=== PATIENT | female | born 1960 | race American Indian/Alaskan Native ===

== ENCOUNTER 2016-07-12 15:34 | Emergency (ER) | payer SELFPAY ==
[~2016-07-12 15:34] MED LIST: ATIVAN ONE
[2016-07-12] MEDS ORDERED: ATIVAN IV ONE (15:35)
[2016-07-12 15:58] LABS: Hematocrit 44.2 % (30.3-42.9); Mean Corpuscular HGB Conc 32 % (30-34); Mean Corpuscular Hemoglobin 28 pg (28-32); Mean Corpuscular Volume 87 fl (79-97); Platelet Count 345 K/mm3 (140-440); Red Blood Count 5.08 M/mm3 (3.65-5.03); Red Cell Distribution Width 13.8 % (13.2-15.2); White Blood Count 16.6 K/mm3 (4.5-11.0)
--- NOTE | 2016-07-12 16:07 | Cat Scan Report ---
CT scan of head without contrast: History: Neuro deficit. Findings: Ventricles are normal in size and midline in location. Periventricular area of low attenuation is noted. No evidence of acute ischemia, hemorrhage or mass. No extra-axial fluid collection. Normal brainstem and cerebellum. Impression: Small vessel ischemic changes. No acute intracranial abnormality. Dr. Zavala was informed of the findings at 4:05 PM on 07/12/16. Bandar Hernandez
[2016-07-12 16:08] LABS: INR 1.01 (0.87-1.13)
[2016-07-12 16:09] LABS: Partial Thromboplastin Time 28.8 Sec. (24.2-36.6)
[2016-07-12 16:11] LABS: Anion Gap 19 mmol/L; Blood Urea Nitrogen 13 mg/dL (7-17); Calcium 9.1 mg/dL (8.4-10.2); Carbon Dioxide 26 mmol/L (22-30); Chloride 99.9 mmol/L (98-107); Glucose 134 mg/dL (65-100); Potassium 4.1 mmol/L (3.6-5.0); Sodium 141 mmol/L (137-145)
--- NOTE | 2016-07-12 16:13 | Emergency Department Report ---
HPI - General Time Seen by Provider: 07/12/16 16:05 - HPI HPI: This is a 56-year-old Afro-D[place] female presents to the emergency department by EMS from home with the complaint of altered mental status and/or possible stroke. The patient was last seen normal at about 6 AM with her left the house. The patient's brother spoke to her on the phone around noon but said that she sounded altered. They tried calling her again about one hour later and the phone was off the hook. The patient's sister saw her around 2:30 PM slumped over in a chair drooling and unresponsive, although her eyes were open. The patient has a history of one CVA in 2003 but he did not leave her with many deficits. She also has a history of multiple sclerosis. She does not have a primary care doctor. She is a former smoker. She was not given any treatment prior to presentation or via EMS in route. ED Past Medical Hx - Past Medical History Hx CVA: Yes Hx Congestive Heart Failure: No Hx Diabetes: No Hx Asthma: Yes Hx COPD: No Additional medical history: IRREGULAR HEART BEAT - Social History Smoking Status: Current Every Day Smoker - Medications Home Medications: Home Medications Medication Instructions Recorded Confirmed Last Taken Type Acetaminophen [Tylenol] 500 mg PO Q8HR PRN 11/01/15 11/01/15 Unknown History Diltiazem HCl [Cardizem Cd] 120 mg PO DAILY #30 cap.er.24h 11/07/15 Unknown Rx ED Review of Systems ROS: Stated complaint: POSS STROKE Other details as noted in HPI Comment: Unobtainable due to pts medical conditions Physical Exam - Physical Exam Physical Exam: GENERAL: The patient is well-developed well-nourished. HEENT: Normocephalic. Atraumatic. Patient will not open her eyes on her own. When they are manually opened there is some slow nystagmus horizontally. Patient has moist mucous membranes. Pupils equal reactive to light bilaterally. NECK: Supple. Trachea is midline. CHEST/LUNGS: Clear to auscultation. There is no respiratory distress noted. HEART/CARDIOVASCULAR: Regular. There is no tachycardia. There is no gallop rub or murmur. ABDOMEN: Abdomen is soft, nontender. Patient has normal bowel sounds. There is no abdominal distention. SKIN: Warm and dry. NEURO: Patient is mostly unresponsive. Nonverbal. She is not following any commands. Patient will reach towards painful stimuli. Patient mostly uses her right upper extremity to do so but if the painful stimuli is to the left hand she will withdraw. MUSCULOSKELETAL: There is no tenderness or deformity. Radial pulse +2 over 4 bilaterally. Cap refill less than 2 seconds. There is no evidence of acute injury. ED Course - Consultations Consultation #1: The patient was seen by Dr. Khan, telemedicine neurology, after speaking with me regarding the patient's presentation and history. Dr. Khan feels that the patient may have some type of atypical CVA versus an exacerbation of her MS versus other underlying etiology. At first he recommends a CT angiography of the head and neck but the patient is allergic to iodine/contrast. Then he recommends an MRA or MRI, but unfortunately our MRI machine is currently down. He feels that the patient is most likely not having a posterior basilar artery occlusion but the patient may benefit from transfer to [facility] since there is no neurology here. 07/12/16 17:07 Consultation #2: I have been in consultation with the neurosurgery/stroke service at [facility], Dr. Palacios, over the past hour or so. Patient has just been accepted to the stepdown unit under his service. 07/12/16 18:22 ED Medical Decision Making - Lab Data Result diagrams: 07/12/16 15:42 07/12/16 15:42 - EKG Data -: EKG Interpreted by Me EKG shows normal: sinus rhythm, axis, intervals, QRS complexes (LVH), ST-T waves Rate: normal - EKG Data When compared to previous EKG there are: previous EKG unavailable Interpretation: LVH - Radiology Data Radiology results: report reviewed, image reviewed interpreted by me: Chest x-ray did not show any acute process. Heart is normal shape and size. No effusions. No pneumothorax. No signs of pneumonia seen. Small vessel ischemic changes. Otherwise no acute cranial process seen. - Medical Decision Making 56 year old female presents to the emergency department after being found altered, slumped over and drooling. This is an acute change from patient's baseline status. Patient last seen normal about 6 AM and seen by myself around 4 PM. This takes her out of the window for TPA if this is indeed a stroke. Stat CT of the head was done that did not show any acute intracranial process. Patient's labs show a leukocytosis of 16,000 but the patient does not have any fever and no focus of infection was seen. Urinalysis was clean for UTI. Chest x-ray does not show any pneumonia. The rest the patient's labs are mostly unremarkable. Patient showed some improvement during her ED course in terms of displaying that she wants to respond but she still does not appear able to do so. The telemedicine neurologist was consult at the beginning and recommends transfer if possible as we do not have the capabilities of further evaluation. Patient is allergic to IV contrast so no CT angiography can be done. Our MRI machine is down. We do not have neurology. For these reasons I spoke with [facility] who has accepted the patient for transfer and patient is currently awaiting helicopter transportation. Patient could have an exacerbation of her MS, a focal seizure, atypical stroke such as a posterior basilar artery occlusion, among other etiologies. However we do not have the capabilities to do further evaluation. Vital signs stable throughout ED course. - Differential Diagnosis CVA, MS, hemorrhagic stroke, dementia, substance abuse Critical Care Time: Yes Critical care time in (mins) excluding proc time.: 35 Critical care attestation.: If time is entered above; I have spent that time in minutes in the direct care of this critically ill patient, excluding procedure time. Critical care time was spent on this patient and doing her initial evaluation, multiple re- evaluations, consultation with the telemedicine neurologist, consultation with the [facility] neurosurgeon/stroke attending, discussions with family, ordering and evaluation of labs and imaging, EKG interpretation, and disposition planning. All this is exclusive of any procedures, of which there were none. Critical Care Time: 35 mins ED Disposition Clinical Impression: Multiple sclerosis CVA (cerebral vascular accident) Qualifiers: CVA mechanism: unspecified Qualified Code(s): I63.9 - Cerebral infarction, unspecified Altered mental status Qualifiers: Altered mental status type: unspecified Qualified Code(s): R41.82 - Altered mental status, unspecified Disposition: DC/TX ANOTHER TYPE HEALTHCARE Is pt being admited?: No Condition: Serious Referrals: PRIMARY CARE, [Primary Care Provider] - 3-5 Days Time of Disposition: 19:32
[2016-07-12] MEDS ORDERED: NARCAN 2 MG/2 ML IV ONE (16:56)
[2016-07-12] MEDS ORDERED: KEPPRA 1,000 MG/NS 0.75% 100ML 1,000 MG/100 ML BAG IV ONE (16:57)
[2016-07-12 17:16] LABS: Basophils % (Manual) 0 % (0.0-1.8); Blastocytes % (Manual) 0 %; Diff Status Complete; Eosinophils % (Manual) 0 % (0.0-4.3); Platelet Estimate Consistent w Auto; RBC Morphology Normal
[2016-07-12 17:43] LABS: Urine Drugs of Abuse Note Disclamer
[2016-07-12 17:55] LABS: Bilirubin,Urine NEG (Negative); Blood,Urine NEG (Negative); Ketones,Urine 20 mg/dL (Negative); Leukocyte Esterase,Urine NEG (Negative); Mucus,Urine 2+ /HPF; Nitrite,Urine POS (Negative); Protein,Urine <15 mg/dL mg/dL (Negative); Urobilinogen,Urine < 2.0 mg/dL (<2.0); WBC,Urine < 1.0 /HPF (0.0-6.0)
[2016-07-12 19:58] VITALS: BP 156/76
--- NOTE | 2016-07-13 10:52 | XRay Report ---
AP CHEST :07/12/16 15:34:00 CLINICAL: Altered mental status. COMPARISON:04/02/13 FINDINGS: Normal heart and pulmonary vasculature. The lungs are normally expanded and clear. The bones and soft tissues are normal. IMPRESSION: Normal chest.
== END 2016-07-12 19:50 | disposition other institution (70) ==
LOC: ED 15:34
DX: G35 Multiple sclerosis (principal); I63.9 Cerebral infarction, unspecified; R41.82 Altered mental status, unspecified; Z86.73 Personal history of transient ischemic attack (TIA), and cerebral infarction without residual deficits; J45.909 Unspecified asthma, uncomplicated; F17.200 Nicotine dependence, unspecified, uncomplicated; Z88.8 Allergy status to other drugs, medicaments and biological substances
CPT/HCPCS: 36415; 51702; 70450; 71010; 80048; 80307; 81001; 82962; 84443; 84484; 85007; 85025; 85610; 85670; 85730; 93005; 93010; 96365; 96375; 99291; G0480; J1953; J2060; J2310; 80320

== ENCOUNTER 2017-01-13 21:04 | Inpatient (IN) | payer SELFPAY ==
[2017-01-13 23:17] LABS: Basophils % (Auto) 0.7 % (0.0-1.8); Eosinophils % (Auto) 3.3 % (0.0-4.3); Hematocrit 40.9 % (30.3-42.9); Hemoglobin 12.6 gm/dl (10.1-14.3); Mean Corpuscular HGB Conc 31 % (30-34); Mean Corpuscular Hemoglobin 26 pg (28-32); Mean Corpuscular Volume 86 fl (79-97); Platelet Count 371 K/mm3 (140-440); Red Blood Count 4.78 M/mm3 (3.65-5.03); Red Cell Distribution Width 15.3 % (13.2-15.2); White Blood Count 8.3 K/mm3 (4.5-11.0)
[2017-01-13 23:21] LABS: Anion Gap 18 mmol/L; BUN/Creatinine Ratio 28.33; Blood Urea Nitrogen 17 mg/dL (7-17); Calcium 9.3 mg/dL (8.4-10.2); Carbon Dioxide 25 mmol/L (22-30); Chloride 100.9 mmol/L (98-107); Glucose 96 mg/dL (65-100); Potassium 4.2 mmol/L (3.6-5.0); Sodium 140 mmol/L (137-145)
--- NOTE | 2017-01-14 10:54 | XRay Report ---
Single view chest: Compared to 07/12/16. History: Chest pain. Findings: Normal cardiomediastinal silhouette the trachea is midline. No consolidation, pneumothorax or pleural effusion. Impression: No acute cardiopulmonary findings.
--- NOTE | 2017-01-14 11:05 | Emergency Department Report ---
HPI - General Chief Complaint: Chest Pain Time Seen by Provider: 01/14/17 10:01 - HPI HPI: 56 yo AA female presents to the emergency department from home, via PD, with multiple complaints. The patient has a history of asthma, CVA with some right- sided weakness, SVT. Patient has multiple complaints including itchy dry hands , right-sided chest discomfort, hand and feet paresthesias, nausea without vomiting. However when the patient was asked exactly what brought her into the emergency Department today, the patient says that she had a falling out with her son and that she called the police because she needed to get out of the house and asked them to take her somewhere safe. The patient says, after asked , that if there was no argument with her son that she would not have called the police or EMS because "I would not have had to." ED Past Medical Hx - Past Medical History Previous Medical History?: Yes Hx CVA: Yes (Right sided weakness) Hx Congestive Heart Failure: No Hx Diabetes: No Hx Asthma: Yes Hx COPD: No Additional medical history: IRREGULAR HEART BEAT - Surgical History Additional Surgical History: x4 - Social History Smoking Status: Never Smoker Substance Use Type: None - Medications Home Medications: Home Medications Medication Instructions Recorded Confirmed Last Taken Type Folic Acid/Multivit-Minerals [One 0.4 mg PO DAILY 01/14/17 01/14/17 01/13/17 History Daily Womens 50 Plus Tab] [place]-3S/Dha/Epa/Fish Oil/D3 [Fish 1 each PO DAILY 01/14/17 01/14/17 01/13/17 History Oil + D3 Softgel] ED Review of Systems ROS: Stated complaint: CHEST PAIN Other details as noted in HPI Comment: All other systems reviewed and negative Constitutional: denies: chills, fever Eyes: denies: eye pain, eye discharge, vision change ENT: denies: ear pain, throat pain Respiratory: denies: cough, shortness of breath, wheezing Cardiovascular: chest pain. denies: palpitations Gastrointestinal: nausea. denies: abdominal pain Genitourinary: denies: urgency, dysuria, discharge Musculoskeletal: denies: back pain, joint swelling, arthralgia Skin: denies: rash, lesions Neurological: paresthesias. denies: confusion Physical Exam - Physical Exam Vital Signs: Vital Signs 01/13/17 01/14/17 01/14/17 22:03 08:06 09:08 Temperature 98.3 F Pulse Rate 62 66 65 Respiratory 20 20 12 Rate Blood Pressure 125/74 134/81 O2 Sat by Pulse 100 100 100 Oximetry 01/14/17 01/14/17 09:09 09:13 Temperature Pulse Rate 69 Respiratory 12 16 Rate Blood Pressure 135/63 O2 Sat by Pulse 99 99 Oximetry Physical Exam: GENERAL: The patient is well-developed well-nourished. HENT: Normocephalic. Atraumatic. Patient has moist mucous membranes. EYES: Extraocular motions are intact. Pupils equal reactive to light bilaterally. NECK: Supple. Trachea is midline. CHEST/LUNGS: Clear to auscultation. There is no respiratory distress noted. HEART/CARDIOVASCULAR: Regular. There is no tachycardia. There is no gallop rub or murmur. ABDOMEN: Abdomen is soft, nontender. Patient has normal bowel sounds. There is no abdominal distention. SKIN: Skin is warm and dry. NEURO: The patient is awake, alert. The patient is cooperative. Withdraws from painful stimuli. Patient is resting comfortably until she is approached and then starts doing some type of shaking and/or tremors that appears to be voluntary. The patient has normal speech. MUSCULOSKELETAL: There is no tenderness or deformity. There is no evidence of acute injury. ED Course Vital Signs 01/13/17 01/14/17 01/14/17 22:03 08:06 09:08 Temperature 98.3 F Pulse Rate 62 66 65 Respiratory 20 20 12 Rate Blood Pressure 125/74 134/81 O2 Sat by Pulse 100 100 100 Oximetry 01/14/17 01/14/17 09:09 09:13 Temperature Pulse Rate 69 Respiratory 12 16 Rate Blood Pressure 135/63 O2 Sat by Pulse 99 99 Oximetry - Reevaluation(s) Reevaluation #1: The patient is resting comfortably. There are no complaints of chest pain. There is no shaking or tremors. I was very open and honest with the patient and it appears as if she is being honest with me as well. Once she realized that social work is working on a safe place for her to go for disposition, she says that she does not have any physical complaints at this time. She denies any CP, SOB, tremors, or any distress. This will be signed out to Dr Brown to follow. 01/14/17 15:34 ED Medical Decision Making - Lab Data Result diagrams: 01/13/17 22:13 01/13/17 22:13 - EKG Data -: EKG Interpreted by Me EKG shows normal: sinus rhythm, axis, intervals, QRS complexes, ST-T waves Rate: normal - EKG Data When compared to previous EKG there are: previous EKG unavailable Interpretation: normal EKG - Radiology Data Radiology results: image reviewed interpreted by me: Chest x-ray does not show any acute process. There are no pleural effusions, obvious pneumonia and there is no pneumothorax. - Medical Decision Making 56-year-old female presented originally for multiple complaints. When we got down to it, it appears more that the patient does not have anywhere to go she had an altercation or confrontation with family and did not feel safe at home. As I started my shift, I got social work involved for discharge planning assistance. Over the course of the day and/or ED course, it appears that the patient's family is now willing to pick her up and/or take her back. They would not immediately agree to financial assistance towards a personal alf. No productive services was contacted for possible abandonment. Since no safe discharge was able to be found, the patient was admitted to the hospital for further evaluation and further case management assistance. Critical Care Time: No Critical care attestation.: If time is entered above; I have spent that time in minutes in the direct care of this critically ill patient, excluding procedure time. ED Disposition Clinical Impression: Discharge planning issues, Family conflict, History of CVA (cerebrovascular accident) Disposition: 09 OP ADMIT IP TO THIS HOSP Is pt being admited?: Yes Condition: Stable Time of Disposition: 15:31
[2017-01-14 13:48] LABS: Bacteria,Urine 2+ /HPF (Negative); Bilirubin,Urine NEG (Negative); Blood,Urine NEG (Negative); Ketones,Urine NEG (Negative); Leukocyte Esterase,Urine SM (Negative); Mucus,Urine 2+ /HPF; Nitrite,Urine POS (Negative); Urobilinogen,Urine < 2.0 mg/dL (<2.0)
--- NOTE | 2017-01-14 18:36 | History and Physical Report ---
History of Present Illness Chief complaint: It hurts when i go to the bathroom History of present illness: 56 YO Female with CVA RHP, Asthma, SVT presents to ED for evaluation. Pt brought in to hospital from home by Police Department. Pt unable to provide coherent and accurate history. Pt history taken from Police Officers, ED Staff, and medical record. Pt complains of difficulty with urination but is unable to quantify how long she has had symptoms. Pt agrees with all symptoms when asked open ended question about presenting symptoms. Pt unable to clarify symptoms. Pt seen and evaluated in ED and underwent urinalysis which was consistent with UTI. Past History Past Medical History: stroke, other (SVT) Past Surgical History: Social history: single, lives with family. denies: smoking, alcohol abuse, prescription drug abuse Family history: CAD, hypertension Medications and Allergies Allergies Allergy/AdvReac Type Severity Reaction Status Date / Time codeine Allergy Hives Verified 11/06/15 19:04 Iodinated Contrast Media - Allergy Hives Verified 04/02/13 07:16 IV Dye Home Medications Medication Instructions Recorded Confirmed Last Taken Type Folic Acid/Multivit-Minerals [One 0.4 mg PO DAILY 01/14/17 01/14/17 01/13/17 History Daily Womens 50 Plus Tab] [place]-3S/Dha/Epa/Fish Oil/D3 [Fish 1 each PO DAILY 01/14/17 01/14/17 01/13/17 History Oil + D3 Softgel] Review of Systems ROS unobtainable: due to mental status Constitutional: no weight loss, no weight gain, no fever, no chills Ears, nose, mouth and throat: no ear pain, no ear discharge, no tinnitis, no decreased hearing, no nose pain, no nasal congestion, no nasal discharge Breasts: no change in shape, no swelling, no mass Cardiovascular: no chest pain, no orthopnea, no palpitations, no rapid/ irregular heart beat Respiratory: no cough, no cough with sputum, no excessive sputum, no hemoptysis Gastrointestinal: no abdominal pain, no nausea, no vomiting, no diarrhea, no constipation Genitourinary Female: dysuria, urgency, no stress incontinence, no post void dribbling, no incomplete emptying, no urge incontinence Rectal: no pain, no incontinence, no bleeding Musculoskeletal: no neck stiffness, no neck pain, no shooting arm pain, no arm numbness/tingling Integumentary: no rash, no pruritis, no redness, no sores, no wounds Neurological: no head injury, no transient paralysis, no paralysis, no weakness , no parathesias Psychiatric: no anxiety, no memory loss, no sleep disturbances Endocrine: no cold intolerance, no heat intolerance, no polyphagia, no excessive thirst Hematologic/Lymphatic: no easy bruising, no easy bleeding Allergic/Immunologic: no urticaria, no allergic rhinitis, no wheezing Exam - Constitutional Vitals: Temp Pulse Resp BP Pulse Ox 98.3 F 73 16 135/54 99 01/13/17 22:03 01/14/17 13:01 01/14/17 13:01 01/14/17 13:01 01/14/17 13:01 General appearance: Present: mild distress - EENT Eyes: Present: PERRL ENT: hearing intact, clear oral mucosa - Neck Neck: Present: supple, normal ROM - Respiratory Respiratory effort: normal Respiratory: bilateral: CTA - Cardiovascular Heart Sounds: Present: S1 & S2. Absent: rub, click - Extremities Extremities: pulses symmetrical, No edema Peripheral Pulses: within normal limits - Abdominal General gastrointestinal: Present: soft, non-tender, non-distended, normal bowel sounds Localized gastrointestinal: tender: suprapubic Female genitourinary: Present: normal - Integumentary Integumentary: Present: clear, warm, dry - Musculoskeletal Musculoskeletal: gait normal, strength equal bilaterally - Psychiatric Psychiatric: appropriate mood/affect, intact judgment & insight - Neurologic Neurologic: CNII-XII intact, moves all extremities Results - Labs CBC & Chem 7: 01/13/17 22:13 01/13/17 22:13 Labs: Abnormal lab results 01/13/17 01/13/17 01/14/17 Range/Units 22:13 22:13 13:31 MCH 26 L (28-32) pg RDW 15.3 H (13.2-15.2) % Creatinine 0.6 L (0.7-1.2) mg/dL Urine WBC (Auto) 10.0 H (0.0-6.0) /HPF Assessment and Plan - Patient Problems (1) UTI (urinary tract infection) Current Visit: Yes Status: Acute Qualifiers: Urinary tract infection type: U Hematuria presence: H Indwelling urinary catheter type: I Encounter type: E Plan to address problem: IV abx, IVF, supportive care, (2) History of CVA (cerebrovascular accident) Current Visit: Yes Status: Chronic Plan to address problem: Continue medical management, (3) Cardiac arrhythmia Current Visit: No Status: Acute Qualifiers: Arrhythmia type: A Atrial fibrillation type: A Atrial flutter type: A Premature depolarization type: P Plan to address problem: SVT: Continue current therapy, Pt asymptomatic at this time. (4) Family conflict Current Visit: Yes Status: Acute Plan to address problem: Case management consult (5) DVT prophylaxis Current Visit: No Status: Acute
[2017-01-14] MEDS ORDERED: DULCOLAX PR PRN (18:37)
[2017-01-14] MEDS ORDERED: TYLENOL PO PRN (18:37)
[2017-01-14] MEDS ORDERED: ZOFRAN IV PRN (18:37)
[2017-01-14] MEDS ORDERED: PROVENTIL IH PRN (18:37)
[2017-01-14] MEDS ORDERED: MILK OF MAGNESIA PO PRN (18:37)
[2017-01-14] MEDS ORDERED: TORADOL IV ONE (18:50)
[2017-01-14] MEDS ORDERED: TORADOL ONE (18:54)
[2017-01-14] MEDS ORDERED: ROCEPHIN/NS 2 GM/100 ML 2 GM/100 ML BAG IV SCH (20:00)
--- NOTE | 2017-01-15 14:04 | Discharge Summary ---
Providers - Providers Date of Admission: 01/14/17 18:37 Date of discharge: 01/15/17 Attending physician: HELADIO RICHEY Primary care physician: [employer] Hospitalization Condition: Stable Disposition: DC-01 TO HOME OR SELFCARE Time spent for discharge: 34 min Exam - Constitutional Vitals: Temp Pulse Resp BP Pulse Ox 98.1 F 60 20 133/86 94 01/15/17 08:01 01/15/17 08:01 01/15/17 08:01 01/15/17 08:01 01/15/17 09:15 Plan Activity: advance as tolerated, fall precautions Diet: low cholesterol, low salt Follow up with: [facility] [Outside] - 3-5 Days PRIMARY CAREMD [Primary Care Provider] - 3-5 Days LUI GOODE MD [Staff Physician] - 3-5 Days Prescriptions: Folic Acid/Multivit-Minerals [One Daily Womens 50 Plus Tab] 0.4 mg PO DAILY #30 tablet Nitrofurantoin Macrocrysta(Nf) [Macrodantin CAP] 100 mg PO QID #12 capsule [place]-3S/Dha/Epa/Fish Oil/D3 [Fish Oil + D3 Softgel] 1 each PO DAILY #30 capsule
[2017-01-15 16:39] VITALS: BP 122/72
== END 2017-01-15 16:00 | disposition home or self-care (01) | DRG 690 ==
LOC: ED 21:04 → 3A 01-14 18:37
PROVIDERS: ADMIT Internal Medicine; ATTEND Internal Medicine
DX: N39.0 Urinary tract infection, site not specified (principal); I47.1 Supraventricular tachycardia; Z86.73 Personal history of transient ischemic attack (TIA), and cerebral infarction without residual deficits; J45.909 Unspecified asthma, uncomplicated; Z82.49 Family history of ischemic heart disease and other diseases of the circulatory system; Z88.5 Allergy status to narcotic agent; Z63.9 Problem related to primary support group, unspecified; I49.9 Cardiac arrhythmia, unspecified
CPT/HCPCS: 36415; 71010; 80048; 81001; 84484; 85025; 93005; 93010; 96365; 96375; J0696; J1885

== ENCOUNTER 2018-07-28 16:38 | Inpatient (IN) | payer MEDICAID ==
[2018-07-28] MEDS ORDERED: VANCOMYCIN 1,000 MG in NACL 0.9% 500 ML 500 ML IV ONE (16:41)
[2018-07-28] MEDS ORDERED: NACL 0.9% 1000 ML IV ONE (16:41)
[2018-07-28] MEDS ORDERED: KEPPRA 1,000 MG/NS 0.75% 100ML 1,000 MG/100 ML BAG IV ONE ×2 (16:43→22:54)
[2018-07-28] MEDS ORDERED: DECADRON IV ONE (16:43)
--- NOTE | 2018-07-28 16:45 | Emergency Department Report ---
ED General Adult HPI - General Chief complaint: Altered Mental Status Stated complaint: SEIZURE Time Seen by Provider: 07/28/18 16:40 Source: EMS (verbal report received from EMS.ems notes not available at time of chart dictation), RN notes reviewed, old records reviewed Mode of arrival: Stretcher Limitations: Altered Mental Status, Physical Limitation - History of Present Illness Initial comments: This is a 58-year-old female. The patient [facility] this facility [facility] a local prison. Patient has a past medical history of multiple sclerosis, seizure, hypertension, lower extremity DVT, history of meningioma resection, currently on systemic anticoagulation, eliquis The patient is brought to the emergency room by emergency medical services for probable seizure and altered mental status. EMS verbally reports that patient was seizing for at least one half hour prior to their arrival. They indicates that the patient was given 2 mg of Ativan at the prison, prior to their arrival. In the field, ambulance, patient given 5 mg of Versed by EMS, which aborted her convulsive activity. Patient remains nonverbal, breathing sonorously, persistently altered, in the field, and in the ambulance. The patient arrives to the emergency room, altered, somnolent, is not able to answer open-ended questions were closed and the questions. EMS verbally reports fever of 102 prior to arrival. Not prison documentation is sparse at this time. No additional history is available at this time. Upon arrival to the emergency room, patient breathing sonorously, and desaturates to 93%. She does not have a gag reflex. No clonic movements of the eyes noted. Given persistently altered mental status, lack of gag reflex, hypoxia, the patient is intubated using rapid sequence induction techniques, with no obvious difficulty. Post intubation x-ray suggested a right upper lobe pneumonia, and left hemithorax pneumonia, pneumonitis. Appropriate placement of endotracheal tube was noted. The patient will be placed on appropriate precautions for meningitis, and she'll be treated empirically for meningitis with vancomycin, ceftriaxone, Decadron and acyclovir. Doxycycline will be added on for atypical pneumonia coverage. The patient will be given IV Keppra, head of bed elevated to 30, and seizure precautions have been ordered. Patient has been in the emergency room so far for about 2-1/2 hours, without additional seizures or convulsive activity. We cannot perform a spinal tap in the emergency room as she is taking eliquis, and we do not know when her last time of eliquis ingestion was. -: This afternoon Radiation: other Quality: other Consistency: other Improves with: other Worsens with: other - Related Data Home Medications Medication Instructions Recorded Confirmed Last Taken Citalopram [Celexa] 20 mg PO QDAY 10/02/17 10/02/17 Unknown Diclofenac Sodium [Pennsaid] 2 gm TP 4XD PRN 10/02/17 10/02/17 Unknown Diltiazem HCl [Diltiazem 24Hr ER] 180 mg PO DAILY 10/02/17 10/02/17 Unknown LORazepam [Ativan] 1 mg PO BID 10/02/17 10/02/17 Unknown Lactulose [Cephulac] 45 ml PO TID 10/02/17 10/02/17 Unknown OXcarbazepine [Trileptal] 900 mg PO Q12HR 10/02/17 10/02/17 Unknown Topiramate [Topamax] 25 mg PO BID 10/02/17 10/02/17 Unknown Previous Rx's Medication Instructions Recorded Last Taken Type Multivit-Minerals/Folic Acid [One 0.4 mg PO DAILY #30 tablet 01/15/17 Unknown Rx Daily Womens 50 Plus Tab] Apixaban [Eliquis] 5 mg PO BID #74 tablet 10/04/17 Unknown Rx Allergies Allergy/AdvReac Type Severity Reaction Status Date / Time codeine Allergy Hives Verified 11/06/15 19:04 fish derived Allergy Unknown Verified 10/02/17 05:23 Iodinated Contrast- Oral and Allergy Hives Verified 04/02/13 07:16 IV Dye ED Review of Systems ROS: Stated complaint: SEIZURE Other details as noted in HPI Comment: Unobtainable due to pts medical conditions ED Past Medical Hx - Past Medical History Hx Hypertension: Yes (Essential) Hx CVA: Yes (Right sided weakness) Hx Congestive Heart Failure: No Hx Diabetes: No Hx Seizures: Yes Hx Asthma: Yes Hx COPD: No Additional medical history: IRREGULAR HEART BEAT - Surgical History Additional Surgical History: x4 - Social History Smoking Status: Never Smoker - Medications Home Medications: Home Medications Medication Instructions Recorded Confirmed Last Taken Type Multivit-Minerals/Folic Acid [One 0.4 mg PO DAILY #30 tablet 01/15/17 10/02/17 Unknown Rx Daily Womens 50 Plus Tab] Citalopram [Celexa] 20 mg PO QDAY 10/02/17 10/02/17 Unknown History Diclofenac Sodium [Pennsaid] 2 gm TP 4XD PRN 10/02/17 10/02/17 Unknown History Diltiazem HCl [Diltiazem 24Hr ER] 180 mg PO DAILY 10/02/17 10/02/17 Unknown History LORazepam [Ativan] 1 mg PO BID 10/02/17 10/02/17 Unknown History Lactulose [Cephulac] 45 ml PO TID 10/02/17 10/02/17 Unknown History OXcarbazepine [Trileptal] 900 mg PO Q12HR 10/02/17 10/02/17 Unknown History Topiramate [Topamax] 25 mg PO BID 10/02/17 10/02/17 Unknown History Apixaban [Eliquis] 5 mg PO BID #74 tablet 10/04/17 Unknown Rx ED Physical Exam - General Limitations: Altered Mental Status General appearance: obtunded - Head Head exam: Present: atraumatic - Eye Eye exam: Present: PERRL - ENT ENT exam: Present: mucous membranes dry, normal external ear exam - Neck Neck exam: Present: normal inspection. Absent: tenderness, meningismus, lymp hadenopathy, thyromegaly - Respiratory Respiratory exam: Present: respiratory distress, rales, rhonchi - Cardiovascular Cardiovascular Exam: Present: normal rhythm, tachycardia, normal heart sounds - GI/Abdominal GI/Abdominal exam: Present: soft. Absent: distended, tenderness, guarding, rebound, rigid, pulsatile mass - Rectal Rectal exam: Present: normal inspection - External exam: Present: normal external exam - Extremities Exam Extremities exam: Present: pedal edema, other (2+ pulses noted in the bilateral upper, lower extremities. Compartments soft. No long bony tenderness. The pelvis is stable.). Absent: tenderness, calf tenderness - Back Exam Back exam: Absent: tenderness, paraspinal tenderness - Neurological Exam Neurological exam: Present: altered, other (initial presenting [place] Coma Scale prior to intubation is 3.) - Psychiatric Psychiatric exam: Present: other (the patient is nonverbal) - Skin Skin exam: Present: dry ED Course - Reevaluation(s) Reevaluation #1: 07/28/18 18:58 Differential diagnosis, including but not limited to: Seizure, pseudoseizure, prolonged post ictal state, pneumonia, urinary tract infection, meningitis, encephalitis Assessment and plan: 58-year-old female with altered mental status, with reported preceding seizures and fevers. Patient is currently intubated. We will treat her supportively, with appropriate broad spectrum antibiotics, steroids, antivirals, antiseizure medications. Not a candidate for lumbar puncture currently as patient is currently taking systemic anticoagulation. Discussed with critical care physicians, Dr. Man, who will follow-up consultation. We will contact the medical team to arrange admission to the intensive care unit once the remainder of her diagnostics result. Reevaluation #2: 07/28/18 21:50 CT scan of the brain is negative for acute disease. The Hospital physician is paged to arrange admission. Reevaluation #3: 07/28/18 21:56 Dr Fairchild to admit to the medical service - Intubation Time Out Performed: No (emergency situation) Sedative: Etomidate Mg Given: 20 Paralytic: Rocuronium Mg Given: 100 Laryngoscope: Jerri Size: 4 Assist Device Used: Bougie ET Tube Size: 7.5 Tube Secured Depth (cm): 23 Tube Secured Location: lips Tube Placement Confirmation: equal breath sounds bilat, no breath sounds over epi, confirmation by capnometr Patient Tolerated Procedure: well Intubation Complications: none Additional Comments: Patient placed on 15 L nasal cannula. Towel rolls inserted underneath the shoulders to align ear to the sternal notch. Receives simultaneous [id number] ventilation. Direct laryngoscopy performed, the anterior aspect of the vallecula is visualized, found to be anterior, and a gum bougie elastic catheter is inserted into the trachea, with palpable clicks appreciated. A 7.5 endotracheal tube is then inserted over the bougie catheter, post intubation x-ray confirms tube placement, and also appropriate end-tidal capnography is appreciated, along with breath sounds in the lung machado, with no breath sounds appreciated in the epigastrium. ED Medical Decision Making - Lab Data Result diagrams: 07/28/18 17:25 Lab Results 07/28/18 07/28/18 07/28/18 Range/Units 17:25 17:25 17:25 PT 14.3 (12.2-14.9) Sec. INR 1.05 (0.87-1.13) APTT 25.0 (24.2-36.6) Sec. POC ABG pH (7.35-7.45) POC ABG pCO2 (35-45) POC ABG pO2 (80-105) POC ABG HCO3 (22-26 mml/L) POC ABG Total CO2 (23-27mmol/L) POC ABG O2 Sat POC ABG Base Excess ((-2) - (+3)mmol/L) FiO2 % Sodium 141 (137-145) mmol/L Potassium 4.1 (3.6-5.0) mmol/L Chloride 109.1 H (98-107) mmol/L Carbon Dioxide 21 L (22-30) mmol/L Anion Gap 15 mmol/L BUN 10 (7-17) mg/dL Creatinine 0.6 L (0.7-1.2) mg/dL Estimated GFR > 60 ml/min BUN/Creatinine Ratio 17 % Glucose 109 H (65-100) mg/dL Lactic Acid 2.00 (0.7-2.0) mmol/L Calcium 7.9 L (8.4-10.2) mg/dL Magnesium (1.7-2.3) mg/dL Total Bilirubin < 0.20 (0.1-1.2) mg/dL ALT 100 H (7-56) units/L Alkaline Phosphatase 168 H (35-129) units/L Total Creatine Kinase (30-135) units/L Troponin T < 0.010 (0.00-0.029) ng/mL Total Protein 5.9 L (6.3-8.2) g/dL Albumin 3.3 L (3.9-5) g/dL Albumin/Globulin Ratio 1.3 % 07/28/18 07/28/18 Range/Units 17:25 18:15 PT (12.2-14.9) Sec. INR (0.87-1.13) APTT (24.2-36.6) Sec. POC ABG pH 7.263 L (7.35-7.45) POC ABG pCO2 42.5 (35-45) POC ABG pO2 138 H (80-105) POC ABG HCO3 19.2 (22-26 mml/L) POC ABG Total CO2 21 (23-27mmol/L) POC ABG O2 Sat 99 POC ABG Base Excess -8 ((-2) - (+3)mmol/L) FiO2 50 % Sodium (137-145) mmol/L Potassium (3.6-5.0) mmol/L Chloride (98-107) mmol/L Carbon Dioxide (22-30) mmol/L Anion Gap mmol/L BUN (7-17) mg/dL Creatinine (0.7-1.2) mg/dL Estimated GFR ml/min BUN/Creatinine Ratio % Glucose (65-100) mg/dL Lactic Acid (0.7-2.0) mmol/L Calcium (8.4-10.2) mg/dL Magnesium 1.70 (1.7-2.3) mg/dL Total Bilirubin (0.1-1.2) mg/dL ALT (7-56) units/L Alkaline Phosphatase (35-129) units/L Total Creatine Kinase 553 H (30-135) units/L Troponin T (0.00-0.029) ng/mL Total Protein (6.3-8.2) g/dL Albumin (3.9-5) g/dL Albumin/Globulin Ratio % - EKG Data -: EKG Interpreted by Me EKG shows normal: sinus rhythm Rate: tachycardia - EKG Data 07/28/18 19:02 Sinus tachycardia, 100 bpm, normal axis, QTC prolonged, low voltage, left ventricular hypertrophy, abnormal EKG, not consistent with ST elevation myocardial infarction. Today's EKG appears to be grossly unchanged from prior EKG from 2017, with the exception of low voltage, left ventricular hypertrophy, and new onset negative deflection of the QRS in lead 3. - Radiology Data Radiology results: report reviewed, image reviewed interpreted by me: Right upper lobe pneumonia, appropriate placement of endotracheal tube, questionable left hemithorax pneumonia. Critical Care Time: Yes Critical care time in (mins) excluding proc time.: 60 Critical care attestation.: If time is entered above; I have spent that time in minutes in the direct care of this critically ill patient, excluding procedure time. ED Disposition Clinical Impression: Acute respiratory failure, History of convulsions, SIRS (systemic inflammatory response syndrome) Disposition: OP ADMIT IP TO THIS HOSP Is pt being admited?: Yes Condition: Critical Referrals: PRIMARY CARE, [Primary Care Provider] - 3-5 Days
[2018-07-28] MEDS ORDERED: ZOVIRAX 800 MG in NACL 0.9% 100 ML IV STA (16:47)
[2018-07-28] MEDS ORDERED: ZEMURON IV ONE (17:00)
[2018-07-28] MEDS ORDERED: ROCEPHIN/NS 2 GM/100 ML 2 GM/100 ML BAG IV SCH (17:00)
[2018-07-28] MEDS ORDERED: AMIDATE IV ONE (17:00)
[2018-07-28] MEDS ORDERED: VANCOMYCIN PHARMACY TO DOSE IV SCH (17:00)
[2018-07-28] MEDS ORDERED: SUBLIMAZE IV PRN (17:14)
[2018-07-28] MEDS ORDERED: ARTIFICIAL TEARS OPHTH OINT OU PRN (17:14)
[2018-07-28] MEDS ORDERED: VERSED IV PRN ×2 (17:14→22:00)
[2018-07-28] MEDS ORDERED: VASELINE LIP THERAPY TP PRN (17:14)
[2018-07-28 17:58] LABS: Alanine Aminotransferase 100 units/L (7-56); Albumin 3.3 g/dL (3.9-5); BUN/Creatinine Ratio 17; Blood Urea Nitrogen 10 mg/dL (7-17); Calcium 7.9 mg/dL (8.4-10.2); Hemolysis Index 48
[2018-07-28] MEDS ORDERED: fentaNYL DRIP Premix 2,000 MCG/100 ML BAG IV SCH (18:00)
[2018-07-28 18:03] LABS: INR 1.05 (0.87-1.13)
--- NOTE | 2018-07-28 20:04 | XRay Report ---
PROCEDURES: XR CHEST 1V AP TECHNIQUE: AP portable view of the chest. Patient is rotated to the right HISTORY: sepsis sz ams COMPARISON: None FINDINGS: Lines, tubes, and devices: Endotracheal tube terminates at the level of clavicles Lungs and pleura: Trachea is normal in position. Lungs are clear of infiltrate, pleural effusion, vas cular congestion, or pneumothorax. Cardiomediastinal silhouette: Cardiac and mediastinal silhouettes are unremarkable. Other: Bony structures are intact. IMPRESSION: No acute cardiopulmonary process seen. This document is electronically signed by Felisa Tapia MD., July 28 2018 06:39:49 PM ET
[2018-07-28] MEDS ORDERED: NACL 0.9% 1000 ML 2,000 ML ONE (20:19)
[2018-07-28] MEDS ORDERED: MIDAZOLAM 100 MG in NACL 0.9% 80 ML IV SCH (20:30)
[2018-07-28] MEDS ORDERED: DOXYCYCLINE HYCLATE 100 MG in NACL 0.9% 250ML 250 ML IV ONE (20:52)
[2018-07-28] MEDS ORDERED: VANCOMYCIN/NS 1 GM/250 ML 1 GM/250 ML BAG IV ONE (21:00)
[2018-07-28] MEDS ORDERED: SUBLIMAZE IV ONE (21:30)
--- NOTE | 2018-07-28 21:46 | Cat Scan Report ---
PROCEDURE: CT HEAD/BRAIN WO CON TECHNIQUE: Axial helical imaging from the skull base to the vertex. HISTORY: ams ssz COMPARISONS: None FINDINGS: There is decreased density in the subcortical and deep white matter of the cerebral hemispheres bilat erally suggestive of areas of demyelination, age and etiology indeterminate. There appears to be a focus of cortical encephalomalacia in the right parafalcine parietal lobe. This may represent chronic postsurgical change or a chronic infarct. There is no evidence of intracranial hemorrhage or mass effect. Ventricular size is concordant with the degree of atrophy. The visualized portions of the orbits, paranasal and mastoid sinuses are unremarkable. The bony structures are notable for previous parieto-occipital craniotomy. There is no evidence of fracture. IMPRESSION: 1. White matter changes most consistent with demyelination, age and etiology indeterminate. 2. Chronic infarct or chronic postsurgical change in the right parietal lobe. 3. Previous parietal occipital craniotomy. Comparison with previous imaging studies would be helpful. If further imaging is required MRI of the brain may be helpful. This document is electronically signed by Denise Daniels MD., July 28 2018 09:44:08 PM ET
[2018-07-28] MEDS ORDERED: VERSED IV ONE (22:00)
[2018-07-28 22:18] LABS: Hematocrit 33.9 % (30.3-42.9); Hemoglobin 11.3 gm/dl (10.1-14.3); Lymphocytes % (Auto) 4.8 % (13.4-35.0); Mean Corpuscular HGB Conc 33 % (30-34); Mean Corpuscular Volume 88 fl (79-97); Platelet Count 368 K/mm3 (140-440); Red Blood Count 3.87 M/mm3 (3.65-5.03); Red Cell Distribution Width 13.9 % (13.2-15.2)
[2018-07-28 22:19] LABS: Basophils % (Auto) 0.2 % (0.0-1.8); Eosinophils # (Auto) 0.1 K/mm3 (0.0-0.4); Eosinophils % (Auto) 0.5 % (0.0-4.3); Lymphocytes # (Auto) 0.6 K/mm3 (1.2-5.4); Monocytes # (Auto) 0.8 K/mm3 (0.0-0.8)
--- NOTE | 2018-07-28 22:49 | History and Physical Report ---
History of Present Illness Date of examination: 07/28/18 History of present illness: 58 year old woman with history of multiple sclerosis, disorder, hypertension, seizure DVT, anxiety was sent to the emergency room because she had a fever at senior living, status post IV Ativan there. Emergency room physician for the p atient was still seizing, EMS was called and 5 mg Versed was given in the field, upon arrival in the emergency room she was sedated, and she was intubated. She was also noted to have fever in the senior living. Patient is unable to give a history, review of systems unobtainable PAST MEDICAL HISTORY: multiple sclerosis, disorder, hypertension, seizure, dvt, anxiety PAST SURGICAL HISTORY:c/section, resection of meningioma SOCIAL HISTORY: smokes, denies alcohol, drugs FAMILY HISTORY: Hypertension Medications and Allergies Allergies Allergy/AdvReac Type Severity Reaction Status Date / Time codeine Allergy Hives Verified 11/06/15 19:04 fish derived Allergy Unknown Verified 10/02/17 05:23 Iodinated Contrast- Oral and Allergy Hives Verified 04/02/13 07:16 IV Dye Home Medications Medication Instructions Recorded Confirmed Last Taken Type Multivit-Minerals/Folic Acid [One 0.4 mg PO DAILY #30 tablet 01/15/17 07/29/18 07/28/18 Rx Daily Womens 50 Plus Tab] Citalopram [Celexa] 20 mg PO QDAY 10/02/17 07/29/18 07/28/18 History Diltiazem HCl [Diltiazem 24Hr ER] 180 mg PO DAILY 10/02/17 07/29/18 07/28/18 His tory LORazepam [Ativan] 1 mg PO BID 10/02/17 07/29/18 07/28/18 History Lactulose [Cephulac] 45 ml PO TID 10/02/17 07/29/18 07/28/18 History OXcarbazepine [Trileptal] 900 mg PO Q12HR 10/02/17 07/29/18 07/28/18 History Topiramate [Topamax] 25 mg PO BID 10/02/17 07/29/18 07/28/18 History Apixaban [Eliquis] 5 mg PO BID #74 tablet 10/04/17 07/29/18 07/28/18 Rx Acetaminophen [Acetaminophen 650 mg ID Q4H PRN #15 supp.rect 07/31/18 Unknown Rx SUPPOS] Acetaminophen [Acetaminophen TAB] 650 mg PO Q4H PRN #15 tablet 07/31/18 Unknown Rx cefUROXime [Ceftin] 500 mg PO BID #10 tablet 07/31/18 Unknown Rx Active Meds: Active Medications Fentanyl (Sublimaze) 50 mcg IV Q10MIN PRN PRN Reason: ANALGESIA Hydrophilic Ointment (Vaseline Lip Therapy) 1 applic TP Q2HR PRN PRN Reason: Dry Lips Fentanyl Citrate (Fentanyl Drip Premix) 2,000 mcg in 100 mls @ 4.4 mls/hr IV TITR NILAM; Protocol Last Admin: 07/28/18 22:23 Dose: 0.56 mcg/kg/hr, 2.464 mls/hr Documented by: Midazolam HCl 100 mg/ Sodium (Chloride) 100 mls @ 2 mls/hr IV TITR NILAM; Protocol Vancomycin HCl 750 mg/ Sodium (Chloride) 265 mls @ 166.667 mls/hr IV ONCE ONE Stop: 07/29/18 03:35 Vancomycin HCl 1,250 mg/ (Sodium Chloride) 275 mls @ 166.667 mls/hr IV Q12H NILAM Midazolam HCl (Versed) 2 mg IV Q10MIN PRN PRN Reason: Sedation Multi-Ingred Cream/Lotion/Oil/Oint (Artificial Tears Ophth Oint) 1 applic OU Q4HR PRN PRN Reason: Dry Eye(s) Exam - Physical Exam Narrative exam: Gen. appearance: Patient lying in bed, no apparent distress HEENT: Normocephalic, atraumatic, pupils equally round and reactive to light, ex traocular movement intact, and no sclericterus,. No JVD or thyromegaly or nodule,neck supple, no carotid bruit ,mucous membranes moist, no exudate or erythema Heart: S1, S2, regular rate and rhythm Lungs: Clear to auscultation bilaterally, breathing comfortable Abdomen: Positive bowel sounds, nontender, nondistended, no organomegaly Extremity: No edema, cyanosis, clubbing Skin: No rash, nodules, warm, dry Neuro: sedated - Constitutional Vitals: Temp Pulse Resp BP Pulse Ox 100 H 11 L 146/80 98 07/28/18 22:30 07/28/18 22:30 07/28/18 22:30 07/28/18 22:30 Results - Labs CBC & Chem 7: 07/31/18 05:44 07/31/18 05:44 Labs: Abnormal lab results 07/28/18 07/28/18 07/28/18 Range/Units 17:25 17:25 17:25 WBC 12.7 H (4.5-11.0) K/mm3 Lymph % (Auto) 4.8 L (13.4-35.0) % Lymph # 0.6 L (1.2-5.4) K/mm3 Seg Neutrophils % 88.5 H (40.0-70.0) % Seg Neutrophils # 11.2 H (1.8-7.7) K/mm3 POC ABG pH (7.35-7.45) POC ABG pO2 (80-105) Chloride 109.1 H (98-107) mmol/L Carbon Dioxide 21 L (22-30) mmol/L Creatinine 0.6 L (0.7-1.2) mg/dL Glucose 109 H (65-100) mg/dL Calcium 7.9 L (8.4-10.2) mg/dL AST 120 H (5-40) units/L ALT 100 H (7-56) units/L Alkaline Phosphatase 168 H (35-129) units/L Total Creatine Kinase 553 H (30-135) units/L Total Protein 5.9 L (6.3-8.2) g/dL Albumin 3.3 L (3.9-5) g/dL Valproic Acid (50-100) ug/mL 07/28/18 07/28/18 Range/Units 18:15 19:11 WBC (4.5-11.0) K/mm3 Lymph % (Auto) (13.4-35.0) % Lymph # (1.2-5.4) K/mm3 Seg Neutrophils % (40.0-70.0) % Seg Neutrophils # (1.8-7.7) K/mm3 POC ABG pH 7.263 L (7.35-7.45) POC ABG pO2 138 H (80-105) Chloride (98-107) mmol/L Carbon Dioxide (22-30) mmol/L Creatinine (0.7-1.2) mg/dL Glucose (65-100) mg/dL Calcium (8.4-10.2) mg/dL AST (5-40) units/L ALT (7-56) units/L Alkaline Phosphatase (35-129) units/L Total Creatine Kinase (30-135) units/L Total Protein (6.3-8.2) g/dL Albumin (3.9-5) g/dL Valproic Acid < 2.8 L (50-100) ug/mL - Imaging and Cardiology EKG: image reviewed Chest x-ray: report reviewed CT Scan - head: report reviewed Assessment and Plan Assessment Acute respiratory failure Seizure, acute on chronic UTI Abnormal LFTs Hypertension Multiple Sclerosis Plan Admit medicine Start IV Rocephin, as well as multiple antibiotics in the emergency room follow cultures, continue Versed drip, consult neurology, critical care Check ultrasound of the abdomen for abnormal LFTs continue appropiate outpatient medications DVT prophylaxis Addendum Follow-up medication reconciliation
[2018-07-28 23:50] LABS: Bilirubin,Urine NEG (Negative); Blood,Urine MOD (Negative); Color,Urine Yellow (Yellow); Mucus,Urine FEW /HPF; Urobilinogen,Urine < 2.0 mg/dL (<2.0)
[2018-07-29 00:18] LABS: WBC,Urine > 182.0 /HPF (0.0-6.0)
[2018-07-29] MEDS ORDERED: VANCOMYCIN 750 MG in NACL 0.9% 250ML 250 ML IV ONE (02:00)
[2018-07-29] MEDS ORDERED: TYLENOL PO PRN (03:17)
[2018-07-29] MEDS ORDERED: SODIUM CHLORIDE FLUSH SYRINGE 10 ML IV PRN (03:17)
[2018-07-29] MEDS ORDERED: TYLENOL PR PRN (03:17)
[2018-07-29] MEDS ORDERED: ZOFRAN IV PRN (03:17)
[2018-07-29 04:52] LABS: Basophils % (Auto) 0.3 % (0.0-1.8); Eosinophils # (Auto) 0.1 K/mm3 (0.0-0.4); Hematocrit 37.3 % (30.3-42.9); Hemoglobin 11.9 gm/dl (10.1-14.3); Lymphocytes # (Auto) 2.2 K/mm3 (1.2-5.4); Lymphocytes % (Auto) 19.2 % (13.4-35.0); Mean Corpuscular HGB Conc 32 % (30-34); Mean Corpuscular Volume 89 fl (79-97); Monocytes # (Auto) 1.5 K/mm3 (0.0-0.8); Monocytes % (Auto) 12.5 % (0.0-7.3); Platelet Count 398 K/mm3 (140-440); Red Cell Distribution Width 14.5 % (13.2-15.2)
[2018-07-29 05:13] LABS: BUN/Creatinine Ratio 18; Blood Urea Nitrogen 7 mg/dL (7-17); Calcium 8.5 mg/dL (8.4-10.2); Hemolysis Index 2
[2018-07-29] MEDS ORDERED: ROCEPHIN/NS 1 GM/50 ML 1 GM/50 ML BAG IV SCH (08:00)
[2018-07-29] MEDS: NACL 0.9% 1000 ML 1,000 ML IV SCH (08:00)
[2018-07-29] MEDS ORDERED: VANCOMYCIN PHARMACY TO DOSE IV SCH (09:00)
[2018-07-29 09:24] LABS: Creatine Kinase MB 7.9 ng/mL (0.0-4.0)
[2018-07-29 09:25] LABS: Alanine Aminotransferase 80 units/L (7-56); Albumin 3.5 g/dL (3.9-5)
[2018-07-29 09:30] LABS: Bilirubin,Direct < 0.2 mg/dL (0-0.2)
[2018-07-29] MEDS ORDERED: ZOVIRAX IV SCH (10:00)
[2018-07-29] MEDS: SODIUM CHLORIDE FLUSH SYRINGE 10 ML IV SCH ×2 (10:00→23:44)
[2018-07-29] MEDS: LOVENOX SUB-Q SCH (10:00)
[2018-07-29] MEDS ORDERED: ROCEPHIN/NS 2 GM/100 ML 2 GM/100 ML BAG IV SCH ×2 (10:00→11:00)
[2018-07-29] MEDS ORDERED: VANCOMYCIN 1,500 MG in NACL 0.9% 500 ML 500 ML IV SCH (10:00)
[2018-07-29] MEDS ORDERED: NACL 0.9% IV SCH (10:00)
[2018-07-29] MEDS ORDERED: VANCOMYCIN 1,250 MG in NACL 0.9% 250ML 250 ML IV SCH (10:00)
[2018-07-29] MEDS ORDERED: PEPCID IV SCH (10:00)
[2018-07-29] MEDS ORDERED: VANCOMYCIN 1,750 MG in NACL 0.9% 500 ML 500 ML IV ONE (11:00)
[2018-07-29] MEDS ORDERED: TOPAMAX PO SCH (11:00)
--- NOTE | 2018-07-29 11:55 | Consultation ---
History of Present Illness Consult date: 07/29/18 Requesting physician: GIRISH TORO Reason for consult: other (AMS) History of present illness: 58 y/o female with prior history of seizure, currently residing at assisted admitted with altered mental status post seizure. Per report, patient had a 30 minute seizure at the facility. Ativan was given which did not abort seizure. Then Versed 5 was given by EMS. Per report this terminated seizure but patient was post-ictal. Per ED, they felt patient could not protect her airway and they electively intubated her and then added continuous sedation. Sedation was stopped in the middle of night and patient actually self extubated before she could be formally evaluated. No Pre intubation ABG was done. Past History Past Medical History: seizures, other Past Surgical History: Other (unable to obtain) Social history: other (lives in facility) Family history: other (unable to obtain) Medications and Allergies Allergies Allergy/AdvReac Type Severity Reaction Status Date / Time codeine Allergy Hives Verified 11/06/15 19:04 fish derived Allergy Unknown Verified 10/02/17 05:23 Iodinated Contrast- Oral and Allergy Hives Verified 04/02/13 07:16 IV Dye Home Medications Medication Instructions Recorded Confirmed Last Taken Type Multivit-Minerals/Folic Acid [One 0.4 mg PO DAILY #30 tablet 01/15/17 10/02/17 Unknown Rx Daily Womens 50 Plus Tab] Citalopram [Celexa] 20 mg PO QDAY 10/02/17 10/02/17 Unknown History Diclofenac Sodium [Pennsaid] 2 gm TP 4XD PRN 10/02/17 10/02/17 Unknown History Diltiazem HCl [Diltiazem 24Hr ER] 180 mg PO DAILY 10/02/17 10/02/17 Unknown History LORazepam [Ativan] 1 mg PO BID 10/02/17 10/02/17 Unknown History Lactulose [Cephulac] 45 ml PO TID 10/02/17 10/02/17 Unknown History OXcarbazepine [Trileptal] 900 mg PO Q12HR 10/02/17 10/02/17 Unknown History Topiramate [Topamax] 25 mg PO BID 10/02/17 10/02/17 Unknown History Apixaban [Eliquis] 5 mg PO BID #74 tablet 10/04/17 Unknown Rx Active Meds: Active Medications Acetaminophen (Tylenol) 650 mg PO Q4H PRN PRN Reason: Pain MILD(1-3)/Fever >100.5/[place] Acetaminophen (Tylenol) 650 mg MA Q4H PRN PRN Reason: Pain MILD(1-3)/Fever >100.5/[place] Enoxaparin Sodium (Lovenox) 40 mg SUB-Q QDAY NILAM Last Admin: 07/29/18 10:00 Dose: 40 mg Documented by: Hydrophilic Ointment (Vaseline Lip Therapy) 1 applic TP Q2HR PRN PRN Reason: Dry Lips Sodium Chloride (Nacl 0.9% 1000 Ml) 1,000 mls @ 125 mls/hr IV DIRECT NILAM Last Admin: 07/29/18 08:00 Dose: 125 mls/hr Documented by: Ceftriaxone Sodium (Rocephin/Ns 2 Gm/100 Ml) 2 gm in 100 mls @ 200 mls/hr IV Q24HR NILAM; Protocol Multi-Ingred Cream/Lotion/Oil/Oint (Artificial Tears Ophth Oint) 1 applic OU Q4HR PRN PRN Reason: Dry Eye(s) Ondansetron HCl (Zofran) 4 mg IV Q8H PRN PRN Reason: Nausea And Vomiting Oxcarbazepine (Trileptal) 900 mg PO BID NILAM Sodium Chloride (Sodium Chloride Flush Syringe 10 Ml) 10 ml IV BID NILAM Sodium Chloride (Sodium Chloride Flush Syringe 10 Ml) 10 ml IV PRN PRN PRN Reason: LINE FLUSH Topiramate (Topamax) 25 mg PO Q12HR NILAM Review of Systems All systems: negative Constitutional: other (patient very sleepy but easily aroused, states that her throat hurts.) Physical Examination Vital signs: Vital Signs Temp Pulse Resp BP 98.7 F 110 H 15 146/84 07/28/18 16:44 07/28/18 16:44 07/28/18 16:44 07/28/18 16:44 General appearance: no acute distress, alert, appears uncomfortable Eyes: non-icteric ENT: oropharynx dry Neck: supple Effort: normal Ascultation: Bilateral: clear Cardiovascular: regular rate and rhythm Gastrointestinal: normoactive bowel sounds, soft Results - Laboratory Findings CBC and BMP: 07/29/18 04:22 07/29/18 04:22 ABG POC ABG pH 7.279 (7.35-7.45) L 07/29/18 04:47 POC ABG pCO2 38.1 (35-45) 07/29/18 04:47 POC ABG pO2 99 (80-105) 07/29/18 04:47 POC ABG HCO3 17.9 (22-26 mml/L) 07/29/18 04:47 POC ABG Total CO2 19 (23-27mmol/L) 07/29/18 04:47 POC ABG O2 Sat 97 07/29/18 04:47 PT/INR, D-dimer PT 14.3 Sec. (12.2-14.9) 07/28/18 17:25 INR 1.05 (0.87-1.13) 07/28/18 17:25 Abnormal lab findings: Abnormal Labs 07/28/18 07/28/18 07/28/18 17:25 17:25 17:25 WBC 12.7 H Lymph % (Auto) 4.8 L [place] % (Auto) Lymph # 0.6 L [place] # Seg Neutrophils % 88.5 H Seg Neutrophils # 11.2 H POC ABG pH POC ABG pO2 Chloride 109.1 H Carbon Dioxide 21 L Creatinine 0.6 L Glucose 109 H Calcium 7.9 L AST 120 H ALT 100 H Alkaline Phosphatase 168 H Total Creatine Kinase 553 H CK-MB (CK-2) Total Protein 5.9 L Albumin 3.3 L Urine WBC (Auto) Phenytoin Valproic Acid 07/28/18 07/28/18 07/28/18 18:15 19:11 23:19 WBC Lymph % (Auto) [place] % (Auto) Lymph # [place] # Seg Neutrophils % Seg Neutrophils # POC ABG pH 7.263 L POC ABG pO2 138 H Chloride Carbon Dioxide Creatinine Glucose Calcium AST ALT Alkaline Phosphatase Total Creatine Kinase CK-MB (CK-2) Total Protein Albumin Urine WBC (Auto) > 182.0 H Phenytoin Valproic Acid < 2.8 L 07/28/18 07/29/18 07/29/18 23:34 04:22 04:22 WBC 11.6 H Lymph % (Auto) [place] % (Auto) 12.5 H Lymph # [place] # 1.5 H Seg Neutrophils % Seg Neutrophils # 7.8 H POC ABG pH POC ABG pO2 Chloride 107.9 H Carbon Dioxide 18 L Creatinine 0.4 L Glucose Calcium AST ALT Alkaline Phosphatase Total Creatine Kinase 475 H CK-MB (CK-2) 6.0 H Total Protein Albumin Urine WBC (Auto) Phenytoin 0.8 L Valproic Acid 07/29/18 07/29/18 07/29/18 04:47 08:48 08:48 WBC Lymph % (Auto) [place] % (Auto) Lymph # [place] # Seg Neutrophils % Seg Neutrophils # POC ABG pH 7.279 L POC ABG pO2 Chloride Carbon Dioxide Creatinine Glucose Calcium AST 53 H ALT 80 H Alkaline Phosphatase 148 H Total Creatine Kinase 529 H CK-MB (CK-2) 7.9 H Total Protein Albumin 3.5 L Urine WBC (Auto) Phenytoin Valproic Acid - Diagnostic Findings Chest x-ray: image reviewed (clear mild cardiomegaly. ) Assessment and Plan 58 y/o female with known seizures, admitted with altered mental status, and found to heave UTI and fever. 1. Most likely, mental status seen in ED secondary to medications vs post-ictal state. Per ED physician, desatted to 93%. Patient electively intubated and now self extubated. 2. De-escalate abx selection and mainly focus on covering UTI bugs 3. Bedside swallow eval 4. If passes then restart all oral medications and feed. CCT 31 minutes.
[2018-07-29] MEDS: TRILEPTAL PO SCH ×2 (12:00→23:46)
--- NOTE | 2018-07-29 13:50 | Ultrasound Report ---
ULTRASOUND ABDOMEN COMPLETE: TECHNIQUE: Transabdominal ultrasound with color Doppler interrogation. HISTORY: Elevated liver function tests. COMPARISON: none. FINDINGS: LIVER: Within normal limits. BILIARY SYSTEM: Within normal limits. PANCREAS: Obscured by bowel gas. SPLEEN: Normal. KIDNEYS: Normal. AORTA/IVC: Normal. ASCITES: None. IMPRESSION: Unremarkable exam.
--- NOTE | 2018-07-29 14:09 | Progress Note ---
Subjective Date of service: 07/29/18 Interval history: WENT OVER THE ct OF THE HEAD EXTENSIVELY AND THERE ARE CLEAR CUT BILATERAL CHANGES OF SEVERE 4 PLUS ms WITH WHITE MATTER ATROPHY AND SCLEROSIS... AGREE WITH MANAGEMENT PLAN Objective - Vital Sign Vital Signs - 12hr 07/29/18 07/29/18 07/29/18 02:24 02:31 02:41 Temperature Pulse Rate 102 H 99 H 97 H Respiratory 16 16 16 Rate Blood Pressure 143/83 143/83 O2 Sat by Pulse 99 98 99 Oximetry 07/29/18 07/29/18 07/29/18 02:51 03:00 03:11 Temperature Pulse Rate 96 H 96 H 92 H Respiratory 16 16 17 Rate Blood Pressure 143/83 132/78 132/78 O2 Sat by Pulse 99 99 Oximetry 07/29/18 07/29/18 07/29/18 03:21 03:31 03:41 Temperature Pulse Rate 105 H 103 H 101 H Respiratory 11 L 14 14 Rate Blood Pressure 132/78 143/83 143/83 O2 Sat by Pulse 100 100 100 Oximetry 07/29/18 07/29/18 07/29/18 03:51 04:00 04:11 Temperature 100.5 F H Pulse Rate 98 H 99 H 98 H Respiratory 16 16 13 Rate Blood Pressure 143/83 150/85 150/85 O2 Sat by Pulse 99 98 99 Oximetry 07/29/18 07/29/18 07/29/18 04:21 04:31 04:41 Temperature Pulse Rate 102 H 97 H 97 H Respiratory 18 13 16 Rate Blood Pressure 150/85 150/85 150/85 O2 Sat by Pulse 100 100 100 Oximetry 07/29/18 07/29/18 07/29/18 04:42 04:51 05:00 Temperature Pulse Rate 98 H 96 H 96 H Respiratory 20 20 Rate Blood Pressure 150/85 150/85 155/84 O2 Sat by Pulse 100 100 96 Oximetry 07/29/18 07/29/18 07/29/18 05:11 05:21 05:31 Temperature Pulse Rate 95 H 98 H 99 H Respiratory 20 20 16 Rate Blood Pressure 155/84 155/84 155/84 O2 Sat by Pulse 98 98 98 Oximetry 07/29/18 07/29/18 07/29/18 05:40 05:41 05:51 Temperature Pulse Rate 97 H 98 H Respiratory 14 16 16 Rate Blood Pressure 155/84 155/84 O2 Sat by Pulse 100 99 98 Oximetry 07/29/18 07/29/18 07/29/18 06:00 06:11 06:21 Temperature Pulse Rate 96 H 102 H 98 H Respiratory 16 16 16 Rate Blood Pressure 152/83 152/83 152/83 O2 Sat by Pulse 100 100 Oximetry 07/29/18 07/29/18 07/29/18 06:31 06:41 06:51 Temperature Pulse Rate 99 H 98 H 114 H Respiratory 16 16 16 Rate Blood Pressure 155/84 155/84 155/84 O2 Sat by Pulse 100 99 99 Oximetry 07/29/18 07/29/18 07/29/18 07:00 07:11 07:21 Temperature Pulse Rate 102 H 102 H 97 H Respiratory 16 16 16 Rate Blood Pressure 139/78 139/78 139/78 O2 Sat by Pulse 99 99 99 Oximetry 07/29/18 07/29/18 07/29/18 07:31 07:41 07:51 Temperature Pulse Rate 103 H 97 H 96 H Respiratory 17 16 16 Rate Blood Pressure 139/78 152/83 152/83 O2 Sat by Pulse 99 99 99 Oximetry 07/29/18 07/29/18 07/29/18 08:00 08:11 08:21 Temperature 99.9 F H Pulse Rate 104 H 100 H 99 H Respiratory 15 17 16 Rate Blood Pressure 150/83 150/83 150/83 O2 Sat by Pulse 100 99 100 Oximetry 07/29/18 07/29/18 07/29/18 08:31 08:41 08:51 Temperature Pulse Rate 100 H 106 H 97 H Respiratory 16 13 17 Rate Blood Pressure 150/83 150/83 150/83 O2 Sat by Pulse 99 99 99 Oximetry 07/29/18 07/29/18 07/29/18 08:57 09:00 09:11 Temperature Pulse Rate 96 H 98 H 96 H Respiratory 16 16 Rate Blood Pressure 150/83 151/85 150/83 O2 Sat by Pulse 99 100 99 Oximetry 07/29/18 07/29/18 07/29/18 09:21 09:31 09:41 Temperature Pulse Rate 94 H 103 H 98 H Respiratory 16 15 17 Rate Blood Pressure 150/83 150/83 150/83 O2 Sat by Pulse 99 99 99 Oximetry 07/29/18 07/29/18 07/29/18 09:51 10:00 10:10 Temperature Pulse Rate 115 H 108 H 103 H Respiratory 14 18 18 Rate Blood Pressure 150/83 161/82 161/82 O2 Sat by Pulse 99 96 97 Oximetry 07/29/18 07/29/18 07/29/18 10:21 10:31 10:41 Temperature Pulse Rate 101 H 104 H 102 H Respiratory 14 13 15 Rate Blood Pressure 155/78 155/78 161/82 O2 Sat by Pulse 100 100 100 Oximetry 07/29/18 07/29/18 07/29/18 10:51 11:00 12:00 Temperature 99.3 F Pulse Rate 101 H 100 H Respiratory 14 15 Rate Blood Pressure 161/82 164/81 O2 Sat by Pulse 100 Oximetry - Laboratory Findings CBC and BMP: 07/29/18 04:22 07/29/18 04:22 Abnormal Lab Findings: Abnormal Labs 07/28/18 07/28/18 07/28/18 17:25 17:25 17:25 WBC 12.7 H Lymph % (Auto) 4.8 L [place] % (Auto) Lymph # 0.6 L [place] # Seg Neutrophils % 88.5 H Seg Neutrophils # 11.2 H POC ABG pH POC ABG pO2 Chloride 109.1 H Carbon Dioxide 21 L Creatinine 0.6 L Glucose 109 H Calcium 7.9 L AST 120 H ALT 100 H Alkaline Phosphatase 168 H Total Creatine Kinase 553 H CK-MB (CK-2) Total Protein 5.9 L Albumin 3.3 L Urine WBC (Auto) Phenytoin Valproic Acid 07/28/18 07/28/18 07/28/18 18:15 19:11 23:19 WBC Lymph % (Auto) [place] % (Auto) Lymph # [place] # Seg Neutrophils % Seg Neutrophils # POC ABG pH 7.263 L POC ABG pO2 138 H Chloride Carbon Dioxide Creatinine Glucose Calcium AST ALT Alkaline Phosphatase Total Creatine Kinase CK-MB (CK-2) Total Protein Albumin Urine WBC (Auto) > 182.0 H Phenytoin Valproic Acid < 2.8 L 07/28/18 07/29/18 07/29/18 23:34 04:22 04:22 WBC 11.6 H Lymph % (Auto) [place] % (Auto) 12.5 H Lymph # [place] # 1.5 H Seg Neutrophils % Seg Neutrophils # 7.8 H POC ABG pH POC ABG pO2 Chloride 107.9 H Carbon Dioxide 18 L Creatinine 0.4 L Glucose Calcium AST ALT Alkaline Phosphatase Total Creatine Kinase 475 H CK-MB (CK-2) 6.0 H Total Protein Albumin Urine WBC (Auto) Phenytoin 0.8 L Valproic Acid 07/29/18 07/29/18 07/29/18 04:47 08:48 08:48 WBC Lymph % (Auto) [place] % (Auto) Lymph # [place] # Seg Neutrophils % Seg Neutrophils # POC ABG pH 7.279 L POC ABG pO2 Chloride Carbon Dioxide Creatinine Glucose Calcium AST 53 H ALT 80 H Alkaline Phosphatase 148 H Total Creatine Kinase 529 H CK-MB (CK-2) 7.9 H Total Protein Albumin 3.5 L Urine WBC (Auto) Phenytoin Valproic Acid
--- NOTE | 2018-07-29 14:25 | Progress Note ---
Subjective Date of service: 07/29/18 Interval history: called the daughter Callie and gave complete update I will follow up re MS plan EEG Objective - Vital Sign Vital Signs - 12hr 07/29/18 07/29/18 07/29/18 02:31 02:41 02:51 Temperature Pulse Rate 99 H 97 H 96 H Respiratory 16 16 16 Rate Blood Pressure 143/83 143/83 143/83 O2 Sat by Pulse 98 99 99 Oximetry 07/29/18 07/29/18 07/29/18 03:00 03:11 03:21 Temperature Pulse Rate 96 H 92 H 105 H Respiratory 16 17 11 L Rate Blood Pressure 132/78 132/78 132/78 O2 Sat by Pulse 99 100 Oximetry 07/29/18 07/29/18 07/29/18 03:31 03:41 03:51 Temperature Pulse Rate 103 H 101 H 98 H Respiratory 14 14 16 Rate Blood Pressure 143/83 143/83 143/83 O2 Sat by Pulse 100 100 99 Oximetry 07/29/18 07/29/18 07/29/18 04:00 04:11 04:21 Temperature 100.5 F H Pulse Rate 99 H 98 H 102 H Respiratory 16 13 18 Rate Blood Pressure 150/85 150/85 150/85 O2 Sat by Pulse 98 99 100 Oximetry 07/29/18 07/29/18 07/29/18 04:31 04:41 04:42 Temperature Pulse Rate 97 H 97 H 98 H Respiratory 13 16 Rate Blood Pressure 150/85 150/85 150/85 O2 Sat by Pulse 100 100 100 Oximetry 07/29/18 07/29/18 07/29/18 04:51 05:00 05:11 Temperature Pulse Rate 96 H 96 H 95 H Respiratory 20 20 20 Rate Blood Pressure 150/85 155/84 155/84 O2 Sat by Pulse 100 96 98 Oximetry 07/29/18 07/29/18 07/29/18 05:21 05:31 05:40 Temperature Pulse Rate 98 H 99 H Respiratory 20 16 14 Rate Blood Pressure 155/84 155/84 O2 Sat by Pulse 98 98 100 Oximetry 07/29/18 07/29/18 07/29/18 05:41 05:51 06:00 Temperature Pulse Rate 97 H 98 H 96 H Respiratory 16 16 16 Rate Blood Pressure 155/84 155/84 152/83 O2 Sat by Pulse 99 98 Oximetry 07/29/18 07/29/18 07/29/18 06:11 06:21 06:31 Temperature Pulse Rate 102 H 98 H 99 H Respiratory 16 16 16 Rate Blood Pressure 152/83 152/83 155/84 O2 Sat by Pulse 100 100 100 Oximetry 07/29/18 07/29/18 07/29/18 06:41 06:51 07:00 Temperature Pulse Rate 98 H 114 H 102 H Respiratory 16 16 16 Rate Blood Pressure 155/84 155/84 139/78 O2 Sat by Pulse 99 99 99 Oximetry 07/29/18 07/29/18 07/29/18 07:11 07:21 07:31 Temperature Pulse Rate 102 H 97 H 103 H Respiratory 16 16 17 Rate Blood Pressure 139/78 139/78 139/78 O2 Sat by Pulse 99 99 99 Oximetry 07/29/18 07/29/18 07/29/18 07:41 07:51 08:00 Temperature 99.9 F H Pulse Rate 97 H 96 H 104 H Respiratory 16 16 15 Rate Blood Pressure 152/83 152/83 150/83 O2 Sat by Pulse 99 99 100 Oximetry 07/29/18 07/29/18 07/29/18 08:11 08:21 08:31 Temperature Pulse Rate 100 H 99 H 100 H Respiratory 17 16 16 Rate Blood Pressure 150/83 150/83 150/83 O2 Sat by Pulse 99 100 99 Oximetry 07/29/18 07/29/18 07/29/18 08:41 08:51 08:57 Temperature Pulse Rate 106 H 97 H 96 H Respiratory 13 17 Rate Blood Pressure 150/83 150/83 150/83 O2 Sat by Pulse 99 99 99 Oximetry 07/29/18 07/29/18 07/29/18 09:00 09:11 09:21 Temperature Pulse Rate 98 H 96 H 94 H Respiratory 16 16 16 Rate Blood Pressure 151/85 150/83 150/83 O2 Sat by Pulse 100 99 99 Oximetry 07/29/18 07/29/18 07/29/18 09:31 09:41 09:51 Temperature Pulse Rate 103 H 98 H 115 H Respiratory 15 17 14 Rate Blood Pressure 150/83 150/83 150/83 O2 Sat by Pulse 99 99 99 Oximetry 07/29/18 07/29/18 07/29/18 10:00 10:10 10:21 Temperature Pulse Rate 108 H 103 H 101 H Respiratory 18 18 14 Rate Blood Pressure 161/82 161/82 155/78 O2 Sat by Pulse 96 97 100 Oximetry 07/29/18 07/29/18 07/29/18 10:31 10:41 10:51 Temperature Pulse Rate 104 H 102 H 101 H Respiratory 13 15 14 Rate Blood Pressure 155/78 161/82 161/82 O2 Sat by Pulse 100 100 100 Oximetry 07/29/18 07/29/18 11:00 12:00 Temperature 99.3 F Pulse Rate 100 H Respiratory 15 Rate Blood Pressure 164/81 O2 Sat by Pulse Oximetry - Laboratory Findings CBC and BMP: 07/29/18 04:22 07/29/18 04:22 Abnormal Lab Findings: Abnormal Labs 07/28/18 07/28/18 07/28/18 17:25 17:25 17:25 WBC 12.7 H Lymph % (Auto) 4.8 L [place] % (Auto) Lymph # 0.6 L [place] # Seg Neutrophils % 88.5 H Seg Neutrophils # 11.2 H POC ABG pH POC ABG pO2 Chloride 109.1 H Carbon Dioxide 21 L Creatinine 0.6 L Glucose 109 H Calcium 7.9 L AST 120 H ALT 100 H Alkaline Phosphatase 168 H Total Creatine Kinase 553 H CK-MB (CK-2) Total Protein 5.9 L Albumin 3.3 L Urine WBC (Auto) Phenytoin Valproic Acid 07/28/18 07/28/18 07/28/18 18:15 19:11 23:19 WBC Lymph % (Auto) [place] % (Auto) Lymph # [place] # Seg Neutrophils % Seg Neutrophils # POC ABG pH 7.263 L POC ABG pO2 138 H Chloride Carbon Dioxide Creatinine Glucose Calcium AST ALT Alkaline Phosphatase Total Creatine Kinase CK-MB (CK-2) Total Protein Albumin Urine WBC (Auto) > 182.0 H Phenytoin Valproic Acid < 2.8 L 07/28/18 07/29/18 07/29/18 23:34 04:22 04:22 WBC 11.6 H Lymph % (Auto) [place] % (Auto) 12.5 H Lymph # [place] # 1.5 H Seg Neutrophils % Seg Neutrophils # 7.8 H POC ABG pH POC ABG pO2 Chloride 107.9 H Carbon Dioxide 18 L Creatinine 0.4 L Glucose Calcium AST ALT Alkaline Phosphatase Total Creatine Kinase 475 H CK-MB (CK-2) 6.0 H Total Protein Albumin Urine WBC (Auto) Phenytoin 0.8 L Valproic Acid 07/29/18 07/29/18 07/29/18 04:47 08:48 08:48 WBC Lymph % (Auto) [place] % (Auto) Lymph # [place] # Seg Neutrophils % Seg Neutrophils # POC ABG pH 7.279 L POC ABG pO2 Chloride Carbon Dioxide Creatinine Glucose Calcium AST 53 H ALT 80 H Alkaline Phosphatase 148 H Total Creatine Kinase 529 H CK-MB (CK-2) 7.9 H Total Protein Albumin 3.5 L Urine WBC (Auto) Phenytoin Valproic Acid
--- NOTE | 2018-07-29 14:28 | Consultation ---
History of Present Illness - Reason for Consult Consult date: 07/29/18 suspect meningitis Requesting physician: FLAKITO CADE - History of Present Illness 58 y/o female with history of multiple sclerosis, meningioma resection via right parietal craniotomy, seizure, hypertension, lower extremity DVT on eliquis; admitted on 07/28/2018 due to 24 hour history of AMS/seizure and fever at rehab. Details are unclear. No family members at bedside. Patient is currently intubate d. She is lives at [facility]. Spoke with son via phone and he reported also cough for 24h. He stated he believed she was taken her seizures meds. In the ED, temp 98.7-->100.5, HR 110, R 15, O2 sat 93%, BP 146/84. WBC 12.7, Hg 11.3, Plat 368. Creat 0.6. AST 120. ALT 100. Alkphos 100. CK 553. UA 182 wbc, large LE. Blood culture 07/28/2018 no growth today. Sputum culture 07/28/2018 upper resp jaya. XR knee neg. CXR showed no acute cardiopulmonary process. Abd US showed negative. Ct head showed white matter changes most consistent with demyelination, age and etiology indeterminate, chronic infarct or chronic postsurgical change in the right parietal lobe and previous parietal occipital craniotomy. EMS verbally reports that patient was seizing for at least one half hour and fever at 102 prior to their arrival. Received Ativan at the rehab, in route received versed.somnolent. In the ED she was lethargic and SOB/O2 sat 93%, she was intubated. ED staff placed patient on precautions for meningitis, started vancomycin, ceftriaxone, Decadron and acyclovir for meningitis and doxycycline for possible pneumonitis on CXR. LP cannot be done due to Eliquis. Review of Systems: unable to obtain Past History Past Medical History: seizures, other Past Surgical History: Other (unable to obtain) Social history: other (lives in facility) Family history: other (unable to obtain) Medications and Allergies Allergies Allergy/AdvReac Type Severity Reaction Status Date / Time codeine Allergy Hives Verified 11/06/15 19:04 fish derived Allergy Unknown Verified 10/02/17 05:23 Iodinated Contrast- Oral and Allergy Hives Verified 04/02/13 07:16 IV Dye Home Medications Medication Instructions Recorded Confirmed Last Taken Type Multivit-Minerals/Folic Acid [One 0.4 mg PO DAILY #30 tablet 01/15/17 07/29/18 07/28/18 Rx Daily Womens 50 Plus Tab] Citalopram [Celexa] 20 mg PO QDAY 10/02/17 07/29/18 07/28/18 History Diclofenac Sodium [Pennsaid] 2 gm TP 4XD PRN 10/02/17 07/29/18 07/28/18 History Diltiazem HCl [Diltiazem 24Hr ER] 180 mg PO DAILY 10/02/17 07/29/18 07/28/18 History LORazepam [Ativan] 1 mg PO BID 10/02/17 07/29/18 07/28/18 History Lactulose [Cephulac] 45 ml PO TID 10/02/17 07/29/18 07/28/18 History OXcarbazepine [Trileptal] 900 mg PO Q12HR 10/02/17 07/29/18 07/28/18 History Topiramate [Topamax] 25 mg PO BID 10/02/17 07/29/18 07/28/18 History Apixaban [Eliquis] 5 mg PO BID #74 tablet 10/04/17 07/29/18 07/28/18 Rx Active Meds: Active Medications Acetaminophen (Tylenol) 650 mg PO Q4H PRN PRN Reason: Pain MILD(1-3)/Fever >100.5/[place] Acetaminophen (Tylenol) 650 mg [place] Q4H PRN PRN Reason: Pain MILD(1-3)/Fever >100.5/[place] Enoxaparin Sodium (Lovenox) 40 mg SUB-Q QDAY [facility] Last Admin: 07/29/18 10:00 Dose: 40 mg Documented by: Hydrophilic Ointment (Vaseline Lip Therapy) 1 applic TP Q2HR PRN PRN Reason: Dry Lips Sodium Chloride (Nacl 0.9% 1000 Ml) 1,000 mls @ 125 mls/hr IV DIRECT [facility] Last Admin: 07/29/18 08:00 Dose: 125 mls/hr Documented by: Aztreonam (Azactam/Ns 1 Gm/50 Ml) 1 gm in 50 mls @ 50 mls/hr IV Q8HR [facility] Multi-Ingred Cream/Lotion/Oil/Oint (Artificial Tears Ophth Oint) 1 applic OU Q4HR PRN PRN Reason: Dry Eye(s) Ondansetron HCl (Zofran) 4 mg IV Q8H PRN PRN Reason: Nausea And Vomiting Oxcarbazepine (Trileptal) 900 mg PO BID [facility] Sodium Chloride (Sodium Chloride Flush Syringe 10 Ml) 10 ml IV BID [facility] Last Admin: 07/29/18 10:00 Dose: 10 ml Documented by: Sodium Chloride (Sodium Chloride Flush Syringe 10 Ml) 10 ml IV PRN PRN PRN Reason: LINE FLUSH Topiramate (Topamax) 25 mg PO Q12HR [facility] Physical Examination - Physical Exam Narrative exam: General appearance: somnolent in NAD, unclear speech Eyes: anicteric sclerae, moist conjunctivae; no lid-lag; PERRLA HENT: Atraumatic; oropharynx limited +rigth upper lip edema Neck: Trachea midline; supple, no thyromegaly or lymphadenopathy Lungs: lula scattered rhonchi CV: RRR, no murmurs Abdomen: tense, non-tender; +hepatosplenomegaly Extremities: No peripheral edema or extremity lymphadenopathy Skin: Normal temperature, turgor and texture; no rash, ulcers or subcutaneous nodules Psych: no agitated. Neuro: somnolent open eyes unclear speech moving extremities - Constitutional Vitals: Vital Signs Temp Pulse Resp BP Pulse Ox 99.3 F 100 H 15 164/81 100 07/29/18 12:00 07/29/18 11:00 07/29/18 11:00 07/29/18 11:00 07/29/18 10:51 Temperature -Last 24 Hours Temperature 99.3 F Temperature 99.9 F Temperature 100.5 F Temperature 99.6 F Temperature 98.7 F Results - Labs CBC & Chem 7: 07/29/18 04:22 07/29/18 04:22 Labs: Abnormal lab results 07/28/18 07/28/18 07/28/18 Range/Units 17:25 17:25 17:25 WBC 12.7 H (4.5-11.0) K/mm3 Lymph % (Auto) 4.8 L (13.4-35.0) % [place] % (Auto) (0.0-7.3) % Lymph # 0.6 L (1.2-5.4) K/mm3 [place] # (0.0-0.8) K/mm3 Seg Neutrophils % 88.5 H (40.0-70.0) % Seg Neutrophils # 11.2 H (1.8-7.7) K/mm3 POC ABG pH (7.35-7.45) POC ABG pO2 (80-105) Chloride 109.1 H (98-107) mmol/L Carbon Dioxide 21 L (22-30) mmol/L Creatinine 0.6 L (0.7-1.2) mg/dL Glucose 109 H (65-100) mg/dL Calcium 7.9 L (8.4-10.2) mg/dL AST 120 H (5-40) units/L ALT 100 H (7-56) units/L Alkaline Phosphatase 168 H (35-129) units/L Total Creatine Kinase 553 H (30-135) units/L CK-MB (CK-2) (0.0-4.0) ng/mL Total Protein 5.9 L (6.3-8.2) g/dL Albumin 3.3 L (3.9-5) g/dL Urine WBC (Auto) (0.0-6.0) /HPF Phenytoin (10.0-20.0) ug/mL Valproic Acid (50-100) ug/mL 07/28/18 07/28/18 07/28/18 Range/Units 18:15 19:11 23:19 WBC (4.5-11.0) K/mm3 Lymph % (Auto) (13.4-35.0) % [place] % (Auto) (0.0-7.3) % Lymph # (1.2-5.4) K/mm3 [place] # (0.0-0.8) K/mm3 Seg Neutrophils % (40.0-70.0) % Seg Neutrophils # (1.8-7.7) K/mm3 POC ABG pH 7.263 L (7.35-7.45) POC ABG pO2 138 H (80-105) Chloride (98-107) mmol/L Carbon Dioxide (22-30) mmol/L Creatinine (0.7-1.2) mg/dL Glucose (65-100) mg/dL Calcium (8.4-10.2) mg/dL AST (5-40) units/L ALT (7-56) units/L Alkaline Phosphatase (35-129) units/L Total Creatine Kinase (30-135) units/L CK-MB (CK-2) (0.0-4.0) ng/mL Total Protein (6.3-8.2) g/dL Albumin (3.9-5) g/dL Urine WBC (Auto) > 182.0 H (0.0-6.0) /HPF Phenytoin (10.0-20.0) ug/mL Valproic Acid < 2.8 L (50-100) ug/mL 07/28/18 07/29/18 07/29/18 Range/Units 23:34 04:22 04:22 WBC 11.6 H (4.5-11.0) K/mm3 Lymph % (Auto) (13.4-35.0) % [place] % (Auto) 12.5 H (0.0-7.3) % Lymph # (1.2-5.4) K/mm3 [place] # 1.5 H (0.0-0.8) K/mm3 Seg Neutrophils % (40.0-70.0) % Seg Neutrophils # 7.8 H (1.8-7.7) K/mm3 POC ABG pH (7.35-7.45) POC ABG pO2 (80-105) Chloride 107.9 H (98-107) mmol/L Carbon Dioxide 18 L (22-30) mmol/L Creatinine 0.4 L (0.7-1.2) mg/dL Glucose (65-100) mg/dL Calcium (8.4-10.2) mg/dL AST (5-40) units/L ALT (7-56) units/L Alkaline Phosphatase (35-129) units/L Total Creatine Kinase 475 H (30-135) units/L CK-MB (CK-2) 6.0 H (0.0-4.0) ng/mL Total Protein (6.3-8.2) g/dL Albumin (3.9-5) g/dL Urine WBC (Auto) (0.0-6.0) /HPF Phenytoin 0.8 L (10.0-20.0) ug/mL Valproic Acid (50-100) ug/mL 07/29/18 07/29/18 07/29/18 Range/Units 04:47 08:48 08:48 WBC (4.5-11.0) K/mm3 Lymph % (Auto) (13.4-35.0) % [place] % (Auto) (0.0-7.3) % Lymph # (1.2-5.4) K/mm3 [place] # (0.0-0.8) K/mm3 Seg Neutrophils % (40.0-70.0) % Seg Neutrophils # (1.8-7.7) K/mm3 POC ABG pH 7.279 L (7.35-7.45) POC ABG pO2 (80-105) Chloride (98-107) mmol/L Carbon Dioxide (22-30) mmol/L Creatinine (0.7-1.2) mg/dL Glucose (65-100) mg/dL Calcium (8.4-10.2) mg/dL AST 53 H (5-40) units/L ALT 80 H (7-56) units/L Alkaline Phosphatase 148 H (35-129) units/L Total Creatine Kinase 529 H (30-135) units/L CK-MB (CK-2) 7.9 H (0.0-4.0) ng/mL Total Protein (6.3-8.2) g/dL Albumin 3.5 L (3.9-5) g/dL Urine WBC (Auto) (0.0-6.0) /HPF Phenytoin (10.0-20.0) ug/mL Valproic Acid (50-100) ug/mL Assessment and Plan Cultures: Blood culture 07/28/2018 no growth today. Sputum culture 07/28/2018 upper resp jaya. Assessment: 58 y/o female with history of multiple sclerosis, meningioma resection via right parietal craniotomy, seizure, hypertension, lower extremity DVT on eliquis since October 2017; admitted on 07/28/2018 due to 24 hour history of AMS/seizure and fever at rehab: 1) SIRS v/s Sepsis: Present on admission, manifested by fever, tachycardia, hypotension, leukocytosis. Etiology likely multifactorial - UTI +/- seizures. O ther possibilities influenza/aspiration pneumonia. CXR no pneumonia. Blood culture 07/28/2018 no growth today. 2) UTI: CK 553. UA 182 wbc, large LE. 3) Question about meningitis: In the ED, there was mention of presumed meningitis due to fever and AMS, however LP was not able to be done due to el iquis. Her pre-test probability of meningitis is low as she has chronic seizure with active prolonged seizure activity before admission and previous craniotomy. The only way to rule out 100% meningitis is to do a LP. CT head showed white matter changes most consistent with demyelination, age and etiology indeterminate, chronic infarct or chronic postsurgical change in the right parietal lobe and previous parietal occipital craniotomy. ED staff placed patient on precautions for meningitis, started vancomycin, ceftriaxone, Decadron and acyclovir for meningitis. 4) Question about angioedema: there is a large right upper lip swelling which it is unclear if it is traumatic v/s allergic reaction to ceftriaxone. No history of penicillin allergy. 5) AMS/seizures: unclear if she was taking her anti-seizure meds. 6) Recent cough: CXR neg. ?early aspiration pneumonitis. 7) Elevated LFTs: ? chronic seen elevated in 2018. AST 120. ALT 100. Alkphos 100. v/s acute due to rhabdo. Abd US showed negative. 8) Elevated CK: from rhabdo. 9) Resp failure: self extubated Recommendations: - follow-up blood cultures, urine culture - obtain procalcitonin, C-reactive protein (CRP) - check influenza antigen rapid and PCR in nasopharinx - repeat CXR - start aztreonam IV to cover UTI - limiting abx due to presumed angioedema - consider LP and brain MRI if fever continues - monitor possible angioedema Discussed with Dr Man and ICU pharmacist Will follow. Ashanti Wang MD Infectious Diseases [facility] [facility] M [phone] O [phone]
[2018-07-29] MEDS ORDERED: AZACTAM/NS 1 GM/50 ML 1 GM/50 ML VIAL IV SCH (15:00)
[2018-07-29] MEDS: AZACTAM/NS 1 GM/50 ML 1 GM/50 ML VIAL IV SCH (15:30)
--- NOTE | 2018-07-29 17:25 | Progress Note ---
Assessment and Plan Assessment and plan: Patient is a57 year old woman residence of [facility] with history of multiple sclerosis, disorder, hypertension, seizure, DVT, on Procrit since October 2017 Meningioma resection via right parietal craniotomy, anxiety , was sent to the emergency room because she had a fever at halfway, there was concern for seizure and patient was given 5mg of versed and she also recieved ativan on arrival here due to continued seizure. she was intubated for airway protection. Available information appears that the patient had cough prior to presentation. And also appears that the seizure lasted about 1-1/2 hour. The patient had a fever of 102 prior to arrival to the hospital. CXR: CT head Abdominal US Acute respiratory failure Seizure, acute on chronic possible status epilepticus Sepsis secondary to acute cystitis Acute Cystitis Abnormal LFTs Hypertension Multiple Sclerosis Debility secondary to history of meningioma DVT Rhabdomylysis ? Meningitis ? Angioedema Plan Patient self extubated Continue supportive care Follow cultures Continue anticonvulsants ID consulted for further assistance in management doubt meningitis but per ID if patient continues to have fever will obtain MRI of the brain and also LP We'll hold Eliquis at this time for possible lumbar puncture if persistent fever Conveyor Console Operator consult noted ID consult noted Neurology consulted Aspiration precautions Seizure precautions Abx per ID, changed due to concern for possible allergic reaction. Patient in the ED received vancomycin, ceftriaxone, decadrone and acyclovir Monitor CK for possible resolving Rhabdomylysis Obtain further information from family AND Nursing facility DVT/GI prophy The high probability of a clinically significant, sudden or life threatening deterioration of the [PULMONARY, NEURO] system(s) required my full and direct attention, intervention and personal management. The aggregate critical care time was [35] minutes. This time is in addition to time spent performing reported procedures but includes the following: [X] Data Review and interpretation [X] Patient assessment and monitoring of vital signs [X] Documentation [X] Medication orders and management History Interval history: Patient Seen and examined this morning was still intubated and was reexamined later in the afternoon following self extubation. she remains stable and in no acute distress but uncomfortable appearing. Hospitalist Physical - Physical exam Narrative exam: VITAL SIGNS: Reviewed. GENERAL: The patient appeared chronically ill. lethargic HEAD: No signs of head trauma. EYES: Pupils are equal. Extraocular motions intact. EARS: Hearing grossly intact. MOUTH: Oropharynx is normal. Upper lip swelling NECK: No adenopathy, no JVD. CHEST: Chest with Ronchi breath sounds bilaterally. No wheezes. CARDIAC: Regular rate and rhythm. S1 and S2, without murmurs, gallops, or rubs. VASCULAR: + Edema. Peripheral pulses normal and equal in all extremities. ABDOMEN: Soft, non tender and mildly distended. No rebound or guarding, and no masses palpated. Bowel Sounds normal. MUSCULOSKELETAL: limited ROM. Extremities without clubbing, cyanosis. positive trace edema. NEUROLOGIC EXAM: awake, oriented to person No focal sensory or strength deficits. Speech slow. Follows some commands. PSYCHIATRIC: Mood normal. SKIN: No rash or lesions. e - Constitutional Vitals: Temp Pulse Resp BP Pulse Ox 98.4 F 88 14 164/83 100 07/29/18 16:00 07/29/18 14:31 07/29/18 14:31 07/29/18 14:31 07/29/18 14:31 Results - Labs CBC & Chem 7: 07/29/18 04:22 07/29/18 04:22 Labs: Laboratory Last Values WBC 11.6 K/mm3 (4.5-11.0) H 07/29/18 04:22 RBC 4.20 M/mm3 (3.65-5.03) 07/29/18 04:22 Hgb 11.9 gm/dl (10.1-14.3) 07/29/18 04:22 Hct 37.3 % (30.3-42.9) 07/29/18 04:22 MCV 89 fl (79-97) 07/29/18 04:22 MCH 28 pg (28-32) 07/29/18 04:22 MCHC 32 % (30-34) 07/29/18 04:22 RDW 14.5 % (13.2-15.2) 07/29/18 04:22 Plt Count 398 K/mm3 (140-440) 07/29/18 04:22 Lymph % (Auto) 19.2 % (13.4-35.0) 07/29/18 04:22 [place] % (Auto) 12.5 % (0.0-7.3) H 07/29/18 04:22 Eos % (Auto) 1.0 % (0.0-4.3) 07/29/18 04:22 Baso % (Auto) 0.3 % (0.0-1.8) 07/29/18 04:22 Lymph # 2.2 K/mm3 (1.2-5.4) 07/29/18 04:22 [place] # 1.5 K/mm3 (0.0-0.8) H 07/29/18 04:22 Eos # 0.1 K/mm3 (0.0-0.4) 07/29/18 04:22 Baso # 0.0 K/mm3 (0.0-0.1) 07/29/18 04:22 Seg Neutrophils % 67.0 % (40.0-70.0) 07/29/18 04:22 Seg Neutrophils # 7.8 K/mm3 (1.8-7.7) H 07/29/18 04:22 PT 14.3 Sec. (12.2-14.9) 07/28/18 17:25 INR 1.05 (0.87-1.13) 07/28/18 17:25 APTT 25.0 Sec. (24.2-36.6) 07/28/18 17:25 POC ABG pH 7.279 (7.35-7.45) L 07/29/18 04:47 POC ABG pCO2 38.1 (35-45) 07/29/18 04:47 POC ABG pO2 99 (80-105) 07/29/18 04:47 POC ABG HCO3 17.9 (22-26 mml/L) 07/29/18 04:47 POC ABG Total CO2 19 (23-27mmol/L) 07/29/18 04:47 POC ABG O2 Sat 97 07/29/18 04:47 POC ABG Base Excess -9 ((-2) - (+3)mmol/L) 07/29/18 04:47 FiO2 38 % 07/29/18 04:47 Sodium 138 mmol/L (137-145) 07/29/18 04:22 Potassium 3.8 mmol/L (3.6-5.0) 07/29/18 04:22 Chloride 107.9 mmol/L (98-107) H 07/29/18 04:22 Carbon Dioxide 18 mmol/L (22-30) L 07/29/18 04:22 Anion Gap 16 mmol/L 07/29/18 04:22 BUN 7 mg/dL (7-17) 07/29/18 04:22 Creatinine 0.4 mg/dL (0.7-1.2) L 07/29/18 04:22 Estimated GFR > 60 ml/min 07/29/18 04:22 BUN/Creatinine Ratio 18 % 07/29/18 04:22 Glucose 100 mg/dL (65-100) 07/29/18 04:22 Lactic Acid 1.90 mmol/L (0.7-2.0) 07/28/18 19:57 Calcium 8.5 mg/dL (8.4-10.2) 07/29/18 04:22 Magnesium 1.90 mg/dL (1.7-2.3) 07/29/18 15:49 Total Bilirubin 0.30 mg/dL (0.1-1.2) 07/29/18 08:48 Direct Bilirubin < 0.2 mg/dL (0-0.2) 07/29/18 08:48 AST 53 units/L (5-40) H 07/29/18 08:48 ALT 80 units/L (7-56) H 07/29/18 08:48 Alkaline Phosphatase 148 units/L (35-129) H 07/29/18 08:48 Total Creatine Kinase 529 units/L (30-135) H 07/29/18 08:48 CK-MB (CK-2) 7.9 ng/mL (0.0-4.0) H 07/29/18 08:48 CK-MB (CK-2) Rel Index 1.4 (0-4) 07/29/18 08:48 Troponin T < 0.010 ng/mL (0.00-0.029) 07/29/18 08:48 Total Protein 6.4 g/dL (6.3-8.2) 07/29/18 08:48 Albumin 3.5 g/dL (3.9-5) L 07/29/18 08:48 Albumin/Globulin Ratio 1.2 % 07/29/18 08:48 Urine Color Yellow (Yellow) 07/28/18 23:19 Urine Turbidity Turbid (Clear) 07/28/18 23:19 Urine pH 7.0 (5.0-7.0) 07/28/18 23:19 Ur Specific [place] 1.011 (1.003-1.030) 07/28/18 23:19 Urine Protein 30 mg/dl mg/dL (Negative) 07/28/18 23:19 Urine Glucose (UA) Neg mg/dL (Negative) 07/28/18 23:19 Urine Ketones Neg mg/dL (Negative) 07/28/18 23:19 Urine Blood Mod (Negative) 07/28/18 23:19 Urine Nitrite Neg (Negative) 07/28/18 23: Urine Bilirubin Neg (Negative) 07/28/18 23:19 Urine Urobilinogen < 2.0 mg/dL (<2.0) 07/28/18 23:19 Ur Leukocyte Esterase Lg (Negative) 07/28/18 23: Urine WBC (Auto) > 182.0 /HPF (0.0-6.0) H 07/28/18 23:19 Urine RBC (Auto) 86.0 /HPF (0.0-6.0) 07/28/18 23: U Epithel Cells (Auto) 4.0 /HPF (0-13.0) 07/28/18 23:19 Urine WBC Clumps 3+ /HPF 07/28/18 23:19 Urine Mucus Few /HPF 07/28/18 23:19 Phenytoin 0.8 ug/mL (10.0-20.0) L 07/28/18 23:34 Valproic Acid < 2.8 ug/mL (50-100) L 07/28/18 19:11 Active Medications - Current Medications Current Medications: Generic Name Dose Route Start Last Admin Trade Name Freq PRN Reason Stop Dose Admin Acetaminophen 650 mg 07/29/18 03:17 Tylenol PO Q4H PRN Pain MILD(1-3)/Fever >100.5/[place] Acetaminophen 650 mg 07/29/18 03:17 Tylenol [place] Q4H PRN Pain MILD(1-3)/Fever >100.5/[place] Apixaban 5 mg 07/30/18 10:00 Eliquis PO BID [facility] Protocol Citalopram Hydrobromide 20 mg 07/30/18 10:00 Celexa PO QDAY [facility] Enoxaparin Sodium 40 mg 07/29/18 10:00 07/29/18 10:00 Lovenox SUB-Q 40 mg QDAY [facility] Administration Hydrophilic Ointment 1 applic 07/28/18 17:14 Vaseline Lip Therapy TP Q2HR PRN Dry Lips Sodium Chloride 1,000 mls @ 125 mls/hr 07/29/18 04:00 07/29/18 08:00 Nacl 0.9% 1000 Ml IV 125 mls/hr DIRECT [facility] Administration Aztreonam 1 gm in 50 mls @ 50 mls/hr 07/29/18 15:30 07/29/18 15:30 Azactam/Ns 1 Gm/50 Ml IV 50 mls/hr Q8HR [facility] Administration Lactulose 30 gm 07/29/18 20:00 Cephulac PO TID N[facility] Lorazepam 1 mg 07/29/18 22:00 Ativan PO BID N[facility] Miscellaneous Medication 180 mg 07/29/18 18:00 Diltiazem Hcl [Diltiazem 24hr Er] PO DAILY N[facility] Miscellaneous Medication 0.4 mg 07/30/18 10:00 Multivit-Minerals/Folic Acid [One Daily Womens 50 Plus Tab] PO DAILY [facility] Multi-Ingred Cream/Lotion/Oil/Oint 1 applic 07/28/18 17:14 Artificial Tears Ophth Oint OU Q4HR PRN Dry Eye(s) Ondansetron HCl 4 mg 07/29/18 03:17 Zofran IV Q8H PRN Nausea And Vomiting Oxcarbazepine 900 mg 07/29/18 11:00 07/29/18 12:00 Trileptal PO 900 mg BID [facility] Administration Oxcarbazepine 900 mg 07/29/18 22:00 Trileptal PO Q12HR [facility] Sodium Chloride 10 ml 07/29/18 10:00 07/29/18 10:00 Sodium Chloride Flush Syringe 10 Ml IV 10 ml BID [facility] Administration Sodium Chloride 10 ml 07/29/18 03:17 Sodium Chloride Flush Syringe 10 Ml IV PRN PRN LINE FLUSH Topiramate 25 mg 07/29/18 11:00 07/29/18 12:00 Topamax PO 25 mg Q12HR [facility] Administration Topiramate 25 mg 07/29/18 22:00 Topamax PO BID [facility] Nutrition/Malnutrition Assess - Dietary Evaluation Nutrition/Malnutrition Findings: Nutrition Notes Start: 07/29/18 09:21 Freq: Status: Active Protocol: Document 07/29/18 09:21 CP (Rec: 07/29/18 09:[id number]) Co-Sign 07/29/18 09:21 LP Nutrition Notes Need for Assessment generated from: MD Order,Low BMI Initial or Follow up Assessment Current Diagnosis Respiratory Failure Other Pertinent Diagnosis SIRS, UTI, multiple sclerosis, smoker Current Diet NPO Labs/Tests Cr 0.4 Pertinent Medications Reviewed Height 5 ft 6 in Weight 88 kg [place] Body Weight (kg) 59.09 BMI 31.3 Weight Status Obese Subjective/Other Information RD screen for low BMI/evaluate NTR intake. Pt has a BMI of 31.3. Per MD, pt is to remain NPO until further testing is done as discussed during rounds. Percent of energy/protein needs met: 0%/0% Burn Absent Trauma Absent #1 Nutrition Diagnosis Inadequate oral intake Etiology NPO status As Evidenced by Signs and Symptoms Meeting 0% of energy and protein needs Is patient on ventilator? Yes Is Patient Ambulatory and/or Out of Bed No [facility] 4218.053 Calculation [facility]ations [facility] Additional Notes Protein Needs:118g (2g/kg IBW) Fluid 1mL/kcal Nutrition Intervention Change Diet Order: Advance per MD request Goal #1 Diet advancement Anticipated Discharge Needs: Unable to determine at this time Follow-Up By: 07/31/18 Additional Comments F/U: Diet advancement/TF consult
[2018-07-29] MEDS: CARDIZEM CD PO SCH (18:00)
[2018-07-29] MEDS ORDERED: NON-FORMULARY (Diltiazem Hcl [Diltiazem 24hr Er] 180 MG) PO SCH (18:00)
[2018-07-29] MEDS: CEPHULAC PO SCH (20:36)
[2018-07-29] MEDS ORDERED: TRILEPTAL PO SCH (22:00)
[2018-07-29] MEDS: ATIVAN PO SCH (23:43)
[2018-07-29] MEDS: TOPAMAX PO SCH (23:46)
[2018-07-30] MEDS: AZACTAM/NS 1 GM/50 ML 1 GM/50 ML VIAL IV SCH ×3 (01:16→14:14)
[2018-07-30 08:28] LABS: Hematocrit 32.9 % (30.3-42.9); Hemoglobin 10.8 gm/dl (10.1-14.3); Mean Corpuscular HGB Conc 33 % (30-34); Mean Corpuscular Volume 88 fl (79-97); Red Blood Count 3.75 M/mm3 (3.65-5.03); Red Cell Distribution Width 13.8 % (13.2-15.2)
[2018-07-30 08:39] LABS: Alanine Aminotransferase 57 units/L (7-56); Albumin 3.1 g/dL (3.9-5); BUN/Creatinine Ratio 13; Blood Urea Nitrogen 4 mg/dL (7-17); Calcium 8.5 mg/dL (8.4-10.2); Hemolysis Index 37
[2018-07-30] MEDS ORDERED: MULTIVIT MINERALS PO SCH (10:00)
[2018-07-30] MEDS ORDERED: FOLIC ACID PO SCH (10:00)
[2018-07-30] MEDS ORDERED: ELIQUIS PO SCH (10:00)
[2018-07-30 10:22] LABS: Platelet Count 293 K/mm3 (140-440)
--- NOTE | 2018-07-30 10:58 | Progress Note ---
Assessment and Plan Cultures: Blood culture 07/28/2018 no growth today. Sputum culture 07/28/2018 upper resp jaya. Assessment: 58 y/o female with history of multiple sclerosis, meningioma resection via right parietal craniotomy, seizure, hypertension, lower extremity DVT on eliquis since October 2017; admitted on 07/28/2018 due to 24 hour history of AMS/seizure and fever at rehab: 1) Sepsis:Improved, no fever or leukocytosis. Etiology likely multifactorial - UTI +/- seizures. . Blood culture 07/28/2018 no growth today. -Influenza Rapid negative -Influenza PCR- negative 2) UTI: CK 553. UA 182 wbc, large LE. 3) Question about meningitis: It has been ruled out given remarkable improvement in AMS and no fever. In the ED, there was mention of presumed meningitis due to fever and AMS, however LP was not able to be done due to eliquis. Her pre-test probability of meningitis is low as she has chronic s eizure with active prolonged seizure activity before admission and previous craniotomy. The only way to rule out 100% meningitis is to do a LP. CT head showed white matter changes most consistent with demyelination, age and etiology indeterminate, chronic infarct or chronic postsurgical change in the right parietal lobe and previous parietal occipital craniotomy. ED staff placed patient on precautions for meningitis, started vancomycin, ceftriaxone, Decadron and acyclovir for meningitis. 4) Question about angioedema: large right upper lip swelling continuing, On exam, laceration on upper lip, likely traumatic vs allergic. Will restart ceftriaxone, discontinue aztreonam. 5) AMS/seizures: unclear if she was taking her anti-seizure meds. 6) Recent cough: Repeat CXR shows no consolidation. 7) Elevated LFTs: ? chronic seen elevated in 2018. AST 120. ALT 100. Alkphos 100. v/s acute due to rhabdo. Abd US showed negative. 8) Elevated CK: from rhabdo. 9) Resp failure: self extubated Recommendations: - follow-up blood cultures, urine culture - follow-up procalcitonin, C-reactive protein (CRP) - discontinue aztreonam - start ceftriaxone 1gm IV every 24 hours [facility] M: [id number] O:[phone] Subjective Date of service: 07/30/18 Interval history: Patient seen and examined. +upper lip swelling, no Fever,, SOB or rashes. No acute distress. Objective - Exam Narrative Exam: Narrative exam: General appearance: Awake, alert. no acute distress Eyes: anicteric sclerae, moist conjunctivae; no lid-lag; PERRLA HENT: Atraumatic; oropharynx limited +rigth upper lip edema Neck: Trachea midline; supple, no thyromegaly or lymphadenopathy Lungs: lula scattered rhonchi CV: RRR, no murmurs Abdomen: tense, non-tender; +hepatosplenomegaly Extremities: No peripheral edema or extremity lymphadenopathy Skin: Normal temperature, turgor and texture; no rash, ulcers or subcutaneous nodules Psych: calm, cooperative. Neuro: oriented - Constitutional Vitals: Vital Signs Temp Pulse Resp BP Pulse Ox 98.2 F 90 20 132/60 100 07/30/18 06:35 07/30/18 06:35 07/30/18 06:35 07/30/18 06:35 07/30/18 06:35 Temperature -Last 24 Hours Temperature 98.2 F Temperature 98.5 F Temperature 98.7 F Temperature 98.4 F Temperature 99.3 F - Labs CBC & Chem 7: 07/30/18 07:44 07/30/18 07:44 Labs: Abnormal lab results 07/30/18 Range/Units 07:44 Chloride 108.1 H (98-107) mmol/L Carbon Dioxide 20 L (22-30) mmol/L BUN 4 L (7-17) mg/dL Creatinine 0.3 L (0.7-1.2) mg/dL ALT 57 H (7-56) units/L Total Protein 5.8 L (6.3-8.2) g/dL Albumin 3.1 L (3.9-5) g/dL
[2018-07-30] MEDS: ATIVAN PO SCH ×2 (11:29→21:44)
[2018-07-30] MEDS: CEPHULAC PO SCH ×4 (11:29→21:58)
[2018-07-30] MEDS: SODIUM CHLORIDE FLUSH SYRINGE 10 ML IV SCH ×2 (11:30→21:44)
[2018-07-30] MEDS: TOPAMAX PO SCH ×2 (11:30→21:44)
[2018-07-30] MEDS: TRILEPTAL PO SCH ×2 (11:30→21:50)
[2018-07-30] MEDS: celeXA PO SCH (11:30)
[2018-07-30] MEDS: LOVENOX SUB-Q SCH (11:30)
--- NOTE | 2018-07-30 14:01 | XRay Report ---
AP CHEST: HISTORY: Aspiration pneumonia AP view of the chest demonstrates a normal mediastinal and cardiac contour with clear lungs and normal bony and soft tissue structures. IMPRESSION: Unremarkable AP chest.
[2018-07-30] MEDS: CARDIZEM CD PO SCH (14:10)
--- NOTE | 2018-07-30 14:36 | Progress Note ---
Assessment and Plan 58 y/o female with known seizures, admitted with altered mental status, and found to heave UTI and fever. 1. Stable respiratory status, please document that room air sats are above 88% 2. ID following, will defer abx therapy to them 3. Will sign off, call if any questions or concerns. CCT 31 minutes. Subjective Date of service: 07/30/18 Interval history: No acute events. In room with O2 off. Not in any respiratory distress. Requests to be moved over in the bed. Objective Vital Signs - 12hr 07/30/18 07/30/18 06:35 12:15 Temperature 98.2 F 98.7 F Pulse Rate 90 83 Respiratory 20 18 Rate Blood Pressure 132/60 124/68 O2 Sat by Pulse 100 96 Oximetry Constitutional: no acute distress, alert, appears uncomfortable Eyes: non-icteric ENT: oropharynx dry Neck: supple Effort: normal Ascultation: Bilateral: clear Cardiovascular: regular rate and rhythm Gastrointestinal: normoactive bowel sounds, soft CBC and BMP: 07/30/18 07:44 07/30/18 07:44 ABG, PT/INR, D-dimer: ABG POC ABG pH 7.279 (7.35-7.45) L 07/29/18 04:47 POC ABG pCO2 38.1 (35-45) 07/29/18 04:47 POC ABG pO2 99 (80-105) 07/29/18 04:47 POC ABG HCO3 17.9 (22-26 mml/L) 07/29/18 04:47 POC ABG Total CO2 19 (23-27mmol/L) 07/29/18 04:47 POC ABG O2 Sat 97 07/29/18 04:47 PT/INR, D-dimer PT 14.3 Sec. (12.2-14.9) 07/28/18 17:25 INR 1.05 (0.87-1.13) 07/28/18 17:25 Abnormal lab findings: Abnormal Labs 07/28/18 07/28/18 07/28/18 17:25 17:25 17:25 WBC 12.7 H Lymph % (Auto) 4.8 L [place] % (Auto) Lymph # 0.6 L [place] # Seg Neutrophils % 88.5 H Seg Neutrophils # 11.2 H POC ABG pH POC ABG pO2 Chloride 109.1 H Carbon Dioxide 21 L BUN Creatinine 0.6 L Glucose 109 H Calcium 7.9 L AST 120 H ALT 100 H Alkaline Phosphatase 168 H Total Creatine Kinase 553 H CK-MB (CK-2) Total Protein 5.9 L Albumin 3.3 L Urine WBC (Auto) Phenytoin Valproic Acid 07/28/18 07/28/18 07/28/18 18:15 19:11 23:19 WBC Lymph % (Auto) [place] % (Auto) Lymph # [place] # Seg Neutrophils % Seg Neutrophils # POC ABG pH 7.263 L POC ABG pO2 138 H Chloride Carbon Dioxide BUN Creatinine Glucose Calcium AST ALT Alkaline Phosphatase Total Creatine Kinase CK-MB (CK-2) Total Protein Albumin Urine WBC (Auto) > 182.0 H Phenytoin Valproic Acid < 2.8 L 07/28/18 07/29/18 07/29/18 23:34 04:22 04:22 WBC 11.6 H Lymph % (Auto) [place] % (Auto) 12.5 H Lymph # [place] # 1.5 H Seg Neutrophils % Seg Neutrophils # 7.8 H POC ABG pH POC ABG pO2 Chloride 107.9 H Carbon Dioxide 18 L BUN Creatinine 0.4 L Glucose Calcium AST ALT Alkaline Phosphatase Total Creatine Kinase 475 H CK-MB (CK-2) 6.0 H Total Protein Albumin Urine WBC (Auto) Phenytoin 0.8 L Valproic Acid 07/29/18 07/29/18 07/29/18 04:47 08:48 08:48 WBC Lymph % (Auto) [place] % (Auto) Lymph # [place] # Seg Neutrophils % Seg Neutrophils # POC ABG pH 7.279 L POC ABG pO2 Chloride Carbon Dioxide BUN Creatinine Glucose Calcium AST 53 H ALT 80 H Alkaline Phosphatase 148 H Total Creatine Kinase 529 H CK-MB (CK-2) 7.9 H Total Protein Albumin 3.5 L Urine WBC (Auto) Phenytoin Valproic Acid 07/30/18 07/30/18 07:44 07:44 WBC Lymph % (Auto) [place] % (Auto) Lymph # [place] # Seg Neutrophils % Seg Neutrophils # POC ABG pH POC ABG pO2 Chloride 108.1 H Carbon Dioxide 20 L BUN 4 L Creatinine 0.3 L Glucose Calcium AST ALT 57 H Alkaline Phosphatase Total Creatine Kinase 391 H CK-MB (CK-2) Total Protein 5.8 L Albumin 3.1 L Urine WBC (Auto) Phenytoin Valproic Acid
[2018-07-30] MEDS ORDERED: ROCEPHIN/NS 1 GM/50 ML 1 GM/50 ML BAG IV SCH (18:00)
--- NOTE | 2018-07-30 21:44 | Progress Note ---
Assessment and Plan Assessment and plan: Patient is a57 year old woman residence of [facility] with history of multiple sclerosis, disorder, hypertension, seizure, DVT, on Eliquis since October 2017 Meningioma resection via right parietal craniotomy, anxiety , was sent to the emergency room because she had a fever at intermediate, there was concern for seizure and patient was given 5mg of versed and she also recieved ativan on arrival here due to continued seizure. she was intubated for airway protection. Available information appears that the patient had cough prior to presentation. And also appears that the seizure lasted about 1-1/2 hour. The patient had a fever of 102 prior to arrival to the hospital. * Patient self extubated in the ICU * Was transferred to medical floor with no further fever noted. Differential diagnosis of meningitis discontinued * stopped aztreonam and re-start ceftriaxone for UTI. * Patient has a noted upper lip swelling seems more traumatic as there is a mucosal sore and bruise, likely intubation related. * The son at the bedside reports that following her meningioma resection in 2017 was actually improving but on arrival to rehabilitation got worse and has not ambulated since that CXR: unremarkable CT head: 1. White matter changes most consistent with demyelination, age and etiology indeterminate. 2. Chronic infarct or chronic postsurgical change in the right parietal lobe. 3. Previous parietal occipital craniotomy. Comparison with previous imaging studies would be helpful. If further imaging is required MRI of the brain may be helpful. Abdominal US: unremarkable Acute respiratory failure Seizure, acute on chronic possible status epilepticus Sepsis secondary to acute cystitis Acute Cystitis Abnormal LFTs Hypertension Multiple Sclerosis Severe, protein calorie malnutrition Debility secondary to history of meningioma DVT Rhabdomylysis Lip edema-improving Plan Continue supportive care Follow cultures no growth and no further fever Continue anticonvulsants ID consulted for further assistance in management doubt meningitis but per ID if patient continues to have fever will obtain MRI of the brain and also LP Restart Eliquis [facility] consult noted ID consult noted Neurology consulted Aspiration precautions Seizure precautions Abx per ID, DVT/GI prophy Discussed case with patients son. Can discharge in Am if clinically improved. History Interval history: Patient Seen and examined this morning doing well following self extubation. No other adverse event reported. tells me she is hungry Hospitalist Physical - Physical exam Narrative exam: VITAL SIGNS: Reviewed. GENERAL: The patient appeared chronically ill. HEAD: No signs of head trauma. EYES: Pupils are equal. Extraocular motions intact. EARS: Hearing grossly intact. MOUTH: Oropharynx is normal. Upper lip swelling NECK: No adenopathy, no JVD. CHEST: Chest with Ronchi breath sounds bilaterally. No wheezes. CARDIAC: Regular rate and rhythm. S1 and S2, without murmurs, gallops, or rubs. VASCULAR: + Edema. Peripheral pulses normal and equal in all extremities. ABDOMEN: Soft, non tender and mildly distended. No rebound or guarding, and no masses palpated. Bowel Sounds normal. MUSCULOSKELETAL: limited ROM. contracted. Extremities without clubbing, cyanosis. positive trace edema. NEUROLOGIC EXAM: awake, oriented to person No focal sensory or strength deficits. Speech slow. Follows some commands. PSYCHIATRIC: Mood normal. SKIN: see skin assesment e - Constitutional Vitals: Temp Pulse Resp BP Pulse Ox 98.5 F 85 20 133/66 98 07/30/18 16:38 07/30/18 16:38 07/30/18 16:38 07/30/18 16:38 07/30/18 16:38 Results - Labs CBC & Chem 7: 07/30/18 07:44 07/30/18 07:44 Labs: Laboratory Last Values WBC 7.3 K/mm3 (4.5-11.0) 07/30/18 07:44 RBC 3.75 M/mm3 (3.65-5.03) 07/30/18 07:44 Hgb 10.8 gm/dl (10.1-14.3) 07/30/18 07:44 Hct 32.9 % (30.3-42.9) 07/30/18 07:44 MCV 88 fl (79-97) 07/30/18 07:44 MCH 29 pg (28-32) 07/30/18 07:44 MCHC 33 % (30-34) 07/30/18 07:44 RDW 13.8 % (13.2-15.2) 07/30/18 07:44 Plt Count 293 K/mm3 (140-440) 07/30/18 07:44 Lymph % (Auto) 19.2 % (13.4-35.0) 07/29/18 04:22 [place] % (Auto) 12.5 % (0.0-7.3) H 07/29/18 04:22 Eos % (Auto) 1.0 % (0.0-4.3) 07/29/18 04:22 Baso % (Auto) 0.3 % (0.0-1.8) 07/29/18 04:22 Lymph # 2.2 K/mm3 (1.2-5.4) 07/29/18 04:22 [place] # 1.5 K/mm3 (0.0-0.8) H 07/29/18 04:22 Eos # 0.1 K/mm3 (0.0-0.4) 07/29/18 04:22 Baso # 0.0 K/mm3 (0.0-0.1) 07/29/18 04:22 Seg Neutrophils % 67.0 % (40.0-70.0) 07/29/18 04:22 Seg Neutrophils # 7.8 K/mm3 (1.8-7.7) H 07/29/18 04:22 PT 14.3 Sec. (12.2-14.9) 07/28/18 17:25 INR 1.05 (0.87-1.13) 07/28/18 17:25 APTT 25.0 Sec. (24.2-36.6) 07/28/18 17:25 POC ABG pH 7.279 (7.35-7.45) L 07/29/18 04:47 POC ABG pCO2 38.1 (35-45) 07/29/18 04:47 POC ABG pO2 99 (80-105) 07/29/18 04:47 POC ABG HCO3 17.9 (22-26 mml/L) 07/29/18 04:47 POC ABG Total CO2 19 (23-27mmol/L) 07/29/18 04:47 POC ABG O2 Sat 97 07/29/18 04:47 POC ABG Base Excess -9 ((-2) - (+3)mmol/L) 07/29/18 04:47 FiO2 38 % 07/29/18 04:47 Sodium 140 mmol/L (137-145) 07/30/18 07:44 Potassium 3.6 mmol/L (3.6-5.0) 07/30/18 07:44 Chloride 108.1 mmol/L (98-107) H 07/30/18 07:44 Carbon Dioxide 20 mmol/L (22-30) L 07/30/18 07:44 Anion Gap 16 mmol/L 07/30/18 07:44 BUN 4 mg/dL (7-17) L 07/30/18 07:44 Creatinine 0.3 mg/dL (0.7-1.2) L 07/30/18 07:44 Estimated GFR > 60 ml/min 07/30/18 07:44 BUN/Creatinine Ratio 13 % 07/30/18 07:44 Glucose 95 mg/dL (65-100) 07/30/18 07:44 Lactic Acid 1.90 mmol/L (0.7-2.0) 07/28/18 19:57 Calcium 8.5 mg/dL (8.4-10.2) 07/30/18 07:44 Magnesium 1.90 mg/dL (1.7-2.3) 07/29/18 15:49 Total Bilirubin 0.30 mg/dL (0.1-1.2) 07/30/18 07:44 Direct Bilirubin < 0.2 mg/dL (0-0.2) 07/29/18 08:48 AST 34 units/L (5-40) 07/30/18 07:44 ALT 57 units/L (7-56) H 07/30/18 07:44 Alkaline Phosphatase 122 units/L (35-129) 07/30/18 07:44 Total Creatine Kinase 391 units/L (30-135) H 07/30/18 07:44 CK-MB (CK-2) 7.9 ng/mL (0.0-4.0) H 07/29/18 08:48 CK-MB (CK-2) Rel Index 1.4 (0-4) 07/29/18 08:48 Troponin T < 0.010 ng/mL (0.00-0.029) 07/29/18 08:48 Total Protein 5.8 g/dL (6.3-8.2) L 07/30/18 07:44 Albumin 3.1 g/dL (3.9-5) L 07/30/18 07:44 Albumin/Globulin Ratio 1.1 % 07/30/18 07:44 Urine Color Yellow (Yellow) 07/28/18 23:19 Urine Turbidity Turbid (Clear) 07/28/18 23:19 Urine pH 7.0 (5.0-7.0) 07/28/18 23:19 Ur Specific [place] 1.011 (1.003-1.030) 07/28/18 23:19 Urine Protein 30 mg/dl mg/dL (Negative) 07/28/18 23:19 Urine Glucose (UA) Neg mg/dL (Negative) 07/28/18 23:19 Urine Ketones Neg mg/dL (Negative) 07/28/18 23: Urine Blood Mod (Negative) 07/28/18 23:19 Urine Nitrite Neg (Negative) 07/28/18 23:19 Urine Bilirubin Neg (Negative) 07/28/18 23: Urine Urobilinogen < 2.0 mg/dL (<2.0) 07/28/18 23:19 Ur Leukocyte Esterase Lg (Negative) 07/28/18 23:19 Urine WBC (Auto) > 182.0 /HPF (0.0-6.0) H 07/28/18 23:19 Urine RBC (Auto) 86.0 /HPF (0.0-6.0) 07/28/18 23:19 U Epithel Cells (Auto) 4.0 /HPF (0-13.0) 07/28/18 23:19 Urine WBC Clumps 3+ /HPF 07/28/18 23:19 Urine Mucus Few /HPF 07/28/18 23:19 Phenytoin 0.8 ug/mL (10.0-20.0) L 07/28/18 23:34 Valproic Acid < 2.8 ug/mL (50-100) L 07/28/18 19:11 Influenza A (Rapid) Negative (Negative) 07/29/18 Unknown Influenza B (Rapid) Negative (Negative) 07/29/18 Unknown Active Medications - Current Medications Current Medications: Generic Name Dose Route Start Last Admin Trade Name Freq PRN Reason Stop Dose Admin Acetaminophen 650 mg 07/29/18 03:17 Tylenol PO Q4H PRN Pain MILD(1-3)/Fever >100.5/[place] Acetaminophen 650 mg 07/29/18 03:17 Tylenol AK Q4H PRN Pain MILD(1-3)/Fever >100.5/[place] Citalopram Hydrobromide 20 mg 07/30/18 10:00 07/30/18 11:30 Celexa PO 20 mg QDAY NILAM Administration Diltiazem HCl 180 mg 07/29/18 18:00 07/30/18 14:10 Cardizem Cd PO 180 mg QDAY NILAM Administration Enoxaparin Sodium 40 mg 07/29/18 10:00 07/30/18 11:30 Lovenox SUB-Q 40 mg QDAY NILAM Administration Hydrophilic Ointment 1 applic 07/28/18 17:14 Vaseline Lip Therapy TP Q2HR PRN Dry Lips Sodium Chloride 1,000 mls @ 125 mls/hr 07/29/18 04:00 07/29/18 08:00 Nacl 0.9% 1000 Ml IV 125 mls/hr DIRECT NILAM Administration Ceftriaxone Sodium 1 gm in 50 mls @ 100 mls/hr 07/30/18 18:00 07/30/18 18:50 Rocephin/Ns 1 Gm/50 Ml IV 100 mls/hr Q24H NILAM Administration Protocol Lactulose 30 gm 07/29/18 20:00 07/30/18 14:10 Cephulac PO 30 gm TID NILAM Administration Lorazepam 1 mg 07/29/18 22:00 07/30/18 11:29 Ativan PO 1 mg BID NILAM Administration Multi-Ingred Cream/Lotion/Oil/Oint 1 applic 07/28/18 17:14 Artificial Tears Ophth Oint OU Q4HR PRN Dry Eye(s) Ondansetron HCl 4 mg 07/29/18 03:17 Zofran IV Q8H PRN Nausea And Vomiting Oxcarbazepine 900 mg 07/29/18 11:00 07/30/18 11:30 Trileptal PO 900 mg BID NILAM Administration Sodium Chloride 10 ml 07/29/18 10:00 07/30/18 11:30 Sodium Chloride Flush Syringe 10 Ml IV 10 ml BID NILAM Administration Sodium Chloride 10 ml 07/29/18 03:17 Sodium Chloride Flush Syringe 10 Ml IV PRN PRN LINE FLUSH Topiramate 25 mg 07/29/18 22:00 07/30/18 11:30 Topamax PO 25 mg BID NILAM Administration Nutrition/Malnutrition Assess - Dietary Evaluation Nutrition/Malnutrition Findings: Nutrition Notes Start: 07/29/18 09:21 Freq: Status: Active Protocol: Document 07/29/18 09:21 CP (Rec: 07/29/18 09:29 CP [id number]) Co-Sign 07/29/18 09:21 LP Nutrition Notes Need for Assessment generated from: MD Order,Low BMI Initial or Follow up Assessment Current Diagnosis Respiratory Failure Other Pertinent Diagnosis SIRS, UTI, multiple sclerosis, smoker Current Diet NPO Labs/Tests Cr 0.4 Pertinent Medications Reviewed Height 5 ft 6 in Weight 88 kg [place] Body Weight (kg) 59.09 BMI 31.3 Weight Status Obese Subjective/Other Information RD screen for low BMI/evaluate NTR intake. Pt has a BMI of 31.3. Per MD, pt is to remain NPO until further testing is done as discussed during rounds. Percent of energy/protein needs met: 0%/0% Burn Absent Trauma Absent #1 Nutrition Diagnosis Inadequate oral intake Etiology NPO status As Evidenced by Signs and Symptoms Meeting 0% of energy and protein needs Is patient on ventilator? Yes Is Patient Ambulatory and/or Out of Bed No REE-([facility]-confined to bed) [phone] Calculation Used for Recommendations [facility] Additional Notes Protein Needs:118g (2g/kg IBW) Fluid 1mL/kcal Nutrition Intervention Change Diet Order: Advance per MD request Goal #1 Diet advancement Anticipated Discharge Needs: Unable to determine at this time Follow-Up By: 07/31/18 Additional Comments F/U: Diet advancement/TF consult - Attestation Statement I have reviewed and agreed w/ Malnutrition eval & tx plan: Yes
[2018-07-30] MEDS: NACL 0.9% 1000 ML 1,000 ML IV SCH (22:59)
[2018-07-31] MEDS: NACL 0.9% 1000 ML 1,000 ML IV SCH ×2 (06:10→15:12)
[2018-07-31 06:40] LABS: Hematocrit 33.3 % (30.3-42.9); Mean Corpuscular HGB Conc 33 % (30-34); Mean Corpuscular Volume 89 fl (79-97); Platelet Count 363 K/mm3 (140-440); Red Blood Count 3.75 M/mm3 (3.65-5.03); Red Cell Distribution Width 13.9 % (13.2-15.2)
[2018-07-31 07:10] LABS: Alanine Aminotransferase 53 units/L (7-56); Albumin 3.5 g/dL (3.9-5); BUN/Creatinine Ratio 5; Blood Urea Nitrogen 2 mg/dL (7-17); Calcium 8.9 mg/dL (8.4-10.2); Hemolysis Index 30
--- NOTE | 2018-07-31 09:11 | Progress Note ---
Assessment and Plan Cultures: Blood culture 07/28/2018 no growth Sputum culture 07/28/2018 upper resp jaya. Urine culture 07/28/2018 no growth Assessment: 58 y/o female with history of multiple sclerosis, meningioma resection via right parietal craniotomy, seizure, hypertension, lower extremity DVT on eliquis since October 2017; admitted on 07/28/2018 due to 24 hour history of AMS/seizure and fever at rehab: 1) Sepsis Resolved. Etiology likely multifactorial - UTI +/- seizures. . Blood culture 07/28/2018 no growth today. -Influenza Rapid negative -Influenza PCR- negative -CRP - 8.5 2) UTI: CK 553. UA 182 wbc, large LE. 3) Question about meningitis: It has been ruled out given remarkable improvement in AMS and no fever. In the ED, there was mention of presumed meningitis due to fever and AMS, however LP was not able to be done due to eliquis. Her pre-test probability of meningitis is low as she has chronic seizure with active prolonged seizure activity before admission and previous craniotomy. The only way to rule out 100% meningitis is to do a LP. CT head showed white matter changes most consistent with demyelination, age and etiology indeterminate, chronic infarct or chronic postsurgical change in the right parietal lobe and previous parietal occipital craniotomy. ED staff placed patien t on precautions for meningitis, started vancomycin, ceftriaxone, Decadron and acyclovir for meningitis. 4) Question about angioedema: Improved. On exam upper lip swelling seems more traumatic as there is a mucosal sore and bruise, likely intubation related. Discontinue Ceftriaxone, start Ceftin PO. 5) AMS/seizures: Improved. unclear if she was taking her anti-seizure meds. 6) Recent cough: Resolved. Repeat CXR shows no consolidation. 7) Elevated LFTs: ? chronic seen elevated in 2018. AST 120. ALT 100. Alkphos 100. v/s acute due to rhabdo. Abd US showed negative. 8) Elevated CK: from rhabdo. 9) Resp failure: self extubated Dr. Martin will be long goods drier this weekend [phone], please call for questions. Recommendations: - follow-up blood cultures, urine culture - follow-up procalcitonin - discontinue ceftriaxone 1gm IV every 24 hours -Start Ceftin 500 mg PO BID total 7 days ending 08-04-18 Gabriella Chandler NP [facility] M: [phone] [phone] Subjective Date of service: 07/31/18 Interval history: Patient seen and examined. No generalized pain, weakness or SOB. No fevers. Objective - Exam Narrative Exam: Narrative exam: General appearance: Awake, alert. no acute distress Eyes: anicteric sclerae, moist conjunctivae; no lid-lag; PERRLA HENT: Atraumatic; oropharynx limited +rigth upper lip edema - improved Neck: Trachea midline; supple, no thyromegaly or lymphadenopathy Lungs: lula scattered rhonchi , 02 4L/NC CV: RRR, no murmurs Abdomen: tense, non-tender; +hepatosplenomegaly Extremities: No peripheral edema or extremity lymphadenopathy Skin: Normal temperature, turgor and texture; no rash, ulcers or subcutaneous nodules Psych: calm, cooperative. Neuro: oriented - Constitutional Vitals: Vital Signs Temp Pulse Resp BP Pulse Ox 98.3 F 81 20 140/81 99 07/31/18 06:09 07/31/18 06:09 07/31/18 06:09 07/31/18 06:09 07/31/18 06:09 Temperature -Last 24 Hours Temperature 98.3 F Temperature 99.0 F Temperature 98.5 F Temperature 98.7 F - Labs CBC & Chem 7: 07/31/18 05:44 07/31/18 05:44 Labs: Abnormal lab results 07/30/18 07/31/18 07/31/18 Range/Units 07:44 00:00 05:44 Chloride 108.2 H (98-107) mmol/L BUN 2 L (7-17) mg/dL Creatinine 0.4 L (0.7-1.2) mg/dL Total Creatine Kinase 391 H (30-135) units/L C-Reactive Protein 8.50 H (0.00-1.30) mg/dL Total Protein 5.9 L (6.3-8.2) g/dL Albumin 3.5 L (3.9-5) g/dL
[2018-07-31] MEDS: CEPHULAC PO SCH ×2 (10:01→15:05)
[2018-07-31] MEDS: CARDIZEM CD PO SCH (10:02)
[2018-07-31] MEDS: celeXA PO SCH (10:02)
[2018-07-31] MEDS: SODIUM CHLORIDE FLUSH SYRINGE 10 ML IV SCH (10:02)
[2018-07-31] MEDS: LOVENOX SUB-Q SCH (10:02)
[2018-07-31] MEDS: TRILEPTAL PO SCH (10:03)
[2018-07-31] MEDS: ATIVAN PO SCH (10:04)
[2018-07-31] MEDS: TOPAMAX PO SCH (10:36)
[2018-07-31] MEDS ORDERED: CEFTIN PO SCH (12:00)
--- NOTE | 2018-07-31 15:13 | Discharge Summary ---
Providers - Providers Date of Admission: 07/28/18 22:47 Date of discharge: 07/31/18 Attending physician: ANASTASIYA MADISON 07/28/18 17:14 Consult to Dietitian/Nutrition [CONS] Routine Physician Instructions: Reason For Exam: Reason for Consult: Evaluate nutritional intake 07/29/18 03:19 Consult to Physician [CONS] Routine Comment: Consulting Provider: KHADIJAH SEWELL Physician Instructions: Reason For Exam: sz 07/29/18 08:00 Consult to Physician [CONS] Routine Comment: Consulting Provider: CLARITZA DALER Physician Instructions: Reason For Exam: Suspected Meningitis Primary care physician: LICENSED BONDSMAN Hospitalization Condition: Stable Hospital course: Patient is a 58 year old woman residence of [facility] with history of multiple sclerosis disorder, hypertension, seizure, DVT on Eliquis since October 2017 Meningioma resection via right parietal craniotomy and anxiety who presented to [facility] ED dee to fever at [facility], there was concern for seizure and patient was given 5mg of versed and she also received ativan on arrival here due to continued seizure. Then, she was intubated for airway protection. The patient had a fever of 102 prior to arrival to the hospital. Patient self extubated in the ICU. Was transferred to medical floor with no further fever noted. Differential diagnosis of meningitis unlikely discontinued; stopped aztreonam and re-start ceftriaxone for UTI. Patient has a noted upper lip swelling seems more traumatic as there is a mucosal sore and bruise, likely intubation related. The son at the bedside reports that following her meningioma resection in 2017 was actually improving but on arrival to rehabilitation got worse and has not ambulated since that time per report * CXR: unremarkable * CT head: 1. White matter changes most consistent with demyelination, age and etiology indeterminate. 2. Chronic infarct or chronic postsurgical change in the right parietal lobe. 3. Previous parietal occipital craniotomy. Comparison with previous imaging studies would be helpful. If further imaging is required MRI of the brain may be helpful. * Abdominal US: unremarkable Acute respiratory failure, resolved Seizure with status epilepticus Sepsis secondary to acute cystitis Acute encephalopathy, poa Acute Cystitis Abnormal LFTs Hypertension Multiple Sclerosis Severe, protein calorie malnutrition Debility secondary to history of meningioma with functional quadriplegia DVT Rhabdomylysis, mild nontraumatic, cpk <500 Disposition: DC/TX-03 [facility] Time spent for discharge: 36 minutes Core Measure Documentation - Palliative Care Palliative Care/ Comfort Measures: Not Applicable - Core Measures Any of the following diagnoses?: none - VTE Discharge Requirements Deep Vein Thrombosis/Pulmonary Embolism Present on Admission: No Has pt received <5 days of overlap therapy or INR<2.0: No Anticoagulant overlap therapy prescribed at discharge: No Contraindication No Overlap Therapy order at DC: Not Indicated Exam - Physical Exam Narrative exam: GEN: WDWN, NAD, Awake, Alert, Orientated HEENT: NCAT, EOMI, PERRL, OP Clear NECK: supple, no adenopathy, no thyromegaly, no JVD CVS/HEART: RRR, normal S1S2, pulses present bilaterally CHEST/LUNGS: CTA B, Symmetrical chest expansion, good air entry bilaterally GI/Abdomen: soft, NTND, good bowel sounds, no guarding or rebound /Bladder: no suprapubic tenderness, no CVA or paraspinal tenderness EXT/Skin: no c/c/+e, no obvious rash MSK: FROM x 4 Neuro: CN 2-12 grossly intact, no new focal deficits Psych: calm - Constitutional Vitals: Temp Pulse Resp BP Pulse Ox 98.1 F 77 18 146/74 99 07/31/18 12:17 07/31/18 12:17 07/31/18 12:17 07/31/18 12:17 07/31/18 12:17 Plan Activity: up only with assistance, fall precautions, other (no strenous activity and seizure precaution) Diet: regular Follow up with: PRIMARY CAREMD [Primary Care Provider] - 3-5 Days KHADIJAH SEWELL MD [Staff Physician] - 7 Days CLARITZA ADLER MD [Staff Physician] - 7 Days Prescriptions: cefUROXime [Ceftin] 500 mg PO BID #10 tablet
--- NOTE | 2018-07-31 15:19 | Progress Note ---
Assessment and Plan Assessment and plan: Patient is a 58 year old woman residence of [facility] with history of multiple sclerosis disorder, hypertension, seizure, DVT on Eliquis since October 2017 Meningioma resection via right parietal craniotomy and anxiety who presented [facility], there was concern for seizure and patient was given 5mg of versed and she also received ativan on arrival here due to continued seizure. Then, she was intubated for airway protection. The patient had a fever of 102 prior to arrival to the hospital. Patient self extubated in the ICU. Was transferred to medical floor with no further fever noted. Differential diagnosis of meningitis unlikely discontinued; stopped aztreonam and re-start ceftriaxone for UTI. Patient has a noted upper lip swelling seems more traumatic as there is a mucosal sore and bruise, likely intubation related. The son at the bedside reports that following her meningioma resection in 2017 was actually improving but on arrival to rehabilitation got worse and has not ambulated since that time per report * CXR: unremarkable * CT head: 1. White matter changes most consistent with demyelination, age and etiology indeterminate. 2. Chronic infarct or chronic postsurgical change in the right parietal lobe. 3. Previous parietal occipital craniotomy. Comparison with previous imaging studies would be helpful. If further imaging is required MRI of the brain may be helpful. * Abdominal US: unremarkable Acute respiratory failure, resolved Seizure with status epilepticus Sepsis secondary to acute cystitis Acute encephalopathy, poa Acute Cystitis Abnormal LFTs Hypertension Multiple Sclerosis Severe, protein calorie malnutrition Debility secondary to history of meningioma with functional quadriplegia DVT Rhabdomylysis, mild nontraumatic, cpk <500 History Interval history: Patient seen and examined, follow up [facility] Hospitalist Physical - Physical exam Narrative exam: GEN: WDWN, NAD, Awake, Alert, Orientated HEENT: NCAT, EOMI, PERRL, OP Clear NECK: supple, no adenopathy, no thyromegaly, no JVD CVS/HEART: RRR, normal S1S2, pulses present bilaterally CHEST/LUNGS: CTA B, Symmetrical chest expansion, good air entry bilaterally GI/Abdomen: soft, NTND, good bowel sounds, no guarding or rebound /Bladder: no suprapubic tenderness, no CVA or paraspinal tenderness EXT/Skin: no c/c/+e, no obvious rash MSK: FROM x 4 Neuro: CN 2-12 grossly intact, no new focal deficits Psych: calm - Constitutional Vitals: Temp Pulse Resp BP Pulse Ox 98.1 F 77 18 146/74 99 07/31/18 12:17 07/31/18 12:17 07/31/18 12:17 07/31/18 12:17 07/31/18 12:17 Results - Labs CBC & Chem 7: 07/31/18 05:44 07/31/18 05:44 Labs: Laboratory Last Values WBC 5.8 K/mm3 (4.5-11.0) 07/31/18 05:44 RBC 3.75 M/mm3 (3.65-5.03) 07/31/18 05:44 Hgb 11.0 gm/dl (10.1-14.3) 07/31/18 05:44 Hct 33.3 % (30.3-42.9) 07/31/18 05:44 MCV 89 fl (79-97) 07/31/18 05:44 MCH 29 pg (28-32) 07/31/18 05:44 MCHC 33 % (30-34) 07/31/18 05:44 RDW 13.9 % (13.2-15.2) 07/31/18 05:44 Plt Count 363 K/mm3 (140-440) 07/31/18 05:44 Lymph % (Auto) 19.2 % (13.4-35.0) 07/29/18 04:22 Slope % (Auto) 12.5 % (0.0-7.3) H 07/29/18 04:22 Eos % (Auto) 1.0 % (0.0-4.3) 07/29/18 04:22 Baso % (Auto) 0.3 % (0.0-1.8) 07/29/18 04:22 Lymph # 2.2 K/mm3 (1.2-5.4) 07/29/18 04:22 Slope # 1.5 K/mm3 (0.0-0.8) H 07/29/18 04:22 Eos # 0.1 K/mm3 (0.0-0.4) 07/29/18 04:22 Baso # 0.0 K/mm3 (0.0-0.1) 07/29/18 04:22 Seg Neutrophils % 67.0 % (40.0-70.0) 07/29/18 04:22 Seg Neutrophils # 7.8 K/mm3 (1.8-7.7) H 07/29/18 04:22 PT 14.3 Sec. (12.2-14.9) 07/28/18 17:25 INR 1.05 (0.87-1.13) 07/28/18 17:25 APTT 25.0 Sec. (24.2-36.6) 07/28/18 17:25 POC ABG pH 7.279 (7.35-7.45) L 07/29/18 04:47 POC ABG pCO2 38.1 (35-45) 07/29/18 04:47 POC ABG pO2 99 (80-105) 07/29/18 04:47 POC ABG HCO3 17.9 (22-26 mml/L) 07/29/18 04:47 POC ABG Total CO2 19 (23-27mmol/L) 07/29/18 04:47 POC ABG O2 Sat 97 07/29/18 04:47 POC ABG Base Excess -9 ((-2) - (+3)mmol/L) 07/29/18 04:47 FiO2 38 % 07/29/18 04:47 Sodium 144 mmol/L (137-145) 07/31/18 05:44 Potassium 3.7 mmol/L (3.6-5.0) 07/31/18 05:44 Chloride 108.2 mmol/L (98-107) H 07/31/18 05:44 Carbon Dioxide 22 mmol/L (22-30) 07/31/18 05:44 Anion Gap 18 mmol/L 07/31/18 05:44 BUN 2 mg/dL (7-17) L 07/31/18 05:44 Creatinine 0.4 mg/dL (0.7-1.2) L 07/31/18 05:44 Estimated GFR > 60 ml/min 07/31/18 05:44 BUN/Creatinine Ratio 5 % 07/31/18 05:44 Glucose 77 mg/dL (65-100) 07/31/18 05:44 Lactic Acid 1.90 mmol/L (0.7-2.0) 07/28/18 19:57 Calcium 8.9 mg/dL (8.4-10.2) 07/31/18 05:44 Magnesium 1.90 mg/dL (1.7-2.3) 07/29/18 15:49 Total Bilirubin 0.30 mg/dL (0.1-1.2) 07/31/18 05:44 Direct Bilirubin < 0.2 mg/dL (0-0.2) 07/29/18 08:48 AST 29 units/L (5-40) 07/31/18 05:44 ALT 53 units/L (7-56) 07/31/18 05:44 Alkaline Phosphatase 128 units/L (35-129) 07/31/18 05:44 Total Creatine Kinase 391 units/L (30-135) H 07/30/18 07:44 CK-MB (CK-2) 7.9 ng/mL (0.0-4.0) H 07/29/18 08:48 CK-MB (CK-2) Rel Index 1.4 (0-4) 07/29/18 08:48 Troponin T < 0.010 ng/mL (0.00-0.029) 07/29/18 08:48 C-Reactive Protein 8.50 mg/dL (0.00-1.30) H 07/31/18 00:00 Total Protein 5.9 g/dL (6.3-8.2) L 07/31/18 05:44 Albumin 3.5 g/dL (3.9-5) L 07/31/18 05:44 Albumin/Globulin Ratio 1.5 % 07/31/18 05:44 Urine Color Yellow (Yellow) 07/28/18 23:19 Urine Turbidity Turbid (Clear) 07/28/18 23:19 Urine pH 7.0 (5.0-7.0) 07/28/18 23:19 Ur Specific [place] 1.011 (1.003-1.030) 07/28/18 23:19 Urine Protein 30 mg/dl mg/dL (Negative) 07/28/18 23:19 Urine Glucose (UA) Neg mg/dL (Negative) 07/28/18 23:19 Urine Ketones Neg mg/dL (Negative) 07/28/18 23:19 Urine Blood Mod (Negative) 07/28/18 23:19 Urine Nitrite Neg (Negative) 07/28/18 23:19 Urine Bilirubin Neg (Negative) 07/28/18 23:19 Urine Urobilinogen < 2.0 mg/dL (<2.0) 07/28/18 23:19 Ur Leukocyte Esterase Lg (Negative) 07/28/18 23:19 Urine WBC (Auto) > 182.0 /HPF (0.0-6.0) H 07/28/18 23:19 Urine RBC (Auto) 86.0 /HPF (0.0-6.0) 07/28/18 23:19 U Epithel Cells (Auto) 4.0 /HPF (0-13.0) 07/28/18 23:19 Urine WBC Clumps 3+ /HPF 07/28/18 23:19 Urine Mucus Few /HPF 07/28/18 23:19 Phenytoin 0.8 ug/mL (10.0-20.0) L 07/28/18 23:34 Valproic Acid < 2.8 ug/mL (50-100) L 07/28/18 19:11 Influenza A (Rapid) Negative (Negative) 07/29/18 Unknown Influenza B (Rapid) Negative (Negative) 07/29/18 Unknown Active Medications - Current Medications Current Medications: Generic Name Dose Route Start Last Admin Trade Name Freq PRN Reason Stop Dose Admin Acetaminophen 650 mg 07/29/18 03:17 Tylenol PO Q4H PRN Pain MILD(1-3)/Fever >100.5/[place] Acetaminophen 650 mg 07/29/18 03:17 Tylenol ND Q4H PRN Pain MILD(1-3)/Fever >100.5/[place] Cefuroxime Axetil 500 mg 07/31/18 12:00 07/31/18 15:11 Ceftin PO 500 mg Q12HR NILAM Administration Citalopram Hydrobromide 20 mg 07/30/18 10:00 07/31/18 10:02 Celexa PO 20 mg QDAY NILAM Administration Diltiazem HCl 180 mg 07/29/18 18:00 07/31/18 10:02 Cardizem Cd PO 180 mg QDAY NILAM Administration Enoxaparin Sodium 40 mg 07/29/18 10:00 07/31/18 10:02 Lovenox SUB-Q 40 mg QDAY NILAM Administration Hydrophilic Ointment 1 applic 07/28/18 17:14 Vaseline Lip Therapy TP Q2HR PRN Dry Lips Sodium Chloride 1,000 mls @ 125 mls/hr 07/29/18 04:00 07/31/18 15:12 Nacl 0.9% 1000 Ml IV 125 mls/hr DIRECT NILAM Administration Lactulose 30 gm 07/29/18 20:00 07/31/18 15:05 Cephulac PO Not Given TID NILAM Lorazepam 1 mg 07/29/18 22:00 07/31/18 10:04 Ativan PO 1 mg BID NILAM Administration Multi-Ingred Cream/Lotion/Oil/Oint 1 applic 07/28/18 17:14 Artificial Tears Ophth Oint OU Q4HR PRN Dry Eye(s) Ondansetron HCl 4 mg 07/29/18 03:17 Zofran IV Q8H PRN Nausea And Vomiting Oxcarbazepine 900 mg 07/29/18 11:00 07/31/18 10:03 Trileptal PO 900 mg BID NILAM Administration Sodium Chloride 10 ml 07/29/18 10:00 07/31/18 10:02 Sodium Chloride Flush Syringe 10 Ml IV 10 ml BID NILAM Administration Sodium Chloride 10 ml 07/29/18 03:17 Sodium Chloride Flush Syringe 10 Ml IV PRN PRN LINE FLUSH Topiramate 25 mg 07/29/18 22:00 07/31/18 10:36 Topamax PO 25 mg BID NILAM Administration Nutrition/Malnutrition Assess - Dietary Evaluation Nutrition/Malnutrition Findings: Nutrition Notes Start: 07/29/18 09:21 Freq: Status: Active Protocol: Document 07/29/18 09:21 CP (Rec: 07/29/18 09:29 CP [id number]) Co-Sign 07/29/18 09:21 LP Nutrition Notes Need for Assessment generated from: MD Order,Low BMI Initial or Follow up Assessment Current Diagnosis Respiratory Failure Other Pertinent Diagnosis SIRS, UTI, multiple sclerosis, smoker Current Diet NPO Labs/Tests Cr 0.4 Pertinent Medications Reviewed Height 5 ft 6 in Weight 88 kg [place] Body Weight (kg) 59.09 BMI 31.3 Weight Status Obese Subjective/Other Information RD screen for low BMI/evaluate NTR intake. Pt has a BMI of 31.3. Per MD, pt is to remain NPO until further testing is done as discussed during rounds. Percent of energy/protein needs met: 0%/0% Burn Absent Trauma Absent #1 Nutrition Diagnosis Inadequate oral intake Etiology NPO status As Evidenced by Signs and Symptoms Meeting 0% of energy and protein needs Is patient on ventilator? Yes Is Patient Ambulatory and/or Out of Bed No REE-([facility]-confined to bed) [phone] Calculation Used for Recommendations [facility] Additional Notes Protein Needs:118g (2g/kg IBW) Fluid 1mL/kcal Nutrition Intervention Change Diet Order: Advance per MD request Goal #1 Diet advancement Anticipated Discharge Needs: Unable to determine at this time Follow-Up By: 07/31/18 Additional Comments F/U: Diet advancement/TF consult
--- NOTE | 2018-07-31 15:52 | Progress Note ---
Subjective Date of service: 07/31/18 Interval history: EEG does not show any seizure activity feel it is safe for dsicharge... let floor nurse know of the decision Objective - Vital Sign Vital Signs - 12hr 07/31/18 07/31/18 07/31/18 06:09 10:02 12:17 Temperature 98.3 F 98.1 F Pulse Rate 81 81 77 Respiratory 20 18 Rate Blood Pressure 140/81 140/81 146/74 O2 Sat by Pulse 99 99 Oximetry - Laboratory Findings CBC and BMP: 07/31/18 05:44 07/31/18 05:44 Abnormal Lab Findings: Abnormal Labs 07/28/18 07/28/18 07/28/18 17:25 17:25 17:25 WBC 12.7 H Lymph % (Auto) 4.8 L Tucker % (Auto) Lymph # 0.6 L Tucker # Seg Neutrophils % 88.5 H Seg Neutrophils # 11.2 H POC ABG pH POC ABG pO2 Chloride 109.1 H Carbon Dioxide 21 L BUN Creatinine 0.6 L Glucose 109 H Calcium 7.9 L AST 120 H ALT 100 H Alkaline Phosphatase 168 H Total Creatine Kinase 553 H CK-MB (CK-2) C-Reactive Protein Total Protein 5.9 L Albumin 3.3 L Urine WBC (Auto) Phenytoin Valproic Acid 07/28/18 07/28/18 07/28/18 18:15 19:11 23:19 WBC Lymph % (Auto) Tucker % (Auto) Lymph # Tucker # Seg Neutrophils % Seg Neutrophils # POC ABG pH 7.263 L POC ABG pO2 138 H Chloride Carbon Dioxide BUN Creatinine Glucose Calcium AST ALT Alkaline Phosphatase Total Creatine Kinase CK-MB (CK-2) C-Reactive Protein Total Protein Albumin Urine WBC (Auto) > 182.0 H Phenytoin Valproic Acid < 2.8 L 07/28/18 07/29/18 07/29/18 23:34 04:22 04:22 WBC 11.6 H Lymph % (Auto) Tucker % (Auto) 12.5 H Lymph # Tucker # 1.5 H Seg Neutrophils % Seg Neutrophils # 7.8 H POC ABG pH POC ABG pO2 Chloride 107.9 H Carbon Dioxide 18 L BUN Creatinine 0.4 L Glucose Calcium AST ALT Alkaline Phosphatase Total Creatine Kinase 475 H CK-MB (CK-2) 6.0 H C-Reactive Protein Total Protein Albumin Urine WBC (Auto) Phenytoin 0.8 L Valproic Acid 07/29/18 07/29/18 07/29/18 04:47 08:48 08:48 WBC Lymph % (Auto) Tucker % (Auto) Lymph # Tucker # Seg Neutrophils % Seg Neutrophils # POC ABG pH 7.279 L POC ABG pO2 Chloride Carbon Dioxide BUN Creatinine Glucose Calcium AST 53 H ALT 80 H Alkaline Phosphatase 148 H Total Creatine Kinase 529 H CK-MB (CK-2) 7.9 H C-Reactive Protein Total Protein Albumin 3.5 L Urine WBC (Auto) Phenytoin Valproic Acid 07/30/18 07/30/18 07/31/18 07:44 07:44 00:00 WBC Lymph % (Auto) Tucker % (Auto) Lymph # Tucker # Seg Neutrophils % Seg Neutrophils # POC ABG pH POC ABG pO2 Chloride 108.1 H Carbon Dioxide 20 L BUN 4 L Creatinine 0.3 L Glucose Calcium AST ALT 57 H Alkaline Phosphatase Total Creatine Kinase 391 H CK-MB (CK-2) C-Reactive Protein 8.50 H Total Protein 5.8 L Albumin 3.1 L Urine WBC (Auto) Phenytoin Valproic Acid 07/31/18 05:44 WBC Lymph % (Auto) Tucker % (Auto) Lymph # Tucker # Seg Neutrophils % Seg Neutrophils # POC ABG pH POC ABG pO2 Chloride 108.2 H Carbon Dioxide BUN 2 L Creatinine 0.4 L Glucose Calcium AST ALT Alkaline Phosphatase Total Creatine Kinase CK-MB (CK-2) C-Reactive Protein Total Protein 5.9 L Albumin 3.5 L Urine WBC (Auto) Phenytoin Valproic Acid
[2018-07-31 17:23] VITALS: BP 148/72
--- NOTE | 2018-08-01 00:25 | Consultation ---
HISTORY OF PRESENT ILLNESS: This is a 58-year-old black female that presents on [facility] referral. The patient was referred from the halfway because she had been having recurrent seizures. She has a history of multiple sclerosis, hypertension, lower extremity weakness and DVT. She presented with a prior history of a meningioma resection and currently was on systemic anticoagulant, Eliquis. When she presented to the hospital, she had been taking the anti-seizure medicine, Topamax 25 mg b.i.d. and was as well taking Trileptal 900 mg b.i.d. and was also on Ativan 1 mg p.o. b.i.d. She developed a generalized seizure and was transported to the hospital. She was initially noted to have a sodium of 141, a potassium of 4.1, a chloride of 100.1, magnesium level was 1.7. The patient's total creatinine was 253. She was initially seen, intubated, placed on a ventilatory assistance and subsequent to that when I saw her, she had extubated herself, was reasonably alert, had spoken with her daughter and was responding somewhat better. I spoke with the daughter, Callie by the phone. Callie does not recall her having had an episode such as this in the past. There is no clear explanation as to why she developed seizures. She has grade 4 MS, severe demyelinating disease, is not on any modifying therapy for her MS at the present time. PRIOR MEDICAL HISTORY: Unremarkable for similar problems, although she has been on maximum doses of Trileptal and Topamax in the past. ALLERGIES: She has no allergies. PHYSICAL EXAMINATION: VITAL SIGNS: Her blood pressure is 105/60, pulse rate 80, respirations 18. Her oxygenation pO2 is 97% after extubation. GENERAL: She is slightly lethargic, but does respond to simple command. She moves upper extremities. She will arouse or opening her eyes. She moves lower extremities to command. She moves upper extremity slightly commands, but is very sleepy and difficult to arouse, as she has apparently postictal. No focal seizure activity is present. No dystonia. No altered sensorium is otherwise noted. No evidence of any craniocervical trauma is noted. No active seizure activity is present. IMPRESSION: 1. The patient has post-generalized seizure. I suspect lethargy is due to having received medications to break the seizure. Supplemental dose of the medicine were given. 2. Prior history of meningioma. 3. Multiple sclerosis. I reviewed her CT scan of the head that shows extensive white matter changes. Finally, brainstem deep white matter, which would correlate with the diagnosis of severe 4+ multiple sclerosis. PLAN: I would at present time, keep her extubated. I think she is going to do fairly well. I would resume her p.o. seizure medicines. When she is able to swallow, I think that the doses as listed were effective, although it might be reasonable and a recommendation to consider raising the dose of Topamax. If further seizures occur, obviously Trileptal is metabolized to Tegretol and therefore Tegretol blood level would be effective at assessing whether she was therapeutic on the dose range with the Trileptal because of the metabolic by products of the Trileptal. Recommendation is no current MS treatment. I would not start her on any steroid therapy. I do not think seizures of this type are really a consequence of the MS as much as the post-resection issue of the meningioma, which is more likely to produce the seizure sequela. JOB# [id number] YANG/REYNA
== END 2018-07-31 21:02 | DRG 871 ==
LOC: ED 16:38 → CC1 22:47 → 3A 07-29 22:08
PROVIDERS: ADMIT Internal Medicine; ATTEND Internal Medicine
PROC: 4A033R1 Measurement of Arterial Saturation, Peripheral, Percutaneous Approach (ICD-10-PCS; principal; 2018-07-29)
PROC: 0BH17EZ Insertion of Endotracheal Airway into Trachea, Via Natural or Artificial Opening (ICD-10-PCS; 2018-07-29)
PROC: 5A1935Z Respiratory Ventilation, Less than 24 Consecutive Hours (ICD-10-PCS; 2018-07-29)
DX: A41.9 Sepsis, unspecified organism (principal); J96.00 Acute respiratory failure, unspecified whether with hypoxia or hypercapnia; E43 Unspecified severe protein-calorie malnutrition; R53.2 Functional quadriplegia; G40.901 Epilepsy, unspecified, not intractable, with status epilepticus; N30.00 Acute cystitis without hematuria; M62.82 Rhabdomyolysis; G35 Multiple sclerosis; I10 Essential (primary) hypertension; Z86.718 Personal history of other venous thrombosis and embolism; F41.9 Anxiety disorder, unspecified; Z82.49 Family history of ischemic heart disease and other diseases of the circulatory system; Z88.5 Allergy status to narcotic agent; Z91.041 Radiographic dye allergy status; Z91.013 Allergy to seafood; Z79.899 Other long term (current) drug therapy; Z79.01 Long term (current) use of anticoagulants; I69.351 Hemiplegia and hemiparesis following cerebral infarction affecting right dominant side; Z68.27 Body mass index [BMI] 27.0-27.9, adult
CPT/HCPCS: 36415; 36600; 70450; 71045; 76700; 80048; 80053; 80076; 80164; 80185; 80201; 81001; 82140; 82550; 82553; 82803; 83735; 84484; 85025; 85027; 85610; 85730; 86140; 87040; 87070; 87086; 87205; 87400; 93005; 93010; 94002; 94003; 94760; 95819; 96361; 96365; 96367; G0378; 87502; J0133; J0696; J1650; J1953; J2250; J3010; J3370; J7030; J7040; J7050

== ENCOUNTER 2018-10-23 15:11 | Inpatient (IN) | payer MEDICAID ==
[2018-10-23] MEDS ORDERED: ZEMURON IV ONE ×2 (15:15→15:20)
[2018-10-23] MEDS ORDERED: VERSED IV ONE (15:20)
[2018-10-23] MEDS ORDERED: NACL 0.9% 1000 ML 1,000 ML IV ONE (15:22)
[2018-10-23] MEDS ORDERED: ARTIFICIAL TEARS OPHTH OINT OU PRN (15:22)
[2018-10-23] MEDS ORDERED: VASELINE LIP THERAPY TP PRN (15:22)
[2018-10-23] MEDS ORDERED: NACL 0.9% 500 ML 500 ML IV ONE (15:22)
[2018-10-23] MEDS ORDERED: KEPPRA 1,000 MG/NS 0.75% 100ML 1,000 MG/100 ML BAG IV ONE ×2 (15:29→16:28)
[2018-10-23] MEDS ORDERED: TYLENOL PR ONE ×2 (15:29→17:33)
[2018-10-23] MEDS ORDERED: VERSED IV NR (16:00)
[2018-10-23 16:01] LABS: Basophils % (Auto) 0.4 % (0.0-1.8); Eosinophils # (Auto) 0.1 K/mm3 (0.0-0.4); Hematocrit 34.2 % (30.3-42.9); Hemoglobin 11.9 gm/dl (10.1-14.3); Lymphocytes # (Auto) 0.7 K/mm3 (1.2-5.4); Lymphocytes % (Auto) 7.7 % (13.4-35.0); Mean Corpuscular HGB Conc 35 % (30-34); Mean Corpuscular Volume 88 fl (79-97); Monocytes # (Auto) 0.4 K/mm3 (0.0-0.8); Monocytes % (Auto) 4.5 % (0.0-7.3); Platelet Count 386 K/mm3 (140-440); Red Blood Count 3.91 M/mm3 (3.65-5.03); Red Cell Distribution Width 13.7 % (13.2-15.2)
[2018-10-23 16:11] LABS: INR 1.07 (0.87-1.13); Partial Thromboplastin Time 23.2 Sec. (24.2-36.6)
[2018-10-23 16:15] LABS: Alanine Aminotransferase 40 units/L (7-56); Albumin 3.7 g/dL (3.9-5); BUN/Creatinine Ratio 22; Blood Urea Nitrogen 11 mg/dL (7-17); Calcium 8.1 mg/dL (8.4-10.2); Hemolysis Index 80
[2018-10-23] MEDS: DIPRIVAN 10 MG/ML 1,000 MG/100 ML BOTTLE IV SCH ×3 (16:19→23:45)
--- NOTE | 2018-10-23 16:23 | XRay Report ---
PROCEDURE: XR CHEST 1V AP TECHNIQUE: Chest radiograph single view. HISTORY: ETT placement COMPARISONS: CXR 07/28/2018 . FINDINGS: Heart: Normal. Mediastinum/Vessels: Normal. Lungs/Pleural space: Linear fibrotic changes in the right apex are stable. Bony thorax: No acute osseous abnormality. Life support devices: Endotracheal tube has been placed with the tip terminating 2.7 cm above the car jolynn. A nasogastric tube has been placed with the tip of the edge of the film in the left hemidiaphrag m. IMPRESSION: No acute cardiopulmonary abnormality. No significant change. Satisfactory ET tube and na sogastric tube placement This document is electronically signed by Fleisa Tapia MD., October 23 2018 04:22:09 PM ET
--- NOTE | 2018-10-23 16:30 | Emergency Department Report ---
ED Seizure HPI - General Chief Complaint: Seizure Stated Complaint: SEIZURE Time Seen by Provider: 10/23/18 15:27 Source: EMS Mode of arrival: Stretcher Limitations: Altered Mental Status - History of Present Illness Initial Comments: 58-year-old female with history of MS, seizures presents to the ED from [facility] with seizure. Per EMS patient began having a seizure approximately one hour ago, 1 mg of Ativan was given by half-way staff. care home reported no break in patient's seizures, so EMS was called after 50 minutes. Upon EMS arrival the patient was actively seizing, 2 mg of Ativan was given. Upon arrival to ED patient is still seizing. Pt on trileptal and topiramate for seizures. MD Complaint: seizure -: minutes(s) (50) Description of Episode: tonic-clonic movement -: minutes(s) (60) Witnessed:: Yes Seizure History: known seizure disorder Place: other (half-way) Treatments Prior to Arrival: benzodiazepines (ativan 3 mg) - Related Data Home Medications Medication Instructions Recorded Confirmed Last Taken Lactulose [Cephulac] 45 ml PO TID 10/02/17 10/23/18 07/28/18 OXcarbazepine [Trileptal] 900 mg PO Q12HR 10/02/17 10/23/18 07/28/18 Topiramate [Topamax] 25 mg PO BID 10/02/17 10/23/18 07/28/18 dilTIAZem HCl [Diltiazem 24Hr ER 180 mg PO DAILY 10/02/17 10/23/18 07/28/18 (LA)] Acetaminophen [Tylenol] 500 mg PO BID 10/23/18 10/23/18 Unknown Baclofen 5 mg PO Q8H 10/23/18 10/23/18 Unknown Citalopram [celeXA] 10 mg PO QDAY 10/23/18 10/23/18 Unknown Cranberry Fruit Concentrate 900 mg PO BID 10/23/18 10/23/18 Unknown [Cranberry] Gabapentin [Neurontin] 300 mg PO Q8HR 10/23/18 10/23/18 Unknown LORazepam [Ativan INJ] 2 mg IM Q6H PRN 10/23/18 10/23/18 Unknown LORazepam [Ativan] 0.5 mg PO BID 10/23/18 10/23/18 Unknown Lactobacillus Acidophilus 1 each PO DAILY 10/23/18 10/23/18 Unknown [Acidophilus] Melatonin [Melatonin 3MG TAB] 3 mg PO HS 10/23/18 10/23/18 Unknown Multivitamin Tab [Multiple Vitamin 1 each PO QDAY 10/23/18 10/23/18 Unknown TAB (Theragran)] Nitroglycerin [Nitrostat] 0.4 mg SL Q5M PRN MDD 1.2mg 10/23/18 10/23/18 Unknown Potassium Chloride [K-Dur] 10 meq PO QDAY 10/23/18 10/23/18 Unknown Previous Rx's Medication Instructions Recorded Last Taken Type Apixaban [Eliquis] 5 mg PO BID #74 tablet 10/04/17 07/28/18 Rx Allergies Allergy/AdvReac Type Severity Reaction Status Date / Time codeine Allergy Hives Verified 10/23/18 15:19 fish derived Allergy Unknown Verified 10/23/18 15:19 Iodinated Contrast- Oral and Allergy Hives Verified 10/23/18 15:19 IV Dye ED Review of Systems ROS: Stated complaint: SEIZURE Other details as noted in HPI Comment: Unobtainable due to pts medical conditions ED Past Medical Hx - Past Medical History Previous Medical History?: Yes Hx Hypertension: Yes (Essential) Hx CVA: Yes (Right sided weakness) Hx Congestive Heart Failure: No Hx Diabetes: No Hx Seizures: Yes Hx Asthma: Yes Hx COPD: No Additional medical history: IRREGULAR HEART BEAT - Surgical History Past Surgical History?: Yes Additional Surgical History: x4 - Social History Smoking Status: Unknown if ever smoked Substance Use Type: None - Medications Home Medications: Home Medications Medication Instructions Recorded Confirmed Last Taken Type Lactulose [Cephulac] 45 ml PO TID 10/02/17 10/23/18 07/28/18 History OXcarbazepine [Trileptal] 900 mg PO Q12HR 10/02/17 10/23/18 07/28/18 History Topiramate [Topamax] 25 mg PO BID 10/02/17 10/23/18 07/28/18 History dilTIAZem HCl [Diltiazem 24Hr ER 180 mg PO DAILY 10/02/17 10/23/18 07/28/18 History (LA)] Apixaban [Eliquis] 5 mg PO BID #74 tablet 10/04/17 10/23/18 07/28/18 Rx Acetaminophen [Tylenol] 500 mg PO BID 10/23/18 10/23/18 Unknown History Baclofen 5 mg PO Q8H 10/23/18 10/23/18 Unknown History Citalopram [celeXA] 10 mg PO QDAY 10/23/18 10/23/18 Unknown History Cranberry Fruit Concentrate 900 mg PO BID 10/23/18 10/23/18 Unknown History [Cranberry] Gabapentin [Neurontin] 300 mg PO Q8HR 10/23/18 10/23/18 Unknown History LORazepam [Ativan INJ] 2 mg IM Q6H PRN 10/23/18 10/23/18 Unknown History LORazepam [Ativan] 0.5 mg PO BID 10/23/18 10/23/18 Unknown History Lactobacillus Acidophilus 1 each PO DAILY 10/23/18 10/23/18 Unknown History [Acidophilus] Melatonin [Melatonin 3MG TAB] 3 mg PO HS 10/23/18 10/23/18 Unknown History Multivitamin Tab [Multiple Vitamin 1 each PO QDAY 10/23/18 10/23/18 Unknown History TAB (Theragran)] Nitroglycerin [Nitrostat] 0.4 mg SL Q5M PRN MDD 1.2mg 10/23/18 10/23/18 Unknown History Potassium Chloride [K-Dur] 10 meq PO QDAY 10/23/18 10/23/18 Unknown History ED Physical Exam - General Limitations: Altered Mental Status - Head Head exam: Present: atraumatic, normocephalic - Eye Eye exam: Present: normal appearance - ENT ENT exam: Present: mucous membranes moist - Neck Neck exam: Present: normal inspection - Respiratory Respiratory exam: Present: normal lung sounds bilaterally. Absent: respiratory distress - Cardiovascular Cardiovascular Exam: Present: normal rhythm, tachycardia - GI/Abdominal GI/Abdominal exam: Present: soft. Absent: distended - Extremities Exam Extremities exam: Present: other (contractures to BLE) - Neurological Exam Neurological exam: Present: other (patient is actively seizing) - Skin Skin exam: Present: warm, dry, intact, normal color. Absent: rash ED Course Vital Signs 10/23/18 10/23/18 10/23/18 15:16 15:32 15:35 Temperature 100.8 F H 100.8 F H Pulse Rate 135 H 125 H 125 H Respiratory 24 8 L 18 Rate Blood Pressure 140/61 Blood Pressure 166/84 [Right] O2 Sat by Pulse 75 L 100 100 Oximetry 10/23/18 10/23/18 10/23/18 15:37 15:46 15:51 Temperature Pulse Rate 116 H 110 H Respiratory 12 15 Rate Blood Pressure 140/61 166/84 Blood Pressure [Right] O2 Sat by Pulse 100 99 Oximetry 10/23/18 10/23/18 10/23/18 16:00 16:16 16:30 Temperature Pulse Rate 105 H 92 H 91 H Respiratory 14 18 18 Rate Blood Pressure 166/84 166/84 166/84 Blood Pressure [Right] O2 Sat by Pulse 100 100 100 Oximetry 10/23/18 10/23/18 10/23/18 16:46 17:42 17:45 Temperature Pulse Rate 89 77 Respiratory 17 18 Rate Blood Pressure 166/84 166/84 153/83 Blood Pressure [Right] O2 Sat by Pulse 100 100 100 Oximetry 10/23/18 10/23/18 18:00 18:15 Temperature Pulse Rate 79 Respiratory 16 Rate Blood Pressure 157/85 159/86 Blood Pressure [Right] O2 Sat by Pulse 100 100 Oximetry - Intubation Time Out Performed: Yes Sedative: Versed Mg Given: 5 Paralytic: Rocuronium Mg Given: 50 Laryngoscope: Jerri Size: 4 ET Tube Size: 7.5 Tube Secured Depth (cm): 22 Tube Placement Confirmation: visualized tube passing t, equal breath sounds bilat, no breath sounds over epi, confirmation by capnometr Patient Tolerated Procedure: well Intubation Complications: none ED Medical Decision Making - Lab Data Result diagrams: 10/23/18 15:34 10/23/18 15:34 - EKG Data -: EKG Interpreted by Sc EKG shows normal: sinus rhythm, axis, intervals, QRS complexes, ST-T waves Rate: normal - EKG Data Interpretation: no acute changes - Radiology Data Radiology results: report reviewed, image reviewed - Medical Decision Making - seizure x 1 hour at half-way prior to calling EMS - ativan given, however, no cessation of seizures - actively seizing upon ED arrival - intubated upon ED arrival due to prolonged seizure activity, and for maintenance of airway - keppra given, propofol for sedation - low grade temp of 100.8, however WBCs nml, lactate nml, likely not infectious etiology for seizure - CT Head shows no acute abnormalities - CXR normal - remainder of labs normal - no seizures since intubation and sedation - admit to hospitalist, Dr Pandya, for further management - Differential Diagnosis status epilepticus, intracranial abnormality, electrolyte abnormality Critical Care Time: Yes Critical care time in (mins) excluding proc time.: 35 Critical care attestation.: If time is entered above; I have spent that time in minutes in the direct care of this critically ill patient, excluding procedure time. Critical Care Time: 35 minutes ED Disposition Clinical Impression: Status epilepticus Disposition: [id number] OP ADMIT IP TO THIS HOSP Is pt being admited?: Yes Condition: Stable Referrals: JORDANA BAEZ [Other] - 3-5 Days Time of Disposition: 16:30
[2018-10-23] MEDS ORDERED: ZOSYN/NS 4.5GM/100ML 4.5 GM/100 ML VIAL IV ONE ×2 (17:04→19:44)
[2018-10-23 17:44] LABS: Bilirubin,Urine NEG (Negative); Blood,Urine SM (Negative); Color,Urine Yellow (Yellow); Mucus,Urine FEW /HPF; Urobilinogen,Urine < 2.0 mg/dL (<2.0)
--- NOTE | 2018-10-23 17:58 | Cat Scan Report ---
PROCEDURE: CT HEAD/BRAIN WO CON TECHNIQUE: Computerized tomography of the head was performed without contrast material. CT DOSE LENGTH PRODUCT: 1166.6 mGycm HISTORY: seizures COMPARISONS: CT head 07/28/2018 . FINDINGS: Skull and scalp: Postsurgical changes are again noted over the posterior vertex . Paranasal sinuses: Mild calcification of several posterior ethmoid sinuses bilaterally is noted. Hernando al cavities are congested bilaterally . Ventricles and subarachnoid spaces: Normal . Cerebrum: No evidence of hemorrhage, acute infarction or mass . Low-density in the periventricular w [place] matter is consistent with small vessel ischemic changes, stable. Cerebellum and brainstem: No evidence of hemorrhage, acute infarction or mass . Vasculature: Normal . Other: None . ASPECTS: 10 IMPRESSION: No acute intracranial abnormality. No change This document is electronically signed by Felisa Tapia MD., October 23 2018 05:56:55 PM ET
[2018-10-23] MEDS ORDERED: DIPRIVAN 10 MG/ML 1,000 MG/100 ML BOTTLE IV ONE (19:43)
[2018-10-23] MEDS ORDERED: ZOFRAN IV PRN (21:04)
[2018-10-23] MEDS ORDERED: DILAUDID IV PRN (21:04)
[2018-10-23] MEDS ORDERED: SODIUM CHLORIDE FLUSH SYRINGE 10 ML IV PRN (21:04)
[2018-10-23] MEDS ORDERED: TYLENOL PO PRN (21:04)
--- NOTE | 2018-10-23 21:04 | History and Physical Report ---
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 Per EMS patient began having a seizure approximately 2 hours ago, 1 mg of Ativan was given by [facility] staff. [facility] reported no break in patient's seizures, so EMS was called after 50 minutes. Upon EMS arrival the patient was actively seizing, 2 mg of Ativan was given. Upon arrival to ED patient is still seizing. Pt on trileptal and topiramate for seizures.Patient intubated in ER because of persistent seizures and for protection of airway. Patient has history of Meningioma resected in 2017.Patient is wheelchair bound and normally able to communicate and eat by herself as per son. Unclear why the patient is on Lactulose TID--to clarify from son Past Medical History Previous Medical History?: Yes Hypertension: Yes (Essential) CVA: Yes (Right sided weakness) Seizures: Yes Asthma: Yes Additional medical history: IRREGULAR HEART BEAT Surgical History Past Surgical History?: Yes Additional Surgical History: x4 Social History [place] resident Smoking Status: Unknown if ever smoked Substance Use Type: None Family History Htn Review of Systems ROS: Stated complaint: SEIZURE Other details as noted in HPI Comment: Unobtainable due to pts medical conditions Medications and Allergies Allergies Allergy/AdvReac Type Severity Reaction Status Date / Time codeine Allergy Hives Verified 10/23/18 15:19 fish derived Allergy Unknown Verified 10/23/18 15:19 Iodinated Contrast- Oral and Allergy Hives Verified 10/23/18 15:19 IV Dye Home Medications Medication Instructions Recorded Confirmed Last Taken Type Lactulose [Cephulac] 45 ml PO TID 10/02/17 10/23/18 07/28/18 History OXcarbazepine [Trileptal] 900 mg PO Q12HR 10/02/17 10/23/18 07/28/18 History Topiramate [Topamax] 25 mg PO BID 10/02/17 10/23/18 07/28/18 History dilTIAZem HCl [Diltiazem 24Hr ER 180 mg PO DAILY 10/02/17 10/23/18 07/28/18 History (LA)] Apixaban [Eliquis] 5 mg PO BID #74 tablet 10/04/17 10/23/18 07/28/18 Rx Acetaminophen [Tylenol] 500 mg PO BID 10/23/18 10/23/18 Unknown History Baclofen 5 mg PO Q8H 10/23/18 10/23/18 Unknown History Citalopram [celeXA] 10 mg PO QDAY 10/23/18 10/23/18 Unknown History Cranberry Fruit Concentrate 900 mg PO BID 10/23/18 10/23/18 Unknown History [Cranberry] Gabapentin [Neurontin] 300 mg PO Q8HR 10/23/18 10/23/18 Unknown History LORazepam [Ativan INJ] 2 mg IM Q6H PRN 10/23/18 10/23/18 Unknown History LORazepam [Ativan] 0.5 mg PO BID 10/23/18 10/23/18 Unknown History Lactobacillus Acidophilus 1 each PO DAILY 10/23/18 10/23/18 Unknown History [Acidophilus] Melatonin [Melatonin 3MG TAB] 3 mg PO HS 10/23/18 10/23/18 Unknown History Multivitamin Tab [Multiple Vitamin 1 each PO QDAY 10/23/18 10/23/18 Unknown History TAB (Theragran)] Nitroglycerin [Nitrostat] 0.4 mg SL Q5M PRN MDD 1.2mg 10/23/18 10/23/18 Unknown History Potassium Chloride [K-Dur] 10 meq PO QDAY 10/23/18 10/23/18 Unknown History Active Meds: Active Medications Hydrophilic Ointment (Vaseline Lip Therapy) 1 applic TP Q2HR PRN PRN Reason: Dry Lips Propofol (Diprivan 10 Mg/Ml) 1,000 mg in 100 mls @ 2.31 mls/hr IV TITR NILAM; Protocol Last Admin: 10/23/18 19:49 Dose: 50 mcg/kg/min, 23.1 mls/hr Documented by: Midazolam HCl (Versed) 5 mg IV ONCE NR Stop: 10/23/18 23:59 Last Admin: 10/23/18 15:17 Dose: 5 mg Documented by: Multi-Ingred Cream/Lotion/Oil/Oint (Artificial Tears Ophth Oint) 1 applic OU Q4HR PRN PRN Reason: Dry Eye(s) Exam - Physical Exam Narrative exam: Intubated and unresponsive - Constitutional Vitals: Temp Pulse Resp BP Pulse Ox 98.8 F 77 18 154/79 100 10/23/18 19:04 10/23/18 19:51 10/23/18 19:15 10/23/18 19:51 10/23/18 19:51 General appearance: Present: severe distress, well-nourished - EENT Eyes: Present: PERRL ENT: hearing intact, clear oral mucosa - Neck Neck: Present: supple, normal ROM - Respiratory Respiratory effort: normal Respiratory: bilateral: CTA - Cardiovascular Heart rate: 88 Rhythm: regular Heart Sounds: Present: S1 & S2. Absent: rub, click - Extremities Extremities: no ischemia, pulses intact, pulses symmetrical, No edema Peripheral Pulses: within normal limits - Abdominal General gastrointestinal: Present: soft, non-tender, non-distended, normal bowel sounds Female genitourinary: Present: normal - Rectal Rectal Exam: deferred - Integumentary Integumentary: Present: clear, warm, dry - Musculoskeletal Musculoskeletal: right sided weakness, generalized weakness - Psychiatric Psychiatric: other (Intubated) - Neurologic Neurologic: moves all extremities, other (Unresponsive and Intubated and Sedated) - Allied Health Allied health notes reviewed: nursing, case management Results - Labs CBC & Chem 7: 10/24/18 04:12 10/24/18 04:12 Labs: Laboratory Last Values WBC 8.8 K/mm3 (4.5-11.0) 10/23/18 15:34 RBC 3.91 M/mm3 (3.65-5.03) 10/23/18 15:34 Hgb 11.9 gm/dl (10.1-14.3) 10/23/18 15:34 Hct 34.2 % (30.3-42.9) 10/23/18 15:34 MCV 88 fl (79-97) 10/23/18 15:34 MCH 30 pg (28-32) 10/23/18 15:34 MCHC 35 % (30-34) H 10/23/18 15:34 RDW 13.7 % (13.2-15.2) 10/23/18 15:34 Plt Count 386 K/mm3 (140-440) 10/23/18 15:34 Lymph % (Auto) 7.7 % (13.4-35.0) L 10/23/18 15:34 [place] % (Auto) 4.5 % (0.0-7.3) 10/23/18 15:34 Eos % (Auto) 1.0 % (0.0-4.3) 10/23/18 15:34 Baso % (Auto) 0.4 % (0.0-1.8) 10/23/18 15:34 Lymph # 0.7 K/mm3 (1.2-5.4) L 10/23/18 15:34 [place] # 0.4 K/mm3 (0.0-0.8) 10/23/18 15:34 Eos # 0.1 K/mm3 (0.0-0.4) 10/23/18 15:34 Baso # 0.0 K/mm3 (0.0-0.1) 10/23/18 15:34 Seg Neutrophils % 86.4 % (40.0-70.0) H 10/23/18 15:34 Seg Neutrophils # 7.6 K/mm3 (1.8-7.7) 10/23/18 15:34 PT 13.6 Sec. (12.2-14.9) 10/23/18 15:34 INR 1.07 (0.87-1.13) 10/23/18 15:34 APTT 23.2 Sec. (24.2-36.6) L 10/23/18 15:34 POC ABG pH 7.308 (7.35-7.45) L 10/23/18 16:14 POC ABG pCO2 46.9 (35-45) H 10/23/18 16:14 POC ABG pO2 85 (80-105) 10/23/18 16:14 POC ABG HCO3 23.5 (22-26 mml/L) 10/23/18 16:14 POC ABG Total CO2 25 (23-27mmol/L) 10/23/18 16:14 POC ABG O2 Sat 95 10/23/18 16:14 POC ABG Base Excess -3 ((-2) - (+3)mmol/L) 10/23/18 16:14 50 % 10/23/18 16:14 Sodium 136 mmol/L (137-145) L 10/23/18 15:34 Potassium 4.1 mmol/L (3.6-5.0) 10/23/18 15:34 Chloride 101.0 mmol/L (98-107) 10/23/18 15:34 Carbon Dioxide 23 mmol/L (22-30) 10/23/18 15:34 16 mmol/L 10/23/18 15:34 BUN 11 mg/dL (7-17) 10/23/18 15:34 0.5 mg/dL (0.7-1.2) L 10/23/18 15:34 Estimated GFR > 60 ml/min 10/23/18 15:34 22 % 10/23/18 15:34 Glucose 124 mg/dL (65-100) H 10/23/18 15:34 Lactic Acid 1.50 mmol/L (0.7-2.0) 10/23/18 17:55 Calcium 8.1 mg/dL (8.4-10.2) L 10/23/18 15:34 < 0.20 mg/dL (0.1-1.2) 10/23/18 15:34 AST 31 units/L (5-40) 10/23/18 15:34 ALT 40 units/L (7-56) 10/23/18 15:34 126 units/L (35-129) 10/23/18 15:34 72 units/L (30-135) 10/23/18 17:55 6.6 g/dL (6.3-8.2) 10/23/18 15:34 3.7 g/dL (3.9-5) L 10/23/18 15:34 1.3 % 10/23/18 15:34 Yellow (Yellow) 10/23/18 17:00 Slightly-cloudy (Clear) 10/23/18 17:00 5.0 (5.0-7.0) 10/23/18 17:00 Ur Specific [place] 1.017 (1.003-1.030) 10/23/18 17:00 30 mg/dl mg/dL (Negative) 10/23/18 17:00 Neg mg/dL (Negative) 10/23/18 17:00 Neg mg/dL (Negative) 10/23/18 17:00 Sm (Negative) 10/23/18 17:00 Neg (Negative) 10/23/18 17:00 Neg (Negative) 10/23/18 17:00 < 2.0 mg/dL (<2.0) 10/23/18 17:00 Ur Leukocyte Esterase Neg (Negative) 10/23/18 17:00 4.0 /HPF (0.0-6.0) 10/23/18 17:00 29.0 /HPF (0.0-6.0) 10/23/18 17:00 U Epithel Cells (Auto) 2.0 /HPF (0-13.0) 10/23/18 17:00 Few /HPF 10/23/18 17:00 Short CBC 10/23/18 10/24/18 Range/Units 15:34 04:12 WBC 8.8 11.3 H (4.5-11.0) K/mm3 Hgb 11.9 12.7 (10.1-14.3) gm/dl Hct 34.2 39.4 (30.3-42.9) % Plt Count 386 375 (140-440) K/mm3 BMP 10/23/18 10/24/18 15:34 04:12 Sodium 136 L 143 D Potassium 4.1 3.9 Chloride 101.0 107.5 H Carbon Dioxide 23 20 L BUN 11 8 Creatinine 0.5 L 0.4 L Glucose 124 H 98 Calcium 8.1 L 9.2 Cardiac Enzymes 10/23/18 Range/Units 17:55 Total Creatine Kinase 72 (30-135) units/L Liver Function 10/23/18 10/24/18 Range/Units 15:34 04:12 Total Bilirubin < 0.20 0.30 (0.1-1.2) mg/dL AST 31 34 (5-40) units/L ALT 40 42 (7-56) units/L Alkaline Phosphatase 126 132 H (35-129) units/L Albumin 3.7 L 3.7 L (3.9-5) g/dL Urine 10/23/18 Range/Units 17:00 Urine Color Yellow (Yellow) Urine pH 5.0 (5.0-7.0) Ur Specific [place] 1.017 (1.003-1.030) Urine Protein 30 mg/dl (Negative) mg/dL Urine Glucose (UA) Neg (Negative) mg/dL - Imaging and Cardiology Imaging and Cardiology: CXR IMPRESSION: No acute cardiopulmonary abnormality. No significant change. Satisfactory ET tube and nasogastric tube placement CT Head IMPRESSION: No acute intracranial abnormality. No change Assessment and Plan Assessment and plan: CCT 40 minutes Advance Directives: Yes (Full code) VTE prophylaxis?: Chemical Plan of care discussed with patient/family: Yes - Patient Problems (1) Acute respiratory failure Current Visit: No Status: Acute Qualifiers: Respiratory failure complication: hypoxia Qualified Code(s): J96.01 - Acute respiratory failure with hypoxia Plan to address problem: Patient intubated sec to airway protection and Hypoxia (2) Status epilepticus Current Visit: Yes Status: Acute Plan to address problem: Patient initiated on IV Keppra To cont Topiramate and Trilepral (3) HTN (hypertension) Current Visit: Yes Status: Chronic Qualifiers: Hypertension type: essential hypertension Qualified Code(s): I10 - Essential (primary) hypertension Plan to address problem: Cont antihypertensives (4) CVA, old, ataxia Current Visit: Yes Status: Chronic Plan to address problem: Supportive care (5) Peripheral neuropathy Current Visit: Yes Status: Chronic Qualifiers: Peripheral neuropathy type: polyneuropathy, unspecified Qualified Code(s): G62.9 - Polyneuropathy, unspecified Plan to address problem: COnt Gabapentin (6) Malnutrition of mild degree Current Visit: Yes Status: Acute Plan to address problem: Mild Albumin 3.7 (7) DVT prophylaxis Current Visit: No Status: Acute Plan to address problem: On Eliquis and GI prophylaxis
[2018-10-23] MEDS: PEPCID IV SCH (23:41)
[2018-10-23] MEDS: NACL 0.9% 1000 ML 1,000 ML IV SCH (23:41)
[2018-10-24] MEDS: DIPRIVAN 10 MG/ML 1,000 MG/100 ML BOTTLE IV SCH ×3 (04:26→13:12)
[2018-10-24 04:54] LABS: Basophils # (Auto) 0.1 K/mm3 (0.0-0.1); Basophils % (Auto) 0.6 % (0.0-1.8); Eosinophils # (Auto) 0.2 K/mm3 (0.0-0.4); Eosinophils % (Auto) 1.7 % (0.0-4.3); Hematocrit 39.4 % (30.3-42.9); Hemoglobin 12.7 gm/dl (10.1-14.3); Lymphocytes # (Auto) 2.8 K/mm3 (1.2-5.4); Lymphocytes % (Auto) 24.9 % (13.4-35.0); Mean Corpuscular HGB Conc 32 % (30-34); Mean Corpuscular Volume 89 fl (79-97); Monocytes # (Auto) 1.2 K/mm3 (0.0-0.8); Monocytes % (Auto) 10.9 % (0.0-7.3); Platelet Count 375 K/mm3 (140-440); Red Blood Count 4.43 M/mm3 (3.65-5.03); Red Cell Distribution Width 13.8 % (13.2-15.2)
[2018-10-24 05:23] LABS: Alanine Aminotransferase 42 units/L (7-56); Albumin 3.7 g/dL (3.9-5); BUN/Creatinine Ratio 20; Blood Urea Nitrogen 8 mg/dL (7-17); Calcium 9.2 mg/dL (8.4-10.2); Hemolysis Index 58
[2018-10-24] MEDS: KEPPRA 1,000 MG in D5W 100 ML IV SCH ×2 (05:53→16:04)
[2018-10-24] MEDS ORDERED: BACLOFEN 5 MG PO SCH (06:15)
[2018-10-24] MEDS ORDERED: SIMPLE SYRUP FEEDTUBE PRN ×4 (06:24→07:57)
[2018-10-24] MEDS ORDERED: SODIUM BICARBONATE FEEDTUBE PRN ×2 (06:24→07:57)
[2018-10-24] MEDS ORDERED: PANCREAZE DR 10,500 UNIT FEEDTUBE PRN ×2 (06:24→07:57)
[2018-10-24] MEDS: SODIUM CHLORIDE FLUSH SYRINGE 10 ML IV SCH ×3 (07:36→21:45)
[2018-10-24] MEDS: CEPHULAC PO SCH ×3 (08:08→21:51)
[2018-10-24] MEDS: NEURONTIN PO SCH ×3 (08:10→21:48)
[2018-10-24] MEDS: LIORESAL PO SCH ×3 (08:13→21:46)
[2018-10-24] MEDS: LACTINEX PO SCH (09:42)
[2018-10-24] MEDS: CARDIZEM CD PO SCH (09:43)
[2018-10-24] MEDS: ATIVAN PO SCH ×2 (09:43→21:57)
[2018-10-24] MEDS: ELIQUIS PO SCH ×2 (09:45→21:49)
[2018-10-24] MEDS: K-DUR PO SCH (09:46)
[2018-10-24] MEDS ORDERED: DILTIAZEM HCL 180 MG PO SCH (10:00)
[2018-10-24] MEDS ORDERED: LACTOBACILLUS ACIDOPHILUS PO SCH (10:00)
[2018-10-24] MEDS: TRILEPTAL PO SCH ×2 (10:41→21:57)
[2018-10-24] MEDS: celeXA PO SCH (10:41)
[2018-10-24] MEDS: TOPAMAX PO SCH ×2 (10:41→21:59)
[2018-10-24] MEDS: PEPCID IV SCH ×2 (11:02→21:51)
--- NOTE | 2018-10-24 12:52 | Progress Note ---
Subjective Date of service: 10/24/18 Interval history: went over the [employer] of head and there is evidence of extreme changes of multiple sclerosis she has prior hx of seizures agree with seizure managment at this time will follow and review meds plan EEG on friday Objective - Vital Sign Vital Signs - 12hr 10/24/18 10/24/18 10/24/18 00:58 01:00 01:10 Temperature Pulse Rate 85 80 80 Respiratory 18 24 33 H Rate Blood Pressure 154/82 142/80 142/80 O2 Sat by Pulse 97 100 100 Oximetry 10/24/18 10/24/18 10/24/18 01:20 01:30 01:40 Temperature Pulse Rate 79 81 80 Respiratory 28 H 37 H 26 H Rate Blood Pressure 135/78 129/80 142/80 O2 Sat by Pulse 100 100 100 Oximetry 10/24/18 10/24/18 10/24/18 01:50 02:00 02:10 Temperature Pulse Rate 80 80 82 Respiratory 34 H 28 H 24 Rate Blood Pressure 130/79 134/78 129/80 O2 Sat by Pulse 100 100 100 Oximetry 10/24/18 10/24/18 10/24/18 02:20 02:30 02:40 Temperature Pulse Rate 84 85 83 Respiratory 33 H 27 H 21 Rate Blood Pressure 129/78 131/79 131/79 O2 Sat by Pulse 100 99 100 Oximetry 10/24/18 10/24/18 10/24/18 02:50 03:00 03:10 Temperature Pulse Rate 82 82 82 Respiratory 22 18 26 H Rate Blood Pressure 128/77 123/78 131/79 O2 Sat by Pulse 100 100 100 Oximetry 10/24/18 10/24/18 10/24/18 03:20 03:30 03:31 Temperature 98.8 F Pulse Rate 82 82 Respiratory 23 16 Rate Blood Pressure 125/79 126/79 O2 Sat by Pulse 100 99 Oximetry 10/24/18 10/24/18 10/24/18 03:40 03:50 04:00 Temperature Pulse Rate 81 80 74 Respiratory 18 23 23 Rate Blood Pressure 126/79 126/78 152/85 O2 Sat by Pulse 100 100 100 Oximetry 10/24/18 10/24/18 10/24/18 04:10 04:20 04:28 Temperature Pulse Rate 71 72 72 Respiratory 34 H 29 H Rate Blood Pressure 152/85 144/84 144/84 O2 Sat by Pulse 100 100 100 Oximetry 10/24/18 10/24/18 10/24/18 04:30 04:40 04:50 Temperature Pulse Rate 74 76 76 Respiratory 29 H 34 H 31 H Rate Blood Pressure 151/86 151/86 139/77 O2 Sat by Pulse 100 100 100 Oximetry 10/24/18 10/24/18 10/24/18 05:00 05:10 05:20 Temperature Pulse Rate 77 78 77 Respiratory 27 H 28 H 29 H Rate Blood Pressure 138/75 138/75 135/77 O2 Sat by Pulse 99 100 100 Oximetry 10/24/18 10/24/18 10/24/18 05:30 05:40 05:50 Temperature Pulse Rate 78 78 79 Respiratory 15 18 18 Rate Blood Pressure 131/76 131/76 135/75 O2 Sat by Pulse 100 100 100 Oximetry 10/24/18 10/24/18 10/24/18 06:00 06:10 06:20 Temperature Pulse Rate 81 76 78 Respiratory 18 18 18 Rate Blood Pressure 137/75 137/75 127/81 O2 Sat by Pulse 99 100 100 Oximetry 10/24/18 10/24/18 10/24/18 06:30 06:40 06:50 Temperature Pulse Rate 83 84 84 Respiratory 18 18 18 Rate Blood Pressure 125/72 125/72 121/73 O2 Sat by Pulse 99 99 99 Oximetry 10/24/18 10/24/18 10/24/18 07:00 07:10 07:20 Temperature Pulse Rate 84 84 85 Respiratory 18 21 16 Rate Blood Pressure 124/76 124/76 125/72 O2 Sat by Pulse 99 99 Oximetry 10/24/18 10/24/18 10/24/18 07:30 07:40 07:50 Temperature Pulse Rate 85 87 80 Respiratory 35 H 32 H 24 Rate Blood Pressure 118/76 118/76 122/76 O2 Sat by Pulse 98 99 Oximetry 10/24/18 10/24/18 10/24/18 08:00 08:10 08:20 Temperature Pulse Rate 77 75 74 Respiratory 21 28 H 32 H Rate Blood Pressure 140/80 146/84 157/89 O2 Sat by Pulse 100 100 100 Oximetry 10/24/18 10/24/18 10/24/18 08:30 09:43 11:47 Temperature Pulse Rate 76 74 81 Respiratory 20 Rate Blood Pressure 163/79 143/76 109/62 O2 Sat by Pulse 100 100 Oximetry - Laboratory Findings CBC and BMP: 10/24/18 04:12 10/24/18 04:12 Abnormal Lab Findings: Abnormal Labs 10/23/18 10/23/18 10/23/18 15:34 15:34 15:34 WBC MCHC 35 H Lymph % (Auto) 7.7 L [place] % (Auto) Lymph # 0.7 L [place] # Seg Neutrophils % 86.4 H APTT 23.2 L POC ABG pH POC ABG pCO2 Sodium 136 L Chloride Carbon Dioxide Creatinine 0.5 L Glucose 124 H Calcium 8.1 L Alkaline Phosphatase Albumin 3.7 L 10/23/18 10/24/18 10/24/18 16:14 04:12 04:12 WBC 11.3 H MCHC Lymph % (Auto) [place] % (Auto) 10.9 H Lymph # [place] # 1.2 H Seg Neutrophils % APTT POC ABG pH 7.308 L POC ABG pCO2 46.9 H Sodium Chloride 107.5 H Carbon Dioxide 20 L Creatinine 0.4 L Glucose Calcium Alkaline Phosphatase 132 H Albumin 3.7 L
[2018-10-24] MEDS: NACL 0.9% 1000 ML 1,000 ML IV SCH (13:14)
--- NOTE | 2018-10-24 14:13 | Consultation ---
History of Present Illness Consult date: 10/24/18 Requesting physician: JORGE KRAUS Reason for consult: other (seizures) History of present illness: 58 y/o female with prior history of seizures, started having recurrent seizures at facility. Patient had the same episode happen in July of this year. Her seizure was actually aborted with versed 5mg but patient was intubated anyway as they thought she could not protect her airway. Patient intubated now as she was in status and after several rounds of ativan therapy would not stop. Currently on Diprovan at 50. There have been no seizures while on this. Neuro has seen and plans for EEG on Friday. They feel that the CT is consistent with MS. Son at bedside and informed of current situation. Past History Past Medical History: seizures, other (afib) Past Surgical History: Other (Neurosurgery for white matter mass) Social history: no significant social history Family history: no significant family history Medications and Allergies Allergies Allergy/AdvReac Type Severity Reaction Status Date / Time codeine Allergy Hives Verified 10/23/18 15:19 fish derived Allergy Unknown Verified 10/23/18 15:19 Iodinated Contrast- Oral and Allergy Hives Verified 10/23/18 15:19 IV Dye Home Medications Medication Instructions Recorded Confirmed Last Taken Type Lactulose [Cephulac] 45 ml PO TID 10/02/17 10/23/18 07/28/18 History OXcarbazepine [Trileptal] 900 mg PO Q12HR 10/02/17 10/23/18 07/28/18 History Topiramate [Topamax] 25 mg PO BID 10/02/17 10/23/18 07/28/18 History dilTIAZem HCl [Diltiazem 24Hr ER 180 mg PO DAILY 10/02/17 10/23/18 07/28/18 History ([place])] Apixaban [Eliquis] 5 mg PO BID #74 tablet 10/04/17 10/23/18 07/28/18 Rx Acetaminophen [Tylenol] 500 mg PO BID 10/23/18 10/23/18 Unknown History Baclofen 5 mg PO Q8H 10/23/18 10/23/18 Unknown History Citalopram [celeXA] 10 mg PO QDAY 10/23/18 10/23/18 Unknown History Cranberry Fruit Concentrate 900 mg PO BID 10/23/18 10/23/18 Unknown History [Cranberry] Gabapentin [Neurontin] 300 mg PO Q8HR 10/23/18 10/23/18 Unknown History LORazepam [Ativan INJ] 2 mg IM Q6H PRN 10/23/18 10/23/18 Unknown History LORazepam [Ativan] 0.5 mg PO BID 10/23/18 10/23/18 Unknown History Lactobacillus Acidophilus 1 each PO DAILY 10/23/18 10/23/18 Unknown History [Acidophilus] Melatonin [Melatonin 3MG TAB] 3 mg PO HS 10/23/18 10/23/18 Unknown History Multivitamin Tab [Multiple Vitamin 1 each PO QDAY 10/23/18 10/23/18 Unknown History TAB (Theragran)] Nitroglycerin [Nitrostat] 0.4 mg SL Q5M PRN MDD 1.2mg 10/23/18 10/23/18 Unknown History Potassium Chloride [K-Dur] 10 meq PO QDAY 10/23/18 10/23/18 Unknown History Active Meds: Active Medications Acetaminophen (Tylenol) 650 mg PO Q4H PRN PRN Reason: Pain MILD(1-3)/Fever >100.5/[place] Lipase/Protease/Amylase (Pancreaze Dr 10,500 Unit) 1 each FEEDTUBE PRN PRN PRN Reason: For Clogged Feeding Tube Apixaban (Eliquis) 5 mg PO BID [facility]; Protocol Last Admin: 10/24/18 09:45 Dose: 5 mg Documented by: Baclofen (Lioresal) 5 mg PO Q8HR [facility] Last Admin: 10/24/18 08:13 Dose: 5 mg Documented by: Citalopram Hydrobromide (Celexa) 10 mg PO QDAY [facility] Last Admin: 10/24/18 10:41 Dose: 10 mg Documented by: Diltiazem HCl (Cardizem Cd) 180 mg PO DAILY [facility] Last Admin: 10/24/18 09:43 Dose: 180 mg Documented by: Famotidine (Pepcid) 20 mg IV BID [facility] Last Admin: 10/24/18 11:02 Dose: 20 mg Documented by: Gabapentin (Neurontin) 300 mg PO Q8HR [facility] Last Admin: 10/24/18 13:14 Dose: 300 mg Documented by: Hydromorphone HCl (Dilaudid) 0.5 mg IV Q3H PRN PRN Reason: Pain , Severe (7-10) Hydrophilic Ointment (Vaseline Lip Therapy) 1 applic TP Q2HR PRN PRN Reason: Dry Lips Propofol (Diprivan 10 Mg/Ml) 1,000 mg in 100 mls @ 2.31 mls/hr IV TITR [facility]; Protocol Last Admin: 10/24/18 13:12 Dose: 50 mcg/kg/min, 23.1 mls/hr Documented by: Sodium Chloride (Nacl 0.9% 1000 Ml) 1,000 mls @ 75 mls/hr IV DIRECT [facility] Last Admin: 10/24/18 13:14 Dose: 75 mls/hr Documented by: Levetiracetam 1,000 mg/ (Dextrose) 110 mls @ 400 mls/hr IV Q12H [facility] Last Admin: 10/24/18 05:53 Dose: 400 mls/hr Documented by: Lactobacillus Acidophilus (Lactinex) 1 each PO QDAY [facility] Last Admin: 10/24/18 09:42 Dose: 1 each Documented by: Lactulose (Cephulac) 30 gm PO TID [facility] Last Admin: 10/24/18 13:14 Dose: 30 gm Documented by: Lorazepam (Ativan) 0.5 mg PO BID [facility] Last Admin: 10/24/18 09:43 Dose: 0.5 mg Documented by: Multi-Ingred Cream/Lotion/Oil/Oint (Artificial Tears Ophth Oint) 1 applic OU Q4HR PRN PRN Reason: Dry Eye(s) Ondansetron HCl (Zofran) 4 mg IV Q8H PRN PRN Reason: Nausea And Vomiting Oxcarbazepine (Trileptal) 900 mg PO Q12HR [facility] Last Admin: 10/24/18 10:41 Dose: 900 mg Documented by: Potassium Chloride (K-Dur) 10 meq PO QDAY [facility] Last Admin: 10/24/18 09:46 Dose: 10 meq Documented by: Simple Syrup (Simple Syrup) 15 ml FEEDTUBE PRN PRN PRN Reason: Hypoglycemia Simple Syrup (Simple Syrup) 30 ml FEEDTUBE PRN PRN PRN Reason: Hypoglycemia Sodium Bicarbonate (Sodium Bicarbonate) 325 mg FEEDTUBE PRN PRN PRN Reason: For Clogged Feeding Tube Sodium Chloride (Sodium Chloride Flush Syringe 10 Ml) 10 ml IV BID [facility] Last Admin: 10/24/18 11:02 Dose: Not Given Documented by: Sodium Chloride (Sodium Chloride Flush Syringe 10 Ml) 10 ml IV PRN PRN PRN Reason: LINE FLUSH Topiramate (Topamax) 25 mg PO BID [facility] Last Admin: 10/24/18 10:41 Dose: 25 mg Documented by: Review of Systems ROS unobtainable: due to endotracheal tube, due to mental status Physical Examination Vital signs: Vital Signs Temp Pulse Resp BP Pulse Ox 100.8 F H 135 H 24 140/61 75 L 10/23/18 15:16 10/23/18 15:16 10/23/18 15:16 10/23/18 15:16 10/23/18 15:16 General appearance: comatose (secondary to diprovan) Eyes: non-icteric ENT: other (orally intubated and sedated) Neck: supple Effort: normal Ascultation: Bilateral: clear Percussion: Bilateral: not dull Cardiovascular: regular rate and rhythm Gastrointestinal: soft, non-tender Extremities: no edema unable to assess Results - Laboratory Findings CBC and BMP: 10/24/18 04:12 10/24/18 04:12 ABG POC ABG pH 7.445 (7.35-7.45) 10/24/18 04:28 POC ABG pCO2 36.5 (35-45) 10/24/18 04:28 POC ABG HCO3 25.1 (22-26 mml/L) 10/24/18 04:28 POC ABG Total CO2 26 (23-27mmol/L) 10/24/18 04:28 POC ABG O2 Sat 100 10/24/18 04:28 PT/INR, D-dimer PT 13.6 Sec. (12.2-14.9) 10/23/18 15:34 INR 1.07 (0.87-1.13) 10/23/18 15:34 Abnormal lab findings: Abnormal Labs 10/23/18 10/23/18 10/23/18 15:34 15:34 15:34 WBC MCHC 35 H Lymph % (Auto) 7.7 L [place] % (Auto) Lymph # 0.7 L [place] # Seg Neutrophils % 86.4 H APTT 23.2 L POC ABG pH POC ABG pCO2 Sodium 136 L Chloride Carbon Dioxide Creatinine 0.5 L Glucose 124 H Calcium 8.1 L Alkaline Phosphatase Albumin 3.7 L 10/23/18 10/24/18 10/24/18 16:14 04:12 04:12 WBC 11.3 H MCHC Lymph % (Auto) [place] % (Auto) 10.9 H Lymph # [place] # 1.2 H Seg Neutrophils % APTT POC ABG pH 7.308 L POC ABG pCO2 46.9 H Sodium Chloride 107.5 H Carbon Dioxide 20 L Creatinine 0.4 L Glucose Calcium Alkaline Phosphatase 132 H Albumin 3.7 L - Diagnostic Findings Chest x-ray: image reviewed (clear , no evidence of acute disease) Assessment and Plan 58 y/o female with status epilepticus, status post intubation needed for seizure with diprovan. 1. Turn Diprovan off 2. Eval to see if 1. Patient wakes up and 2 if any further seizure activity 3. If none, will consider extubation 4. Follow up neurology recs 5. Patient appears to have been on tripletal and topamax in the past. CCT 31 minutes.
--- NOTE | 2018-10-24 17:07 | Progress Note ---
Assessment and Plan Assessment and plan: 58-year-old female with history of MS, seizures presents to the ED from [facility] with Continous seizures. Per EMS patient began having a seizure approximately 2 hours ago, 1 mg of Ativan was given by custodial staff. long term reported no break in patient's seizures, so EMS was called after 50 minutes. Upon EMS arrival the patient was actively seizing, 2 mg of Ativan was given. Upon arrival to ED patient is still seizing. Pt on trileptal and topiramate for seizures.Patient intubated in ER because of persistent seizures and for protection of airway. Patient has history of Meningioma resected in 2017.Patient is wheelchair bound and normally able to communicate and eat by herself as per son. (1) Acute respiratory failure - Patient intubated sec to airway protection and Hypoxia - Pulmonary is following (2) Status epilepticus Patient initiated on IV Keppra cont Topiramate and Trilepral Patient didn't have any seizure after admissions (3) HTN (hypertension) Cont antihypertensives (4) CVA, old, ataxia Supportive care (5) Peripheral neuropathy Cont Gabapentin (6) Malnutrition of mild degree Mild Albumin 3.7 (7) DVT prophylaxis On Eliquis and GI prophylaxis The high probability of a clinically significant, sudden or life threatening deterioration of the [Neurology, respiratory] system(s) required my full and direct attention, intervention and personal management. The aggregate critical care time was [34] minutes. This time is in addition to time spent performing reported procedures but includes the following: [x] Data Review and interpretation [x] Patient assessment and monitoring of vital signs [x] Documentation [x] Medication orders and management History Interval history: Patient was seen and evaluated this morning, patient was intubated on the mechanical ventilation. I have discussed the management plan with her son, who were at the bedside. Hospitalist Physical - Physical exam Narrative exam: patient is intubated and on mechanical ventilation. The patient appeared well nourished and normally developed. Vital signs as documented. Head exam is unremarkable. No scleral icterus . Neck is without jugular venous distension, thyromegaly, or carotid bruits. Lungs are clear to auscultation. Cardiac exam reveals regular rate and Rhythm. First and second heart sounds normal. No murmurs, rubs or gallops. Abdominal exam reveals normal bowel sounds, no masses, no organomegaly and no aortic enlargement. Extremities are nonedematous and both femoral and pedal pulses are normal. LOAN BROKER: sedated. - Constitutional Vitals: Temp Pulse Resp BP Pulse Ox 98.8 F 83 22 139/70 100 10/24/18 03:31 10/24/18 15:40 10/24/18 15:40 10/24/18 15:40 10/24/18 15:40 General appearance: Present: severe distress, well-nourished Results - Labs CBC & Chem 7: 10/24/18 04:12 10/24/18 04:12 Labs: Laboratory Last Values WBC 11.3 K/mm3 (4.5-11.0) H 10/24/18 04:12 RBC 4.43 M/mm3 (3.65-5.03) 10/24/18 04:12 Hgb 12.7 gm/dl (10.1-14.3) 10/24/18 04:12 Hct 39.4 % (30.3-42.9) 10/24/18 04:12 MCV 89 fl (79-97) 10/24/18 04:12 MCH 29 pg (28-32) 10/24/18 04:12 MCHC 32 % (30-34) 10/24/18 04:12 RDW 13.8 % (13.2-15.2) 10/24/18 04:12 Plt Count 375 K/mm3 (140-440) 10/24/18 04:12 Lymph % (Auto) 24.9 % (13.4-35.0) 10/24/18 04:12 [place] % (Auto) 10.9 % (0.0-7.3) H 10/24/18 04:12 Eos % (Auto) 1.7 % (0.0-4.3) 10/24/18 04:12 Baso % (Auto) 0.6 % (0.0-1.8) 10/24/18 04:12 Lymph # 2.8 K/mm3 (1.2-5.4) 10/24/18 04:12 [place] # 1.2 K/mm3 (0.0-0.8) H 10/24/18 04:12 Eos # 0.2 K/mm3 (0.0-0.4) 10/24/18 04:12 Baso # 0.1 K/mm3 (0.0-0.1) 10/24/18 04:12 Seg Neutrophils % 61.9 % (40.0-70.0) 10/24/18 04:12 Seg Neutrophils # 7.0 K/mm3 (1.8-7.7) 10/24/18 04:12 PT 13.6 Sec. (12.2-14.9) 10/23/18 15:34 INR 1.07 (0.87-1.13) 10/23/18 15:34 APTT 23.2 Sec. (24.2-36.6) L 10/23/18 15:34 POC ABG pH 7.445 (7.35-7.45) 10/24/18 04:28 POC ABG pCO2 36.5 (35-45) 10/24/18 04:28 POC ABG pO2 85 (80-105) 10/23/18 16:14 POC ABG HCO3 25.1 (22-26 mml/L) 10/24/18 04:28 POC ABG Total CO2 26 (23-27mmol/L) 10/24/18 04:28 POC ABG O2 Sat 100 10/24/18 04:28 POC ABG Base Excess 1 ((-2) - (+3)mmol/L) 10/24/18 04:28 40 % 10/24/18 04:28 Sodium 143 mmol/L (137-145) D 10/24/18 04:12 Potassium 3.9 mmol/L (3.6-5.0) 10/24/18 04:12 Chloride 107.5 mmol/L (98-107) H 10/24/18 04:12 Carbon Dioxide 20 mmol/L (22-30) L 10/24/18 04:12 19 mmol/L 10/24/18 04:12 BUN 8 mg/dL (7-17) 10/24/18 04:12 0.4 mg/dL (0.7-1.2) L 10/24/18 04:12 Estimated GFR > 60 ml/min 10/24/18 04:12 20 % 10/24/18 04:12 Glucose 98 mg/dL (65-100) 10/24/18 04:12 5.1 % (4-6) 10/23/18 15:34 Lactic Acid 1.50 mmol/L (0.7-2.0) 10/23/18 17:55 Calcium 9.2 mg/dL (8.4-10.2) 10/24/18 04:12 0.30 mg/dL (0.1-1.2) 10/24/18 04:12 AST 34 units/L (5-40) 10/24/18 04:12 ALT 42 units/L (7-56) 10/24/18 04:12 132 units/L (35-129) H 10/24/18 04:12 72 units/L (30-135) 10/23/18 17:55 6.6 g/dL (6.3-8.2) 10/24/18 04:12 3.7 g/dL (3.9-5) L 10/24/18 04:12 1.3 % 10/24/18 04:12 Yellow (Yellow) 10/23/18 17:00 Slightly-cloudy (Clear) 10/23/18 17:00 5.0 (5.0-7.0) 10/23/18 17:00 Ur Specific [place] 1.017 (1.003-1.030) 10/23/18 17:00 30 mg/dl mg/dL (Negative) 10/23/18 17:00 Neg mg/dL (Negative) 10/23/18 17:00 Neg mg/dL (Negative) 10/23/18 17:00 Sm (Negative) 10/23/18 17:00 Neg (Negative) 10/23/18 17:00 Neg (Negative) 10/23/18 17:00 < 2.0 mg/dL (<2.0) 10/23/18 17:00 Ur Leukocyte Esterase Neg (Negative) 10/23/18 17:00 4.0 /HPF (0.0-6.0) 10/23/18 17:00 29.0 /HPF (0.0-6.0) 10/23/18 17:00 U Epithel Cells (Auto) 2.0 /HPF (0-13.0) 10/23/18 17:00 Few /HPF 10/23/18 17:00 Active Medications - Current Medications Current Medications: Generic Name Dose Route Start Last Admin Trade Name Freq PRN Reason Stop Dose Admin Acetaminophen 650 mg 10/23/18 21:04 Tylenol PO Q4H PRN Pain MILD(1-3)/Fever >100.5/[place] Lipase/Protease/Amylase 1 each 10/24/18 06:24 Tracee [place] 10,500 Unit FEEDTUBE PRN PRN For Clogged Feeding Tube Apixaban 5 mg 10/24/18 10:00 10/24/18 09:45 Eliquis PO 5 mg BID NILAM Administration Protocol Baclofen 5 mg 10/24/18 06:15 10/24/18 14:00 Lioresal PO 5 mg Q8HR NILAM Administration Citalopram Hydrobromide 10 mg 10/24/18 10:00 10/24/18 10:41 Celexa PO 10 mg QDAY NILAM Administration Diltiazem HCl 180 mg 10/24/18 10:00 10/24/18 09:43 Cardizem Cd PO 180 mg DAILY NILAM Administration Famotidine 20 mg 10/23/18 22:00 10/24/18 11:02 Pepcid IV 20 mg BID NILAM Administration Gabapentin 300 mg 10/24/18 07:00 10/24/18 13:14 Neurontin PO 300 mg Q8HR NILAM Administration Hydromorphone HCl 0.5 mg 10/23/18 21:04 Dilaudid IV Q3H PRN Pain , Severe (7-10) Hydrophilic Ointment 1 applic 10/23/18 15:22 Vaseline Lip Therapy TP Q2HR PRN Dry Lips Propofol 1,000 mg in 100 mls @ 2.31 mls/hr 10/23/18 16:00 10/24/18 14:00 Diprivan 10 Mg/Ml IV 0 mcg/kg/min TITR NILAM 0 mls/hr Titration Protocol 5 MCG/KG/MIN Sodium Chloride 1,000 mls @ 75 mls/hr 10/23/18 22:00 10/24/18 13:14 Nacl 0.9% 1000 Ml IV 75 mls/hr DIRECT NILAM Administration Levetiracetam 1,000 mg/ 110 mls @ 400 mls/hr 10/24/18 05:00 10/24/18 16:04 Dextrose IV 400 mls/hr Q12H NILAM Administration Lactobacillus Acidophilus 1 each 10/24/18 10:00 10/24/18 09:42 Lactinex PO 1 each QDAY NILAM Administration Lactulose 30 gm 10/24/18 08:00 10/24/18 13:14 Cephulac PO 30 gm TID NILAM Administration Lorazepam 0.5 mg 10/24/18 10:00 10/24/18 09:43 Ativan PO 0.5 mg BID NILAM Administration Multi-Ingred Cream/Lotion/Oil/Oint 1 applic 10/23/18 15:22 Artificial Tears Ophth Oint OU Q4HR PRN Dry Eye(s) Ondansetron HCl 4 mg 10/23/18 21:04 Zofran IV Q8H PRN Nausea And Vomiting Oxcarbazepine 900 mg 10/24/18 10:00 10/24/18 10:41 Trileptal PO 900 mg Q12HR NILAM Administration Potassium Chloride 10 meq 10/24/18 10:00 10/24/18 09:46 K-Dur PO 10 meq QDAY NILAM Administration Simple Syrup 15 ml 10/24/18 06:24 Simple Syrup FEEDTUBE PRN PRN Hypoglycemia Simple Syrup 30 ml 10/24/18 06:24 Simple Syrup FEEDTUBE PRN PRN Hypoglycemia Sodium Bicarbonate 325 mg 10/24/18 06:24 Sodium Bicarbonate FEEDTUBE PRN PRN For Clogged Feeding Tube Sodium Chloride 10 ml 10/23/18 22:00 10/24/18 11:02 Sodium Chloride Flush Syringe 10 Ml IV Not Given BID NILAM Sodium Chloride 10 ml 10/23/18 21:04 Sodium Chloride Flush Syringe 10 Ml IV PRN PRN LINE FLUSH Topiramate 25 mg 10/24/18 10:00 10/24/18 10:41 Topamax PO 25 mg BID NILAM Administration Nutrition/Malnutrition Assess - Dietary Evaluation Nutrition/Malnutrition Findings: Nutrition Notes Start: 10/24/18 07:50 Freq: Status: Active Protocol: Document 10/24/18 07:50 LP (Rec: 10/24/18 07:57 LP [id number]) Nutrition Notes Need for Assessment generated from: MD Order Initial or Follow up Assessment Current Diagnosis Acute Kidney Injury, Hypertension,Stroke Current Diet NPO Labs/Tests Reviewed Pertinent Medications KDUR Propofol NS at 75ml/hr Height 5 ft 5 in Weight 78 kg [place] Body Weight (kg) 56.81 BMI 28.6 Subjective/Other Information Consult for TF. Pt on vent. Pt from [place]. Burn Absent Trauma Absent #1 Nutrition Diagnosis Inadequate oral intake Etiology vent As Evidenced by Signs and Symptoms Pt unable to consume PO due to vent Is patient on ventilator? Yes Is Patient Ambulatory and/or Out of Bed No REE-([facility]-confined to bed) [phone] Calculation Used for Recommendations [facility] Additional Notes Protein needs are 94-156g (1.2 -2g/kg) Fluid needs are 1ml/kcal Nutrition Intervention Change Diet Order: TF Nutrition Support: Promote at 65ml/hr Flush with 50ml q4h Kcal 1,560 Protein (gm) 98 Fluid (mL) 1,309 Goal #1 Meet at least 80% of kcal and protein needs Anticipated Discharge Needs: Unable to determine at this time Follow-Up By: 10/26/18 Additional Comments Follow for TF start/tolerance
[2018-10-25] MEDS: NACL 0.9% 1000 ML 1,000 ML IV SCH (01:42)
[2018-10-25 05:54] LABS: Basophils # (Auto) 0.1 K/mm3 (0.0-0.1); Basophils % (Auto) 0.7 % (0.0-1.8); Eosinophils # (Auto) 0.4 K/mm3 (0.0-0.4); Eosinophils % (Auto) 5.3 % (0.0-4.3); Hematocrit 38.1 % (30.3-42.9); Hemoglobin 12.3 gm/dl (10.1-14.3); Lymphocytes # (Auto) 2.2 K/mm3 (1.2-5.4); Lymphocytes % (Auto) 27.9 % (13.4-35.0); Mean Corpuscular HGB Conc 32 % (30-34); Mean Corpuscular Volume 90 fl (79-97); Monocytes # (Auto) 0.7 K/mm3 (0.0-0.8); Monocytes % (Auto) 8.9 % (0.0-7.3); Red Blood Count 4.24 M/mm3 (3.65-5.03)
[2018-10-25 06:10] LABS: BUN/Creatinine Ratio 16; Blood Urea Nitrogen 8 mg/dL (7-17); Hemolysis Index 22
[2018-10-25] MEDS: KEPPRA 1,000 MG in D5W 100 ML IV SCH ×2 (06:26→17:30)
[2018-10-25] MEDS: NEURONTIN PO SCH ×3 (06:28→21:49)
[2018-10-25] MEDS: LIORESAL PO SCH ×3 (06:28→21:48)
[2018-10-25 07:06] LABS: Platelet Count 276 K/mm3 (140-440)
[2018-10-25] MEDS: CARDIZEM CD PO SCH (11:20)
[2018-10-25] MEDS: PEPCID IV SCH ×2 (11:20→21:50)
[2018-10-25] MEDS: CEPHULAC PO SCH ×3 (11:20→21:52)
[2018-10-25] MEDS: LACTINEX PO SCH (11:21)
[2018-10-25] MEDS: K-DUR PO SCH (11:21)
[2018-10-25] MEDS: ELIQUIS PO SCH ×2 (11:21→21:49)
[2018-10-25] MEDS: ATIVAN PO SCH ×2 (11:21→21:48)
[2018-10-25] MEDS: TOPAMAX PO SCH ×2 (11:25→21:49)
[2018-10-25] MEDS: celeXA PO SCH (11:25)
[2018-10-25] MEDS: TRILEPTAL PO SCH ×2 (11:26→21:48)
--- NOTE | 2018-10-25 11:58 | Progress Note ---
Assessment and Plan 58 y/o female with status epilepticus, status post intubation needed for seizure with diprovan. 1. Continue current antieplipetic therapy and await neurology follow up. 2. Diet and order PO medications. 3. Will transfer to [facility]. Subjective Date of service: 10/25/18 Interval history: Successful extubation on yesterday. Stable. Awake and alert. Son at bedside and daughter on Facetime via iPhone. No further seizure activity. Currently on room air and stable. Objective Vital Signs - 12hr 10/24/18 10/25/18 10/25/18 23:56 00:00 00:10 Temperature Pulse Rate 90 90 90 Respiratory 14 14 14 Rate Blood Pressure 113/64 92/52 92/52 O2 Sat by Pulse 95 91 95 Oximetry 10/25/18 10/25/18 10/25/18 00:20 00:30 00:40 Temperature Pulse Rate 91 H 92 H 91 H Respiratory 14 14 14 Rate Blood Pressure 113/64 113/64 113/64 O2 Sat by Pulse 95 95 96 Oximetry 10/25/18 10/25/18 10/25/18 00:50 01:00 01:10 Temperature Pulse Rate 94 H 87 88 Respiratory 15 15 14 Rate Blood Pressure 92/52 111/43 111/43 O2 Sat by Pulse 95 94 Oximetry 10/25/18 10/25/18 10/25/18 01:20 01:30 01:40 Temperature Pulse Rate 87 86 87 Respiratory 14 14 14 Rate Blood Pressure 111/43 111/43 111/43 O2 Sat by Pulse 96 96 95 Oximetry 10/25/18 10/25/18 10/25/18 01:47 01:50 02:00 Temperature Pulse Rate 87 86 85 Respiratory 20 14 14 Rate Blood Pressure 111/43 93/50 O2 Sat by Pulse 97 93 93 Oximetry 10/25/18 10/25/18 10/25/18 02:10 02:20 02:30 Temperature Pulse Rate 88 89 91 H Respiratory 14 14 14 Rate Blood Pressure 93/50 111/43 111/43 O2 Sat by Pulse 93 92 92 Oximetry 10/25/18 10/25/18 10/25/18 02:40 02:50 03:00 Temperature Pulse Rate 91 H 93 H 90 Respiratory 14 13 14 Rate Blood Pressure 111/43 111/43 100/55 O2 Sat by Pulse 93 94 Oximetry 10/25/18 10/25/18 10/25/18 03:10 03:20 03:30 Temperature Pulse Rate 88 89 89 Respiratory 14 14 15 Rate Blood Pressure 100/55 93/50 93/50 O2 Sat by Pulse 95 95 95 Oximetry 10/25/18 10/25/18 10/25/18 03:40 03:50 04:00 Temperature Pulse Rate 87 87 97 H Respiratory 15 14 15 Rate Blood Pressure 93/50 93/50 98/55 O2 Sat by Pulse 95 95 Oximetry 10/25/18 10/25/18 10/25/18 04:10 04:20 04:30 Temperature Pulse Rate 87 84 86 Respiratory 14 15 15 Rate Blood Pressure 98/55 98/55 98/55 O2 Sat by Pulse 95 95 95 Oximetry 10/25/18 10/25/18 10/25/18 04:40 04:50 05:00 Temperature Pulse Rate 91 H 84 83 Respiratory 18 16 18 Rate Blood Pressure 98/55 98/55 110/60 O2 Sat by Pulse 96 97 97 Oximetry 10/25/18 10/25/18 10/25/18 05:10 05:20 05:30 Temperature Pulse Rate 85 84 86 Respiratory 16 18 17 Rate Blood Pressure 110/60 98/55 98/55 O2 Sat by Pulse 97 97 97 Oximetry 10/25/18 10/25/18 10/25/18 05:39 05:40 05:50 Temperature Pulse Rate 86 84 85 Respiratory 20 18 17 Rate Blood Pressure 98/55 98/55 O2 Sat by Pulse 97 97 97 Oximetry 10/25/18 10/25/18 10/25/18 06:00 06:10 06:20 Temperature Pulse Rate 86 83 84 Respiratory 17 15 16 Rate Blood Pressure 104/63 104/63 104/63 O2 Sat by Pulse 96 96 Oximetry 10/25/18 10/25/18 10/25/18 06:30 06:40 06:50 Temperature Pulse Rate 87 82 85 Respiratory 16 15 17 Rate Blood Pressure 104/63 104/63 104/63 O2 Sat by Pulse 97 97 96 Oximetry 10/25/18 10/25/18 10/25/18 07:00 07:10 07:20 Temperature Pulse Rate 84 83 94 H Respiratory 15 14 16 Rate Blood Pressure 101/63 101/63 101/63 O2 Sat by Pulse 98 98 96 Oximetry 10/25/18 10/25/18 10/25/18 07:30 07:40 07:50 Temperature Pulse Rate 81 93 H 82 Respiratory 14 15 15 Rate Blood Pressure 104/63 104/63 104/63 O2 Sat by Pulse 98 97 97 Oximetry 10/25/18 10/25/18 10/25/18 08:00 08:10 08:20 Temperature 98.7 F Pulse Rate 81 80 89 Respiratory 14 15 15 Rate Blood Pressure 95/51 95/51 95/51 O2 Sat by Pulse 98 98 98 Oximetry 10/25/18 10/25/18 10/25/18 08:30 08:40 08:50 Temperature Pulse Rate 82 83 87 Respiratory 15 14 17 Rate Blood Pressure 101/63 101/63 101/63 O2 Sat by Pulse 99 99 99 Oximetry 10/25/18 10/25/18 10/25/18 09:00 09:10 09:20 Temperature Pulse Rate 82 80 82 Respiratory 16 15 16 Rate Blood Pressure 103/59 103/59 103/59 O2 Sat by Pulse 98 98 98 Oximetry 10/25/18 10/25/18 10/25/18 09:30 09:40 09:50 Temperature Pulse Rate 102 H 89 84 Respiratory 12 20 20 Rate Blood Pressure 103/59 103/59 103/59 O2 Sat by Pulse 95 97 97 Oximetry 10/25/18 10/25/18 10/25/18 10:00 10:10 10:20 Temperature Pulse Rate 88 88 94 H Respiratory 19 21 16 Rate Blood Pressure 107/63 107/63 107/63 O2 Sat by Pulse 100 97 97 Oximetry 10/25/18 10/25/18 10/25/18 10:30 10:40 10:50 Temperature Pulse Rate 88 86 88 Respiratory 16 19 15 Rate Blood Pressure 107/63 107/63 107/63 O2 Sat by Pulse 98 98 99 Oximetry 10/25/18 10/25/18 10/25/18 11:00 11:10 11:20 Temperature Pulse Rate 93 H 88 86 Respiratory 16 21 22 Rate Blood Pressure 115/72 115/72 115/72 O2 Sat by Pulse 100 97 99 Oximetry 10/25/18 10/25/18 11:30 11:40 Temperature Pulse Rate 84 85 Respiratory 15 17 Rate Blood Pressure 115/72 115/72 O2 Sat by Pulse 99 97 Oximetry Constitutional: alert Eyes: non-icteric Neck: supple Effort: normal Ascultation: Bilateral: clear Percussion: Bilateral: not dull Cardiovascular: regular rate and rhythm Gastrointestinal: soft, non-tender Extremities: no edema Neurologic: unable to assess CBC and BMP: 10/25/18 05:05 10/25/18 04:52 ABG, PT/INR, D-dimer: ABG POC ABG pH 7.445 (7.35-7.45) 10/24/18 04:28 POC ABG pCO2 36.5 (35-45) 10/24/18 04:28 POC ABG HCO3 25.1 (22-26 mml/L) 10/24/18 04:28 POC ABG Total CO2 26 (23-27mmol/L) 10/24/18 04:28 POC ABG O2 Sat 100 10/24/18 04:28 PT/INR, D-dimer PT 13.6 Sec. (12.2-14.9) 10/23/18 15:34 INR 1.07 (0.87-1.13) 10/23/18 15:34 Abnormal lab findings: Abnormal Labs 10/23/18 10/23/18 10/23/18 15:34 15:34 15:34 WBC MCHC 35 H Lymph % (Auto) 7.7 L [place] % (Auto) Eos % (Auto) Lymph # 0.7 L [place] # Seg Neutrophils % 86.4 H APTT 23.2 L POC ABG pH POC ABG pCO2 Sodium 136 L Chloride Carbon Dioxide Creatinine 0.5 L Glucose 124 H Calcium 8.1 L Alkaline Phosphatase Albumin 3.7 L 10/23/18 10/24/18 10/24/18 16:14 04:12 04:12 WBC 11.3 H MCHC Lymph % (Auto) [place] % (Auto) 10.9 H Eos % (Auto) Lymph # [place] # 1.2 H Seg Neutrophils % APTT POC ABG pH 7.308 L POC ABG pCO2 46.9 H Sodium Chloride 107.5 H Carbon Dioxide 20 L Creatinine 0.4 L Glucose Calcium Alkaline Phosphatase 132 H Albumin 3.7 L 10/25/18 10/25/18 04:52 05:05 WBC MCHC Lymph % (Auto) [place] % (Auto) 8.9 H Eos % (Auto) 5.3 H Lymph # [place] # Seg Neutrophils % APTT POC ABG pH POC ABG pCO2 Sodium Chloride 111.0 H Carbon Dioxide 21 L Creatinine 0.5 L Glucose Calcium Alkaline Phosphatase Albumin
--- NOTE | 2018-10-25 13:44 | Progress Note ---
Assessment and Plan Assessment and plan: 58-year-old female with history of MS, seizures presents to the ED from [facility] with Continous seizures. Per EMS patient began having a seizure approximately 2 hours ago, 1 mg of Ativan was given by halfway staff. group home reported no break in patient's seizures, so EMS was called after 50 minutes. Upon EMS arrival the patient was actively seizing, 2 mg of Ativan was given. Upon arrival to ED patient is still seizing. Pt on trileptal and topiramate for seizures.Patient intubated in ER because of persistent seizures and for protection of airway. Patient has history of Meningioma resected in 2017.Patient is wheelchair bound and normally able to communicate and eat by herself as per son. (1) Acute respiratory failure - Patient intubated sec to airway protection and Hypoxia - Pulmonary is following (2) Status epilepticus Patient initiated on IV Keppra cont Topiramate and Trilepral Patient didn't have any seizure after admissions (3) HTN (hypertension) Cont antihypertensives (4) CVA, old, ataxia Supportive care (5) Peripheral neuropathy Cont Gabapentin (6) Malnutrition of mild degree Mild Albumin 3.7 (7) DVT prophylaxis On Eliquis and GI prophylaxis The high probability of a clinically significant, sudden or life threatening deterioration of the [Neurology, respiratory] system(s) required my full and direct attention, intervention and personal management. The aggregate critical care time was [34] minutes. This time is in addition to time spent performing reported procedures but includes the following: [x] Data Review and interpretation [x] Patient assessment and monitoring of vital signs [x] Documentation [x] Medication orders and management History Interval history: No seizures Review of systems Constitutional: No fevers, no malaise, no joint pains CVS: No chest pain, no orthopnea, no dyspnea on exertion, no pedal edema GI: No abdominal pain, no diarrhea, no vomiting, no constipation Respiratory: no wheezing, no coughing Hospitalist Physical - Physical exam Narrative exam: patient is intubated and on mechanical ventilation. The patient appeared well nourished and normally developed. Vital signs as documented. Head exam is unremarkable. No scleral icterus . Neck is without jugular venous distension, thyromegaly, or carotid bruits. Lungs are clear to auscultation. Cardiac exam reveals regular rate and Rhythm. First and second heart sounds normal. No murmurs, rubs or gallops. Abdominal exam reveals normal bowel sounds, no masses, no organomegaly and no aortic enlargement. Extremities are nonedematous and both femoral and pedal pulses are normal. ROAD MAKER: sedated. - Constitutional Vitals: Temp Pulse Resp BP Pulse Ox 98.7 F 85 17 115/72 97 10/25/18 12:00 10/25/18 11:40 10/25/18 11:40 10/25/18 11:40 10/25/18 11:40 General appearance: Present: severe distress, well-nourished Results - Labs CBC & Chem 7: 10/25/18 05:05 10/25/18 04:52 Labs: Laboratory Last Values WBC 7.9 K/mm3 (4.5-11.0) 10/25/18 05:05 RBC 4.24 M/mm3 (3.65-5.03) 10/25/18 05:05 Hgb 12.3 gm/dl (10.1-14.3) 10/25/18 05:05 Hct 38.1 % (30.3-42.9) 10/25/18 05:05 MCV 90 fl (79-97) 10/25/18 05:05 MCH 29 pg (28-32) 10/25/18 05:05 MCHC 32 % (30-34) 10/25/18 05:05 RDW 14.0 % (13.2-15.2) 10/25/18 05:05 Plt Count 276 K/mm3 (140-440) 10/25/18 05:05 Lymph % (Auto) 27.9 % (13.4-35.0) 10/25/18 05:05 [place] % (Auto) 8.9 % (0.0-7.3) H 10/25/18 05:05 Eos % (Auto) 5.3 % (0.0-4.3) H 10/25/18 05:05 Baso % (Auto) 0.7 % (0.0-1.8) 10/25/18 05:05 Lymph # 2.2 K/mm3 (1.2-5.4) 10/25/18 05:05 [place] # 0.7 K/mm3 (0.0-0.8) 10/25/18 05:05 Eos # 0.4 K/mm3 (0.0-0.4) 10/25/18 05:05 Baso # 0.1 K/mm3 (0.0-0.1) 10/25/18 05:05 Seg Neutrophils % 57.2 % (40.0-70.0) 10/25/18 05:05 Seg Neutrophils # 4.5 K/mm3 (1.8-7.7) 10/25/18 05:05 PT 13.6 Sec. (12.2-14.9) 10/23/18 15:34 INR 1.07 (0.87-1.13) 10/23/18 15:34 APTT 23.2 Sec. (24.2-36.6) L 10/23/18 15:34 POC ABG pH 7.445 (7.35-7.45) 10/24/18 04:28 POC ABG pCO2 36.5 (35-45) 10/24/18 04:28 POC ABG pO2 85 (80-105) 10/23/18 16:14 POC ABG HCO3 25.1 (22-26 mml/L) 10/24/18 04:28 POC ABG Total CO2 26 (23-27mmol/L) 10/24/18 04:28 POC ABG O2 Sat 100 10/24/18 04:28 POC ABG Base Excess 1 ((-2) - (+3)mmol/L) 10/24/18 04:28 40 % 10/24/18 04:28 Sodium 144 mmol/L (137-145) 10/25/18 04:52 Potassium 3.9 mmol/L (3.6-5.0) 10/25/18 04:52 Chloride 111.0 mmol/L (98-107) H 10/25/18 04:52 Carbon Dioxide 21 mmol/L (22-30) L 10/25/18 04:52 16 mmol/L 10/25/18 04:52 BUN 8 mg/dL (7-17) 10/25/18 04:52 0.5 mg/dL (0.7-1.2) L 10/25/18 04:52 Estimated GFR > 60 ml/min 10/25/18 04:52 16 % 10/25/18 04:52 Glucose 81 mg/dL (65-100) 10/25/18 04:52 5.1 % (4-6) 10/23/18 15:34 Lactic Acid 1.50 mmol/L (0.7-2.0) 10/23/18 17:55 Calcium 9.0 mg/dL (8.4-10.2) 10/25/18 04:52 0.30 mg/dL (0.1-1.2) 10/24/18 04:12 AST 34 units/L (5-40) 10/24/18 04:12 ALT 42 units/L (7-56) 10/24/18 04:12 132 units/L (35-129) H 10/24/18 04:12 72 units/L (30-135) 10/23/18 17:55 6.6 g/dL (6.3-8.2) 10/24/18 04:12 3.7 g/dL (3.9-5) L 10/24/18 04:12 1.3 % 10/24/18 04:12 Yellow (Yellow) 10/23/18 17:00 Slightly-cloudy (Clear) 10/23/18 17:00 5.0 (5.0-7.0) 10/23/18 17:00 Ur Specific [place] 1.017 (1.003-1.030) 10/23/18 17:00 30 mg/dl mg/dL (Negative) 10/23/18 17:00 Neg mg/dL (Negative) 10/23/18 17:00 Neg mg/dL (Negative) 10/23/18 17:00 Sm (Negative) 10/23/18 17:00 Neg (Negative) 10/23/18 17:00 Neg (Negative) 10/23/18 17:00 < 2.0 mg/dL (<2.0) 10/23/18 17:00 Ur Leukocyte Esterase Neg (Negative) 10/23/18 17:00 4.0 /HPF (0.0-6.0) 10/23/18 17:00 29.0 /HPF (0.0-6.0) 10/23/18 17:00 U Epithel Cells (Auto) 2.0 /HPF (0-13.0) 10/23/18 17:00 Few /HPF 10/23/18 17:00 Active Medications - Current Medications Current Medications: Generic Name Dose Route Start Last Admin Trade Name Freq PRN Reason Stop Dose Admin Acetaminophen 650 mg 10/23/18 21:04 Tylenol PO Q4H PRN Pain MILD(1-3)/Fever >100.5/[place] Lipase/Protease/Amylase 1 each 10/24/18 06:24 Pancreaze 10,500 Unit FEEDTUBE PRN PRN For Clogged Feeding Tube Apixaban 5 mg 10/24/18 10:00 10/25/18 11:21 Eliquis PO 5 mg BID NILAM Administration Protocol Baclofen 5 mg 10/24/18 06:15 10/25/18 06:28 Lioresal PO Not Given Q8HR NILAM Citalopram Hydrobromide 10 mg 10/24/18 10:00 10/25/18 11:25 Celexa PO 10 mg QDAY NILAM Administration Diltiazem HCl 180 mg 10/24/18 10:00 10/25/18 11:20 Cardizem Cd PO 180 mg DAILY NILAM Administration Famotidine 20 mg 10/23/18 22:00 10/25/18 11:20 Pepcid IV 20 mg BID NILAM Administration Gabapentin 300 mg 10/24/18 07:00 10/25/18 06:28 Neurontin PO Not Given Q8HR NILAM Hydromorphone HCl 0.5 mg 10/23/18 21:04 10/24/18 22:00 Dilaudid IV 0.5 mg Q3H PRN Administration Pain , Severe (7-10) Hydrophilic Ointment 1 applic 10/23/18 15:22 Vaseline Lip Therapy TP Q2HR PRN Dry Lips Propofol 1,000 mg in 100 mls @ 2.31 mls/hr 10/23/18 16:00 10/24/18 14:00 Diprivan 10 Mg/Ml IV 0 mcg/kg/min TITR NILAM 0 mls/hr Titration Protocol 5 MCG/KG/MIN Sodium Chloride 1,000 mls @ 75 mls/hr 10/23/18 22:00 10/25/18 01:42 Nacl 0.9% 1000 Ml IV 75 mls/hr DIRECT NILAM Administration Levetiracetam 1,000 mg/ 110 mls @ 400 mls/hr 10/24/18 05:00 10/25/18 06:26 Dextrose IV 400 mls/hr Q12H NILAM Administration Lactobacillus Acidophilus 1 each 10/24/18 10:00 10/25/18 11:21 Lactinex PO 1 each QDAY NILAM Administration Lactulose 30 gm 10/24/18 08:00 10/25/18 11:20 Cephulac PO 30 gm TID NILAM Administration Lorazepam 0.5 mg 10/24/18 10:00 10/25/18 11:21 Ativan PO 0.5 mg BID NILAM Administration Multi-Ingred Cream/Lotion/Oil/Oint 1 applic 10/23/18 15:22 Artificial Tears Ophth Oint OU Q4HR PRN Dry Eye(s) Ondansetron HCl 4 mg 10/23/18 21:04 Zofran IV Q8H PRN Nausea And Vomiting Oxcarbazepine 900 mg 10/24/18 10:00 10/25/18 11:26 Trileptal PO 900 mg Q12HR NILAM Administration Potassium Chloride 10 meq 10/24/18 10:00 10/25/18 11:21 K-Dur PO 10 meq QDAY NILAM Administration Simple Syrup 15 ml 10/24/18 06:24 Simple Syrup FEEDTUBE PRN PRN Hypoglycemia Simple Syrup 30 ml 10/24/18 06:24 Simple Syrup FEEDTUBE PRN PRN Hypoglycemia Sodium Bicarbonate 325 mg 10/24/18 06:24 Sodium Bicarbonate FEEDTUBE PRN PRN For Clogged Feeding Tube Sodium Chloride 10 ml 10/23/18 22:00 10/24/18 21:45 Sodium Chloride Flush Syringe 10 Ml IV 10 ml BID NILAM Administration Sodium Chloride 10 ml 10/23/18 21:04 Sodium Chloride Flush Syringe 10 Ml IV PRN PRN LINE FLUSH Topiramate 25 mg 10/24/18 10:00 10/25/18 11:25 Topamax PO 25 mg BID NILAM Administration Nutrition/Malnutrition Assess - Dietary Evaluation Nutrition/Malnutrition Findings: Nutrition Notes Start: 10/24/18 07:50 Freq: Status: Active Protocol: Document 10/24/18 07:50 LP (Rec: 10/24/18 07:57 LP [id number]) Nutrition Notes Need for Assessment generated from: MD Order Initial or Follow up Assessment Current Diagnosis Acute Kidney Injury, Hypertension,Stroke Current Diet NPO Labs/Tests Reviewed Pertinent Medications KDUR Propofol NS at 75ml/hr Height 5 ft 5 in Weight 78 kg [place] Body Weight (kg) 56.81 BMI 28.6 Subjective/Other Information Consult for TF. Pt on vent. Pt from [place]. Burn Absent Trauma Absent #1 Nutrition Diagnosis Inadequate oral intake Etiology vent As Evidenced by Signs and Symptoms Pt unable to consume PO due to vent Is patient on ventilator? Yes Is Patient Ambulatory and/or Out of Bed No REE-([facility]-confined to bed) 1003.672 Calculation Used for Recommendations [facility] Additional Notes Protein needs are 94-156g (1.2 -2g/kg) Fluid needs are 1ml/kcal Nutrition Intervention Change Diet Order: TF Nutrition Support: Promote at 65ml/hr Flush with 50ml q4h Kcal 1,560 Protein (gm) 98 Fluid (mL) 1,309 Goal #1 Meet at least 80% of kcal and protein needs Anticipated Discharge Needs: Unable to determine at this time Follow-Up By: 10/26/18 Additional Comments Follow for TF start/tolerance
--- NOTE | 2018-10-25 13:51 | Progress Note ---
Subjective Date of service: 10/25/18 Interval history: awake an alert looks much better no more seizures spoke to family plan EEG and MRI on friday PMH of brain surgery at [place] for disorder no clear etiology will follow Objective - Vital Sign Vital Signs - 12hr 10/25/18 10/25/18 10/25/18 02:00 02:10 02:20 Temperature Pulse Rate 85 88 89 Respiratory 14 14 14 Rate Blood Pressure 93/50 93/50 111/43 O2 Sat by Pulse 93 93 92 Oximetry 10/25/18 10/25/18 10/25/18 02:30 02:40 02:50 Temperature Pulse Rate 91 H 91 H 93 H Respiratory 14 14 13 Rate Blood Pressure 111/43 111/43 111/43 O2 Sat by Pulse 92 93 94 Oximetry 10/25/18 10/25/18 10/25/18 03:00 03:10 03:20 Temperature Pulse Rate 90 88 89 Respiratory 14 14 14 Rate Blood Pressure 100/55 100/55 93/50 O2 Sat by Pulse 95 95 Oximetry 10/25/18 10/25/18 10/25/18 03:30 03:40 03:50 Temperature Pulse Rate 89 87 87 Respiratory 15 15 14 Rate Blood Pressure 93/50 93/50 93/50 O2 Sat by Pulse 95 95 95 Oximetry 10/25/18 10/25/18 10/25/18 04:00 04:10 04:20 Temperature Pulse Rate 97 H 87 84 Respiratory 15 14 15 Rate Blood Pressure 98/55 98/55 98/55 O2 Sat by Pulse 95 95 Oximetry 10/25/18 10/25/18 10/25/18 04:30 04:40 04:50 Temperature Pulse Rate 86 91 H 84 Respiratory 15 18 16 Rate Blood Pressure 98/55 98/55 98/55 O2 Sat by Pulse 95 96 97 Oximetry 10/25/18 10/25/18 10/25/18 05:00 05:10 05:20 Temperature Pulse Rate 83 85 84 Respiratory 18 16 18 Rate Blood Pressure 110/60 110/60 98/55 O2 Sat by Pulse 97 97 97 Oximetry 10/25/18 10/25/18 10/25/18 05:30 05:39 05:40 Temperature Pulse Rate 86 86 84 Respiratory 17 20 18 Rate Blood Pressure 98/55 98/55 O2 Sat by Pulse 97 97 97 Oximetry 10/25/18 10/25/1819 05:50 06:00 06:10 Temperature Pulse Rate 85 86 83 Respiratory 17 17 15 Rate Blood Pressure 98/55 104/63 104/63 O2 Sat by Pulse 97 96 Oximetry 10/25/18 10/25/18 10/25/18 06:20 06:30 06:40 Temperature Pulse Rate 84 87 82 Respiratory 16 16 15 Rate Blood Pressure 104/63 104/63 104/63 O2 Sat by Pulse 96 97 97 Oximetry 10/25/18 10/25/18 10/25/18 06:50 07:00 07:10 Temperature Pulse Rate 85 84 83 Respiratory 17 15 14 Rate Blood Pressure 104/63 101/63 101/63 O2 Sat by Pulse 96 98 98 Oximetry 10/25/18 10/25/18 10/25/18 07:20 07:30 07:40 Temperature Pulse Rate 94 H 81 93 H Respiratory 16 14 15 Rate Blood Pressure 101/63 104/63 104/63 O2 Sat by Pulse 96 98 97 Oximetry 10/25/18 10/25/18 10/25/18 07:50 08:00 08:10 Temperature 98.7 F Pulse Rate 82 81 80 Respiratory 15 14 15 Rate Blood Pressure 104/63 95/51 95/51 O2 Sat by Pulse 97 98 98 Oximetry 10/25/18 10/25/18 10/25/18 08:20 08:30 08:40 Temperature Pulse Rate 89 82 83 Respiratory 15 15 14 Rate Blood Pressure 95/51 101/63 101/63 O2 Sat by Pulse 98 99 99 Oximetry 10/25/18 10/25/18 10/25/18 08:50 09:00 09:10 Temperature Pulse Rate 87 82 80 Respiratory 17 16 15 Rate Blood Pressure 101/63 103/59 103/59 O2 Sat by Pulse 99 98 98 Oximetry 10/25/18 10/25/18 10/25/18 09:20 09:30 09:40 Temperature Pulse Rate 82 102 H 89 Respiratory 16 12 20 Rate Blood Pressure 103/59 103/59 103/59 O2 Sat by Pulse 98 95 97 Oximetry 10/25/18 10/25/18 10/25/18 09:50 10:00 10:10 Temperature Pulse Rate 84 88 88 Respiratory 20 19 21 Rate Blood Pressure 103/59 107/63 107/63 O2 Sat by Pulse 97 100 97 Oximetry 10/25/18 10/25/1810/25/19 10:20 10:30 10:40 Temperature Pulse Rate 94 H 88 86 Respiratory 16 16 19 Rate Blood Pressure 107/63 107/63 107/63 O2 Sat by Pulse 97 98 98 Oximetry 10/25/18 10/25/18 10/25/18 10:50 11:00 11:10 Temperature Pulse Rate 88 93 H 88 Respiratory 15 16 21 Rate Blood Pressure 107/63 115/72 115/72 O2 Sat by Pulse 99 100 97 Oximetry 10/25/18 10/25/18 10/25/18 11:20 11:30 11:40 Temperature Pulse Rate 86 84 85 Respiratory 22 15 17 Rate Blood Pressure 115/72 115/72 115/72 O2 Sat by Pulse 99 99 97 Oximetry 10/25/18 12:00 Temperature 98.7 F Pulse Rate Respiratory Rate Blood Pressure O2 Sat by Pulse Oximetry - Laboratory Findings CBC and BMP: 10/25/18 05:05 10/25/18 04:52 Abnormal Lab Findings: Abnormal Labs 10/23/18 10/23/18 10/23/18 15:34 15:34 15:34 WBC MCHC 35 H Lymph % (Auto) 7.7 L [place] % (Auto) Eos % (Auto) Lymph # 0.7 L [place] # Seg Neutrophils % 86.4 H APTT 23.2 L POC ABG pH POC ABG pCO2 Sodium 136 L Chloride Carbon Dioxide Creatinine 0.5 L Glucose 124 H Calcium 8.1 L Alkaline Phosphatase Albumin 3.7 L 10/23/18 10/24/18 10/24/18 16:14 04:12 04:12 WBC 11.3 H MCHC Lymph % (Auto) [place] % (Auto) 10.9 H Eos % (Auto) Lymph # [place] # 1.2 H Seg Neutrophils % APTT POC ABG pH 7.308 L POC ABG pCO2 46.9 H Sodium Chloride 107.5 H Carbon Dioxide 20 L Creatinine 0.4 L Glucose Calcium Alkaline Phosphatase 132 H Albumin 3.7 L 10/25/18 10/25/18 04:52 05:05 WBC MCHC Lymph % (Auto) [place] % (Auto) 8.9 H Eos % (Auto) 5.3 H Lymph # [place] # Seg Neutrophils % APTT POC ABG pH POC ABG pCO2 Sodium Chloride 111.0 H Carbon Dioxide 21 L Creatinine 0.5 L Glucose Calcium Alkaline Phosphatase Albumin
[2018-10-25] MEDS: SODIUM CHLORIDE FLUSH SYRINGE 10 ML IV SCH ×2 (14:58→21:50)
--- NOTE | 2018-10-25 22:48 | Event Note ---
Date: 10/25/18 CODE MET Patient tachycardic with heart rate of 180, asymptomatic Patient was given adenosine 6 and no response, at 12 mg she cardioverted Transfer to telemetry for further monitoring The high probability of a clinically significant, sudden or life threatening deterioration of the [CV, GI, respiratory] system(s) required my full and direct attention, intervention and personal management. The aggregate critical care time was [35 ] minutes. This time is in addition to time spent performing reported procedures but includes the following: x] Data Review and interpretation [x] Patient assessment and monitoring of vital signs [x] Documentation [x] Medication orders and management
[2018-10-26] MEDS: LIORESAL PO SCH ×3 (06:32→21:21)
[2018-10-26] MEDS: NEURONTIN PO SCH ×3 (06:33→21:21)
--- NOTE | 2018-10-26 11:14 | Fluoroscopy Report ---
ESOPHAGRAM History: Check for aspiration Findings: 52 fluoroscopic images were saved during this exam. The patient had extreme difficulty initiating swallowing. No obvious aspiration. The cervical esophagus was poorly distended throughout this examination. The thoracic esophagus is unremarkable. Impression: Limited exam. The patient appeared to have difficulty initiating swallowing. No obvious aspiration on today's exam. Consider consultation with speech therapy.
[2018-10-26] MEDS: ELIQUIS PO SCH ×2 (11:36→21:21)
[2018-10-26] MEDS: LACTINEX PO SCH (11:36)
[2018-10-26] MEDS: CARDIZEM CD PO SCH (11:36)
[2018-10-26] MEDS: TRILEPTAL PO SCH ×2 (11:36→21:21)
[2018-10-26] MEDS: CEPHULAC PO SCH ×3 (11:37→21:21)
[2018-10-26] MEDS: ATIVAN PO SCH ×2 (11:37→21:21)
[2018-10-26] MEDS: PEPCID IV SCH ×2 (11:38→21:34)
[2018-10-26] MEDS: SODIUM CHLORIDE FLUSH SYRINGE 10 ML IV SCH ×2 (11:38→21:22)
[2018-10-26] MEDS: K-DUR PO SCH (11:38)
--- NOTE | 2018-10-26 12:44 | Progress Note ---
Assessment and Plan Post ICU rounds Status epilepticus, status post intubation needed for seizure control, IV Diprivan Question regarding swallowing maneuvers on Ba swallow. She report Recommendations Continue current antieplipetic therapy and await neurology follow up. Diet and order PO medications. Aspiration precautions, see therapy evaluation per barium swallow report Discussed with patient and family and patient detailed. All questions answered. We'll sign off. Subjective Date of service: 10/26/18 Interval history: SVT event reported overnight. See that note. At this point, the patient has no respiratory complaints whatsoever. Family at the bedside. No chest complaints no swallowing difficulty reported Objective Vital Signs - 12hr 10/26/18 10/26/18 10/26/18 02:00 04:53 04:55 Temperature 98.2 F Pulse Rate 77 Respiratory 22 18 Rate Blood Pressure 112/68 O2 Sat by Pulse 100 95 Oximetry 10/26/18 09:29 Temperature 98.5 F Pulse Rate 75 Respiratory 14 Rate Blood Pressure 110/66 O2 Sat by Pulse 96 Oximetry Constitutional: alert Eyes: non-icteric Neck: supple, no JVD Effort: normal Ascultation: Bilateral: clear, diminished breath sounds Percussion: Bilateral: not dull Cardiovascular: regular rate and rhythm Gastrointestinal: soft, non-tender Extremities: no edema Neurologic: unable to assess CBC and BMP: 10/25/18 05:05 10/25/18 04:52 ABG, PT/INR, D-dimer: ABG POC ABG pH 7.445 (7.35-7.45) 10/24/18 04:28 POC ABG pCO2 36.5 (35-45) 10/24/18 04:28 POC ABG HCO3 25.1 (22-26 mml/L) 10/24/18 04:28 POC ABG Total CO2 26 (23-27mmol/L) 10/24/18 04:28 POC ABG O2 Sat 100 10/24/18 04:28 PT/INR, D-dimer PT 13.6 Sec. (12.2-14.9) 10/23/18 15:34 INR 1.07 (0.87-1.13) 10/23/18 15:34 Abnormal lab findings: Abnormal Labs 10/23/18 10/23/18 10/23/18 15:34 15:34 15:34 WBC MCHC 35 H Lymph % (Auto) 7.7 L [place] % (Auto) Eos % (Auto) Lymph # 0.7 L [place] # Seg Neutrophils % 86.4 H APTT 23.2 L POC ABG pH POC ABG pCO2 Sodium 136 L Chloride Carbon Dioxide Creatinine 0.5 L Glucose 124 H Calcium 8.1 L Alkaline Phosphatase Albumin 3.7 L 10/23/18 10/24/18 10/24/18 16:14 04:12 04:12 WBC 11.3 H MCHC Lymph % (Auto) [place] % (Auto) 10.9 H Eos % (Auto) Lymph # [place] # 1.2 H Seg Neutrophils % APTT POC ABG pH 7.308 L POC ABG pCO2 46.9 H Sodium Chloride 107.5 H Carbon Dioxide 20 L Creatinine 0.4 L Glucose Calcium Alkaline Phosphatase 132 H Albumin 3.7 L 10/25/18 10/25/18 04:52 05:05 WBC MCHC Lymph % (Auto) [place] % (Auto) 8.9 H Eos % (Auto) 5.3 H Lymph # [place] # Seg Neutrophils % APTT POC ABG pH POC ABG pCO2 Sodium Chloride 111.0 H Carbon Dioxide 21 L Creatinine 0.5 L Glucose Calcium Alkaline Phosphatase Albumin Chest x-ray: report reviewed, image reviewed
--- NOTE | 2018-10-26 14:43 | Progress Note ---
Assessment and Plan Assessment and plan: 58-year-old female with history of MS, seizures presents to the ED from [facility] with Continous seizures. Per EMS patient began having a seizure approximately 2 hours ago, 1 mg of Ativan was given by halfway staff. [facility] reported no break in patient's seizures, so EMS was called after 50 minutes. Upon EMS arrival the patient was actively seizing, 2 mg of Ativan was given. Upon arrival to ED patient is still seizing. Pt on trileptal and topiramate for seizures.Patient intubated in ER because of persistent seizures and for protection of airway. Patient has history of Meningioma resected in 2017.Patient is wheelchair bound and normally able to communicate and eat by herself as per son. Acute respiratory failure on MV <96 hours -due to seizures, now extubated Concern for neglect at NH -family requesting a different NH -they don't believe they were giving her her meds properly, said that hygiene was poor, and she was in a very dirty diaper Status epilepticus cont AEDs, neurology consult appreciated HTN (hypertension) Cont antihypertensives CVA, old, ataxia Supportive care Peripheral neuropathy Cont Gabapentin Malnutrition of mild degree Mild Albumin 3.7 DVT prophylaxis On Eliquis and GI prophylaxis History Interval history: No seizures Review of systems Constitutional: No fevers, no malaise, no joint pains CVS: No chest pain, no orthopnea, no dyspnea on exertion, no pedal edema GI: No abdominal pain, no diarrhea, no vomiting, no constipation Respiratory: no wheezing, no coughing Hospitalist Physical - Physical exam Narrative exam: patient is intubated and on mechanical ventilation. The patient appeared well nourished and normally developed. Vital signs as documented. Head exam is unremarkable. No scleral icterus . Neck is without jugular venous distension, thyromegaly, or carotid bruits. Lungs are clear to auscultation. Cardiac exam reveals regular rate and Rhythm. First and second heart sounds normal. No murmurs, rubs or gallops. Abdominal exam reveals normal bowel sounds, no masses, no organomegaly and no aortic enlargement. Extremities are nonedematous and both femoral and pedal pulses are normal. PRESSURE WASHER: sedated. - Constitutional Vitals: Temp Pulse Resp BP Pulse Ox 98.5 F 75 14 110/66 96 10/26/18 09:29 10/26/18 09:29 10/26/18 09:29 10/26/18 09:29 10/26/18 09:29 General appearance: Present: severe distress, well-nourished Results - Labs CBC & Chem 7: 10/25/18 05:05 10/25/18 04:52 Labs: Laboratory Last Values WBC 7.9 K/mm3 (4.5-11.0) 10/25/18 05:05 RBC 4.24 M/mm3 (3.65-5.03) 10/25/18 05:05 Hgb 12.3 gm/dl (10.1-14.3) 10/25/18 05:05 Hct 38.1 % (30.3-42.9) 10/25/18 05:05 MCV 90 fl (79-97) 10/25/18 05:05 MCH 29 pg (28-32) 10/25/18 05:05 MCHC 32 % (30-34) 10/25/18 05:05 RDW 14.0 % (13.2-15.2) 10/25/18 05:05 Plt Count 276 K/mm3 (140-440) 10/25/18 05:05 Lymph % (Auto) 27.9 % (13.4-35.0) 10/25/18 05:05 [place] % (Auto) 8.9 % (0.0-7.3) H 10/25/18 05:05 Eos % (Auto) 5.3 % (0.0-4.3) H 10/25/18 05:05 Baso % (Auto) 0.7 % (0.0-1.8) 10/25/18 05:05 Lymph # 2.2 K/mm3 (1.2-5.4) 10/25/18 05:05 [place] # 0.7 K/mm3 (0.0-0.8) 10/25/18 05:05 Eos # 0.4 K/mm3 (0.0-0.4) 10/25/18 05:05 Baso # 0.1 K/mm3 (0.0-0.1) 10/25/18 05:05 Seg Neutrophils % 57.2 % (40.0-70.0) 10/25/18 05:05 Seg Neutrophils # 4.5 K/mm3 (1.8-7.7) 10/25/18 05:05 PT 13.6 Sec. (12.2-14.9) 10/23/18 15:34 INR 1.07 (0.87-1.13) 10/23/18 15:34 APTT 23.2 Sec. (24.2-36.6) L 10/23/18 15:34 POC ABG pH 7.445 (7.35-7.45) 10/24/18 04:28 POC ABG pCO2 36.5 (35-45) 10/24/18 04:28 POC ABG pO2 85 (80-105) 10/23/18 16:14 POC ABG HCO3 25.1 (22-26 mml/L) 10/24/18 04:28 POC ABG Total CO2 26 (23-27mmol/L) 10/24/18 04:28 POC ABG O2 Sat 100 10/24/18 04:28 POC ABG Base Excess 1 ((-2) - (+3)mmol/L) 10/24/18 04:28 40 % 10/24/18 04:28 Sodium 144 mmol/L (137-145) 10/25/18 04:52 Potassium 3.9 mmol/L (3.6-5.0) 10/25/18 04:52 Chloride 111.0 mmol/L (98-107) H 10/25/18 04:52 Carbon Dioxide 21 mmol/L (22-30) L 10/25/18 04:52 16 mmol/L 10/25/18 04:52 BUN 8 mg/dL (7-17) 10/25/18 04:52 0.5 mg/dL (0.7-1.2) L 10/25/18 04:52 Estimated GFR > 60 ml/min 10/25/18 04:52 16 % 10/25/18 04:52 Glucose 81 mg/dL (65-100) 10/25/18 04:52 5.1 % (4-6) 10/23/18 15:34 Lactic Acid 1.50 mmol/L (0.7-2.0) 10/23/18 17:55 Calcium 9.0 mg/dL (8.4-10.2) 10/25/18 04:52 0.30 mg/dL (0.1-1.2) 10/24/18 04:12 AST 34 units/L (5-40) 10/24/18 04:12 ALT 42 units/L (7-56) 10/24/18 04:12 132 units/L (35-129) H 10/24/18 04:12 72 units/L (30-135) 10/23/18 17:55 6.6 g/dL (6.3-8.2) 10/24/18 04:12 3.7 g/dL (3.9-5) L 10/24/18 04:12 1.3 % 10/24/18 04:12 Yellow (Yellow) 10/23/18 17:00 Slightly-cloudy (Clear) 10/23/18 17:00 5.0 (5.0-7.0) 10/23/18 17:00 Ur Specific [place] 1.017 (1.003-1.030) 10/23/18 17:00 30 mg/dl mg/dL (Negative) 10/23/18 17:00 Neg mg/dL (Negative) 10/23/18 17:00 Neg mg/dL (Negative) 10/23/18 17:00 Sm (Negative) 10/23/18 17:00 Neg (Negative) 10/23/18 17:00 Neg (Negative) 10/23/18 17:00 < 2.0 mg/dL (<2.0) 10/23/18 17:00 Ur Leukocyte Esterase Neg (Negative) 10/23/18 17:00 4.0 /HPF (0.0-6.0) 10/23/18 17:00 29.0 /HPF (0.0-6.0) 10/23/18 17:00 U Epithel Cells (Auto) 2.0 /HPF (0-13.0) 10/23/18 17:00 Few /HPF 10/23/18 17:00 Active Medications - Current Medications Current Medications: Generic Name Dose Route Start Last Admin Trade Name Freq PRN Reason Stop Dose Admin Acetaminophen 650 mg 10/23/18 21:04 Tylenol PO Q4H PRN Pain MILD(1-3)/Fever >100.5/[place] Apixaban 5 mg 10/24/18 10:00 10/26/18 11:36 Eliquis PO 5 mg BID NILAM Administration Protocol Baclofen 5 mg 10/24/18 06:15 10/26/18 06:32 Lioresal PO 5 mg Q8HR NILAM Administration Citalopram Hydrobromide 10 mg 10/24/18 10:00 10/25/18 11:25 Celexa PO 10 mg QDAY NILAM Administration Diltiazem HCl 180 mg 10/24/18 10:00 10/26/18 11:36 Cardizem Cd PO 180 mg DAILY NILAM Administration Famotidine 20 mg 10/23/18 22:00 10/26/18 11:38 Pepcid IV 20 mg BID NILAM Administration Gabapentin 300 mg 10/24/18 07:00 10/26/18 06:33 Neurontin PO 300 mg Q8HR NILAM Administration Levetiracetam 1,000 mg/ 110 mls @ 400 mls/hr 10/24/18 05:00 10/25/18 17:30 Dextrose IV 400 mls/hr Q12H NILAM Administration Lactobacillus Acidophilus 1 each 10/24/18 10:00 10/26/18 11:36 Lactinex PO 1 each QDAY NILAM Administration Lactulose 30 gm 10/24/18 08:00 10/26/18 11:37 Cephulac PO 30 gm TID NILAM Administration Lorazepam 0.5 mg 10/24/18 10:00 10/26/18 11:37 Ativan PO 0.5 mg BID NILAM Administration Ondansetron HCl 4 mg 10/23/18 21:04 Zofran IV Q8H PRN Nausea And Vomiting Oxcarbazepine 900 mg 10/24/18 10:00 10/26/18 11:36 Trileptal PO 900 mg Q12HR NILAM Administration Potassium Chloride 10 meq 10/24/18 10:00 10/26/18 11:38 K-Dur PO 10 meq QDAY NILAM Administration Sodium Chloride 10 ml 10/23/18 22:00 10/26/18 11:38 Sodium Chloride Flush Syringe 10 Ml IV 10 ml BID NILAM Administration Sodium Chloride 10 ml 10/23/18 21:04 Sodium Chloride Flush Syringe 10 Ml IV PRN PRN LINE FLUSH Topiramate 25 mg 10/24/18 10:00 10/25/18 21:49 Topamax PO 25 mg BID NILAM Administration Nutrition/Malnutrition Assess - Dietary Evaluation Nutrition/Malnutrition Findings: Nutrition Notes Start: 10/24/18 07:50 Freq: Status: Active Protocol: Document 10/24/18 07:50 LP (Rec: 10/24/18 07:57 LP [id number]) Nutrition Notes Need for Assessment generated from: MD Order Initial or Follow up Assessment Current Diagnosis Acute Kidney Injury, Hypertension,Stroke Current Diet NPO Labs/Tests Reviewed Pertinent Medications KDUR Propofol NS at 75ml/hr Height 5 ft 5 in Weight 78 kg [place] Body Weight (kg) 56.81 BMI 28.6 Subjective/Other Information Consult for TF. Pt on vent. Pt from [place]. Burn Absent Trauma Absent #1 Nutrition Diagnosis Inadequate oral intake Etiology vent As Evidenced by Signs and Symptoms Pt unable to consume PO due to vent Is patient on ventilator? Yes Is Patient Ambulatory and/or Out of Bed No REE-([place]-St. Jeor-confined to bed) 1190.069 Calculation Used for Recommendations [place]-St Jeor Additional Notes Protein needs are 94-156g (1.2 -2g/kg) Fluid needs are 1ml/kcal Nutrition Intervention Change Diet Order: TF Nutrition Support: Promote at 65ml/hr Flush with 50ml q4h Kcal 1,560 Protein (gm) 98 Fluid (mL) 1,309 Goal #1 Meet at least 80% of kcal and protein needs Anticipated Discharge Needs: Unable to determine at this time Follow-Up By: 10/26/18 Additional Comments Follow for TF start/tolerance
[2018-10-26] MEDS: celeXA PO SCH (14:54)
[2018-10-26] MEDS: TOPAMAX PO SCH ×2 (14:54→21:22)
[2018-10-26] MEDS: KEPPRA 1,000 MG in D5W 100 ML IV SCH ×2 (18:20→19:53)
[2018-10-27] MEDS: NEURONTIN PO SCH ×3 (05:24→21:26)
[2018-10-27] MEDS: LIORESAL PO SCH ×3 (05:24→21:25)
[2018-10-27] MEDS: KEPPRA 1,000 MG in D5W 100 ML IV SCH ×2 (05:24→16:53)
--- NOTE | 2018-10-27 08:21 | Progress Note ---
Subjective Date of service: 10/27/18 Interval history: additional w/u is ordered to assess thebaseline condition ie seizure control and " white matter disease" orders entered and await studies good progress so far Objective - Vital Sign Vital Signs - 12hr 10/27/18 10/27/18 10/27/18 00:23 02:00 02:19 Temperature 98.5 F Pulse Rate 82 94 H Respiratory 18 20 Rate Blood Pressure 106/59 O2 Sat by Pulse 97 Oximetry 10/27/18 03:18 Temperature 98.1 F Pulse Rate 80 Respiratory 20 Rate Blood Pressure 94/46 O2 Sat by Pulse 97 Oximetry - Laboratory Findings CBC and BMP: 10/25/18 05:05 10/25/18 04:52 Abnormal Lab Findings: Abnormal Labs 10/23/18 10/23/18 10/23/18 15:34 15:34 15:34 WBC MCHC 35 H Lymph % (Auto) 7.7 L [place] % (Auto) Eos % (Auto) Lymph # 0.7 L [place] # Seg Neutrophils % 86.4 H APTT 23.2 L POC ABG pH POC ABG pCO2 Sodium 136 L Chloride Carbon Dioxide Creatinine 0.5 L Glucose 124 H Calcium 8.1 L Alkaline Phosphatase Albumin 3.7 L 10/23/18 10/24/18 10/24/18 16:14 04:12 04:12 WBC 11.3 H MCHC Lymph % (Auto) [place] % (Auto) 10.9 H Eos % (Auto) Lymph # [place] # 1.2 H Seg Neutrophils % APTT POC ABG pH 7.308 L POC ABG pCO2 46.9 H Sodium Chloride 107.5 H Carbon Dioxide 20 L Creatinine 0.4 L Glucose Calcium Alkaline Phosphatase 132 H Albumin 3.7 L 10/25/18 10/25/18 04:52 05:05 WBC MCHC Lymph % (Auto) [place] % (Auto) 8.9 H Eos % (Auto) 5.3 H Lymph # [place] # Seg Neutrophils % APTT POC ABG pH POC ABG pCO2 Sodium Chloride 111.0 H Carbon Dioxide 21 L Creatinine 0.5 L Glucose Calcium Alkaline Phosphatase Albumin
[2018-10-27] MEDS: CEPHULAC PO SCH ×3 (09:00→21:25)
[2018-10-27] MEDS: PEPCID IV SCH (10:00)
[2018-10-27] MEDS: TRILEPTAL PO SCH ×2 (10:00→21:25)
[2018-10-27] MEDS: LACTINEX PO SCH (10:01)
[2018-10-27] MEDS: ELIQUIS PO SCH ×2 (10:02→21:26)
[2018-10-27] MEDS: ATIVAN PO SCH ×2 (10:09→21:26)
[2018-10-27] MEDS: K-DUR PO SCH (10:09)
[2018-10-27] MEDS: SODIUM CHLORIDE FLUSH SYRINGE 10 ML IV SCH ×2 (10:10→21:27)
[2018-10-27] MEDS: CARDIZEM CD PO SCH (10:11)
[2018-10-27] MEDS: TOPAMAX PO SCH ×2 (10:18→21:27)
[2018-10-27] MEDS: celeXA PO SCH (10:18)
--- NOTE | 2018-10-27 13:45 | Progress Note ---
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 Per EMS patient began having a seizure approximately 2 hours ago, 1 mg of Ativan was given by care home [facility]. half-way reported no break in patient's seizures, so EMS was called after 50 minutes. Upon EMS arrival the patient was actively seizing, 2 mg of Ativan was given. Upon arrival to ED patient is still seizing. Pt on trileptal and topiramate for seizures.Patient intubated in ER because of persistent seizures and for protection of airway. Patient has history of Meningioma resected in 2017.Patient is wheelchair bound and normally able to communicate and eat by herself as per son. Hospitalist Physical The patient appeared well nourished and normally developed. Vital signs as documented. Head exam is unremarkable. No scleral icterus . Neck is without jugular venous distension, thyromegaly, or carotid bruits. Lungs are clear to auscultation. Cardiac exam reveals regular rate and Rhythm. First and second heart sounds normal. No murmurs, rubs or gallops. Abdominal exam reveals normal bowel sounds, no masses, no organomegaly and no aortic enlargement. Extremities are nonedematous and both femoral and pedal pulses are normal. DRY LUMBER GRADER: Open eyes to verbal command Subjective Date of service: 10/27/18 Interval history: Patient seen and examined. Medical records and medication list reviewed. No acute event overnight noted by the RN. Discharge pending on placement Objective - Constitutional Vitals: Vital Signs - 12hr 10/27/18 10/27/18 10/27/18 02:00 02:19 03:18 Temperature 98.1 F Pulse Rate 94 H 80 Respiratory 20 20 Rate Blood Pressure 94/46 O2 Sat by Pulse 97 Oximetry 10/27/18 10/27/18 10/27/18 08:02 08:57 10:11 Temperature 98.5 F Pulse Rate 85 Respiratory 14 Rate Blood Pressure 110/60 97/48 O2 Sat by Pulse 98 95 Oximetry 10/27/18 11:45 Temperature 98.6 F Pulse Rate 87 Respiratory 14 Rate Blood Pressure 102/56 O2 Sat by Pulse 95 Oximetry - Labs CBC & Chem 7: 10/25/18 05:05 10/25/18 04:52 Labs: Abnormal lab results 10/27/18 Range/Units 11:53 POC Glucose 108 H (70-105)
[2018-10-27] MEDS: PEPCID PO SCH (21:26)
[2018-10-28] MEDS: LIORESAL PO SCH ×3 (07:41→21:34)
[2018-10-28] MEDS: NEURONTIN PO SCH ×3 (07:41→21:34)
[2018-10-28] MEDS: CEPHULAC PO SCH ×3 (08:45→21:30)
[2018-10-28] MEDS: KEPPRA PO SCH ×2 (13:26→21:34)
[2018-10-28] MEDS: TRILEPTAL PO SCH ×2 (13:27→21:35)
[2018-10-28] MEDS: celeXA PO SCH (13:28)
[2018-10-28] MEDS: ELIQUIS PO SCH ×2 (13:28→21:34)
[2018-10-28] MEDS: ATIVAN PO SCH ×2 (13:28→21:34)
[2018-10-28] MEDS: TOPAMAX PO SCH ×2 (13:28→21:35)
[2018-10-28] MEDS: K-DUR PO SCH (13:28)
[2018-10-28] MEDS: PEPCID PO SCH ×2 (13:28→21:35)
[2018-10-28] MEDS: SODIUM CHLORIDE FLUSH SYRINGE 10 ML IV SCH ×2 (13:28→21:35)
[2018-10-28] MEDS: LACTINEX PO SCH (13:29)
--- NOTE | 2018-10-28 15:24 | Progress Note ---
Assessment and Plan / Acute respiratory failure on MV <96 hours -due to seizures, now extubated /Concern for neglect at NH -family requesting a different NH -they don't believe they were giving her her meds properly, said that hygiene was poor, and she was in a very dirty diaper - So far no other place has offered her to bed - daughter updated and she unde rstands that patient might have to go back to the same assisted if there is no other place found in next 24 hour /Status epilepticus cont AEDs, neurology consult appreciated / HTN (hypertension) Cont antihypertensives / CVA, old, ataxia Supportive care / Peripheral neuropathy Cont Gabapentin /Malnutrition of mild degree Mild, Albumin 3.7, travelers' aid worker following / DVT prophylaxis placed On Eliquis and GI prophylaxis Brief History 58-year-old female with history of MS, seizures presents to the ED from [facility] with Continous seizures. Per EMS patient began having a seizure approximately 2 hours ago, 1 mg of Ativan was given by assisted staff. [facility] reported no break in patient's seizures, so EMS was called after 50 minutes. Upon EMS arrival the patient was actively seizing, 2 mg of Ativan was given. Upon arrival to ED patient is still seizing. Pt on trileptal and topiramate for seizures.Patient intubated in ER because of persistent seizures and for protection of airway. Patient has history of Meningioma resected in 2017.Patient is wheelchair bound and normally able to communicate and eat by herself as per son. Hospitalist Physical The patient appeared well nourished and normally developed. Vital signs as documented. Head exam is unremarkable. No scleral icterus . Neck is without jugular venous distension, thyromegaly, or carotid bruits. Lungs are clear to auscultation. Cardiac exam reveals regular rate and Rhythm. First and second heart sounds normal. No murmurs, rubs or gallops. Abdominal exam reveals normal bowel sounds, no masses, no organomegaly and no aortic enlargement. Extremities are nonedematous and both femoral and pedal pulses are normal. ARTISAN PLASTERER: Open eyes to verbal command, and able to demonstrate yes and no Subjective Date of service: 10/28/18 Interval history: Patient seen and examined. Medical records and medication list reviewed. No acute event overnight noted by the RN. Discharge pending on placement Discussed with daughter at the bedside Objective - Constitutional Vitals: Vital Signs - 12hr 10/28/18 10/28/18 05:29 11:16 Temperature 98.1 F 98.0 F Pulse Rate 92 H 100 H Respiratory 16 18 Rate Blood Pressure 121/69 104/47 O2 Sat by Pulse 100 100 Oximetry - Labs CBC & Chem 7: 10/25/18 05:05 10/25/18 04:52
[2018-10-28] MEDS: CARDIZEM CD PO SCH (17:23)
[2018-10-29] MEDS: NEURONTIN PO SCH ×3 (05:42→23:44)
[2018-10-29] MEDS: LIORESAL PO SCH ×3 (05:42→23:42)
[2018-10-29] MEDS: TRILEPTAL PO SCH ×2 (10:16→23:43)
[2018-10-29] MEDS: celeXA PO SCH (10:16)
[2018-10-29] MEDS: PEPCID PO SCH ×2 (10:16→23:44)
[2018-10-29] MEDS: TOPAMAX PO SCH ×2 (10:16→23:44)
[2018-10-29] MEDS: CARDIZEM CD PO SCH (10:16)
[2018-10-29] MEDS: K-DUR PO SCH (10:17)
[2018-10-29] MEDS: ELIQUIS PO SCH ×2 (10:17→23:44)
[2018-10-29] MEDS: KEPPRA PO SCH ×2 (10:17→23:46)
[2018-10-29] MEDS: ATIVAN PO SCH ×2 (10:17→23:50)
[2018-10-29] MEDS: CEPHULAC PO SCH ×3 (10:18→20:00)
[2018-10-29] MEDS: SODIUM CHLORIDE FLUSH SYRINGE 10 ML IV SCH ×2 (10:18→23:47)
[2018-10-29] MEDS: LACTINEX PO SCH (10:38)
--- NOTE | 2018-10-29 15:40 | Discharge Summary ---
Providers - Providers Date of Admission: 10/23/18 17:42 Date of discharge: 10/29/18 Attending physician: MEL PERALES 10/23/18 15:23 Consult to Dietitian/Nutrition [CONS] Routine Physician Instructions: Reason For Exam: Reason for Consult: Evaluate nutritional intake 10/24/18 06:22 Consult to Physician [CONS] Routine Comment: Consulting Provider: MALINDA CARR Physician Instructions: Reason For Exam: Ac resp failure status epilepticus 10/24/18 06:23 Consult to Physician [CONS] Routine Comment: Consulting Provider: KHADIJAH SEWELL Physician Instructions: Reason For Exam: Status epilepticus 10/24/18 06:24 Consult to Dietitian/Nutrition [CONS] Routine Physician Instructions: Assess nutrtn needs, initiate, modify, manage TF Reason For Exam: Reason for Consult: Write/Manage Tube Feeding Reason for Consult: Write/Manage Tube Feeding 10/25/18 13:45 Consult to Case Management [CONS] Routine Services Needed at Discharge: Other Notified:: cm Comment:: family want to change snf, 10/26/18 16:08 Occupational Therapy Evaluate and Treat [CONS] Routine Comment: Reason For Exam: debility Physical Therapy Evaluation and Treat [CONS] Routine Comment: Reason For Exam: debility Primary care physician: JORDANA BAEZ Hospitalization Condition: Stable Pertinent studies: CXR Barium swallow study head CT Hospital course: Brief History 58-year-old female with history of MS, seizures presents to the ED from [facility] with Continous seizures. Patient has history of Meningioma resected in 2017. Patient is wheelchair bound and normally able to communicate and eat by herself as per son. Per EMS patient began having a seizure approximately 2 hours ago, 1 mg of Ativan was given by longterm staff. intermediate reported no break in patient's seizures, so EMS was called after 50 minutes. Upon EMS arrival the patient was actively seizing, 2 mg of Ativan was given. Upon arrival to ED patient was still seizing. Patient on trileptal and topiramate for seizures. Patient intubated in ER because of persistent seizures and for protection of airway. She was admitted for further evaluation and management. Discharge diagnosis and management: / Acute respiratory failure on MV <96 hours -due to seizures, now extubated /Concern for neglect at NH -family requesting a different NH -they don't believe they were giving her her meds properly, said that hygiene was poor, and she was in a very dirty diaper - So far no other place has offered her to bed - daughter updated and she understands that patient have to go back to the same longterm as there is no other place found. 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 Vital signs as documented. Head exam is unremarkable. No scleral icterus . Neck is without jugular venous distension, thyromegaly, or carotid bruits. Lungs are clear to auscultation. Cardiac exam reveals regular rate and Rhythm. First and second heart sounds normal. No murmurs, rubs or gallops. Abdominal exam reveals normal bowel sounds, no masses, no organomegaly and no aortic enlargement. Extremities are nonedematous and both femoral and pedal pulses are normal. VERTICAL PUNCH OPERATOR: Open eyes to verbal command, and able to demonstrate yes and no Disposition: DC/[place]-03 [facility] Time spent for discharge: 34 minutes Core Measure Documentation - Palliative Care Palliative Care/ Comfort Measures: Not Applicable - Core Measures Any of the following diagnoses?: history only Exam - Constitutional Vitals: Temp Pulse Resp BP Pulse Ox 98.0 F 80 20 105/47 96 10/29/18 11:01 10/29/18 11:01 10/29/18 11:01 10/29/18 11:01 10/29/18 11:01 Plan Activity: up only with assistance, fall precautions Weight Bearing Status: Non-Weight Bearing Diet: advance as tolerated Follow up with: JORDANA BAEZ [Other] - 3-5 Days
[2018-10-29 19:54] VITALS: BP 125/59
[2018-10-30] MEDS: LIORESAL PO SCH (06:13)
[2018-10-30] MEDS: NEURONTIN PO SCH (06:14)
--- NOTE | 2018-10-30 09:48 | Event Note ---
Date: 10/30/18 patient is being transported to SNF today. No change of status o/n, medically stable for transfer.
== END 2018-10-30 09:00 | DRG 208 ==
LOC: ED 15:11 → CC1 17:42 → 3A 10-25 15:37 → 4A 10-25 23:57 → 3A 10-28 03:24
PROVIDERS: ADMIT Internal Medicine; ATTEND Internal Medicine
PROC: 5A1935Z Respiratory Ventilation, Less than 24 Consecutive Hours (ICD-10-PCS; principal; 2018-10-23)
PROC: 0BH17EZ Insertion of Endotracheal Airway into Trachea, Via Natural or Artificial Opening (ICD-10-PCS; 2018-10-23)
PROC: 4A033R1 Measurement of Arterial Saturation, Peripheral, Percutaneous Approach (ICD-10-PCS; 2018-10-23)
PROC: 0BP1XDZ Removal of Intraluminal Device from Trachea, External Approach (ICD-10-PCS; 2018-10-24)
PROC: 5A2204Z Restoration of Cardiac Rhythm, Single (ICD-10-PCS; 2018-10-25)
DX: J96.01 Acute respiratory failure with hypoxia (principal); G40.901 Epilepsy, unspecified, not intractable, with status epilepticus; I10 Essential (primary) hypertension; G62.9 Polyneuropathy, unspecified; E44.1 Mild protein-calorie malnutrition; I69.351 Hemiplegia and hemiparesis following cerebral infarction affecting right dominant side; J45.909 Unspecified asthma, uncomplicated; I69.393 Ataxia following cerebral infarction; G35 Multiple sclerosis; I48.91 Unspecified atrial fibrillation; R00.0 Tachycardia, unspecified; Z91.041 Radiographic dye allergy status; Z68.26 Body mass index [BMI] 26.0-26.9, adult; Z79.82 Long term (current) use of aspirin; Z99.3 Dependence on wheelchair; Z91.013 Allergy to seafood; Z88.5 Allergy status to narcotic agent
CPT/HCPCS: 36415; 36600; 70450; 71045; 74220; 80048; 80053; 81001; 82140; 82550; 82803; 82962; 83036; 85025; 85610; 85730; 87040; 87086; 87116; 87205; 93005; 93010; 94002; 94003; 94760; 95819; 96365; 96367; 96375; G0378; J0153; J1170; J1953; J2250; J2543; J2704; J7030; J7040

== ENCOUNTER 2018-12-07 21:04 | Emergency (ER) | payer MEDICAID ==
[2018-12-07] MEDS ORDERED: TRILEPTAL PO STA (21:52)
[2018-12-07] MEDS ORDERED: TOPAMAX PO STA (21:52)
[2018-12-07] MEDS ORDERED: KEPPRA 1,000 MG/NS 0.75% 100ML 1,000 MG/100 ML BAG IV ONE (21:53)
[2018-12-07] MEDS ORDERED: NACL 0.9% 500 ML 500 ML IV ONE (21:53)
[2018-12-07 22:13] LABS: Hemoglobin 13.7 gm/dl (10.1-14.3); Mean Corpuscular HGB Conc 33 % (30-34); Mean Corpuscular Volume 86 fl (79-97); Platelet Count 415 K/mm3 (140-440); Red Blood Count 4.88 M/mm3 (3.65-5.03); Red Cell Distribution Width 14.1 % (13.2-15.2)
[2018-12-07 22:31] LABS: Alanine Aminotransferase 35 units/L (7-56); BUN/Creatinine Ratio 23; Blood Urea Nitrogen 9 mg/dL (7-17); Calcium 9.6 mg/dL (8.4-10.2); Hemolysis Index 22
--- NOTE | 2018-12-07 22:33 | XRay Report ---
CHEST 1 VIEW INDICATION: SZ AMS COMPARISON: 10/23/2018 FINDINGS: Support devices: None Heart: Stable. Lungs/Pleura: No acute pulmonary or pleural findings. IMPRESSION: 1. No significant change. Signer Name: Neri Taylor MD Signed: 12/07/2018 10:29 PM Workstation Name: [id number]
[2018-12-07] MEDS ORDERED: TYLENOL PO ONE (23:20)
--- NOTE | 2018-12-08 00:10 | Emergency Department Report ---
ED General Adult HPI - General Chief complaint: Seizure Stated complaint: SEIZURE Time Seen by Provider: 12/07/18 21:32 Source: patient, EMS (ems notes not available at time of chart dictation), RN notes reviewed Mode of arrival: Stretcher Limitations: Physical Limitation, Other (the patient is a poor historian) - History of Present Illness Initial comments: This is a 58-year-old female. The patient is known to this provider previously. She typically resides at [facility]. Has a past medical history of seizure disorder, multiple sclerosis, hypertension, seizure, history of DVT, history of meningioma resection, as per prior documentation, has been maintained on oxcarbazepine and [place] and Keppra. The patient is brought to the hospital by EMS for possible seizure-like activity. The patient thinks that she had a seizure, but she is not sure. She denies headache and neck pain. She thinks that she might have abdominal pain, s he is not sure. She complains of bilateral anterior knee pain. The patient is a poor historian, and has difficulty describing qualitative nature of her symptoms, exacerbating or relieving factors to her symptoms. There is no close paperwork that I'm aware of from her local correction. She makes no complaint of cough or urinary symptoms. The patient thinks that she had a seizure but she is not sure. -: unknown Location: left, right, lower extremity Radiation: other Quality: other Consistency: other Improves with: other Worsens with: other Associated Symptoms: other - Related Data Home Medications Medication Instructions Recorded Confirmed Last Taken Lactulose [Cephulac] 45 ml PO TID 10/02/17 10/23/18 07/28/18 OXcarbazepine [Trileptal] 900 mg PO Q12HR 10/02/17 10/23/18 07/28/18 Topiramate [Topamax] 25 mg PO BID 10/02/17 10/23/18 07/28/18 dilTIAZem HCl [Diltiazem 24Hr ER 180 mg PO DAILY 10/02/17 10/23/18 07/28/18 (LA)] Baclofen 5 mg PO Q8H 10/23/18 10/23/18 Unknown Citalopram [celeXA] 10 mg PO QDAY 10/23/18 10/23/18 Unknown Gabapentin [Neurontin] 300 mg PO Q8HR 10/23/18 10/23/18 Unknown LORazepam [Ativan] 0.5 mg PO BID 10/23/18 10/23/18 Unknown Lactobacillus Acidophilus 1 each PO DAILY 10/23/18 10/23/18 Unknown [Acidophilus] Potassium Chloride [K-Dur] 10 meq PO QDAY 10/23/18 10/23/18 Unknown Previous Rx's Medication Instructions Recorded Last Taken Type Apixaban [Eliquis] 5 mg PO BID #74 tablet 10/04/17 07/28/18 Rx Nitrofurantoin Dillon/M-Cryst 100 mg PO Q12HR #14 capsule 12/08/18 Unknown Rx [Macrobid CAP] OXcarbazepine [Trileptal] 900 mg PO BID #300 tablet 12/08/18 Unknown Rx Topiramate [Topamax] 25 mg PO BID #60 tablet 12/08/18 Unknown Rx levETIRAcetam [Keppra] 1,000 mg PO BID 30 Days #500 ml 12/08/18 Unknown Rx Allergies Allergy/AdvReac Type Severity Reaction Status Date / Time codeine Allergy Hives Verified 10/23/18 15:19 fish derived Allergy Unknown Verified 10/23/18 15:19 Iodinated Contrast- Oral and Allergy Hives Verified 10/23/18 15:19 IV Dye ED Review of Systems ROS: Stated complaint: SEIZURE Other details as noted in HPI Comment: poor historian Constitutional: denies: fever Eyes: denies: eye discharge ENT: denies: epistaxis Respiratory: denies: cough Cardiovascular: denies: syncope Gastrointestinal: denies: nausea, vomiting, diarrhea Genitourinary: denies: dysuria Musculoskeletal: arthralgia Skin: denies: lesions Neurological: other (possible seizure) ED Past Medical Hx - Past Medical History Previous Medical History?: Yes Hx Hypertension: Yes Hx CVA: Yes (Right sided weakness) Hx Congestive Heart Failure: No Hx Diabetes: No Hx Seizures: Yes Hx Asthma: Yes Hx COPD: No Additional medical history: IRREGULAR HEART BEAT, MS - Surgical History Past Surgical History?: Yes Additional Surgical History: x4 - Social History Smoking Status: Current Some Day Smoker - Medications Home Medications: Home Medications Medication Instructions Recorded Confirmed Last Taken Type Lactulose [Cephulac] 45 ml PO TID 05/10/23/18 07/28/18 History OXcarbazepine [Trileptal] 900 mg PO Q12HR 10/02/17 10/23/18 07/28/18 History Topiramate [Topamax] 25 mg PO BID 10/02/17 10/23/18 07/28/18 History dilTIAZem HCl [Diltiazem 24Hr ER 180 mg PO DAILY 10/02/17 10/23/18 07/28/18 History (LA)] Apixaban [Eliquis] 5 mg PO BID #74 tablet 10/04/17 10/23/18 07/28/18 Rx Baclofen 5 mg PO Q8H 10/23/18 10/23/18 Unknown History Citalopram [celeXA] 10 mg PO QDAY 10/23/18 10/23/18 Unknown History Gabapentin [Neurontin] 300 mg PO Q8HR 10/23/18 10/23/18 Unknown History LORazepam [Ativan] 0.5 mg PO BID 10/23/18 10/23/18 Unknown History Lactobacillus Acidophilus 1 each PO DAILY 10/23/18 10/23/18 Unknown History [Acidophilus] Potassium Chloride [K-Dur] 10 meq PO QDAY 10/23/18 10/23/18 Unknown History Nitrofurantoin Dillon/M-Cryst 100 mg PO Q12HR #14 capsule 12/08/18 Unknown Rx [Macrobid CAP] OXcarbazepine [Trileptal] 900 mg PO BID #300 tablet 12/08/18 Unknown Rx Topiramate [Topamax] 25 mg PO BID #60 tablet 12/08/18 Unknown Rx levETIRAcetam [Keppra] 1,000 mg PO BID 30 Days #500 ml 12/08/18 Unknown Rx ED Physical Exam - General Limitations: Physical Limitation General appearance: alert, in no apparent distress - Head Head exam: Present: atraumatic, normocephalic - Eye Eye exam: Present: normal appearance, other (patient closes her eyes when we attempt to examine her. There is a right-sided exotropic strabismus. The left eye is able to AB duct, elevate and depressed. The patient will not look to her left. Unable to assess movement of the left eye or right eye moving to the left. Patient closes her eyes and therefore unable to perform pupillary examination) - ENT ENT exam: Present: normal exam, normal orophraynx, mucous membranes moist, normal external ear exam - Neck Neck exam: Present: normal inspection, full ROM. Absent: tenderness, men ingismus - Respiratory Respiratory exam: Present: normal lung sounds bilaterally. Absent: respiratory distress - Cardiovascular Cardiovascular Exam: Present: regular rate, normal rhythm, normal heart sounds. Absent: bradycardia, tachycardia, irregular rhythm, systolic murmur, diastolic murmur, rubs, gallop - GI/Abdominal GI/Abdominal exam: Present: soft. Absent: distended, tenderness, guarding, rebound, rigid, pulsatile mass - Rectal Rectal exam: Present: normal inspection, other (chaperoned by nurse Evelia Vaughn) - Extremities Exam Extremities exam: Present: normal inspection, other (contractures noted in the bilateral lower extremities. Moving the bilateral upper extremities without difficulty.). Absent: tenderness, pedal edema, joint swelling, calf tenderness - Back Exam Back exam: Present: normal inspection. Absent: tenderness, CVA tenderness (R), CVA tenderness (L), paraspinal tenderness, vertebral tenderness - Neurological Exam Neurological exam: Present: alert, other (there is no facial droop. The tongue is midline. Speaking in normal sentences. There is no stridor. 5 out of 5 strength bilateral upper extremities. Sensation intact to light touch bilateral upper extremities) - Skin Skin exam: Present: warm, dry, intact, normal color. Absent: rash ED Course Vital Signs 12/07/18 12/07/18 12/07/18 21:19 21:50 23:35 Temperature 98.8 F 99.2 F Pulse Rate 94 H 96 H Respiratory 18 19 18 Rate Blood Pressure 143/84 Blood Pressure 148/77 [Left] O2 Sat by Pulse 96 96 Oximetry 12/08/18 12/08/18 12/08/18 00:00 00:35 00:52 Temperature Pulse Rate 96 H 111 H Respiratory 21 18 24 Rate Blood Pressure Blood Pressure 129/73 [Left] O2 Sat by Pulse 98 99 Oximetry 12/08/18 12/08/18 12/08/18 01:00 01:30 02:00 Temperature Pulse Rate 96 H 88 83 Respiratory 20 15 16 Rate Blood Pressure 149/107 126/67 125/76 Blood Pressure 139/73 [Left] O2 Sat by Pulse 99 94 Oximetry 12/08/18 12/08/18 12/08/18 02:30 03:00 03:30 Temperature Pulse Rate 83 83 88 Respiratory 16 16 17 Rate Blood Pressure 133/71 156/83 159/66 Blood Pressure [Left] O2 Sat by Pulse 96 Oximetry 12/08/18 12/08/18 12/08/18 04:00 04:30 05:00 Temperature Pulse Rate 86 94 H 84 Respiratory 14 13 16 Rate Blood Pressure 153/76 157/81 129/69 Blood Pressure [Left] O2 Sat by Pulse 96 Oximetry 12/08/18 12/08/18 12/08/18 05:40 07:00 07:30 Temperature Pulse Rate 90 76 94 H Respiratory 16 12 16 Rate Blood Pressure 124/63 130/66 Blood Pressure 131/68 [Left] O2 Sat by Pulse 97 96 97 Oximetry 12/08/18 12/08/18 12/08/18 08:00 08:30 09:00 Temperature Pulse Rate 75 72 68 Respiratory 14 12 13 Rate Blood Pressure 115/62 132/59 136/62 Blood Pressure [Left] O2 Sat by Pulse 97 98 97 Oximetry 12/08/18 12/08/18 09:30 10:00 Temperature Pulse Rate 77 67 Respiratory 11 L 11 L Rate Blood Pressure 127/61 142/67 Blood Pressure [Left] O2 Sat by Pulse 97 96 Oximetry - Reevaluation(s) Reevaluation #1: 12/08/18 00:10 Differential diagnosis, including a not limited to: Chronic arthritis, seizure, intracranial injury, cervical spine injury, pneumonia, urinary tract infection Assessment and plan: 58-year-old female sent to the ER for complaint of possible seizure. There is no collateral information at this time. The patient is afebrile with reassuring vital signs. She is protecting her airway at this time. She will be given Keppra, Trileptal, and topiramate. Screening laboratory studies reviewed and appreciated. CT scan of the brain, cervical spine pending interpretation at this time, along with CT scan of the abdomen and pelvis. Urinalysis is pending at this time. Patient so far has been observed in the ER for a few hours, without clinical decompensation, or recurrent convulsive events noted. Reevaluation #2: 12/08/18 00:13 Rectal temperature was 99. Reevaluation #3: 12/08/18 01:38 care will be transferred to Dr Jus Sahni, to follow up on ct head, c spine and ua If no significant traumatic findings noted, discharged to follow-up. If urinalysis suggestive with cover empirically with Macrobid. ED Medical Decision Making - Lab Data Result diagrams: 12/07/18 22:00 12/07/18 22:00 Vital Signs 12/07/18 21:19 Temperature 98.8 F Pulse Rate 94 H Respiratory 18 Rate Blood Pressure 143/84 O2 Sat by Pulse 96 Oximetry Lab Results 12/07/18 12/07/18 12/07/18 Range/Units 22:00 22:00 22:00 WBC (4.5-11.0) K/mm3 RBC (3.65-5.03) M/mm3 Hgb (10.1-14.3) gm/dl Hct (30.3-42.9) % MCV (79-97) fl MCH (28-32) pg MCHC (30-34) % RDW (13.2-15.2) % Plt Count (140-440) K/mm3 Sodium 138 (137-145) mmol/L Potassium 4.4 (3.6-5.0) mmol/L Chloride 104.5 (98-107) mmol/L Carbon Dioxide 22 (22-30) mmol/L Anion Gap 16 mmol/L BUN 9 (7-17) mg/dL Creatinine 0.4 L (0.7-1.2) mg/dL Estimated GFR > 60 ml/min BUN/Creatinine Ratio 23 % Glucose 121 H (65-100) mg/dL Calcium 9.6 (8.4-10.2) mg/dL Magnesium 2.10 (1.7-2.3) mg/dL Total Bilirubin 0.20 (0.1-1.2) mg/dL AST 22 (5-40) units/L ALT 35 (7-56) units/L Alkaline Phosphatase 139 H (35-129) units/L Total Creatine Kinase 42 (30-135) units/L Total Protein 7.8 (6.3-8.2) g/dL Albumin 4.0 (3.9-5) g/dL Albumin/Globulin Ratio 1.1 % Salicylates < 0.3 L (2.8-20.0) mg/dL Acetaminophen < 5.0 L (10.0-30.0) ug/mL 12/07/18 Range/Units 22:00 WBC 9.2 (4.5-11.0) K/mm3 RBC 4.88 (3.65-5.03) M/mm3 Hgb 13.7 (10.1-14.3) gm/dl Hct 42.0 (30.3-42.9) % MCV 86 (79-97) fl MCH 28 (28-32) pg MCHC 33 (30-34) % RDW 14.1 (13.2-15.2) % Plt Count 415 (140-440) K/mm3 Sodium (137-145) mmol/L Potassium (3.6-5.0) mmol/L Chloride (98-107) mmol/L Carbon Dioxide (22-30) mmol/L Anion Gap mmol/L BUN (7-17) mg/dL Creatinine (0.7-1.2) mg/dL Estimated GFR ml/min BUN/Creatinine Ratio % Glucose (65-100) mg/dL Calcium (8.4-10.2) mg/dL Magnesium (1.7-2.3) mg/dL Total Bilirubin (0.1-1.2) mg/dL AST (5-40) units/L ALT (7-56) units/L Alkaline Phosphatase (35-129) units/L Total Creatine Kinase (30-135) units/L Total Protein (6.3-8.2) g/dL Albumin (3.9-5) g/dL Albumin/Globulin Ratio % Salicylates (2.8-20.0) mg/dL Acetaminophen (10.0-30.0) ug/mL - EKG Data -: EKG Interpreted by Nc EKG shows normal: sinus rhythm Rate: normal - EKG Data 12/08/18 00:12 This is a sinus rhythm, 94 bpm, normal axis, QTC within normal limits, poor R- wave progression, borderline left ventricular hypertrophy, the EKG is not consistent with ST elevation myocardial infarction. It appears to be unchanged from prior EKG from 10/23/2018. - Radiology Data Radiology results: report reviewed, image reviewed X-ray the chest is interpreted as unremarkable for acute disease. Print Report Referring Physician: GIRISH TORO Patient Name: BETO BARNETT Date of : 1960 Sex: Female Report Date: 2018-12-08 Report Status: Finalized Findings [facility] [address] [place] [address] Cat Scan Report Signed Patient: BETO BARNETT MR# : [id number] : 1960 Acct:[id number] Age/Sex: 58 / F ADM Date: 12/07/18 Loc: ED Attending Dr: Ordering Physician: GIRISH TORO MD Date of Service: 12/07/18 Procedure(s): CT abdomen pelvis wo con Accession Number(s): [id number] cc: GIRISH TORO MD CT of the abdomen and pelvis without contrast INDICATION: Abdominal pain COMPARISON: None FINDINGS: Lung bases are clear. The liver, spleen, pancreas and adrenal glands are all grossly normal. Bilateral renal calculi are seen without definite obstruction. No defi nite gallbladder or biliary tree abnormality. No fluid or adenopathy in the upper abdomen. There is large amount of motion artifact which degrades images. CT of the pelvis shows either a 5 x 4 cm soft tissue mass in the right adnexa or more likely a pedunculated fibroid. No left adnexal masses are seen. No pelvic fluid or adenopathy. There is large amount of stool in the rectum suggesting fecal impaction with stool in the proximal colon as well. Chronic changes of the hips are seen. No definite ureteral stones are seen. No stone fragments seen in the bladder. IMPRESSION: Incidental findings as described but no acute abnormality. Automated exposure control was utilized to diminish radiation dose. Signer Name: Sridhar Montano MD Signed: 12/08/2018 12:07 AM Workstation Name: [id number] Transcribed By: ANDI Dictated By: Sridhar Montano MD Electronically Authenticated By: Sridhar Montano MD Signed Date/Time: 12/08/18 0007 Critical care attestation.: If time is entered above; I have spent that time in minutes in the direct care of this critically ill patient, excluding procedure time. ED Disposition Clinical Impression: History of seizure Disposition: [id number]/TX-06 HOME UNDER HOME HLTH Is pt being admited?: No Does the pt Need Aspirin: No Condition: Stable Additional Instructions: CT scan of the abdomen and pelvis demonstrated incidental nonemergent findings. Have a primary care doctor contact the medical records department to follow up on incidental nonemergent findings. Continue current outpatient seizure medicines. Do not drive or operate cars in the next 6 months. Follow up with the primary care doctor or neurologist within the next 7-10 days. Return to the emergency room right away with new, worsening or different symptoms, or symptoms not present on the initial emergency room evaluation. Cultures were sent today, and results will be available next 3-5 days. Have a primary care doctor contact the medical records department to obtain culture re sults. Continue current seizure medications Prescriptions: levETIRAcetam [Keppra] 1,000 mg PO BID 30 Days #500 ml Nitrofurantoin Dillon/M-Cryst [Macrobid CAP] 100 mg PO Q12HR #14 capsule Topiramate [Topamax] 25 mg PO BID #60 tablet OXcarbazepine [Trileptal] 900 mg PO BID #300 tablet Referrals: KIAN ORTEGA MD [Referring] - 3-5 Days STEFANIE SANCHEZ MD [Staff Physician] - 3-5 Days JAMES MOREIRA MD [Staff Physician] - 3-5 Days KHADIJAH NGO MD [Staff Physician] - 3-5 Days
--- NOTE | 2018-12-08 00:11 | Cat Scan Report ---
CT of the abdomen and pelvis without contrast INDICATION: Abdominal pain COMPARISON: None FINDINGS: Lung bases are clear. The liver, spleen, pancreas and adrenal glands are all grossly normal . Bilateral renal calculi are seen without definite obstruction. No definite gallbladder or biliary t ree abnormality. No fluid or adenopathy in the upper abdomen. There is large amount of motion artifac t which degrades images. CT of the pelvis shows either a 5 x 4 cm soft tissue mass in the right adnexa or more likely a pedunc ulated fibroid. No left adnexal masses are seen. No pelvic fluid or adenopathy. There is large amount of stool in the rectum suggesting fecal impaction with stool in the proximal colon as well. Chronic changes of the hips are seen. No definite ureteral stones are seen. No stone fragments seen in the bl adder. IMPRESSION: Incidental findings as described but no acute abnormality. Automated exposure control was utilized to diminish radiation dose. Signer Name: Sridhar Montano MD Signed: 12/08/2018 12:07 AM Workstation Name: [id number]
[2018-12-08] MEDS ORDERED: NACL 0.9% 1000 ML 1,000 ML IV ONE (01:25)
[2018-12-08 03:05] LABS: Mucus,Urine FEW /HPF
[2018-12-08 03:28] LABS: Bacteria,Urine 1+ /HPF (Negative); Bilirubin,Urine NEG (Negative); Blood,Urine MOD (Negative); Color,Urine Yellow (Yellow); Protein,Urine <15 mg/dL mg/dL (Negative); Urobilinogen,Urine < 2.0 mg/dL (<2.0)
--- NOTE | 2018-12-08 05:26 | Cat Scan Report ---
CT BRAIN: WITHOUT CONTRAST INDICATION / CLINICAL INFORMATION: seizure. COMPARISON: 10/23/2018 FINDINGS: BRAIN/INTRACRANIAL STRUCTURES: Unenhanced CT images of the brain demonstrate no evidence of acute int racranial abnormality. Ventricles and sulci are prominent in size, consistent with pronounced diffuse cerebral atrophy. Exte nsive chronic white matter hypoattenuation is present. There is a craniotomy defect in the high parietal region, extending across the midline. Overall, there is been no change when compared to 10/23/2018. EXTRACRANIAL STRUCTURES: Unremarkable. IMPRESSION: No acute abnormality. Prominent cerebral atrophy for age. Extensive chronic white matter hypoattenua tion. No change when compared to prior exam. All CT scans at this location are performed using dose reduction to ALARA by means of automated expos ure control. Signer Name: Javed Kinsey MD Signed: 12/08/2018 5:22 AM Workstation Name: [id number]
--- NOTE | 2018-12-08 05:31 | Cat Scan Report ---
CT CERVICAL SPINE: 12/08/2018 INDICATION / CLINICAL INFORMATION: seizure. Trauma COMPARISON: None available. FINDINGS: CT images of the cervical spine were obtained. Images are evaluated in the axial, coronal, and sagit amrita planes. There is no evidence of acute abnormality. Vertebral body alignment is normal. LEVEL BY LEVEL ANALYSIS: . CRANIOCERVICAL JUNCTION: Unremarkable. PARASPINAL STRUCTURES: Incidental note is made of scattered cervical adenopathy. There is a prominent right thyroid nodule/mass, which measures approximately 4 cm in craniocaudal phong gth. IMPRESSION: No acute abnormality. 4 cm right thyroid nodule. INCIDENTAL THYROID NODULE RECOMMENDATIONS Nonpalpable nodules detected on US or other anatomic imaging studies are termed incidentally discover ed nodules or incidentalomas. Nonpalpable nodules have the same risk of malignancy as palpable nodule s with the same size. Generally, only nodules >1 cm should be evaluated, since they have a greater po tential to be clinically significant cancers. (MJ, 2009). Follow up for incidental thyroid nodules <1 cm is not recommended. In patients <35 years with an incidental thyroid nodule detected on CT, MRI, or extrathyroidal ultras ound, dedicated thyroid ultrasound is recommended if the nodule is 1 cm, has no suspicious imaging fe atures, and if the patient has normal life expectancy. In patients 35 years with an incidental thyroid nodule detected on CT, MRI, or extrathyroidal ultraso und, dedicated thyroid ultrasound is recommended if the nodule is 1.5 cm, has no suspicious imaging f eatures, and if the patient has normal life expectancy. All CT scans at this location are performed using dose reduction to ALARA by means of automated expos ure control. Signer Name: Javed Kinsey MD Signed: 12/08/2018 5:27 AM Workstation Name: [id number]
[2018-12-08 10:22] VITALS: BP 142/67
== END 2018-12-08 11:35 | disposition home health service (06) ==
LOC: ED 21:04
DX: G40.909 Epilepsy, unspecified, not intractable, without status epilepticus (principal); I10 Essential (primary) hypertension; J45.909 Unspecified asthma, uncomplicated; F17.200 Nicotine dependence, unspecified, uncomplicated; Z79.899 Other long term (current) drug therapy; Z86.73 Personal history of transient ischemic attack (TIA), and cerebral infarction without residual deficits; Z88.5 Allergy status to narcotic agent; Z91.013 Allergy to seafood; Z91.041 Radiographic dye allergy status
CPT/HCPCS: 36415; 70450; 71045; 72125; 74176; 80053; 81001; 82550; 83735; 85027; 87076; 87086; 87186; 93005; 93010; 96365; 96366; 99285; J1953; J7030; J7040; 80320; G0480

== ENCOUNTER 2019-03-10 11:05 | Inpatient (IN) | payer MEDICAID ==
[2019-03-10] MEDS ORDERED: SODIUM CHLORIDE 0.9% 1000 ML 1,000 ML IV ONE ×2 (11:09→14:51)
--- NOTE | 2019-03-10 11:15 | Emergency Department Report ---
ED General Adult HPI - General Stated complaint: leg pain Time Seen by Provider: 03/10/19 11:08 Source: patient, EMS, RN notes reviewed, old records reviewed Mode of arrival: Stretcher Limitations: Other - History of Present Illness Initial comments: 58 yo AA female comes to ER with deformity of r femur area. Compartments soft. DP plus 2 on arrival. Pt states she hurt her leg last night while transferring to chair. She normally is able to walk with a walker/she feeds herself. The SNF reports via EMS they do not know what has happened- they are investigating. No other injury per pt or report. VSS on arrival ST on arrival 114 Per EMS pt had SVT and they gave adenosine- pt has hx of the same PMH MS SZ disorder mood disorder CVA DVT LLE dx 5-18 on eloquis stress test 7-16 ef 67 and no ischemia HTN Full Code per advanced directives RX acidophillus melatonin baclofen michele. trileptal eliquis topamax dilt. k citalopram MVI -: Sudden, days(s) Location: lower extremity Consistency: constant Improves with: none Worsens with: movement Associated Symptoms: denies other symptoms - Related Data Home Medications Medication Instructions Recorded Confirmed Last Taken Lactulose [Cephulac] 45 ml PO TID 10/02/17 10/23/18 07/28/18 OXcarbazepine [Trileptal] 900 mg PO Q12HR 10/02/17 10/23/18 07/28/18 Topiramate [Topamax] 25 mg PO BID 10/02/17 10/23/18 07/28/18 dilTIAZem HCl [Diltiazem 24Hr ER 180 mg PO DAILY 10/02/17 10/23/18 07/28/18 (LA)] Baclofen 5 mg PO Q8H 10/23/18 10/23/18 Unknown Citalopram [celeXA] 10 mg PO QDAY 10/23/18 10/23/18 Unknown Gabapentin 300 mg PO Q8HR 10/23/18 10/23/18 Unknown LORazepam [Ativan] 0.5 mg PO BID 10/23/18 10/23/18 Unknown Lactobacillus Acidophilus 1 each PO DAILY 10/23/18 10/23/18 Unknown [Acidophilus] Potassium Chloride [K-Dur] 10 meq PO QDAY 10/23/18 10/23/18 Unknown Previous Rx's Medication Instructions Recorded Last Taken Type Apixaban [Eliquis] 5 mg PO BID #74 tablet 10/04/17 07/28/18 Rx Nitrofurantoin [place]/M-Cryst 100 mg PO Q12HR #14 capsule 12/08/18 Unknown Rx [Macrobid CAP] OXcarbazepine [Trileptal] 900 mg PO BID #300 tablet 12/08/18 Unknown Rx Topiramate [Topamax] 25 mg PO BID #60 tablet 12/08/18 Unknown Rx levETIRAcetam [Keppra] 1,000 mg PO BID 30 Days #500 ml 12/08/18 Unknown Rx Allergies Allergy/AdvReac Type Severity Reaction Status Date / Time codeine Allergy Hives Verified 10/23/18 15:19 fish derived Allergy Unknown Verified 10/23/18 15:19 Iodinated Contrast Media Allergy Hives Verified 10/23/18 15:19 ED Review of Systems ROS: Stated complaint: UNK Other details as noted in HPI Comment: All other systems reviewed and negative ED Past Medical Hx - Past Medical History Previous Medical History?: Yes Hx Hypertension: Yes Hx CVA: Yes (Right sided weakness) Hx Heart Attack/AMI: No Hx Congestive Heart Failure: No Hx Diabetes: No Hx Deep Vein Thrombosis: Yes Hx Pulmonary Embolism: No Hx GERD: No Hx Liver Disease: No Hx Renal Disease: No Hx of Cancer: No Hx Sickle Cell Disease: No Hx Arthritis: No Hx Headaches / Migraines: No Hx Seizures: Yes Hx Kidney Stones: No Hx Psychiatric Treatment: Yes Hx Asthma: Yes Hx COPD: No Hx Tuberculosis: No Hx Dementia: No Hx HIV: No Additional medical history: IRREGULAR HEART BEAT, MS - Surgical History Past Surgical History?: Yes Additional Surgical History: x4 - Family History Family history: no significant - Social History Smoking Status: Former Smoker Substance Use Type: None - Medications Home Medications: Home Medications Medication Instructions Recorded Confirmed Last Taken Type Lactulose [Cephulac] 45 ml PO TID 10/02/17 10/23/18 07/28/18 History OXcarbazepine [Trileptal] 900 mg PO Q12HR 10/02/17 10/23/18 07/28/18 History Topiramate [Topamax] 25 mg PO BID 10/02/17 10/23/18 07/28/18 History dilTIAZem HCl [Diltiazem 24Hr ER 180 mg PO DAILY 10/02/17 10/23/18 07/28/18 History (LA)] Apixaban [Eliquis] 5 mg PO BID #74 tablet 10/04/17 10/23/18 07/28/18 Rx Baclofen 5 mg PO Q8H 10/23/18 10/23/18 Unknown History Citalopram [celeXA] 10 mg PO QDAY 10/23/18 10/23/18 Unknown History Gabapentin 300 mg PO Q8HR 10/23/18 10/23/18 Unknown History LORazepam [Ativan] 0.5 mg PO BID 10/23/18 10/23/18 Unknown History Lactobacillus Acidophilus 1 each PO DAILY 10/23/18 10/23/18 Unknown History [Acidophilus] Potassium Chloride [K-Dur] 10 meq PO QDAY 10/23/18 10/23/18 Unknown History Nitrofurantoin [place]/M-Cryst 100 mg PO Q12HR #14 capsule 12/08/18 Unknown Rx [Macrobid CAP] OXcarbazepine [Trileptal] 900 mg PO BID #300 tablet 12/08/18 Unknown Rx Topiramate [Topamax] 25 mg PO BID #60 tablet 12/08/18 Unknown Rx levETIRAcetam [Keppra] 1,000 mg PO BID 30 Days #500 ml 12/08/18 Unknown Rx ED Physical Exam - General General appearance: alert - Head Head exam: Present: atraumatic, normocephalic - Eye Eye exam: Present: normal appearance, PERRL - ENT ENT exam: Present: mucous membranes dry - Neck Neck exam: Present: normal inspection - Respiratory Respiratory exam: Present: normal lung sounds bilaterally. Absent: respiratory distress - Cardiovascular Cardiovascular Exam: Present: regular rate, tachycardia. Absent: systolic murmur, diastolic murmur, rubs, gallop - GI/Abdominal GI/Abdominal exam: Present: soft, normal bowel sounds - Rectal Rectal exam: Present: deferred - Extremities Exam Extremities exam: Present: other - Expanded Lower Extremity Exam Right Upper Leg exam: Present: tenderness, swelling, deformity. Absent: normal inspection, full ROM, abrasion, laceration, ecchymosis, crepidus, dislocation, erythema Knee exam: Present: normal inspection - Back Exam Back exam: Present: normal inspection - Neurological Exam Neurological exam: Present: alert, abnormal gait - Psychiatric Psychiatric exam: Present: depressed, flat affect - Skin Skin exam: Present: warm, dry, intact. Absent: rash ED Course Vital Signs 03/10/19 03/10/19 03/10/19 11:07 11:30 12:47 Temperature 99.3 F Pulse Rate 108 H 94 H Respiratory 15 18 15 Rate Blood Pressure 106/57 Blood Pressure 111/71 [Right] O2 Sat by Pulse 99 Oximetry 03/10/19 03/10/19 13:42 14:07 Temperature Pulse Rate 95 H 95 H Respiratory 19 Rate Blood Pressure Blood Pressure 120/66 107/65 [Right] O2 Sat by Pulse 100 Oximetry - Reevaluation(s) Reevaluation #1: 03/10/[address] Jim DONATO dilaudid .5 mg IV for pain- with some relief extremity in position of comfort DP plus 2 compartments remain soft 1247 Dr Sanders notified of pt presentation Will admit for OR in AM NPO p MN hold blood thinners Family notified of pt admit to hosp The SNF had not notified him of pt injury or arrival Reevaluation #2: 03/10/19 13:45 MEDICATED SECOND TIME FOR PAIN HEWITT BEING PLACED BY RN DR PUGH AWARE OF PT PRESENTATION ED Medical Decision Making - Lab Data Result diagrams: 03/10/19 12:09 03/10/19 12:09 - EKG Data EKG shows normal: sinus rhythm Rate: normal, tachycardia - EKG Data When compared to previous EKG there are: no significant change Interpretation: no acute changes - Radiology Data Radiology results: report reviewed, image reviewed - Medical Decision Making Lab Results 03/10/19 03/10/19 03/10/19 Range/Units 12:09 12:09 12:09 WBC 8.0 (4.5-11.0) K/mm3 RBC 3.94 (3.65-5.03) M/mm3 Hgb 11.4 (10.1-14.3) gm/dl Hct 35.0 (30.3-42.9) % MCV 89 (79-97) fl MCH 29 (28-32) pg MCHC 33 (30-34) % RDW 14.4 (13.2-15.2) % Plt Count 355 (140-440) K/mm3 Lymph % (Auto) 20.0 (13.4-35.0) % [place]ys % (Auto) 10.9 H (0.0-7.3) % Eos % (Auto) 0.8 (0.0-4.3) % Baso % (Auto) 0.4 (0.0-1.8) % Lymph # 1.6 (1.2-5.4) K/mm3 [place]ys # 0.9 H (0.0-0.8) K/mm3 Eos # 0.1 (0.0-0.4) K/mm3 Baso # 0.0 (0.0-0.1) K/mm3 Seg Neutrophils % 67.9 (40.0-70.0) % Seg Neutrophils # 5.4 (1.8-7.7) K/mm3 PT 16.1 H (12.2-14.9) Sec. INR 1.31 H (0.87-1.13) APTT 26.9 (24.2-36.6) Sec. Sodium 142 (137-145) mmol/L Potassium 3.9 (3.6-5.0) mmol/L Chloride 106.4 (98-107) mmol/L Carbon Dioxide 21 L (22-30) mmol/L Anion Gap 19 mmol/L BUN 9 (7-17) mg/dL Creatinine 0.5 L (0.7-1.2) mg/dL Estimated GFR > 60 ml/min BUN/Creatinine Ratio 18 % Glucose 107 H (65-100) mg/dL Calcium 8.6 (8.4-10.2) mg/dL Total Bilirubin 0.40 (0.1-1.2) mg/dL AST 43 H (5-40) units/L ALT 207 H (7-56) units/L Alkaline Phosphatase 161 H (35-129) units/L Troponin T (0.00-0.029) ng/mL Total Protein 6.2 L (6.3-8.2) g/dL Albumin 3.3 L (3.9-5) g/dL Albumin/Globulin Ratio 1.1 % 03/10/19 Range/Units 12:09 WBC (4.5-11.0) K/mm3 RBC (3.65-5.03) M/mm3 Hgb (10.1-14.3) gm/dl Hct (30.3-42.9) % MCV (79-97) fl MCH (28-32) pg MCHC (30-34) % RDW (13.2-15.2) % Plt Count (140-440) K/mm3 Lymph % (Auto) (13.4-35.0) % Humphreys % (Auto) (0.0-7.3) % Eos % (Auto) (0.0-4.3) % Baso % (Auto) (0.0-1.8) % Lymph # (1.2-5.4) K/mm3 Humphreys # (0.0-0.8) K/mm3 Eos # (0.0-0.4) K/mm3 Baso # (0.0-0.1) K/mm3 Seg Neutrophils % (40.0-70.0) % Seg Neutrophils # (1.8-7.7) K/mm3 PT (12.2-14.9) Sec. INR (0.87-1.13) APTT (24.2-36.6) Sec. Sodium (137-145) mmol/L Potassium (3.6-5.0) mmol/L Chloride (98-107) mmol/L Carbon Dioxide (22-30) mmol/L Anion Gap mmol/L BUN (7-17) mg/dL Creatinine (0.7-1.2) mg/dL Estimated GFR ml/min BUN/Creatinine Ratio % Glucose (65-100) mg/dL Calcium (8.4-10.2) mg/dL Total Bilirubin (0.1-1.2) mg/dL AST (5-40) units/L ALT (7-56) units/L Alkaline Phosphatase (35-129) units/L Troponin T < 0.010 (0.00-0.029) ng/mL Total Protein (6.3-8.2) g/dL Albumin (3.9-5) g/dL Albumin/Globulin Ratio % Vital Signs 03/10/19 03/10/19 03/10/19 11:07 11:30 12:47 Temperature 99.3 F Pulse Rate 108 H 94 H Respiratory 15 18 15 Rate Blood Pressure 106/57 Blood Pressure 111/71 [Right] O2 Sat by Pulse 99 Oximetry xrays noted medicated for pain NS x 2 L total (1 in ambulance/ 1 in ER) labs noted T/S sent Staffed with Dr Jim Sanders -notified of presentation Family updated 1400 VSS Pending admit to the floor for OR in AM - Differential Diagnosis fx femur Critical care attestation.: If time is entered above; I have spent that time in minutes in the direct care of this critically ill patient, excluding procedure time. ED Disposition Clinical Impression: History of CVA (cerebrovascular accident), History of convulsions, Femur fracture, right, Fall, History of multiple sclerosis, History of supraventricular tachycardia, History of seizure Disposition: DC-09 OP ADMIT IP TO THIS HOSP Is pt being admited?: Yes Does the pt Need Aspirin: No Condition: Stable Time of Disposition: 12:15
[2019-03-10] MEDS ORDERED: HYDROmorphone 1 MG/1 ML INJ IV ONE ×2 (11:24→13:33)
[2019-03-10 12:42] LABS: Basophils % (Auto) 0.4 % (0.0-1.8); Eosinophils # (Auto) 0.1 K/mm3 (0.0-0.4); Eosinophils % (Auto) 0.8 % (0.0-4.3); Hemoglobin 11.4 gm/dl (10.1-14.3); INR 1.31 (0.87-1.13); Lymphocytes # (Auto) 1.6 K/mm3 (1.2-5.4); Mean Corpuscular HGB Conc 33 % (30-34); Mean Corpuscular Volume 89 fl (79-97); Monocytes # (Auto) 0.9 K/mm3 (0.0-0.8); Monocytes % (Auto) 10.9 % (0.0-7.3); Platelet Count 355 K/mm3 (140-440); Red Blood Count 3.94 M/mm3 (3.65-5.03); Red Cell Distribution Width 14.4 % (13.2-15.2)
[2019-03-10 12:43] LABS: Partial Thromboplastin Time 26.9 Sec. (24.2-36.6)
[2019-03-10 12:44] LABS: Alanine Aminotransferase 207 units/L (7-56); Albumin 3.3 g/dL (3.9-5); BUN/Creatinine Ratio 18; Blood Urea Nitrogen 9 mg/dL (7-17); Calcium 8.6 mg/dL (8.4-10.2); Hemolysis Index 7
[2019-03-10] MEDS ORDERED: levETIRAcetam 500 MG in DEXTROSE 5% IN WATER 100 ML IV ONE (13:00)
--- NOTE | 2019-03-10 13:36 | XRay Report ---
PELVIS AP VIEW INDICATION: pains p fall. COMPARISON: None. IMPRESSION: Limited exam taken in obliquity. No obvious pelvic fracture or diastasis is identified. If further evaluation is needed CT pelvis is recommended. RIGHT FEMUR, ONE VIEW INDICATION: pains p fall. COMPARISON: None. IMPRESSION: An oblique, displaced, angulated fracture is noted through the mid shaft of the right fe mur. No calcified callus. The remainder of the femur is intact. The soft tissues are unremarkable. Signer Name: Teddy Umanzor Jr, MD Signed: 03/10/2019 1:31 PM Workstation Name: [id number]
[2019-03-10] MEDS ORDERED: SODIUM CHLORIDE 0.9% 1000 ML 1,000 ML ONE (14:50)
[2019-03-10] MEDS ORDERED: ONDANSETRON 4 MG/2 ML INJ IV PRN (15:39)
[2019-03-10] MEDS ORDERED: ACETAMINOPHEN 325 MG TAB PO PRN (15:39)
[2019-03-10] MEDS ORDERED: HYDROmorphone 1 MG/1 ML INJ ONE (15:49)
[2019-03-10] MEDS: HYDROmorphone 1 MG/1 ML INJ IV PRN ×3 (15:52→20:28)
--- NOTE | 2019-03-10 17:32 | Consultation ---
History of Present Illness - [facility] Consult date: 03/10/19 Consult reason: fracture History of present illness: 58-year-old female who complains of right thigh pain after a fall [place] a [place] patient's daughter is at the bedside and informed me that patient has been nonambulatory for the past 2 years and she does not know how patient sustained a fractured femur. Space there is a history of CVA with resultant weakness and seizure activity Medications and Allergies Allergies Allergy/AdvReac Type Severity Reaction Status Date / Time codeine Allergy Hives Verified 10/23/18 15:19 fish derived Allergy Unknown Verified 10/23/18 15:19 Iodinated Contrast Media Allergy Hives Verified 10/23/18 15:19 Home Medications Medication Instructions Recorded Confirmed Last Taken Type Lactulose [Cephulac] 45 ml PO TID 10/02/17 10/23/18 07/28/18 History OXcarbazepine [Trileptal] 900 mg PO Q12HR 10/02/17 10/23/18 07/28/18 History Topiramate [Topamax] 25 mg PO BID 10/02/17 10/23/18 07/28/18 History dilTIAZem HCl [Diltiazem 24Hr ER 180 mg PO DAILY 10/02/17 10/23/18 07/28/18 History (LA)] Apixaban [Eliquis] 5 mg PO BID #74 tablet 10/04/17 10/23/18 07/28/18 Rx Baclofen 5 mg PO Q8H 10/23/18 10/23/18 Unknown History Citalopram [celeXA] 10 mg PO QDAY 10/23/18 10/23/18 Unknown History Gabapentin 300 mg PO Q8HR 10/23/18 10/23/18 Unknown History LORazepam [Ativan] 0.5 mg PO BID 10/23/18 10/23/18 Unknown History Lactobacillus Acidophilus 1 each PO DAILY 10/23/18 10/23/18 Unknown History [Acidophilus] Potassium Chloride [K-Dur] 10 meq PO QDAY 10/23/18 10/23/18 Unknown History Nitrofurantoin [place]/M-Cryst 100 mg PO Q12HR #14 capsule 12/08/18 Unknown Rx [Macrobid CAP] OXcarbazepine [Trileptal] 900 mg PO BID #300 tablet 12/08/18 Unknown Rx Topiramate [Topamax] 25 mg PO BID #60 tablet 12/08/18 Unknown Rx levETIRAcetam [Keppra] 1,000 mg PO BID 30 Days #500 ml 12/08/18 Unknown Rx Active Meds: Active Medications Acetaminophen (Tylenol) 650 mg PO Q4H PRN PRN Reason: Pain MILD(1-3)/Fever >100.5/[place] Famotidine (Pepcid) 20 mg IV BID NILAM Hydromorphone HCl (Dilaudid) 1 mg IV Q3H PRN PRN Reason: Pain , Severe (7-10) Last Admin: 03/10/19 15:52 Dose: 1 mg Documented by: Sodium Chloride (Nacl 0.9% 1000 Ml) 1,000 mls @ 75 mls/hr IV DIRECT NILAM Stop: 03/11/19 14:00 Ondansetron HCl (Zofran) 4 mg IV Q3H PRN PRN Reason: Nausea And Vomiting Oxycodone/Acetaminophen (Percocet 5/325) 1 tab PO Q6H PRN PRN Reason: Pain, Moderate (4-6) Sodium Chloride (Sodium Chloride Flush Syringe 10 Ml) 10 ml IV BID NILAM Sodium Chloride (Sodium Chloride Flush Syringe 10 Ml) 10 ml IV PRN PRN PRN Reason: LINE FLUSH Physical Examination - Physical exam Narrative exam: On physical examination significant musculoskeletal findings relates to the right lower extremity patient is noted to have obvious deformity at the mid shaft portion of the thigh skin was intact compartments were soft there's tenderness on palpation there was good capillary refill distally Plain x-rays taken today in the emergency department were reviewed by me and show an obvious distal to middle third fracture right femur patient has some osteopenia on plain x-rays Eyes: PERRL ENT: Positive: clear oral mucosa Respiratory effort: normal Respiratory: bilateral: CTA Rhythm: regular Heart Sounds: Positive: S1 & S2 General gastrointestinal: Positive: soft, non-tender, non-distended, normal bowel sounds Integumentary: clear, warm, dry Neurologic: Positive: CNII-XII intact, moves all extremities, gait normal. Negative: focal deficits Assessment and Plan A displaced right femoral shaft fracture in a nonambulatory patient discuss treatment options with the patient's daughter recommend conservative treatment in this particular case with splinting for 4-6 weeks
[2019-03-10] MEDS: FAMOTIDINE 20 MG/2 ML INJ IV SCH (22:45)
[2019-03-10] MEDS: SODIUM CHLORIDE 0.9% 1000 ML 1,000 ML IV SCH (22:53)
[2019-03-11] MEDS: HYDROmorphone 1 MG/1 ML INJ IV PRN ×4 (00:27→19:37)
[2019-03-11] MEDS: SODIUM CHLORIDE 0.9% 1000 ML 1,000 ML IV SCH (06:32)
[2019-03-11 07:07] LABS: Alanine Aminotransferase 144 units/L (7-56); Albumin 3.2 g/dL (3.9-5); BUN/Creatinine Ratio 20; Blood Urea Nitrogen 8 mg/dL (7-17); Calcium 8.8 mg/dL (8.4-10.2); Hemolysis Index 1
--- NOTE | 2019-03-11 07:14 | History and Physical Report ---
History of Present Illness Date of examination: 03/10/19 Date of admission: 03/10/19 13:57 Chief complaint: Rt LE swelling andpain since last night History of present illness: 58 yo AA female comes to ER with deformity of r femur area and severe pain RLE.Patient was apparently dropped at residential while transferring to bed from [facility].Last night.They took x rays this AM and in seeing fracture of rt femur-patient was sent here. pain 02/11 Past Medical History Previous Medical History?: Yes Hx Hypertension: Yes Hx CVA: Yes (Right sided weakness) Hx Deep Vein Thrombosis: Yes Hx Seizures: Yes Hx Psychiatric Treatment: Yes Hx Asthma: Yes Additional medical history: IRREGULAR HEART BEAT, MS Surgical History Past Surgical History?: Yes Additional Surgical History: x4 Family History Family history: no significant Social History Smoking Status: Former Smoker Substance Use Type: None - Medications Home Medications: Home Medications Medication Instructions Recorded Confirmed Last Taken Type Lactulose [Cephulac] 45 ml PO TID 10/02/17 10/23/18 07/28/18 History OXcarbazepine [Trileptal] 900 mg PO Q12HR 10/02/17 10/23/18 07/28/18 History Topiramate [Topamax] 25 mg PO BID 10/02/17 10/23/18 07/28/18 History dilTIAZem HCl [Diltiazem 24Hr ER 180 mg PO DAILY 10/02/17 10/23/18 07/28/18 History (LA)] Apixaban [Eliquis] 5 mg PO BID #74 tablet 10/04/17 10/23/18 07/28/18 Rx Baclofen 5 mg PO Q8H 10/23/18 10/23/18 Unknown History Citalopram [celeXA] 10 mg PO QDAY 10/23/18 10/23/18 Unknown History Gabapentin 300 mg PO Q8HR 10/23/18 10/23/18 Unknown History LORazepam [Ativan] 0.5 mg PO BID 10/23/18 10/23/18 Unknown History Lactobacillus Acidophilus 1 each PO DAILY 10/23/18 10/23/18 Unknown History [Acidophilus] Potassium Chloride [K-Dur] 10 meq PO QDAY 10/23/18 10/23/18 Unknown History Nitrofurantoin [place]/M-Cryst 100 mg PO Q12HR #14 capsule 12/08/18 Unknown Rx [Macrobid CAP] OXcarbazepine [Trileptal] 900 mg PO BID #300 tablet 12/08/18 Unknown Rx Topiramate [Topamax] 25 mg PO BID #60 tablet 12/08/18 Unknown Rx levETIRAcetam [Keppra] 1,000 mg PO BID 30 Days #500 ml 12/08/18 Unknown Rx ED Review of Systems ROS: Stated complaint: UNK Other details as noted in HPI Comment: All other systems reviewed and negative Medications and Allergies Allergies Allergy/AdvReac Type Severity Reaction Status Date / Time codeine Allergy Hives Verified 10/23/18 15:19 fish derived Allergy Unknown Verified 10/23/18 15:19 Iodinated Contrast Media Allergy Hives Verified 10/23/18 15:19 Home Medications Medication Instructions Recorded Confirmed Last Taken Type Lactulose [Cephulac] 45 ml PO TID 10/02/17 10/23/18 07/28/18 History OXcarbazepine [Trileptal] 900 mg PO Q12HR 10/02/17 10/23/18 07/28/18 History Topiramate [Topamax] 25 mg PO BID 10/02/17 10/23/18 07/28/18 History dilTIAZem HCl [Diltiazem 24Hr ER 180 mg PO DAILY 10/02/17 10/23/18 07/28/18 History (LA)] Apixaban [Eliquis] 5 mg PO BID #74 tablet 10/04/17 10/23/18 07/28/18 Rx Baclofen 5 mg PO Q8H 10/23/18 10/23/18 Unknown History Citalopram [celeXA] 10 mg PO QDAY 10/23/18 10/23/18 Unknown History Gabapentin 300 mg PO Q8HR 10/23/18 10/23/18 Unknown History LORazepam [Ativan] 0.5 mg PO BID 10/23/18 10/23/18 Unknown History Lactobacillus Acidophilus 1 each PO DAILY 10/23/18 10/23/18 Unknown History [Acidophilus] Potassium Chloride [K-Dur] 10 meq PO QDAY 10/23/18 10/23/18 Unknown History Nitrofurantoin [place]/M-Cryst 100 mg PO Q12HR #14 capsule 12/08/18 Unknown Rx [Macrobid CAP] OXcarbazepine [Trileptal] 900 mg PO BID #300 tablet 12/08/18 Unknown Rx Topiramate [Topamax] 25 mg PO BID #60 tablet 12/08/18 Unknown Rx levETIRAcetam [Keppra] 1,000 mg PO BID 30 Days #500 ml 12/08/18 Unknown Rx Active Meds: Active Medications Acetaminophen (Tylenol) 650 mg PO Q4H PRN PRN Reason: Pain MILD(1-3)/Fever >100.5/[place] Famotidine (Pepcid) 20 mg IV BID [facility] Last Admin: 03/10/19 22:45 Dose: 20 mg Documented by: Hydromorphone HCl (Dilaudid) 1 mg IV Q3H PRN PRN Reason: Pain , Severe (7-10) Last Admin: 03/11/19 06:03 Dose: 1 mg Documented by: Sodium Chloride (Nacl 0.9% 1000 Ml) 1,000 mls @ 75 mls/hr IV DIRECT [facility] Stop: 03/11/19 14:00 Last Admin: 03/11/19 06:32 Dose: 75 mls/hr Documented by: Ondansetron HCl (Zofran) 4 mg IV Q3H PRN PRN Reason: Nausea And Vomiting Oxycodone/Acetaminophen (Percocet 5/325) 1 tab PO Q6H PRN PRN Reason: Pain, Moderate (4-6) Sodium Chloride (Sodium Chloride Flush Syringe 10 Ml) 10 ml IV BID [facility] Last Admin: 03/10/19 22:53 Dose: 10 ml Documented by: Sodium Chloride (Sodium Chloride Flush Syringe 10 Ml) 10 ml IV PRN PRN PRN Reason: LINE FLUSH Exam - Constitutional Vitals: Temp Pulse Resp BP Pulse Ox 98.6 F 105 H 17 126/71 92 03/11/19 05:20 03/11/19 05:20 03/11/19 05:20 03/11/19 05:20 03/11/19 05:20 General appearance: Present: mild distress, well-nourished - EENT Eyes: Present: PERRL ENT: hearing intact, clear oral mucosa - Neck Neck: Present: supple, normal ROM - Respiratory Respiratory effort: normal Respiratory: bilateral: CTA - Cardiovascular Heart rate: 78 Rhythm: regular Heart Sounds: Present: S1 & S2. Absent: rub, click - Extremities Extremities: pulses symmetrical, No edema, abnormal (RLE deformed and externally rotated) Peripheral Pulses: within normal limits - Abdominal General gastrointestinal: Present: soft, non-tender, non-distended, normal bowel sounds Female genitourinary: Present: normal - Integumentary Integumentary: Present: clear, warm, dry - Musculoskeletal Musculoskeletal: gait normal, strength equal bilaterally - Psychiatric Psychiatric: appropriate mood/affect, intact judgment & insight - Neurologic Neurologic: CNII-XII intact, moves all extremities Results - Labs CBC & Chem 7: 03/10/19 12:09 03/11/19 06:21 Labs: Laboratory Last Values WBC 8.0 K/mm3 (4.5-11.0) 03/10/19 12:09 RBC 3.94 M/mm3 (3.65-5.03) 03/10/19 12:09 Hgb 11.4 gm/dl (10.1-14.3) 03/10/19 12:09 Hct 35.0 % (30.3-42.9) 03/10/19 12:09 MCV 89 fl (79-97) 03/10/19 12:09 MCH 29 pg (28-32) 03/10/19 12:09 MCHC 33 % (30-34) 03/10/19 12:09 RDW 14.4 % (13.2-15.2) 03/10/19 12:09 Plt Count 355 K/mm3 (140-440) 03/10/19 12:09 Lymph % (Auto) 20.0 % (13.4-35.0) 03/10/19 12:09 [place] % (Auto) 10.9 % (0.0-7.3) H 03/10/19 12:09 Eos % (Auto) 0.8 % (0.0-4.3) 03/10/19 12:09 Baso % (Auto) 0.4 % (0.0-1.8) 03/10/19 12:09 Lymph # 1.6 K/mm3 (1.2-5.4) 03/10/19 12:09 [place] # 0.9 K/mm3 (0.0-0.8) H 03/10/19 12:09 Eos # 0.1 K/mm3 (0.0-0.4) 03/10/19 12:09 Baso # 0.0 K/mm3 (0.0-0.1) 03/10/19 12:09 Seg Neutrophils % 67.9 % (40.0-70.0) 03/10/19 12:09 Seg Neutrophils # 5.4 K/mm3 (1.8-7.7) 03/10/19 12:09 PT 16.1 Sec. (12.2-14.9) H 03/10/19 12:09 INR 1.31 (0.87-1.13) H 03/10/19 12:09 APTT 26.9 Sec. (24.2-36.6) 03/10/19 12:09 Sodium 139 mmol/L (137-145) 03/11/19 06:21 Potassium 3.9 mmol/L (3.6-5.0) 03/11/19 06:21 Chloride 105.8 mmol/L (98-107) 03/11/19 06:21 Carbon Dioxide 21 mmol/L (22-30) L 03/11/19 06:21 Anion Gap 16 mmol/L 03/11/19 06:21 BUN 8 mg/dL (7-17) 03/11/19 06:21 Creatinine 0.4 mg/dL (0.7-1.2) L 03/11/19 06:21 Estimated GFR > 60 ml/min 03/11/19 06:21 BUN/Creatinine Ratio 20 % 03/11/19 06:21 Glucose 106 mg/dL (65-100) H 03/11/19 06:21 Hemoglobin A1c 5.0 % (4-6) 03/10/19 12:09 Calcium 8.8 mg/dL (8.4-10.2) 03/11/19 06:21 Total Bilirubin 0.50 mg/dL (0.1-1.2) 03/11/19 06:21 AST 27 units/L (5-40) 03/11/19 06:21 ALT 144 units/L (7-56) H 03/11/19 06:21 Alkaline Phosphatase 148 units/L (35-129) H 03/11/19 06:21 Total Creatine Kinase 446 units/L (30-135) H 03/10/19 12:09 Troponin T < 0.010 ng/mL (0.00-0.029) 03/10/19 14:54 Total Protein 6.2 g/dL (6.3-8.2) L 03/11/19 06:21 Albumin 3.2 g/dL (3.9-5) L 03/11/19 06:21 Albumin/Globulin Ratio 1.1 % 03/11/19 06:21 Blood Type B POSITIVE 03/10/19 12:09 Antibody Screen Negative 03/10/19 12:09 Short CBC 03/10/19 Range/Units 12:09 WBC 8.0 (4.5-11.0) K/mm3 Hgb 11.4 (10.1-14.3) gm/dl Hct 35.0 (30.3-42.9) % Plt Count 355 (140-440) K/mm3 BMP 03/10/19 03/11/19 12:09 06:21 Sodium 142 139 Potassium 3.9 3.9 Chloride 106.4 105.8 Carbon Dioxide 21 L 21 L BUN 9 8 Creatinine 0.5 L 0.4 L Glucose 107 H 106 H Calcium 8.6 8.8 Cardiac Enzymes 03/10/19 03/10/19 03/10/19 Range/Units 12:09 12:09 14:54 Total Creatine Kinase 446 H (30-135) units/L Troponin T < 0.010 < 0.010 (0.00-0.029) ng/mL Liver Function 03/10/19 03/11/19 Range/Units 12:09 06:21 Total Bilirubin 0.40 0.50 (0.1-1.2) mg/dL AST 43 H 27 (5-40) units/L ALT 207 H 144 H (7-56) units/L Alkaline Phosphatase 161 H 148 H (35-129) units/L Albumin 3.3 L 3.2 L (3.9-5) g/dL Assessment and Plan Advance Directives: Yes (Full code) VTE prophylaxis?: Chemical Plan of care discussed with patient/family: Yes - Patient Problems (1) Femur fracture, right Current Visit: Yes Status: Acute Qualifiers: Encounter type: initial encounter Femur location: shaft Fracture type: closed Fracture morphology: oblique Fracture alignment: displaced Qualified Code(s): S72.331A - Displaced oblique fracture of shaft of right femur, initial encounter for closed fracture Plan to address problem: Will defer management to Dr Sanders-Orthopedics Pain control (2) HTN (hypertension) Current Visit: No Status: Chronic Qualifiers: Hypertension type: essential hypertension Qualified Code(s): I10 - [place] l (primary) hypertension Plan to address problem: Cont antihypertensives (3) Seizure disorder Current Visit: Yes Status: Chronic Plan to address problem: Cont Keppra and trileptal (4) Chronic a-fib Current Visit: Yes Status: Acute Plan to address problem: Cont Eliquis (5) DVT prophylaxis Current Visit: No Status: Acute Plan to address problem: On SCD's
[2019-03-11 07:25] LABS: Basophils % (Auto) 0.6 % (0.0-1.8); Eosinophils # (Auto) 0.1 K/mm3 (0.0-0.4); Eosinophils % (Auto) 1.8 % (0.0-4.3); Hematocrit 35.1 % (30.3-42.9); Hemoglobin 11.3 gm/dl (10.1-14.3); Lymphocytes # (Auto) 0.9 K/mm3 (1.2-5.4); Lymphocytes % (Auto) 12.1 % (13.4-35.0); Mean Corpuscular HGB Conc 32 % (30-34); Mean Corpuscular Volume 89 fl (79-97); Monocytes # (Auto) 0.6 K/mm3 (0.0-0.8); Monocytes % (Auto) 8.5 % (0.0-7.3); Platelet Count 333 K/mm3 (140-440); Red Blood Count 3.95 M/mm3 (3.65-5.03); Red Cell Distribution Width 13.8 % (13.2-15.2)
[2019-03-11] MEDS: FAMOTIDINE 20 MG/2 ML INJ IV SCH ×2 (10:15→21:19)
--- NOTE | 2019-03-11 12:14 | Progress Note ---
Assessment and Plan Assessment and plan: Patient is a 58 yo woman from [facility] with a history of hypertension, CVA with right sided weakness/cognitive impairment, bedbound state, DVT, Asthma, SZ disorder and hypertension who presented to [facility] ED after a fall at the half-way. She was found to have a displaced right femoral shaft fracture. She was seen by Ortho and patient's daughter recommend conservative treatment in this particular case with splinting for 4-6 weeks. (1) Femur fracture, right Current Visit: Yes Status: Acute Qualifiers: Encounter type: initial encounter Femur location: shaft Fracture type: closed Fracture morphology: oblique Fracture alignment: displaced Qualified Code(s): S72.331A - Displaced oblique fracture of shaft of right femur, initial encounter for closed fracture Plan to address problem: Will defer management to Dr Sanders-Orthopedics Pain control (2) HTN (hypertension) Current Visit: No Status: Chronic Qualifiers: Hypertension type: essential hypertension Qualified Code(s): I10 - Essential (primary) hypertension Plan to address problem: Cont antihypertensives (3) Seizure disorder Current Visit: Yes Status: Chronic Plan to address problem: Cont Keppra and trileptal (4) Chronic a-fib Current Visit: Yes Status: Acute Plan to address problem: Cont Eliquis (5) DVT prophylaxis Current Visit: No Status: Acute Plan to address problem: add sq lovenox or Eliquis if able to swallow On SCD's History Interval history: Patient was seen and examined. Follow-up on current diagnosis femur fracture. No overnight events reported to me. Patient denies any chest pain, shortness breath, nausea/vomiting or severe headaches. Imaging, nursing note, chart, labs and old chart reviewed. Discussed with patient. Hospitalist Physical - Physical exam Narrative exam: Gen: thin frail, chronically disable appearing, NAD, Awake, Alert, Orientated x 1 HEENT: NCAT, EOMI, PERRL, OP Clear Neck: supple, no adenopathy, no thyromegaly, no JVD CVS/Heart: RRR, normal S1S2, pulses present bilaterally Chest/Lungs: CTA B, Symmetrical chest expansion, good air entry bilaterally GI/Abdomen: soft, NTND, good bowel sounds, no guarding or rebound /Bladder: no suprapubic tenderness, no CVA or paraspinal tenderness Extermity/Skin: no c/c/e, no obvious rash MSK: FROM x 3 except right leg Neuro: CN 2-12 grossly intact, no new focal deficits +old cVA deficits Psych: calm - Constitutional Vitals: Temp Pulse Resp BP Pulse Ox 98.7 F 105 H 18 133/69 91 03/11/19 07:41 03/11/19 07:41 03/11/19 07:41 03/11/19 07:41 03/11/19 07:41 General appearance: Present: mild distress, well-nourished Results - Labs CBC & Chem 7: 03/11/19 06:21 03/11/19 06:21 Labs: Laboratory Last Values WBC 7.3 K/mm3 (4.5-11.0) 03/11/19 06:21 RBC 3.95 M/mm3 (3.65-5.03) 03/11/19 06:21 Hgb 11.3 gm/dl (10.1-14.3) 03/11/19 06:21 Hct 35.1 % (30.3-42.9) 03/11/19 06:21 MCV 89 fl (79-97) 03/11/19 06:21 MCH 29 pg (28-32) 03/11/19 06:21 MCHC 32 % (30-34) 03/11/19 06:21 RDW 13.8 % (13.2-15.2) 03/11/19 06:21 Plt Count 333 K/mm3 (140-440) 03/11/19 06:21 Lymph % (Auto) 12.1 % (13.4-35.0) L 03/11/19 06:21 [place] % (Auto) 8.5 % (0.0-7.3) H 03/11/19 06:21 Eos % (Auto) 1.8 % (0.0-4.3) 03/11/19 06:21 Baso % (Auto) 0.6 % (0.0-1.8) 03/11/19 06:21 Lymph # 0.9 K/mm3 (1.2-5.4) L 03/11/19 06:21 [place] # 0.6 K/mm3 (0.0-0.8) 03/11/19 06:21 Eos # 0.1 K/mm3 (0.0-0.4) 03/11/19 06:21 Baso # 0.0 K/mm3 (0.0-0.1) 03/11/19 06:21 Seg Neutrophils % 77.0 % (40.0-70.0) H 03/11/19 06:21 Seg Neutrophils # 5.6 K/mm3 (1.8-7.7) 03/11/19 06:21 PT 16.1 Sec. (12.2-14.9) H 03/10/19 12:09 INR 1.31 (0.87-1.13) H 03/10/19 12:09 APTT 26.9 Sec. (24.2-36.6) 03/10/19 12:09 Sodium 139 mmol/L (137-145) 03/11/19 06:21 Potassium 3.9 mmol/L (3.6-5.0) 03/11/19 06:21 Chloride 105.8 mmol/L (98-107) 03/11/19 06:21 Carbon Dioxide 21 mmol/L (22-30) L 03/11/19 06:21 Anion Gap 16 mmol/L 03/11/19 06:21 BUN 8 mg/dL (7-17) 03/11/19 06:21 Creatinine 0.4 mg/dL (0.7-1.2) L 03/11/19 06:21 Estimated GFR > 60 ml/min 03/11/19 06:21 BUN/Creatinine Ratio 20 % 03/11/19 06:21 Glucose 106 mg/dL (65-100) H 03/11/19 06:21 Hemoglobin A1c 5.0 % (4-6) 03/10/19 12:09 Calcium 8.8 mg/dL (8.4-10.2) 03/11/19 06:21 Total Bilirubin 0.50 mg/dL (0.1-1.2) 03/11/19 06:21 AST 27 units/L (5-40) 03/11/19 06:21 ALT 144 units/L (7-56) H 03/11/19 06:21 Alkaline Phosphatase 148 units/L (35-129) H 03/11/19 06:21 Total Creatine Kinase 446 units/L (30-135) H 03/10/19 12:09 Troponin T < 0.010 ng/mL (0.00-0.029) 03/10/19 14:54 Total Protein 6.2 g/dL (6.3-8.2) L 03/11/19 06:21 Albumin 3.2 g/dL (3.9-5) L 03/11/19 06:21 Albumin/Globulin Ratio 1.1 % 03/11/19 06:21 Blood Type B POSITIVE 03/10/19 12:09 Antibody Screen Negative 03/10/19 12:09 Active Medications - Current Medications Current Medications: Generic Name Dose Route Start Last Admin Trade Name Freq PRN Reason Stop Dose Admin Acetaminophen 650 mg 03/10/19 15:39 Tylenol PO Q4H PRN Pain MILD(1-3)/Fever >100.5/[place] Famotidine 20 mg 03/10/19 22:00 03/10/19 22:45 Pepcid IV 20 mg BID NILAM Administration Hydromorphone HCl 1 mg 03/10/19 15:39 03/11/19 06:03 Dilaudid IV 1 mg Q3H PRN Administration Pain , Severe (7-10) Sodium Chloride 1,000 mls @ 75 mls/hr 03/10/19 16:00 03/11/19 06:32 Nacl 0.9% 1000 Ml IV 03/11/19 14:00 75 mls/hr DIRECT NILAM Administration Ondansetron HCl 4 mg 03/10/19 15:39 Zofran IV Q3H PRN Nausea And Vomiting Oxycodone/Acetaminophen 1 tab 03/10/19 15:41 Percocet 5/325 PO Q6H PRN Pain, Moderate (4-6) Sodium Chloride 10 ml 03/10/19 16:00 03/10/19 22:53 Sodium Chloride Flush Syringe 10 Ml IV 10 ml BID NILAM Administration Sodium Chloride 10 ml 03/10/19 15:39 Sodium Chloride Flush Syringe 10 Ml IV PRN PRN LINE FLUSH
[2019-03-11] MEDS ORDERED: LORazepam 2 MG/ML VIAL ONE (14:41)
[2019-03-11] MEDS ORDERED: LORazepam 2 MG/ML VIAL IV ONE (14:42)
[2019-03-11] MEDS ORDERED: levETIRAcetam 1,000 MG in DEXTROSE 5% IN WATER 100 ML IV ONE (14:45)
[2019-03-11] MEDS ORDERED: ACETAMINOPHEN 650 MG RECT SUPP PR PRN (14:46)
[2019-03-11] MEDS ORDERED: ENOXAPARIN 40 MG/0.4 ML INJ SUB-Q SCH (15:00)
[2019-03-11] MEDS ORDERED: NON-FORMULARY EACH (Baclofen [Baclofen] 5 MG) PO SCH (15:30)
[2019-03-11] MEDS ORDERED: NON-FORMULARY EACH (Diltiazem Hcl [Diltiazem 24hr Er (La)] 180 MG) PO SCH (15:30)
--- NOTE | 2019-03-11 16:24 | XRay Report ---
CHEST 1 VIEW 3:59 PM INDICATION / CLINICAL INFORMATION: Fever. COMPARISON: 12/07/2018. FINDINGS: SUPPORT DEVICES: None. HEART / MEDIASTINUM: The heart size and pulmonary vasculature are normal for technique. LUNGS / PLEURA: No significant pulmonary or pleural abnormality. No pneumothorax. ADDITIONAL FINDINGS: No significant additional findings. IMPRESSION: No acute abnormality or significant change. There is no evidence of pneumonia. Signer Name: Kai Mcbride MD Signed: 03/11/2019 4:20 PM Workstation Name: [id number]
--- NOTE | 2019-03-11 16:51 | Consultation ---
History of Present Illness Consult date: 03/11/19 Reason for Consult: Seizure Chief complaint: Seizure History of present illness: Patient is a 58 y/o woman w/ a h/o seizures, MS, HTN, h/o CVA w/ residual left sided weakness, h/o DVT, asthma. Patient lives at a alf, and presented after accidentally being dropped while transferring to bed. Patient was found to have a right femur fracture. This afternoon, patient was noted to have a seizure, which stopped after ativan administration. Patient was also given keppra 1000mg IV. It was noted that aptient had not been continued on her home seizure medications on admission. Per chart, patient is reportedly on keppra 1000mg BID, trileptal 900mg BID, topamax 25mg BID, and gabapentin 300mg TID. Past History Past Medical History: other (h/o seizures, MS, HTN, h/o CVA w/ residual left sided weakness, h/o DVT, asthma) Social history: other (lives at alf) Family history: no significant family history Medications and Allergies Allergies Allergy/AdvReac Type Severity Reaction Status Date / Time codeine Allergy Hives Verified 10/23/18 15:19 fish derived Allergy Unknown Verified 10/23/18 15:19 Iodinated Contrast Media Allergy Hives Verified 10/23/18 15:19 Home Medications Medication Instructions Recorded Confirmed Last Taken Type Lactulose [Cephulac] 45 ml PO TID 10/02/17 10/23/18 07/28/18 History OXcarbazepine [Trileptal] 900 mg PO Q12HR 10/02/17 10/23/18 07/28/18 History Topiramate [Topamax] 25 mg PO BID 10/02/17 10/23/18 07/28/18 History dilTIAZem HCl [Diltiazem 24Hr ER 180 mg PO DAILY 10/02/17 10/23/18 07/28/18 History (LA)] Apixaban [Eliquis] 5 mg PO BID #74 tablet 10/04/17 10/23/18 07/28/18 Rx Baclofen 5 mg PO Q8H 10/23/18 10/23/18 Unknown History Citalopram [celeXA] 10 mg PO QDAY 10/23/18 10/23/18 Unknown History Gabapentin 300 mg PO Q8HR 10/23/18 10/23/18 Unknown History LORazepam [Ativan] 0.5 mg PO BID 10/23/18 10/23/18 Unknown History Lactobacillus Acidophilus 1 each PO DAILY 10/23/18 10/23/18 Unknown History [Acidophilus] Potassium Chloride [K-Dur] 10 meq PO QDAY 10/23/18 10/23/18 Unknown History Nitrofurantoin [place]/M-Cryst 100 mg PO Q12HR #14 capsule 12/08/18 Unknown Rx [Macrobid CAP] OXcarbazepine [Trileptal] 900 mg PO BID #300 tablet 12/08/18 Unknown Rx Topiramate [Topamax] 25 mg PO BID #60 tablet 12/08/18 Unknown Rx levETIRAcetam [Keppra] 1,000 mg PO BID 30 Days #500 ml 12/08/18 Unknown Rx Active Meds: Active Medications Acetaminophen (Tylenol) 650 mg PO Q4H PRN PRN Reason: Pain MILD(1-3)/Fever >100.5/[place] Acetaminophen (Tylenol) 650 mg MT Q4H PRN PRN Reason: Non Cardiac Pain or Temp>100.5 Last Admin: 03/11/19 15:09 Dose: 650 mg Documented by: Apixaban (Eliquis) 5 mg PO BID [facility]; Protocol Baclofen (Lioresal) 5 mg PO Q8HR [facility] Citalopram Hydrobromide (Celexa) 10 mg PO QDAY [facility] Diltiazem HCl (Cardizem Cd) 180 mg PO QDAY [facility] Famotidine (Pepcid) 20 mg IV BID [facility] Last Admin: 03/11/19 10:15 Dose: 20 mg Documented by: Gabapentin (Gabapentin) 300 mg PO Q8HR [facility] Hydromorphone HCl (Dilaudid) 1 mg IV Q3H PRN PRN Reason: Pain , Severe (7-10) Last Admin: 03/11/19 16:16 Dose: 1 mg Documented by: Ceftriaxone Sodium (Rocephin/Ns 1 Gm/50 Ml) 1 gm in 50 mls @ 100 mls/hr IV Q24H [facility]; Protocol Levetiracetam (Keppra 1,000 Mg/Ns 0.75% 100ml) 1,000 mg in 100 mls @ 363.636 mls/hr IV Q12H [facility] Ondansetron HCl (Zofran) 4 mg IV Q3H PRN PRN Reason: Nausea And Vomiting Oxycodone/Acetaminophen (Percocet 5/325) 1 tab PO Q6H PRN PRN Reason: Pain, Moderate (4-6) Sodium Chloride (Sodium Chloride Flush Syringe 10 Ml) 10 ml IV BID [facility] Last Admin: 03/11/19 10:15 Dose: 10 ml Documented by: Sodium Chloride (Sodium Chloride Flush Syringe 10 Ml) 10 ml IV PRN PRN PRN Reason: LINE FLUSH Review of Systems All systems: negative Musculoskeletal: fractures Neurological: seizures Physical Examination - Vital Signs Vital Signs: Vital Signs Temp Pulse Resp BP Pulse Ox 99.3 F 108 H 15 106/57 99 03/10/19 11:07 03/10/19 11:07 03/10/19 11:07 03/10/19 11:07 03/10/19 11:07 - Physical Exam Narrative exam: Patient is awake, alert, oriented only to self, age, follows 2-step commands. PERRL, EOMI, VFF, tongue midline, left facial weakness noted, b/l intact to LT. No dysarthria or aphasia noted. RUE 4/5, LUE 1/5, LUE 2/5, RLE not assessed due to fracture. 3+ reflexes on LUE/LLE, 2+ reflexes on RUE. Intact to FTN on RUE, unable to asses on LUE d/t baseline weakness, unable to assess HTS due to baseline weakness on LLE and femur fracture on RLE. B/l intact to LT. - Constitutional General appearance: comfortable - EENT EENT: Present: ATNC, PERRL, mucous membranes moist - Respiratory Respiratory: Present: lungs clear, normal breath sounds - Cardiovascular Cardiovascular: Present: regular rate, normal S1, normal S2 Extremities: Present: no clubbing, cyanosis, no inflammation - Gastrointestinal Gastrointestinal: Present: normoactive bowel sounds, soft, non-tender - Integumentary Integumentary: Present: normal Results - Laboratory Findings CBC and BMP: 03/11/19 06:21 03/11/19 06:21 Abnormal Lab Findings: Abnormal Labs 11/06/19 11/06/19 11/06/19 12:09 12:09 12:09 Lymph % (Auto) [place] % (Auto) 10.9 H Lymph # [place] # 0.9 H Seg Neutrophils % PT 16.1 H INR 1.31 H Carbon Dioxide 21 L Creatinine 0.5 L Glucose 107 H POC Glucose AST 43 H ALT 207 H Alkaline Phosphatase 161 H Total Creatine Kinase Total Protein 6.2 L Albumin 3.3 L 03/10/19 03/11/19 03/11/19 12:09 06:21 06:21 Lymph % (Auto) 12.1 L [place] % (Auto) 8.5 H Lymph # 0.9 L [place] # Seg Neutrophils % 77.0 H PT INR Carbon Dioxide 21 L Creatinine 0.4 L Glucose 106 H POC Glucose AST ALT 144 H Alkaline Phosphatase 148 H Total Creatine Kinase 446 H Total Protein 6.2 L Albumin 3.2 L 03/11/19 14:52 Lymph % (Auto) [place] % (Auto) Lymph # [place] # Seg Neutrophils % PT INR Carbon Dioxide Creatinine Glucose POC Glucose 107 H AST ALT Alkaline Phosphatase Total Creatine Kinase Total Protein Albumin Assessment and Plan Patient is a 58 y/o woman w/ a h/o seizures, MS, HTN, h/o CVA w/ residual left sided weakness, h/o DVT, asthma, who as admitted after fall, and found to have right femur fracture. Patient developed seizures. According to the patient's clinical findings, she has had seizures, which were likely due to not having her home seizure medications continued on admission. Plan: 1. Seizures: - Cont. patient on home seizure meds, including topamax 25mg BID, gabapentin, tr ileptal. Increased keppra to 1500mg BID. - Agree with infectious workup per primary team, as patient found to be febrile. - If patient has a seizure, recommend giving ativan 1mg IV stat. If seizure does not resolve within 2 minutes, can repeat x1. Please call primary team and neurology stat if patient has seizures. - Will continue to monitor patient. - Continue treatment of right femur fracture per primary team/orthopedic surgery, Thank you for allowing me to take part in the care of this patient. Fausto Schulz MD Neurology
[2019-03-11] MEDS ORDERED: cefTRIAXone/NS 1 GM/50 ML 1 GM/50 ML BAG IV SCH (17:00)
[2019-03-11 17:01] LABS: Amorphous Crystals,Urine Few; Bacteria,Urine 3+ /HPF (Negative); Bilirubin,Urine NEG (Negative); Blood,Urine MOD (Negative); Color,Urine Yellow (Yellow); Mucus,Urine 1+ /HPF; Protein,Urine <15 mg/dL mg/dL (Negative)
[2019-03-11] MEDS: TOPIRAMATE TAB 25 MG TAB PO SCH (18:38)
[2019-03-11] MEDS: OXcarbazepine 300 MG TAB PO SCH (18:38)
[2019-03-11] MEDS: dilTIAZem CD 180 MG CAP PO SCH (18:38)
[2019-03-11] MEDS: APIXABAN 5 MG TAB PO SCH (21:19)
[2019-03-11] MEDS: GABAPENTIN 300 MG CAP PO SCH (21:20)
[2019-03-11] MEDS: BACLOFEN 10 MG TAB PO SCH (21:21)
[2019-03-11] MEDS: oxyCODONE /ACETAMINOPHEN 5-325MG TAB PO PRN (21:22)
[2019-03-11] MEDS ORDERED: levETIRAcetam 500 MG in DEXTROSE 5% IN WATER 100 ML IV SCH (22:00)
[2019-03-11] MEDS ORDERED: OXcarbazepine 300 MG TAB PO SCH (22:00)
[2019-03-11] MEDS ORDERED: levETIRAcetam 1,000 MG in DEXTROSE 5% IN WATER 100 ML IV SCH (22:00)
[2019-03-11] MEDS ORDERED: TOPIRAMATE TAB 25 MG TAB PO SCH (22:00)
[2019-03-11] MEDS: levETIRAcetam 1,500 MG in DEXTROSE 5% IN WATER 100 ML IV SCH (22:05)
[2019-03-12] MEDS: HYDROmorphone 1 MG/1 ML INJ IV PRN ×3 (00:59→12:47)
[2019-03-12] MEDS ORDERED: levETIRAcetam 1000 MG/NS 0.75% 1,000 MG/100 ML BAG IV SCH (02:00)
[2019-03-12] MEDS: BACLOFEN 10 MG TAB PO SCH ×3 (05:08→21:59)
[2019-03-12] MEDS: GABAPENTIN 300 MG CAP PO SCH ×3 (05:08→22:07)
[2019-03-12] MEDS: TOPIRAMATE TAB 25 MG TAB PO SCH ×2 (05:09→18:31)
[2019-03-12] MEDS ORDERED: CITALOPRAM 10 MG TAB PO SCH (10:00)
[2019-03-12] MEDS: levETIRAcetam 1,500 MG in DEXTROSE 5% IN WATER 100 ML IV SCH ×2 (12:37→21:58)
[2019-03-12] MEDS: FAMOTIDINE 20 MG/2 ML INJ IV SCH ×2 (13:05→21:58)
[2019-03-12] MEDS: APIXABAN 5 MG TAB PO SCH ×2 (13:06→21:59)
[2019-03-12] MEDS: OXcarbazepine 300 MG TAB PO SCH ×2 (13:06→22:00)
[2019-03-12] MEDS: dilTIAZem CD 180 MG CAP PO SCH (13:07)
--- NOTE | 2019-03-12 14:48 | Progress Note ---
Assessment and Plan Patient is a 58 y/o woman w/ a h/o seizures, MS, HTN, h/o CVA w/ residual left sided weakness, h/o DVT, asthma, who as admitted after fall, and found to have right femur fracture. Patient developed seizures. According to the patient's clinical findings, she has had seizures, which were likely due to not having her home seizure medications continued on admission. Plan: 1. Seizures: - Cont. patient on home seizure meds, including topamax 25mg BID, gabapentin, trileptal. Increased keppra to 1500mg BID. - UA revealed UTI. Cont. to treat per primary team. - If patient has a seizure, recommend giving ativan 1mg IV stat. If seizure does not resolve within 2 minutes, can repeat x1. Please call primary team and neurology stat if patient has seizures. - Will sign off. Please call with any questions. If patient develops breakthrough seizures, please consult neurologist covering service over the weekend for further neurologic monitoring and management. - Continue treatment of right femur fracture per primary team/orthopedic surgery, Thank you for allowing me to take part in the care of this patient. Fausto Schulz MD Neurology Subjective Date of service: 03/12/19 Principal diagnosis: Seizure Interval history: No acute events overnight. Objective - Exam Narrative Exam: Patient is awake, alert, oriented only to self, age, follows 2-step commands. PERRL, EOMI, VFF, tongue midline, left facial weakness noted, b/l intact to LT. No dysarthria or aphasia noted. RUE 4/5, LUE 3/5, LUE 2/5, RLE not assessed due to fracture. 3+ reflexes on LUE/LLE, 2+ reflexes on RUE. Intact to FTN on RUE, unable to asses on LUE d/t baseline weakness, unable to assess HTS due to basel ine weakness on LLE and femur fracture on RLE. B/l intact to LT. - Vital Sign Vital Signs - 12hr 03/12/19 03/12/19 03/12/19 04:28 07:59 12:51 Temperature 98.1 F 98.3 F 98.4 F Pulse Rate 95 H 90 89 Respiratory 16 18 18 Rate Blood Pressure 116/72 121/71 Blood Pressure 118/70 [Right] O2 Sat by Pulse 97 98 99 Oximetry - General Apperance Constitutional: comfortable, uncomfortable - EENT EENT: ATNC, PERRL, mucous membranes moist, hearing intact - Respiratory Respiratory: lungs clear, normal breath sounds - Cardiovascular Cardiovascular: regular rate, normal S1, normal S2 Extremities: no clubbing, cyanosis - Gastrointestinal Gastrointestinal: normoactive bowel sounds, soft - Integumentary Integumentary: normal - Laboratory Findings CBC and BMP: 03/11/19 06:21 03/11/19 06:21 Abnormal Lab Findings: Abnormal Labs 03/10/19 03/10/19 03/10/19 12:09 12:09 12:09 Lymph % (Auto) [place] % (Auto) 10.9 H Lymph # [place] # 0.9 H Seg Neutrophils % PT 16.1 H INR 1.31 H Carbon Dioxide 21 L Creatinine 0.5 L Glucose 107 H POC Glucose AST 43 H ALT 207 H Alkaline Phosphatase 161 H Total Creatine Kinase Total Protein 6.2 L Albumin 3.3 L Urine WBC (Auto) 03/10/19 03/11/19 03/11/19 12:09 06:21 06:21 Lymph % (Auto) 12.1 L [place] % (Auto) 8.5 H Lymph # 0.9 L [place] # Seg Neutrophils % 77.0 H PT INR Carbon Dioxide 21 L Creatinine 0.4 L Glucose 106 H POC Glucose AST ALT 144 H Alkaline Phosphatase 148 H Total Creatine Kinase 446 H Total Protein 6.2 L Albumin 3.2 L Urine WBC (Auto) 03/11/19 03/11/19 14:52 Unknown Lymph % (Auto) [place] % (Auto) Lymph # [place] # Seg Neutrophils % PT INR Carbon Dioxide Creatinine Glucose POC Glucose 107 H AST ALT Alkaline Phosphatase Total Creatine Kinase Total Protein Albumin Urine WBC (Auto) 25.0 H
[2019-03-12] MEDS: oxyCODONE /ACETAMINOPHEN 5-325MG TAB PO PRN ×2 (15:37→21:56)
--- NOTE | 2019-03-12 17:55 | Progress Note ---
Assessment and Plan Assessment and plan: Patient is a 58 yo woman from [facility] with a history of hypertension, CVA with right sided weakness/cognitive impairment, bedbound state with chronic indwelling morton, DVT, Asthma, SZ disorder and hypertension who presented to [facility] ED after a fall at the care home. She was found to have a displaced right femoral shaft fracture. She was seen by Ortho and patient's daughter recommend conservative treatment in this particular case with splinting for 4-6 weeks. Patient developed a seizure and CODE MET was called, treated with iv ativan and IV keppra. -Acute on chronic seizures, resolved: continue 3 anti-epileptic medication and prn IV ativan, increase keppra -Fevers, most likely related to UTI with contaminated UA: treated with IV rocephin, switch to oral abx since SZ resolved -Femur fracture, right, after being dropped at the care home per son Anthony: She was seen by Ortho and patient's daughter recommend conservative treatment in this particular case with splinting for 4-6 weeks. -HTN (hypertension) -Chronic a-fib: Cont Eliquis DVT prophylaxis: add sq lovenox or Eliquis if able to swallow Full code patient want another SNF/NH but her insurance (Medicaid) limits her options. manager custom infor Adult protective services regarding fall/drop at the [facility]. If she stays afebrile then she was most likely be discharge soon History Interval history: Patient was seen and examined. Follow-up on current diagnosis right femur fracture. No overnight events reported to me. Patient denies any chest pain, shortness breath, nausea/vomiting or severe headaches. Imaging, nursing note, chart, labs and old chart reviewed. Discussed with patient and son Anthony at bedside. Hospitalist Physical - Physical exam Narrative exam: Gen: thin frail, chronically disable appearing, NAD, Awake, Alert, Orientated x 1 HEENT: NCAT, EOMI, PERRL, OP Clear Neck: supple, no adenopathy, no thyromegaly, no JVD CVS/Heart: irregular irregular normal S1S2, pulses present bilaterally Chest/Lungs: CTA B, Symmetrical chest expansion, good air entry bilaterally GI/Abdomen: soft, NTND, good bowel sounds, no guarding or rebound /Bladder: no suprapubic tenderness, no CVA or paraspinal tenderness Extermity/Skin: no c/c/e, no obvious rash MSK: FROM x 3 except right leg Neuro: CN 2-12 grossly intact, no new focal deficits +old cVA deficits Psych: calm - Constitutional Vitals: Temp Pulse Resp BP Pulse Ox 98.5 F 86 18 120/71 100 03/12/19 16:00 03/12/19 16:00 03/12/19 16:00 03/12/19 16:00 03/12/19 16:00 General appearance: Present: mild distress, well-nourished Results - Labs CBC & Chem 7: 03/11/19 06:21 03/11/19 06:21 Labs: Laboratory Last Values WBC 7.3 K/mm3 (4.5-11.0) 03/11/19 06:21 RBC 3.95 M/mm3 (3.65-5.03) 03/11/19 06:21 Hgb 11.3 gm/dl (10.1-14.3) 03/11/19 06:21 Hct 35.1 % (30.3-42.9) 03/11/19 06:21 MCV 89 fl (79-97) 03/11/19 06:21 MCH 29 pg (28-32) 03/11/19 06:21 MCHC 32 % (30-34) 03/11/19 06:21 RDW 13.8 % (13.2-15.2) 03/11/19 06:21 Plt Count 333 K/mm3 (140-440) 03/11/19 06:21 Lymph % (Auto) 12.1 % (13.4-35.0) L 03/11/19 06:21 [place] % (Auto) 8.5 % (0.0-7.3) H 03/11/19 06:21 Eos % (Auto) 1.8 % (0.0-4.3) 03/11/19 06:21 Baso % (Auto) 0.6 % (0.0-1.8) 03/11/19 06:21 Lymph # 0.9 K/mm3 (1.2-5.4) L 03/11/19 06:21 [place] # 0.6 K/mm3 (0.0-0.8) 03/11/19 06:21 Eos # 0.1 K/mm3 (0.0-0.4) 03/11/19 06:21 Baso # 0.0 K/mm3 (0.0-0.1) 03/11/19 06:21 Seg Neutrophils % 77.0 % (40.0-70.0) H 03/11/19 06:21 Seg Neutrophils # 5.6 K/mm3 (1.8-7.7) 03/11/19 06:21 PT 16.1 Sec. (12.2-14.9) H 03/10/19 12:09 INR 1.31 (0.87-1.13) H 03/10/19 12:09 APTT 26.9 Sec. (24.2-36.6) 03/10/19 12:09 Sodium 139 mmol/L (137-145) 03/11/19 06:21 Potassium 3.9 mmol/L (3.6-5.0) 03/11/19 06:21 Chloride 105.8 mmol/L (98-107) 03/11/19 06:21 Carbon Dioxide 21 mmol/L (22-30) L 03/11/19 06:21 Anion Gap 16 mmol/L 03/11/19 06:21 BUN 8 mg/dL (7-17) 03/11/19 06:21 Creatinine 0.4 mg/dL (0.7-1.2) L 03/11/19 06:21 Estimated GFR > 60 ml/min 03/11/19 06:21 BUN/Creatinine Ratio 20 % 03/11/19 06:21 Glucose 106 mg/dL (65-100) H 03/11/19 06:21 POC Glucose 107 (70-105) H 03/11/19 14:52 Hemoglobin A1c 5.0 % (4-6) 03/10/19 12:09 Calcium 8.8 mg/dL (8.4-10.2) 03/11/19 06:21 Total Bilirubin 0.50 mg/dL (0.1-1.2) 03/11/19 06:21 AST 27 units/L (5-40) 03/11/19 06:21 ALT 144 units/L (7-56) H 03/11/19 06:21 Alkaline Phosphatase 148 units/L (35-129) H 03/11/19 06:21 Total Creatine Kinase 446 units/L (30-135) H 03/10/19 12:09 Troponin T < 0.010 ng/mL (0.00-0.029) 03/10/19 14:54 Total Protein 6.2 g/dL (6.3-8.2) L 03/11/19 06:21 Albumin 3.2 g/dL (3.9-5) L 03/11/19 06:21 Albumin/Globulin Ratio 1.1 % 03/11/19 06:21 Urine Color Yellow (Yellow) 03/11/19 Unknown Urine Turbidity Cloudy (Clear) 03/11/19 Unknown Urine pH 6.0 (5.0-7.0) 03/11/19 Unknown Ur Specific [place] 1.014 (1.003-1.030) 03/11/19 Unknown Urine Protein <15 mg/dl mg/dL (Negative) 03/11/19 Unknown Urine Glucose (UA) Neg mg/dL (Negative) 03/11/19 Unknown Urine Ketones 20 mg/dL (Negative) 03/11/19 Unknown Urine Blood Mod (Negative) 03/11/19 Unknown Urine Nitrite Neg (Negative) 03/11/19 Unknown Urine Bilirubin Neg (Negative) 03/11/19 Unknown Urine Urobilinogen 4.0 mg/dL (<2.0) 03/11/19 Unknown Ur Leukocyte Esterase Lg (Negative) 03/11/19 Unknown Urine WBC (Auto) 25.0 /HPF (0.0-6.0) H 03/11/19 Unknown Urine RBC (Auto) 16.0 /HPF (0.0-6.0) 03/11/19 Unknown U Epithel Cells (Auto) 10.0 /HPF (0-13.0) 03/11/19 Unknown Urine Bacteria (Auto) 3+ /HPF (Negative) 03/11/19 Unknown Amorphous Crystals Few 03/11/19 Unknown Urine Mucus 1+ /HPF 03/11/19 Unknown Blood Type B POSITIVE 03/10/19 12:09 Antibody Screen Negative 03/10/19 12:09 Active Medications - Current Medications Current Medications: Generic Name Dose Route Start Last Admin Trade Name Freq PRN Reason Stop Dose Admin Acetaminophen 650 mg 03/10/19 15:39 03/11/19 20:44 Tylenol PO 650 mg Q4H PRN Administration Pain MILD(1-3)/Fever >100.5/[place] Acetaminophen 650 mg 11/07/19 14:46 03/11/19 15:09 Tylenol [place] 650 mg Q4H PRN Administration Non Cardiac Pain or Temp>100.5 Apixaban 5 mg 03/11/19 22:00 03/12/19 13:06 Eliquis PO 5 mg BID NILAM Administration Protocol Baclofen 5 mg 03/11/19 22:00 03/12/19 13:07 Lioresal PO 5 mg Q8HR NILAM Administration Citalopram Hydrobromide 10 mg 03/12/19 10:00 03/12/19 13:06 Celexa PO 10 mg QDAY NILAM Administration Diltiazem HCl 180 mg 03/11/19 17:00 03/12/19 13:07 Cardizem Cd PO 180 mg QDAY NILAM Administration Famotidine 20 mg 03/10/19 22:00 03/12/19 13:05 Pepcid IV 20 mg BID NILAM Administration Gabapentin 300 mg 03/11/19 22:00 03/12/19 13:42 Gabapentin PO 300 mg Q8HR NILAM Administration Hydromorphone HCl 1 mg 03/10/19 15:39 03/12/19 12:47 Dilaudid IV 1 mg Q3H PRN Administration Pain , Severe (7-10) Ceftriaxone Sodium 1 gm in 50 mls @ 100 mls/hr 03/11/19 17:00 03/11/19 21:29 Rocephin/Ns 1 Gm/50 Ml IV Infused Q24H NILAM Infusion Protocol Levetiracetam 1,500 mg/ 115 mls @ 400 mls/hr 03/11/19 22:00 03/12/19 12:37 Dextrose IV 400 mls/hr Q12HR NILAM Administration Lactulose 30 gm 03/12/19 20:00 Cephulac PO TID NILAM Ondansetron HCl 4 mg 03/10/19 15:39 Zofran IV Q3H PRN Nausea And Vomiting Oxcarbazepine 900 mg 03/11/19 18:00 03/12/19 13:06 Trileptal PO 900 mg BID NILAM Administration Oxycodone/Acetaminophen 1 tab 03/10/19 15:41 03/12/19 15:37 Percocet 5/325 PO 1 tab Q6H PRN Administration Pain, Moderate (4-6) Sodium Chloride 10 ml 03/10/19 16:00 03/12/19 12:51 Sodium Chloride Flush Syringe 10 Ml IV 10 ml BID NILAM Administration Sodium Chloride 10 ml 03/10/19 15:39 Sodium Chloride Flush Syringe 10 Ml IV PRN PRN LINE FLUSH Topiramate 25 mg 03/11/19 18:00 03/12/19 05:09 Topamax PO 25 mg Q12H NILAM Administration
[2019-03-12] MEDS ORDERED: LACTULOSE 20 GM/30 ML ORAL LIQD PO SCH (20:00)
[2019-03-13] MEDS: BACLOFEN 10 MG TAB PO SCH (05:26)
[2019-03-13] MEDS: GABAPENTIN 300 MG CAP PO SCH (05:26)
[2019-03-13] MEDS: TOPIRAMATE TAB 25 MG TAB PO SCH (05:27)
[2019-03-13] MEDS: HYDROmorphone 1 MG/1 ML INJ IV PRN (06:58)
--- NOTE | 2019-03-13 08:15 | Discharge Summary ---
Providers - Providers Date of Admission: 03/10/19 13:57 Date of discharge: 03/13/19 Attending physician: ANASTASIYA MADISON 03/10/19 12:49 Consult to Physician [CONS] Stat Comment: CORAL EID W/DR SANDERS @[id number] Consulting Provider: CURT SANDERS Physician Instructions: Reason For Exam: femur fx 03/10/19 15:05 Consult to Case Management [CONS] Stat Services Needed at Discharge: Other Notified:: yes If yes, spoke with:: Maurisio Additional Physician Instructions: consult APS due to atypical injury at [facility] 03/11/19 14:47 Consult to Physician [CONS] Routine Comment: Consulting Provider: THONY MARIE Physician Instructions: Reason For Exam: seizure episodes Primary care physician: PHOTOGRAPH MOUNTER Hospitalization Condition: Stable Hospital course: Patient is a 58 yo woman from [facility] with a history of hypertension, CVA with right sided weakness/cognitive impairment, bedbound state with chronic indwelling morton, DVT, Asthma, SZ disorder and hypertension who presented to [facility] ED after a [facility] at [facility] She was found to have a displaced right femoral shaft fracture. She was seen by Ortho and patient's daughter recommend conservative treatment in this particular case with splinting for 4-6 weeks. Patient developed a seizure and CODE MET was called, treated with iv ativan and IV keppra. -Acute on chronic seizures, resolved: continue 3 anti-epileptic medication and prn IV ativan, increase keppra -Fevers, most likely related to UTI with contaminated UA: treated with IV rocephin, switch to oral abx since SZ resolved -Femur fracture, right, after being dropped at the [facility] per son Anthony: She was seen by Ortho and patient's daughter recommend conservative treatment in this particular case with splinting for 4-6 weeks. -HTN (hypertension) -Chronic a-fib: Cont Eliquis DVT prophylaxis: Eliquis Full code patient want another SNF/NH but her insurance (Medicaid) limits her options. manager star called Adult protective services regarding fall/drop at the [facility]. back to [facility]. Disposition: DC/TX-03 SNF W [facility] CERT Time spent for discharge: 33 minutes Core Measure Documentation - Palliative Care Palliative Care/ Comfort Measures: Not Applicable - Core Measures Any of the following diagnoses?: none - VTE Discharge Requirements Deep Vein Thrombosis/Pulmonary Embolism Present on Admission: No Has pt received <5 days of overlap therapy or INR<2.0: No Anticoagulant overlap therapy prescribed at discharge: No Contraindication No Overlap Therapy order at DC: Not Indicated Exam - Physical Exam Narrative exam: Gen: thin frail, chronically disable appearing, NAD, Awake, Alert, Orientated x 1 HEENT: NCAT, EOMI, PERRL, OP Clear Neck: supple, no adenopathy, no thyromegaly, no JVD CVS/Heart: irregular irregular normal S1S2, pulses present bilaterally Chest/Lungs: CTA B, Symmetrical chest expansion, good air entry bilaterally GI/Abdomen: soft, NTND, good bowel sounds, no guarding or rebound /Bladder: no suprapubic tenderness, no CVA or paraspinal tenderness Extermity/Skin: no c/c/e, no obvious rash MSK: FROM x 3 except right leg Neuro: CN 2-12 grossly intact, no new focal deficits +old cVA deficits Psych: calm - Constitutional Vitals: Temp Pulse Resp BP Pulse Ox 98.8 F 86 20 113/68 97 03/13/19 04:40 03/13/19 04:40 03/13/19 04:40 03/13/19 04:40 03/13/19 04:40 Plan Activity: fall precautions, other (no strenous activity) Weight Bearing Status: Non-Weight Bearing (right leg until cleared by Dr. Sanders) Diet: advance as tolerated Follow up with: RUTHY EDDY MD [Primary Care Provider] - 3-5 Days CURT SANDERS MD [Staff Physician] - 7 Days Prescriptions: RX: cefUROXime [Ceftin] 500 mg PO Q12HR #10 tablet RX: levETIRAcetam [Keppra] 1,500 mg PO BID 30 Days #500 ml RX: oxyCODONE /ACETAMINOPHEN [Percocet 5/325 mg] 1 tab PO Q6H PRN #20 tablet PRN Reason: Pain , Severe (7-10)
[2019-03-13 12:55] VITALS: BP 96/35
== END 2019-03-13 12:20 | DRG 534 ==
LOC: ED 11:05 → 3A 13:57 → 3B-SURG 15:36
PROVIDERS: ADMIT Internal Medicine; ATTEND Internal Medicine
DX: S72.331A Displaced oblique fracture of shaft of right femur, initial encounter for closed fracture (principal); I69.351 Hemiplegia and hemiparesis following cerebral infarction affecting right dominant side; N39.0 Urinary tract infection, site not specified; J45.909 Unspecified asthma, uncomplicated; W04.XXXA Fall while being carried or supported by other persons, initial encounter; I10 Essential (primary) hypertension; G40.909 Epilepsy, unspecified, not intractable, without status epilepticus; I48.20 Chronic atrial fibrillation, unspecified; Z86.69 Personal history of other diseases of the nervous system and sense organs; Z87.898 Personal history of other specified conditions; Z87.891 Personal history of nicotine dependence; Z79.899 Other long term (current) drug therapy; Z79.01 Long term (current) use of anticoagulants; Z88.5 Allergy status to narcotic agent; Z91.013 Allergy to seafood; Z91.041 Radiographic dye allergy status; Z86.718 Personal history of other venous thrombosis and embolism; Z74.01 Bed confinement status; Y93.89 Activity, other specified; Y92.122 Bedroom in nursing home as the place of occurrence of the external cause; Y99.8 Other external cause status
CPT/HCPCS: 36415; 71045; 72170; 80053; 81001; 82550; 82962; 83036; 84484; 85025; 85610; 85730; 86850; 86900; 86901; 87040; 87086; 93005; 93010; 96360; G0378; J0696; J1170; J1953; J2060; J2405; J7030

== ENCOUNTER 2019-04-15 12:12 | Emergency (ER) | payer MEDICAID ==
--- NOTE | 2019-04-15 14:26 | Emergency Department Report ---
ED Lower Extremity HPI - General Chief Complaint: Extremity Injury, Lower Stated Complaint: RT LEG PAIN Time Seen by Provider: 04/15/19 14:15 Source: patient, EMS Mode of arrival: Stretcher Limitations: Physical Limitation - History of Present Illness Initial Comments: Patient is a 58-year-old female that presents [facility] with worsening right leg pain. Patient states she is fell approximately a month ago and sustained a right femur fracture. Patient presented with medical records from snf. Patient presented from [facility]. Patient states the pain is a 10 out of 10. Patient states the pain is worse with movement and better with rest. Patient is nonambulatory and is bedridden. Patient has contractures of the bilateral lower extremities. Per the patient's nurses note the nurses noted, the patient has further deformity and swelling around the fracture site. Medical records were reviewed. Patient has a past medical history of multiple sclerosis, lower extremity contractures, seizure disorder, chronic atrial fib, anxiety disorder and oblique fracture of the femur. MD Complaint: thigh injury -: Sudden Injury: Thigh: Right Type of Injury: unknown Place: home Severity: severe Severity scale (0 -10): 10 Improves With: immobilization, rest Worsens With: movement, palpation Context: fall Associated Symptoms: swelling Treatments Prior to Arrival: NSAIDS - Related Data Home Medications Medication Instructions Recorded Confirmed Last Taken Lactulose [Cephulac] 45 ml PO TID 10/02/17 03/12/19 03/11/19 dilTIAZem HCl [Diltiazem 24Hr ER 180 mg PO DAILY 10/02/17 03/12/19 03/11/19 (LA)] Baclofen 5 mg PO Q8H 10/23/18 03/12/19 03/11/19 Citalopram [celeXA] 10 mg PO QDAY 10/23/18 03/12/19 03/11/19 Gabapentin 300 mg PO Q8HR 10/23/18 03/12/19 03/11/19 LORazepam [Ativan] 0.5 mg PO BID 10/23/18 03/12/19 03/11/19 Lactobacillus Acidophilus 1 each PO DAILY 10/23/18 03/12/19 03/11/19 [Acidophilus] Potassium Chloride [K-Dur] 10 meq PO QDAY 10/23/18 03/12/19 03/11/19 Previous Rx's Medication Instructions Recorded Last Taken Type Apixaban [Eliquis] 5 mg PO BID #74 tablet 10/04/17 03/11/19 Rx OXcarbazepine [Trileptal] 900 mg PO BID #300 tablet 12/08/18 03/11/19 Rx Topiramate [Topamax] 25 mg PO BID #60 tablet 12/08/18 03/11/19 Rx cefUROXime [Ceftin] 500 mg PO Q12HR #10 tablet 03/13/19 Unknown Rx levETIRAcetam [Keppra] 1,500 mg PO BID 30 Days #500 ml 03/13/19 Unknown Rx oxyCODONE /ACETAMINOPHEN [Percocet 1 tab PO Q6H PRN #20 tablet 03/13/19 Unknown Rx 5/325 mg] Allergies Allergy/AdvReac Type Severity Reaction Status Date / Time codeine Allergy Hives Verified 10/23/18 15:19 fish derived Allergy Unknown Verified 10/23/18 15:19 Iodinated Contrast Media Allergy Hives Verified 10/23/18 15:19 ED Review of Systems ROS: Stated complaint: RT LEG PAIN Other details as noted in HPI Comment: All other systems reviewed and negative ED Past Medical Hx - Past Medical History Previous Medical History?: Yes Hx Hypertension: Yes Hx CVA: Yes (Right sided weakness) Hx Heart Attack/AMI: No Hx Congestive Heart Failure: No Hx Diabetes: No Hx Deep Vein Thrombosis: Yes Hx Pulmonary Embolism: No Hx GERD: No Hx Liver Disease: No Hx Renal Disease: No Hx Sickle Cell Disease: No Hx Arthritis: No Hx Headaches / Migraines: No Hx Seizures: Yes Hx Kidney Stones: No Hx Psychiatric Treatment: Yes Hx Asthma: Yes Hx COPD: No Hx Tuberculosis: No Hx Dementia: No Hx HIV: No Additional medical history: IRREGULAR HEART BEAT, MS - Surgical History Past Surgical History?: Yes Additional Surgical History: x4 - Family History Family history: no significant - Social History Smoking Status: Current Every Day Smoker Substance Use Type: None - Medications Home Medications: Home Medications Medication Instructions Recorded Confirmed Last Taken Type Lactulose [Cephulac] 45 ml PO TID 10/02/17 03/12/19 03/11/19 History dilTIAZem HCl [Diltiazem 24Hr ER 180 mg PO DAILY 10/02/17 03/12/19 03/11/19 History (LA)] Apixaban [Eliquis] 5 mg PO BID #74 tablet 10/04/17 03/12/19 03/11/19 Rx Baclofen 5 mg PO Q8H 10/23/18 03/12/19 03/11/19 History Citalopram [celeXA] 10 mg PO QDAY 10/23/18 03/12/19 03/11/19 History Gabapentin 300 mg PO Q8HR 10/23/18 03/12/19 03/11/19 History LORazepam [Ativan] 0.5 mg PO BID 10/23/18 03/12/19 03/11/19 History Lactobacillus Acidophilus 1 each PO DAILY 10/23/18 03/12/19 03/11/19 History [Acidophilus] Potassium Chloride [K-Dur] 10 meq PO QDAY 10/23/18 03/12/19 03/11/19 History OXcarbazepine [Trileptal] 900 mg PO BID #300 tablet 12/08/18 03/12/19 03/11/19 Rx Topiramate [Topamax] 25 mg PO BID #60 tablet 12/08/18 03/12/19 03/11/19 Rx cefUROXime [Ceftin] 500 mg PO Q12HR #10 tablet 03/13/19 Unknown Rx levETIRAcetam [Keppra] 1,500 mg PO BID 30 Days #500 ml 03/13/19 Unknown Rx oxyCODONE /ACETAMINOPHEN [Percocet 1 tab PO Q6H PRN #20 tablet 03/13/19 Unknown Rx 5/325 mg] ED Physical Exam - General Limitations: Physical Limitation General appearance: alert, in no apparent distress - Head Head exam: Present: atraumatic, normocephalic - Eye Eye exam: Present: normal appearance, PERRL Pupils: Present: normal accommodation - ENT ENT exam: Present: mucous membranes moist - Neck Neck exam: Present: normal inspection - Respiratory Respiratory exam: Present: normal lung sounds bilaterally. Absent: respiratory distress, wheezes, rales - Cardiovascular Cardiovascular Exam: Present: regular rate, normal rhythm. Absent: systolic murmur, diastolic murmur, rubs, gallop - GI/Abdominal GI/Abdominal exam: Present: soft, normal bowel sounds. Absent: distended, tenderness, guarding - Rectal Rectal exam: Present: deferred - Extremities Exam Extremities exam: Present: tenderness (right thigh tenderness. Right thigh swelling noted.), normal capillary refill, pedal edema, calf tenderness, other (bilateral lower extremity contractures noted.) - Back Exam Back exam: Present: normal inspection - Neurological Exam Neurological exam: Present: alert, oriented X3 - Psychiatric Psychiatric exam: Present: normal affect, normal mood - Skin Skin exam: Present: warm, dry, intact, normal color. Absent: rash ED Course Vital Signs 04/15/19 04/15/19 04/15/19 13:15 13:16 18:53 Temperature 98.5 F 98.9 F Pulse Rate 83 78 Respiratory 14 14 15 Rate Blood Pressure 115/65 123/72 [Left] O2 Sat by Pulse 96 96 99 Oximetry 04/15/19 20:47 Temperature 99.1 F Pulse Rate 80 Respiratory 18 Rate Blood Pressure 134/77 [Left] O2 Sat by Pulse 96 Oximetry - Reevaluation(s) Reevaluation #1: Patient stable for discharge. I discussed all results with patient. Patient will be transferred back to her snf. 04/15/19 18:51 - Consultations Consultation #1: Dr. Sanders, orthopedist paged. 04/15/19 16:40 I discussed case with Dr. Sanders. Dr. Sanders states the x-ray is unchanged. Dr. Sanders states patient can go back to snf and follow-up in the office and that the patient is still not a surgical candidate. 04/15/19 18:40 ED Lower Extremity MDM - Lab Data Result diagrams: 04/15/19 16:23 04/15/19 16:23 - Radiology Data Radiology results: report reviewed RIGHT FEMUR 4 VIEWS INDICATION: leg pain. COMPARISON: No relevant prior imaging study available. FINDINGS: There is a displaced oblique fracture through the mid diaphysis of the right femur with significant anterior angulation, anterior displacement, and proximal migration of the distal fracture fragment. Subjective osteopenia is noted. There is heterotopic ossification about the right hip. Right hip osteoarthrosis is noted. IMPRESSION: 1. Right femoral diaphyseal fracture, as above. DUPLEX DOPPLER LOWER EXTREMITY VEINS, BILATERAL INDICATION: leg pain. TECHNIQUE: Duplex doppler imaging was performed through the veins of both lower extremities using venous compression and other maneuvers. COMPARISON: No relevant prior imaging study available. FINDINGS: Right Common femoral vein: Negative. Right Superficial femoral vein: Negative. Right Popliteal vein: Negative. Right Calf veins: Negative. There is mixed echogenicity partially occluding thrombus from the distal left external iliac vein to the left popliteal vein. Additional findings: None.. IMPRESSION: Positive for acute on chronic thrombosis in the left lower extremity. - Medical Decision Making Patient is a 58-year-old female that presents to the emergency room with worsening right leg pain. Patient was seen here a month ago was diagnosed with a right femur fracture and was seen by orthopedist any orthopedist deemed the patient was not a surgical candidate. Patient was then discharged back to her nursing. Patient presents from the same snf with complaints of worsening right lower rib pain. Patient had a repeat x-ray. X-ray shows a right midshaft femur fracture. I discussed these results with orthopedics in the orthopedic states the patient can be discharged back to snf because she is not a surgical candidate. Orthopedic states the patient does not require an inpatient services. - Differential Diagnosis leg pain. dvt. fx. Critical care attestation.: If time is entered above; I have spent that time in minutes in the direct care of this critically ill patient, excluding procedure time. ED Disposition Clinical Impression: Pain in right leg DVT (deep venous thrombosis) Qualifiers: DVT location: lower extremity Affected thrombotic vein of extremity: unspecified vein of extremity Chronicity: acute Laterality: bilateral Qualified Code(s): I82.403 - Acute embolism and thrombosis of unspecified deep veins of lower extremity, bilateral Femur fracture, right Qualifiers: Encounter type: subsequent encounter Femur location: shaft Fracture type: closed Fracture morphology: unspecified fracture morphology Fracture healing: with routine healing Qualified Code(s): S72.301D - Unspecified fracture of shaft of right femur, subsequent encounter for closed fracture with routine healing Disposition: DC-01 TO HOME OR SELFCARE Is pt being admited?: No Does the pt Need Aspirin: No Condition: Stable Instructions: Leg Fracture (ED), Deep Venous Thrombosis (ED), Leg Edema (ED) Additional Instructions: Patient to follow up with primary care in 2-3 days. Patient to return to your condition worsens. Patient to rest. Patient to follow-up with orthopedist in 2-3 days. Patient to continue all meds. Time of Disposition: 18:46
[2019-04-15] MEDS ORDERED: HYDROmorphone 1 MG/1 ML INJ IV ONE (14:38)
--- NOTE | 2019-04-15 16:25 | Vascular Lab Report ---
DUPLEX DOPPLER LOWER EXTREMITY VEINS, BILATERAL INDICATION: leg pain. TECHNIQUE: Duplex doppler imaging was performed through the veins of both lower extremities using ve nous compression and other maneuvers. COMPARISON: No relevant prior imaging study available. FINDINGS: Right Common femoral vein: Negative. Right Superficial femoral vein: Negative. Right Popliteal vein: Negative. Right Calf veins: Negative. There is mixed echogenicity partially occluding thrombus from the distal left external iliac vein to the left popliteal vein. Additional findings: None.. IMPRESSION: Positive for acute on chronic thrombosis in the left lower extremity. Signer Name: Teddy Umanozr Jr, MD Signed: 04/15/2019 4:21 PM Workstation Name: [id number]
[2019-04-15 16:41] LABS: Hematocrit 33.4 % (30.3-42.9); Hemoglobin 11.4 gm/dl (10.1-14.3); Mean Corpuscular HGB Conc 34 % (30-34); Mean Corpuscular Volume 88 fl (79-97); Platelet Count 640 K/mm3 (140-440); Red Blood Count 3.79 M/mm3 (3.65-5.03); Red Cell Distribution Width 13.6 % (13.2-15.2)
--- NOTE | 2019-04-15 16:41 | XRay Report ---
RIGHT FEMUR 4 VIEWS INDICATION: leg pain. COMPARISON: No relevant prior imaging study available. FINDINGS: There is a displaced oblique fracture through the mid diaphysis of the right femur with significant a nterior angulation, anterior displacement, and proximal migration of the distal fracture fragment. Perry bjective osteopenia is noted. There is heterotopic ossification about the right hip. Right hip osteoa rthrosis is noted. IMPRESSION: 1. Right femoral diaphyseal fracture, as above. Signer Name: Kilo Tolbert MD Signed: 04/15/2019 4:37 PM Workstation Name: [id number]
[2019-04-15 17:26] LABS: Alanine Aminotransferase 67 units/L (7-56); Albumin 2.9 g/dL (3.9-5); BUN/Creatinine Ratio 27; Blood Urea Nitrogen 8 mg/dL (7-17); Hemolysis Index 24
[2019-04-15 20:48] VITALS: BP 134/77
== END 2019-04-15 22:57 | disposition home or self-care (01) ==
LOC: ED 12:12
DX: S72.301D Unspecified fracture of shaft of right femur, subsequent encounter for closed fracture with routine healing (principal); I82.403 Acute embolism and thrombosis of unspecified deep veins of lower extremity, bilateral; I10 Essential (primary) hypertension; J45.909 Unspecified asthma, uncomplicated; F17.200 Nicotine dependence, unspecified, uncomplicated; Z98.890 Other specified postprocedural states; Z79.899 Other long term (current) drug therapy; Z91.013 Allergy to seafood; Z91.041 Radiographic dye allergy status; Z88.4 Allergy status to anesthetic agent; X58.XXXD Exposure to other specified factors, subsequent encounter
CPT/HCPCS: 36415; 73552; 80053; 85027; 93970; 96374; 99285; J1170

== ENCOUNTER 2019-05-27 08:51 | Day surgery (SDC) | payer MEDICAID ==
[~2019-05-27 08:51] MED LIST changes: -ATIVAN ONE; +ceFAZolin/Water 2 GM/20 ML 2 GM/20 ML SYRINGE IV NR
[2019-05-27] MEDS ORDERED: LACTATED RINGERS 1,000 ML IV SCH (10:00)
[2019-05-27 10:25] LABS: INR 1.2 (0.87-1.13); Partial Thromboplastin Time 27.9 Sec. (24.2-36.6)
[2019-05-27] MEDS ORDERED: fentaNYL 100 MCG/2 ML INJ ONE ×2 (10:44→11:16)
[2019-05-27] MEDS ORDERED: PROPOFOL 200 MG/20 ML VIAL IV ONE (10:44)
[2019-05-27] MEDS ORDERED: MIDAZOLAM 2 MG/2 ML INJ ONE (10:58)
[2019-05-27] MEDS ORDERED: KETAMINE/STERILE WATER 50 MG/ML SYRINGE ONE (11:06)
--- NOTE | 2019-05-27 11:14 | Anesthesia Consultation ---
Anesthesia Consult and Med Hx Date of service: 05/27/19 - Airway Anesthetic Teeth Evaluation: Poor (several missing teeth; no loose teeth, per daughter) ROM Head & Neck: Inadequate (possibly restricted extension) Mental/Hyoid Distance: Adequate Mallampati Class: Class I Intubation Access Assessment: Possibly Difficult - Pulmonary Exam CTA: Yes - Cardiac Exam Cardiac Exam: RRR - Pre-Operative Health Status ASA Pre-Surgery Classification: ASA3 Proposed Anesthetic Plan: MAC - Pulmonary Hx Smoking: Yes (former smoker quit 45yrs ago) Hx Respiratory Symptoms: No Hx Sleep Apnea: No (ADRIANNE PRE SCREEN LOW RISK) - Cardiovascular System Hx Hypertension: Yes Hx Heart Attack/AMI: No Hx Percutaneous Transluminal Coronary Angioplasty (PTCA): No Hx Cardia Arrhythmia: Yes (afib; last dose eliquis 05/23/2019) Hx Pacemaker: No Hx Internal Defibrillator: No - Central Nervous System Hx Seizures: Yes (last dose keppra 05/26 PM) CVA: Yes (residual R sided weakness and cognitive impairment) - Gastrointestinal Hx Gastroesophageal Reflux Disease: No - Endocrine Hx Renal Disease: No Hx Liver Disease: No Hx Insulin Dependent Diabetes: No Hx Non-Insulin Dependent Diabetes: No Hx Thyroid Disease: No - Other Systems Hx Obesity: No - Additional Comments Anesthesia Medical History Comments: PMH obtained from daughter. No known hx anesthetic complications.
--- NOTE | 2019-05-27 11:14 | Anesthesia Day of Surgery ---
Anesthesia Day of Surgery - Day of Surgery Patient Examined: Yes Patient H&P Reviewed: Yes Patient is NPO: Yes
--- NOTE | 2019-05-27 12:14 | Procedure Note ---
Date of procedure: 05/27/19 Pre-op diagnosis: malunion right femur Post-op diagnosis: same Procedure: Debridement and irrigation right femur Procedure The patient was brought to the OR placed in the OR table in supine position following induction with the Mac anesthesia the patient's right thigh was prepped and draped in the usual sterile manner. A timeout procedure was done to identify the patient and the correct operative site. Next the bony spike protruding the wound was debrided back to healthier appearing bony tissue Using a oscillating saw the bone was resected Using a rongeur and curettes the bony and soft tissue was then debrided Copious irrigation was used to clean the wound out there did not appear to be any deep tracking of infection noted following resection of the protruding bone the soft tissues were then undermined to create the reclosure of flap the skin was then closed with the 2-0 nylon in a vertical mattress repeat. Dressings were applied the patient tolerated the procedure there were no complications Anesthesia: MAC Surgeon: CURT FITZGERALD Fireboat Operator: GIRISH TAVAREZ Estimated blood loss: minimal Pathology: list (bony fragments right femur) Specimen disposition: to lab Condition: stable Disposition: PACU
[2019-05-27] MEDS: fentaNYL 100 MCG/2 ML INJ IV PRN ×2 (12:35→12:50)
[2019-05-27 13:07] VITALS: BP 142/67
--- NOTE | 2019-05-27 14:31 | Post Anesthesia Evaluation ---
- Post Anesthesia Evaluation Patient Participated: Yes Airway Patent: Yes Stable Respiratory Function: Yes Nausea/Vomiting: No Temp > 96.8F: Yes Pain Manageable: Yes Adequeate Hydration: Yes Anesthesia Complications: No
== END 2019-05-27 08:52 | disposition home or self-care (01) ==
LOC: OR 08:51
PROVIDERS: ATTEND Orthopaedic Surgery
DX: S72.331 Displaced oblique fracture of shaft of right femur (principal); G40.901 Epilepsy, unspecified, not intractable, with status epilepticus; I48.20 Chronic atrial fibrillation, unspecified; I42.9 Cardiomyopathy, unspecified; I10 Essential (primary) hypertension; J45.909 Unspecified asthma, uncomplicated; F41.9 Anxiety disorder, unspecified; Z88.5 Allergy status to narcotic agent; Z91.013 Allergy to seafood; Z91.041 Radiographic dye allergy status; Z79.899 Other long term (current) drug therapy; Z87.891 Personal history of nicotine dependence; Z87.898 Personal history of other specified conditions; Z87.440 Personal history of urinary (tract) infections; Z86.79 Personal history of other diseases of the circulatory system; Z98.891 History of uterine scar from previous surgery; Z98.890 Other specified postprocedural states; Z86.69 Personal history of other diseases of the nervous system and sense organs; Z88.8 Allergy status to other drugs, medicaments and biological substances; Z86.73 Personal history of transient ischemic attack (TIA), and cerebral infarction without residual deficits; Z82.49 Family history of ischemic heart disease and other diseases of the circulatory system; X58.XXXD Exposure to other specified factors, subsequent encounter
CPT/HCPCS: 27355; 36415; 85610; 85730; 88304; 88311; J0690; J2250; J2704; J3010; J7120

== ENCOUNTER 2020-01-09 14:13 | Emergency (ER) | payer MEDICAID ==
[2020-01-09] MEDS ORDERED: levETIRAcetam 1000 MG/NS 0.75% 1,000 MG/100 ML BAG IV ONE (14:47)
[2020-01-09] MEDS ORDERED: LORazepam 2 MG/ML VIAL IV ONE (15:19)
[2020-01-09 15:27] LABS: Basophils % (Auto) 0.3 % (0.0-1.8); Eosinophils % (Auto) 0.2 % (0.0-4.3); Hematocrit 38.3 % (30.3-42.9); Lymphocytes # (Auto) 0.5 K/mm3 (1.2-5.4); Lymphocytes % (Auto) 7.8 % (13.4-35.0); Mean Corpuscular HGB Conc 34 % (30-34); Mean Corpuscular Volume 89 fl (79-97); Monocytes # (Auto) 0.3 K/mm3 (0.0-0.8); Platelet Count 353 K/mm3 (140-440); Red Blood Count 4.33 M/mm3 (3.65-5.03); Red Cell Distribution Width 13.5 % (13.2-15.2)
[2020-01-09 15:47] LABS: Alanine Aminotransferase 46 units/L (7-56); Albumin 3.8 g/dL (3.9-5); Blood Urea Nitrogen 12 mg/dL (7-17); Calcium 9.5 mg/dL (8.4-10.2); Hemolysis Index 31
[2020-01-09 16:05] LABS: BUN/Creatinine Ratio 30
--- NOTE | 2020-01-09 16:06 | XRay Report ---
CHEST 1 VIEW 01/09/2020 3:01 PM INDICATION / CLINICAL INFORMATION: fever, seizure. COMPARISON: 12/14/2019 FINDINGS: SUPPORT DEVICES: None. HEART / MEDIASTINUM: No significant abnormality. LUNGS / PLEURA: No significant pulmonary or pleural abnormality. No pneumothorax. ADDITIONAL FINDINGS: No significant additional findings. IMPRESSION: No acute cardiopulmonary abnormality. No significant change from 12/14/2019. Signer Name: Thomas Hirsch MD Signed: 01/09/2020 4:02 PM Workstation Name: [id number]
[2020-01-09] MEDS ORDERED: SODIUM CHLORIDE 0.9% 500 ML 500 ML IV ONE (16:07)
[2020-01-09] MEDS ORDERED: SODIUM CHLORIDE 0.9% 250ML 250 ML IV ONE (16:14)
--- NOTE | 2020-01-09 16:18 | Emergency Department Report ---
ED Seizure HPI - General Chief Complaint: Seizure Stated Complaint: TREMORS Time Seen by Provider: 01/09/20 14:44 Source: EMS Mode of arrival: Stretcher Limitations: Altered Mental Status - History of Present Illness Initial Comments: 59-year-old female with a past medical history of asthma, CHF, CVA with residual weakness, DVT, seizures, A. fib on Eliquis, and multiple sclerosis presents to the hospital from the group home with multiple seizures. Patient received Ativan IM 1 hour prior to arrival at the group home without improvement. As per resident transfer form from [facility] patient had a temperature 101, BP 160/70, respiratory rate 22, pulse 96, O2 sat 96% on 2 L. Upon ED arrival patient is afebrile and had a seizure activity involving rhythmic blinking of eyes, left gaze, and mild jerking of right hand. Patient is however able to respond during this episode including attempting to speak, not her head, and following basic commands such as right hand squeeze. As per medical record review patient was admitted here last month for intractable seizures. As per group home MAR patient is on Trileptal 900 mg twice a day and she also on Keppra 1500 mg twice daily for conversion disorder with seizures or convulsions. She is also prescribed Lorazepam 0.5 mg twice daily - Related Data Home Medications Medication Instructions Recorded Confirmed Last Taken Lactulose [Cephulac] 45 ml PO TID 10/02/17 12/15/19 05/26/19 LORazepam [Ativan] 0.5 mg PO BID 10/23/18 12/15/19 05/26/19 Lactobacillus Acidophilus 1 each PO DAILY 10/23/18 12/15/19 05/26/19 [Acidophilus] Potassium Chloride [K-Dur] 10 meq PO QDAY 10/23/18 12/15/19 05/26/19 Acetaminophen [Tylenol] 325 mg PO PRN PRN 05/18/19 12/15/19 05/26/19 LORazepam [Ativan INJ] 2 mg IM PRN PRN 05/18/19 12/15/19 Unknown Melatonin [Melatonin 3MG TAB] 3 mg PO QHS 05/18/19 12/15/19 05/26/19 Multivit-Min/Iron/Folic/Lutein 1 each PO DAILY 05/18/19 12/15/19 05/26/19 [Centrum Silver Women Tablet] Nitroglycerin [Nitrostat] 0.4 mg SL Q5M PRN 05/18/19 12/15/19 Unknown Previous Rx's Medication Instructions Recorded Last Taken Type Apixaban [Eliquis] 5 mg PO BID #74 tablet 10/04/17 05/23/19 Rx levETIRAcetam [Keppra] 1,500 mg PO BID 30 Days #500 ml 03/13/19 05/26/19 21:00 Rx HYDROcodone/APAP 5-325 [[place] 1 each PO Q4HR PRN #20 tablet 05/27/19 Unknown Rx 5-325 mg TAB] Aspirin EC [Ecotrin] 325 mg PO QDAY #30 tablet 12/17/19 Unknown Rx Baclofen 10 mg PO Q12H #60 12/17/19 Unknown Rx Citalopram [celeXA] 10 mg PO QDAY #30 tablet 12/17/19 Unknown Rx Gabapentin 300 mg PO Q8HR #90 cap 12/17/19 Unknown Rx OXcarbazepine [Trileptal] 900 mg PO BID #60 tablet 12/17/19 Unknown Rx Oxycodone HCl [oxyCONTIN ER] 15 mg PO Q12HR #14 12/17/19 Unknown Rx dilTIAZem CD [Cardizem CD] 180 mg PO QDAY #30 capsule 12/17/19 Unknown Rx levETIRAcetam [Keppra TAB] 2,000 mg PO BID #60 tablet 12/17/19 Unknown Rx Allergies Allergy/AdvReac Type Severity Reaction Status Date / Time codeine Allergy Hives Verified 10/23/18 15:19 fish derived Allergy Unknown Verified 10/23/18 15:19 Iodinated Contrast Media Allergy Hives Verified 10/23/18 15:19 red dye Allergy Unknown Verified 05/18/19 15:34 ED Review of Systems ROS: Stated complaint: TREMORS Other details as noted in HPI Comment: All other systems reviewed and negative ED Past Medical Hx - Past Medical History Previous Medical History?: Yes Hx Hypertension: Yes Hx CVA: Yes (Right sided weakness) Hx Heart Attack/AMI: No Hx Congestive Heart Failure: Yes Hx Diabetes: No Hx Deep Vein Thrombosis: Yes Hx Pulmonary Embolism: No Hx GERD: No Hx Liver Disease: No Hx Renal Disease: No Hx Arthritis: No Hx Headaches / Migraines: No Hx Seizures: Yes Hx Kidney Stones: No Hx Psychiatric Treatment: Yes Hx Asthma: Yes Hx Tuberculosis: No Hx Dementia: No Hx HIV: No Additional medical history: IRREGULAR HEART BEAT, MS - Surgical History Hx Pacemaker: No Hx Internal Defibrillator: No Additional Surgical History: x4 - Social History Smoking Status: Never Smoker - Medications Home Medications: Home Medications Medication Instructions Recorded Confirmed Last Taken Type Lactulose [Cephulac] 45 ml PO TID 10/02/17 12/15/19 05/26/19 History Apixaban [Eliquis] 5 mg PO BID #74 tablet 10/04/17 12/15/19 05/23/19 Rx LORazepam [Ativan] 0.5 mg PO BID 10/23/18 12/15/19 05/26/19 History Lactobacillus Acidophilus 1 each PO DAILY 10/23/18 12/15/19 05/26/19 History [Acidophilus] Potassium Chloride [K-Dur] 10 meq PO QDAY 10/23/18 12/15/19 05/26/19 History levETIRAcetam [Keppra] 1,500 mg PO BID 30 Days #500 ml 03/13/19 12/15/19 05/26/19 21:00 Rx Acetaminophen [Tylenol] 325 mg PO PRN PRN 05/18/19 12/15/19 05/26/19 History LORazepam [Ativan INJ] 2 mg IM PRN PRN 05/18/19 12/15/19 Unknown History Melatonin [Melatonin 3MG TAB] 3 mg PO QHS 05/18/19 12/15/19 05/26/19 History Multivit-Min/Iron/Folic/Lutein 1 each PO DAILY 05/18/19 12/15/19 05/26/19 History [Centrum Silver Women Tablet] Nitroglycerin [Nitrostat] 0.4 mg SL Q5M PRN 05/18/19 12/15/19 Unknown History HYDROcodone/APAP 5-325 [[place] 1 each PO Q4HR PRN #20 tablet 05/27/19 12/15/19 Unknown Rx 5-325 mg TAB] Aspirin EC [Ecotrin] 325 mg PO QDAY #30 tablet 12/17/19 Unknown Rx Baclofen 10 mg PO Q12H #60 12/17/19 Unknown Rx Citalopram [celeXA] 10 mg PO QDAY #30 tablet 12/17/19 Unknown Rx Gabapentin 300 mg PO Q8HR #90 cap 12/17/19 Unknown Rx OXcarbazepine [Trileptal] 900 mg PO BID #60 tablet 12/17/19 Unknown Rx Oxycodone HCl [oxyCONTIN ER] 15 mg PO Q12HR #14 12/17/19 Unknown Rx dilTIAZem CD [Cardizem CD] 180 mg PO QDAY #30 capsule 12/17/19 Unknown Rx levETIRAcetam [Keppra TAB] 2,000 mg PO BID #60 tablet 12/17/19 Unknown Rx ED Physical Exam - General Limitations: Altered Mental Status - Other Other exam information: General: No acute distress Head: Atraumatic Eyes: Left gaze, pupils equal reactive to light ENT: Moist mucous membranes Neck: Normal appearance, no midline tenderness Chest: Clear to auscultation bilaterally CV: Regular rate and rhythm Abdomen: Soft, normal bowel sounds, nontender, nondistended, no rebound or guar ding, no PEG Neuro: Rhythmic blinking of bilateral eyes with left gaze, rhythmic jerking of right arm but able to attempt handgrip which is very weak. No movement/handgrip to left arm. Bilateral legs are contracted with minimal movement. Pt is able to follow commands and communicate some during episode Psych: Appropriate behavior ED Course Vital Signs 01/09/20 01/09/20 01/09/20 14:44 16:25 17:37 Temperature 98.2 F 99.8 F H Pulse Rate 105 H 85 Respiratory 18 16 Rate Blood Pressure 153/86 170/84 [Left] O2 Sat by Pulse 98 100 Oximetry ED Medical Decision Making - Lab Data Result diagrams: 01/09/20 15:04 01/09/20 15:04 Lab Results 01/09/20 01/09/20 01/09/20 Range/Units 15:04 15:04 15:04 WBC 7.0 (4.5-11.0) K/mm3 RBC 4.33 (3.65-5.03) M/mm3 Hgb 13.0 (10.1-14.3) gm/dl Hct 38.3 (30.3-42.9) % MCV 89 (79-97) fl MCH 30 (28-32) pg MCHC 34 (30-34) % RDW 13.5 (13.2-15.2) % Plt Count 353 (140-440) K/mm3 Lymph % (Auto) 7.8 L (13.4-35.0) % [place] % (Auto) 4.0 (0.0-7.3) % Eos % (Auto) 0.2 (0.0-4.3) % Baso % (Auto) 0.3 (0.0-1.8) % Lymph # 0.5 L (1.2-5.4) K/mm3 [place] # 0.3 (0.0-0.8) K/mm3 Eos # 0.0 (0.0-0.4) K/mm3 Baso # 0.0 (0.0-0.1) K/mm3 Seg Neutrophils % 87.7 H (40.0-70.0) % Seg Neutrophils # 6.1 (1.8-7.7) K/mm3 Sodium 138 (137-145) mmol/L Potassium 4.6 (3.6-5.0) mmol/L Chloride 100.8 (98-107) mmol/L Carbon Dioxide 23 (22-30) mmol/L Anion Gap 19 mmol/L BUN 12 (7-17) mg/dL Creatinine 0.4 L (0.6-1.2) mg/dL Estimated GFR > 60 ml/min BUN/Creatinine Ratio 30 % Glucose 111 H (65-100) mg/dL Lactic Acid 2.10 H* (0.7-2.0) mmol/L Calcium 9.5 (8.4-10.2) mg/dL Magnesium (1.7-2.3) mg/dL Total Bilirubin < 0.20 (0.1-1.2) mg/dL AST 41 H (5-40) units/L ALT 46 (7-56) units/L Alkaline Phosphatase 151 H (35-129) units/L Total Creatine Kinase (30-135) units/L Total Protein 7.2 (6.3-8.2) g/dL Albumin 3.8 L (3.9-5) g/dL Albumin/Globulin Ratio 1.1 % Urine Color (Yellow) Urine Turbidity (Clear) Urine pH (5.0-7.0) Ur Specific [place] (1.003-1.030) Urine Protein (Negative) mg/dL Urine Glucose (UA) (Negative) mg/dL Urine Ketones (Negative) mg/dL Urine Blood (Negative) Urine Nitrite (Negative) Urine Bilirubin (Negative) Urine Urobilinogen (<2.0) mg/dL Ur Leukocyte Esterase (Negative) Urine WBC (Auto) (0.0-6.0) /HPF Urine RBC (Auto) (0.0-6.0) /HPF U Epithel Cells (Auto) (0-13.0) /HPF Urine Bacteria (Auto) (Negative) /HPF Urine Mucus /HPF 01/09/20 01/09/20 01/09/20 Range/Units 15:04 17:59 18:01 WBC (4.5-11.0) K/mm3 RBC (3.65-5.03) M/mm3 Hgb (10.1-14.3) gm/dl Hct (30.3-42.9) % MCV (79-97) fl MCH (28-32) pg MCHC (30-34) % RDW (13.2-15.2) % Plt Count (140-440) K/mm3 Lymph % (Auto) (13.4-35.0) % [place] % (Auto) (0.0-7.3) % Eos % (Auto) (0.0-4.3) % Baso % (Auto) (0.0-1.8) % Lymph # (1.2-5.4) K/mm3 [place] # (0.0-0.8) K/mm3 Eos # (0.0-0.4) K/mm3 Baso # (0.0-0.1) K/mm3 Seg Neutrophils % (40.0-70.0) % Seg Neutrophils # (1.8-7.7) K/mm3 Sodium (137-145) mmol/L Potassium (3.6-5.0) mmol/L Chloride (98-107) mmol/L Carbon Dioxide (22-30) mmol/L Anion Gap mmol/L BUN (7-17) mg/dL Creatinine (0.6-1.2) mg/dL Estimated GFR ml/min BUN/Creatinine Ratio % Glucose (65-100) mg/dL Lactic Acid 2.00 (0.7-2.0) mmol/L Calcium (8.4-10.2) mg/dL Magnesium 2.00 (1.7-2.3) mg/dL Total Bilirubin (0.1-1.2) mg/dL AST (5-40) units/L ALT (7-56) units/L Alkaline Phosphatase (35-129) units/L Total Creatine Kinase 83 (30-135) units/L Total Protein (6.3-8.2) g/dL Albumin (3.9-5) g/dL Albumin/Globulin Ratio % Urine Color Yellow (Yellow) Urine Turbidity Turbid (Clear) Urine pH 7.0 (5.0-7.0) Ur Specific [place] 1.016 (1.003-1.030) Urine Protein <15 mg/dl (Negative) mg/dL Urine Glucose (UA) Neg (Negative) mg/dL Urine Ketones Neg (Negative) mg/dL Urine Blood Sm (Negative) Urine Nitrite Neg (Negative) Urine Bilirubin Neg (Negative) Urine Urobilinogen < 2.0 (<2.0) mg/dL Ur Leukocyte Esterase Neg (Negative) Urine WBC (Auto) 1.0 (0.0-6.0) /HPF Urine RBC (Auto) 15.0 (0.0-6.0) /HPF U Epithel Cells (Auto) 114.0 H (0-13.0) /HPF Urine Bacteria (Auto) 4+ (Negative) /HPF Urine Mucus Few /HPF - Radiology Data Radiology results: report reviewed CHEST 1 VIEW 01/09/2020 3:01 PM INDICATION / CLINICAL INFORMATION: fever, seizure. COMPARISON: 12/14/2019 FINDINGS: SUPPORT DEVICES: None. HEART / MEDIASTINUM: No significant abnormality. LUNGS / PLEURA: No significant pulmonary or pleural abnormality. No pneumothorax. ADDITIONAL FINDINGS: No significant additional findings. IMPRESSION: No acute cardiopulmonary abnormality. No significant change from 12/14/2019. CT HEAD WITHOUT CONTRAST INDICATION / CLINICAL INFORMATION: Seizures TECHNIQUE: All CT scans at this location are performed using CT dose reduction for ALARA by means of automated exposure control. COMPARISON: Head CT 12/14/2019, 12/08/2018, 10/23/2018 and 07/12/2016 FINDINGS: POSTOPERATIVE CHANGES: Patient is status post bilateral parietal craniotomy for resection of a right parafalcine meningioma fi rst demonstrated on 07/12/2016. HEMORRHAGE: No evidence of intracranial hemorrhage or extra-axial fluid collection. EXTRA-AXIAL SPACES: Cortical sulci, sylvian fissures are mildly enlarged reflecting a degree of parenchymal volume loss which is greater than expected for age 59 years. Basilar cisterns have an unremarkable appearance. VENTRICULAR SYSTEM: Third and lateral ventricles are mildly enlarged reflecting parenchymal volume loss greater than expected for age. CEREBRAL PARENCHYMA: Extensive periventricular, deep white matter and subcortical white matter lucency is observed. This may be due to extensive microvascular ischemic change. Postradiation the rapy change could produce a similar appearance. Correlation with clinical history is advised. MIDLINE SHIFT OR HERNIATION: There is no mass effect. CEREBELLUM / BRAINSTEM: Brainstem and cerebellum have an unremarkable appearance. MIDLINE STRUCTURES:No abnormalities of the pituitary gland or pineal region are identified. INTRACRANIAL VESSELS:No abnormalities are identified on this noncontrast head CT. ORBITS: visualized portions of the orbits have an unremarkable appearance. SOFT TISSUES of HEAD: No significant abnormality. CALVARIUM: Evaluation of bone windows reveals no abnormalities. PARANASAL SINUSES / MASTOID AIR CELLS: Paranasal sinuses are free from inflammatory mucosal disease. Mastoid air cells are normally pneumatized. ADDITIONAL FINDINGS: None. IMPRESSION: 1. Status post bilateral parietal craniotomy for resection of right parafalcine meningioma. 2. Moderate parenchymal volume loss greater than expected for age 59 years. 3. Extensive leukoencephalopathy likely due to microvascular ischemic change. - Medical Decision Making Denies home documented fever however, patient had both an oral and a rectal temperature performed in the ED and they were both afebrile. She also does not have leukocytosis and has a negative chest x-ray and UA. Seizure activity stopped after 1 mg Ativan IV and Keppra level. CT head without acute findings. Very mild lactic acidosis also improved. Patient is able to communicate better and denies any current symptoms at time of discharge. Critical Care Time: No Critical care attestation.: If time is entered above; I have spent that time in minutes in the direct care of this critically ill patient, excluding procedure time. ED Disposition Clinical Impression: Seizure, History of CVA with residual deficit, Multiple sclerosis Disposition: DC-01 TO HOME OR SELFCARE Is pt being admited?: No Does the pt Need Aspirin: No Condition: Stable Instructions: Epilepsy (ED) Additional Instructions: Continue current medication as prescribed. Follow-up with your doctor or doctor/clinic provided. Return if symptoms worsen as indicated by your discharge instructions. Referrals: KHADIJAH NGO MD [Primary Care Provider] - 3-5 Days STEFANIE SANCHEZ MD [Staff Physician] - 3-5 Days (Neurologist) Time of Disposition: 18:43
--- NOTE | 2020-01-09 17:19 | Cat Scan Report ---
CT HEAD WITHOUT CONTRAST INDICATION / CLINICAL INFORMATION: Seizures TECHNIQUE: All CT scans at this location are performed using CT dose reduction for ALARA by means of automated e xposure control. COMPARISON: Head CT 12/14/2019, 12/08/2018, 10/23/2018 and 07/12/2016 FINDINGS: POSTOPERATIVE CHANGES: Patient is status post bilateral parietal craniotomy for resection of a right parafalcine meningioma first demonstrated on 07/12/2016. HEMORRHAGE: No evidence of intracranial hemorrhage or extra-axial fluid collection. EXTRA-AXIAL SPACES: Cortical sulci, sylvian fissures are mildly enlarged reflecting a degree of paren chymal volume loss which is greater than expected for age 59 years. Basilar cisterns have an unremark able appearance. VENTRICULAR SYSTEM: Third and lateral ventricles are mildly enlarged reflecting parenchymal volume lo ss greater than expected for age. CEREBRAL PARENCHYMA: Extensive periventricular, deep white matter and subcortical white matter lucenc y is observed. This may be due to extensive microvascular ischemic change. Postradiation therapy [place] could produce a similar appearance. Correlation with clinical history is advised. MIDLINE SHIFT OR HERNIATION: There is no mass effect. CEREBELLUM / BRAINSTEM: Brainstem and cerebellum have an unremarkable appearance. MIDLINE STRUCTURES:No abnormalities of the pituitary gland or pineal region are identified. INTRACRANIAL VESSELS:No abnormalities are identified on this noncontrast head CT. ORBITS: visualized portions of the orbits have an unremarkable appearance. SOFT TISSUES of HEAD: No significant abnormality. CALVARIUM: Evaluation of bone windows reveals no abnormalities. PARANASAL SINUSES / MASTOID AIR CELLS: Paranasal sinuses are free from inflammatory mucosal disease. Mastoid air cells are normally pneumatized. ADDITIONAL FINDINGS: None. IMPRESSION: 1. Status post bilateral parietal craniotomy for resection of right parafalcine meningioma. 2. Moderate parenchymal volume loss greater than expected for age 59 years. 3. Extensive leukoencephalopathy likely due to microvascular ischemic change. These findings are stab le since 10/23/2018. Signer Name: Eris Griffith MD Signed: 01/09/2020 5:15 PM Workstation Name: [id number]
[2020-01-09 18:32] LABS: Bacteria,Urine 4+ /HPF (Negative); Bilirubin,Urine NEG (Negative); Blood,Urine SM (Negative); Color,Urine Yellow (Yellow); Mucus,Urine FEW /HPF; Protein,Urine <15 mg/dL mg/dL (Negative); Urobilinogen,Urine < 2.0 mg/dL (<2.0)
[2020-01-09 23:34] VITALS: BP 156/65
== END 2020-01-10 00:46 | disposition home or self-care (01) ==
LOC: ED 14:13
DX: R56.9 Unspecified convulsions (principal); G35 Multiple sclerosis; I11.0 Hypertensive heart disease with heart failure; I50.9 Heart failure, unspecified; J45.909 Unspecified asthma, uncomplicated; Z86.718 Personal history of other venous thrombosis and embolism; Z79.01 Long term (current) use of anticoagulants; Z98.890 Other specified postprocedural states; Z86.73 Personal history of transient ischemic attack (TIA), and cerebral infarction without residual deficits; Z88.6 Allergy status to analgesic agent; Z91.013 Allergy to seafood; Z91.041 Radiographic dye allergy status
CPT/HCPCS: 36415; 70450; 71045; 80053; 81001; 82140; 82550; 83735; 85025; 87040; 96365; 96375; 99285; J1953; J2060; J7050

== ENCOUNTER 2020-07-15 13:06 | Inpatient (IN) | payer MEDICAID ==
--- NOTE | 2020-07-15 13:33 | Emergency Department Report ---
ED General Adult HPI - General Chief complaint: Dyspnea/Respdistress Stated complaint: SVT Time Seen by Provider: 07/15/20 13:18 Source: EMS Mode of arrival: Stretcher Limitations: Altered Mental Status, Physical Limitation - History of Present Illness Initial comments: 60-year-old female with a past medical history of asthma, seizures, conversion disorder with seizures, sacral pressure ulcer, CHF, CVA with residual weakness, DVT, seizures, A. fib on Eliquis, and multiple sclerosis presents to the hospital from the senior care with tachycardia and low oxygen. EMS was notified due to elevated heart rate in the 200s and decrease in pulse ox. EMS reports that patient was in SVT upon their arrival. She received adenosine 6 mg and heart rate decreased to 130s. EMS presents to the EKG showing sinus tach at rate 131. Pretreatment EKG/rhythm strip was not available/provided by EMS. Patient is alert and oriented to self only and denies pain - Related Data Home Medications Medication Instructions Recorded Confirmed Last Taken Lactobacillus Acidophilus 1 each PO DAILY 10/23/18 12/15/19 05/26/19 [Acidophilus] Acetaminophen [Tylenol] 325 mg PO PRN PRN 05/18/19 12/15/19 05/26/19 Melatonin [Melatonin 3MG TAB] 3 mg PO QHS 05/18/19 12/15/19 05/26/19 Multivit-Min/Iron/Folic/Lutein 1 each PO DAILY 05/18/19 12/15/19 05/26/19 [Centrum Silver Women Tablet] Nitroglycerin [Nitrostat] 0.4 mg SL Q5M PRN 05/18/19 12/15/19 Unknown Previous Rx's Medication Instructions Recorded Last Taken Type Apixaban [Eliquis] 5 mg PO BID #74 tablet 10/04/17 05/23/19 Rx HYDROcodone/APAP 5-325 [[place]z 1 each PO Q4HR PRN #20 tablet 05/27/19 Unknown Rx 5-325 mg TAB] Baclofen 10 mg PO Q12H #60 12/17/19 Unknown Rx Citalopram [celeXA] 10 mg PO QDAY #30 tablet 12/17/19 Unknown Rx Gabapentin 300 mg PO Q8HR #90 cap 12/17/19 Unknown Rx OXcarbazepine [Trileptal] 900 mg PO BID #60 tablet 12/17/19 Unknown Rx dilTIAZem CD [Cardizem CD] 180 mg PO QDAY #30 capsule 12/17/19 Unknown Rx Aspirin EC [Halfprin EC] 81 mg PO QDAY #30 tablet. 06/23/20 Unknown Rx levETIRAcetam [Keppra TAB] 500 mg PO HS tablet 06/23/20 Unknown Rx levETIRAcetam [Keppra] 2,000 mg PO BIDAC oral.liqd 06/23/20 Unknown Rx Allergies Allergy/AdvReac Type Severity Reaction Status Date / Time codeine Allergy Hives Verified 10/23/18 15:19 fish derived Allergy Unknown Verified 10/23/18 15:19 Iodinated Contrast Media Allergy Hives Verified 10/23/18 15:19 red dye Allergy Unknown Verified 05/18/19 15:34 ED Review of Systems ROS: Stated complaint: SVT Other details as noted in HPI ED Past Medical Hx - Past Medical History Hx Hypertension: Yes Hx CVA: Yes (Right sided weakness) Hx Heart Attack/AMI: No Hx Congestive Heart Failure: Yes Hx Diabetes: No Hx Deep Vein Thrombosis: Yes Hx Pulmonary Embolism: No Hx GERD: No Hx Liver Disease: No Hx Renal Disease: No Hx Arthritis: No Hx Headaches / Migraines: No Hx Seizures: Yes Hx Kidney Stones: No Hx Psychiatric Treatment: Yes Hx Asthma: Yes Hx Tuberculosis: No Hx Dementia: No Hx HIV: No Additional medical history: IRREGULAR HEART BEAT, MS - Surgical History Hx Pacemaker: No Hx Internal Defibrillator: No Additional Surgical History: x4 - Social History Smoking Status: Unknown if ever smoked Substance Use Type: None - Medications Home Medications: Home Medications Medication Instructions Recorded Confirmed Last Taken Type Apixaban [Eliquis] 5 mg PO BID #74 tablet 10/04/17 12/15/19 05/23/19 Rx Lactobacillus Acidophilus 1 each PO DAILY 10/23/18 12/15/19 05/26/19 History [Acidophilus] Acetaminophen [Tylenol] 325 mg PO PRN PRN 05/18/19 12/15/19 05/26/19 History Melatonin [Melatonin 3MG TAB] 3 mg PO QHS 05/18/19 12/15/19 05/26/19 History Multivit-Min/Iron/Folic/Lutein 1 each PO DAILY 05/18/19 12/15/19 05/26/19 History [Centrum Silver Women Tablet] Nitroglycerin [Nitrostat] 0.4 mg SL Q5M PRN 05/18/19 12/15/19 Unknown History HYDROcodone/APAP 5-325 [N[place]z 1 each PO Q4HR PRN #20 tablet 05/27/19 12/15/19 Unknown Rx 5-325 mg TAB] Baclofen 10 mg PO Q12H #60 12/17/19 Unknown Rx Citalopram [celeXA] 10 mg PO QDAY #30 tablet 12/17/19 Unknown Rx Gabapentin 300 mg PO Q8HR #90 cap 12/17/19 Unknown Rx OXcarbazepine [Trileptal] 900 mg PO BID #60 tablet 12/17/19 Unknown Rx dilTIAZem CD [Cardizem CD] 180 mg PO QDAY #30 capsule 12/17/19 Unknown Rx Aspirin EC [Halfprin EC] 81 mg PO QDAY #30 tablet. 06/23/20 Unknown Rx levETIRAcetam [Keppra TAB] 500 mg PO HS tablet 06/23/20 Unknown Rx levETIRAcetam [Keppra] 2,000 mg PO BIDAC oral.liqd 06/23/20 Unknown Rx ED Physical Exam - General Limitations: Altered Mental Status, Physical Limitation - Other Other exam information: General: No acute distress Head: Atraumatic Eyes: normal appearance ENT: Dry mucous membrane Neck: Normal appearance Chest: Clear to auscultation bilaterally CV: Tachycardic regular rhythm Abdomen: Soft, normal bowel sounds, no PEG, nontender, nondistended, no rebound or guarding Back: Normal inspection Extremity: Limited movement of lower extremities, mid bilateral upper extremity Neuro: Alert O x to self only, no facial asymmetry Psych: Appropriate behavior Skin: ED Course Vital Signs 07/15/20 07/15/20 07/15/20 13:19 13:27 13:31 Temperature 97.6 F Pulse Rate 135 H 131 H Respiratory 23 24 Rate Blood Pressure 112/85 112/85 Blood Pressure [Left] O2 Sat by Pulse 54 L 96 98 Oximetry 07/15/20 07/15/20 07/15/20 13:50 14:01 14:31 Temperature 101.6 F H Pulse Rate 125 H 126 H 110 H Respiratory 32 H 26 H 17 Rate Blood Pressure 113/85 102/67 Blood Pressure 113/85 [Left] O2 Sat by Pulse 98 99 97 Oximetry 07/15/20 15:01 Temperature Pulse Rate 105 H Respiratory 19 Rate Blood Pressure 94/61 Blood Pressure [Left] O2 Sat by Pulse 98 Oximetry - ABG Interpretation Ph: 7.4 PCO2: 34 PO2: 66.8 Bicarbonate: 21 ED Medical Decision Making - Lab Data Result diagrams: 07/15/20 14:04 07/15/20 14:04 Lab Results 07/15/20 07/15/20 07/15/20 Range/Units 14:04 14:04 14:04 WBC 13.7 H (4.5-11.0) K/mm3 RBC 3.98 (3.65-5.03) M/mm3 Hgb 11.1 (10.1-14.3) gm/dl Hct 35.1 (30.3-42.9) % MCV 88 (79-97) fl MCH 28 (28-32) pg MCHC 32 (30-34) % RDW 14.5 (13.2-15.2) % Plt Count 530 H (140-440) K/mm3 Lymph % (Auto) 15.6 (13.4-35.0) % [place] % (Auto) 8.8 H (0.0-7.3) % Eos % (Auto) 0.5 (0.0-4.3) % Baso % (Auto) 0.3 (0.0-1.8) % Lymph # (Auto) 2.1 (1.2-5.4) K/mm3 [place] # (Auto) 1.2 H (0.0-0.8) K/mm3 Eos # (Auto) 0.1 (0.0-0.4) K/mm3 Baso # (Auto) 0.0 (0.0-0.1) K/mm3 Seg Neutrophils % 74.8 H (40.0-70.0) % Seg Neutrophils # 10.3 H (1.8-7.7) K/mm3 PT (12.2-14.9) Sec. INR (0.87-1.13) APTT (24.2-36.6) Sec. ABG pH (7.350-7.450) pH Units ABG pCO2 mm Hg ABG pO2 (80.0-90.0) mm Hg ABG HCO3 (20.0-26.0) mmol/L ABG O2 Saturation (95.0-99.0) % ABG O2 Content (0.0-44) ABG Base Excess (-2.0-3.0) mmol/L ABG Hemoglobin (12.0-16.0) gm/dl ABG Carboxyhemoglobin (0.0-5.0) % ABG Methemoglobin (0.0-1.5) % Oxyhemoglobin (95.0-99.0) % FiO2 % Sodium 149 H (137-145) mmol/L Potassium 3.1 L (3.6-5.0) mmol/L Chloride 115.3 H (98-107) mmol/L Carbon Dioxide 22 (22-30) mmol/L Anion Gap 15 mmol/L BUN 16 (7-17) mg/dL Creatinine 0.4 L (0.6-1.2) mg/dL Estimated GFR > 60 ml/min BUN/Creatinine Ratio 40 % Glucose 130 H (65-100) mg/dL Lactic Acid 2.30 H* (0.7-2.0) mmol/L Calcium 9.0 (8.4-10.2) mg/dL Magnesium (1.7-2.3) mg/dL Total Bilirubin 0.30 (0.1-1.2) mg/dL AST 97 H (5-40) units/L ALT 120 H (7-56) units/L Alkaline Phosphatase 222 H (35-129) units/L Troponin T < 0.010 (0.00-0.029) ng/mL Total Protein 7.0 (6.3-8.2) g/dL Albumin 2.6 L (3.9-5) g/dL Albumin/Globulin Ratio 0.6 % Free T4 (0.76-1.46) ng/dL Urine Color (Yellow) Urine Turbidity (Clear) Urine pH (5.0-7.0) Ur Specific [place] (1.003-1.030) Urine Protein (Negative) mg/dL Urine Glucose (UA) (Negative) mg/dL Urine Ketones (Negative) mg/dL Urine Blood (Negative) Urine Nitrite (Negative) Urine Bilirubin (Negative) Urine Urobilinogen (<2.0) mg/dL Ur Leukocyte Esterase (Negative) Urine WBC (Auto) (0.0-6.0) /HPF Urine RBC (Auto) (0.0-6.0) /HPF U Epithel Cells (Auto) (0-13.0) /HPF Urine Bacteria (Auto) (Negative) /HPF Urine Mucus /HPF 07/15/20 07/15/20 07/15/20 Range/Units 14:04 14:07 14:07 WBC (4.5-11.0) K/mm3 RBC (3.65-5.03) M/mm3 Hgb (10.1-14.3) gm/dl Hct (30.3-42.9) % MCV (79-97) fl MCH (28-32) pg MCHC (30-34) % RDW (13.2-15.2) % Plt Count (140-440) K/mm3 Lymph % (Auto) (13.4-35.0) % [place] % (Auto) (0.0-7.3) % Eos % (Auto) (0.0-4.3) % Baso % (Auto) (0.0-1.8) % Lymph # (Auto) (1.2-5.4) K/mm3 [place] # (Auto) (0.0-0.8) K/mm3 Eos # (Auto) (0.0-0.4) K/mm3 Baso # (Auto) (0.0-0.1) K/mm3 Seg Neutrophils % (40.0-70.0) % Seg Neutrophils # (1.8-7.7) K/mm3 PT 18.5 H (12.2-14.9) Sec. INR 1.54 H (0.87-1.13) APTT 41.1 H (24.2-36.6) Sec. ABG pH (7.350-7.450) pH Units ABG pCO2 mm Hg ABG pO2 (80.0-90.0) mm Hg ABG HCO3 (20.0-26.0) mmol/L ABG O2 Saturation (95.0-99.0) % ABG O2 Content (0.0-44) ABG Base Excess (-2.0-3.0) mmol/L ABG Hemoglobin (12.0-16.0) gm/dl ABG Carboxyhemoglobin (0.0-5.0) % ABG Methemoglobin (0.0-1.5) % Oxyhemoglobin (95.0-99.0) % FiO2 % Sodium (137-145) mmol/L Potassium (3.6-5.0) mmol/L Chloride (98-107) mmol/L Carbon Dioxide (22-30) mmol/L Anion Gap mmol/L BUN (7-17) mg/dL Creatinine (0.6-1.2) mg/dL Estimated GFR ml/min BUN/Creatinine Ratio % Glucose (65-100) mg/dL Lactic Acid (0.7-2.0) mmol/L Calcium (8.4-10.2) mg/dL Magnesium 2.30 (1.7-2.3) mg/dL Total Bilirubin (0.1-1.2) mg/dL AST (5-40) units/L ALT (7-56) units/L Alkaline Phosphatase (35-129) units/L Troponin T (0.00-0.029) ng/mL Total Protein (6.3-8.2) g/dL Albumin (3.9-5) g/dL Albumin/Globulin Ratio % Free T4 0.67 L (0.76-1.46) ng/dL Urine Color (Yellow) Urine Turbidity (Clear) Urine pH (5.0-7.0) Ur Specific [place] (1.003-1.030) Urine Protein (Negative) mg/dL Urine Glucose (UA) (Negative) mg/dL Urine Ketones (Negative) mg/dL Urine Blood (Negative) Urine Nitrite (Negative) Urine Bilirubin (Negative) Urine Urobilinogen (<2.0) mg/dL Ur Leukocyte Esterase (Negative) Urine WBC (Auto) (0.0-6.0) /HPF Urine RBC (Auto) (0.0-6.0) /HPF U Epithel Cells (Auto) (0-13.0) /HPF Urine Bacteria (Auto) (Negative) /HPF Urine Mucus /HPF 07/15/20 07/15/20 Range/Units 14:20 14:29 WBC (4.5-11.0) K/mm3 RBC (3.65-5.03) M/mm3 Hgb (10.1-14.3) gm/dl Hct (30.3-42.9) % MCV (79-97) fl MCH (28-32) pg MCHC (30-34) % RDW (13.2-15.2) % Plt Count (140-440) K/mm3 Lymph % (Auto) (13.4-35.0) % [place] % (Auto) (0.0-7.3) % Eos % (Auto) (0.0-4.3) % Baso % (Auto) (0.0-1.8) % Lymph # (Auto) (1.2-5.4) K/mm3 [place] # (Auto) (0.0-0.8) K/mm3 Eos # (Auto) (0.0-0.4) K/mm3 Baso # (Auto) (0.0-0.1) K/mm3 Seg Neutrophils % (40.0-70.0) % Seg Neutrophils # (1.8-7.7) K/mm3 PT (12.2-14.9) Sec. INR (0.87-1.13) APTT (24.2-36.6) Sec. ABG pH 7.413 (7.350-7.450) pH Units ABG pCO2 34.1 mm Hg ABG pO2 66.8 L (80.0-90.0) mm Hg ABG HCO3 21.3 (20.0-26.0) mmol/L ABG O2 Saturation 95.1 (95.0-99.0) % ABG O2 Content 14.4 (0.0-44) ABG Base Excess -2.7 L (-2.0-3.0) mmol/L ABG Hemoglobin 11.0 L (12.0-16.0) gm/dl ABG Carboxyhemoglobin 1.4 (0.0-5.0) % ABG Methemoglobin 0.4 (0.0-1.5) % Oxyhemoglobin 93.3 L (95.0-99.0) % FiO2 21 % Sodium (137-145) mmol/L Potassium (3.6-5.0) mmol/L Chloride (98-107) mmol/L Carbon Dioxide (22-30) mmol/L Anion Gap mmol/L BUN (7-17) mg/dL Creatinine (0.6-1.2) mg/dL Estimated GFR ml/min BUN/Creatinine Ratio % Glucose (65-100) mg/dL Lactic Acid (0.7-2.0) mmol/L Calcium (8.4-10.2) mg/dL Magnesium (1.7-2.3) mg/dL Total Bilirubin (0.1-1.2) mg/dL AST (5-40) units/L ALT (7-56) units/L Alkaline Phosphatase (35-129) units/L Troponin T (0.00-0.029) ng/mL Total Protein (6.3-8.2) g/dL Albumin (3.9-5) g/dL Albumin/Globulin Ratio % Free T4 (0.76-1.46) ng/dL Urine Color Krista (Yellow) Urine Turbidity Clear (Clear) Urine pH 6.0 (5.0-7.0) Ur Specific [place] 1.024 (1.003-1.030) Urine Protein 30 mg/dl (Negative) mg/dL Urine Glucose (UA) Neg (Negative) mg/dL Urine Ketones Neg (Negative) mg/dL Urine Blood Neg (Negative) Urine Nitrite Neg (Negative) Urine Bilirubin Neg (Negative) Urine Urobilinogen 4.0 (<2.0) mg/dL Ur Leukocyte Esterase Neg (Negative) Urine WBC (Auto) 3.0 (0.0-6.0) /HPF Urine RBC (Auto) 23.0 (0.0-6.0) /HPF U Epithel Cells (Auto) 1.0 (0-13.0) /HPF Urine Bacteria (Auto) 2+ (Negative) /HPF Urine Mucus 1+ /HPF - EKG Data -: EKG Interpreted by Id EKG shows normal: sinus rhythm, ST-T waves (no stemi) Rate: tachycardia (127) - Radiology Data Radiology results: report reviewed (cxr: naf) - Medical Decision Making 60-year-old female presents from senior care with reported SVT episode as per EMS. Unfortunately, this rhythm strip/EKG was not available for review. Heart rate was reported in the 180s to 200 range which decreased to the 130s with adenosine 6 mg. Patient presents to the hospital with sinus tach plus fever. Source of fever unknown since chest x-ray and UA are unremarkable. Patient does have several ulcers pressure ulcers and appears to be undergoing wound care at the senior care. Patient treated with broad-spectrum antibiotics of vancomycin and Zosyn and cultures pending. Patient is resuscitated with 30 mL/kg bolus of normal saline and Tylenol with improvement in heart rate Critical Care Time: No Critical care attestation.: If time is entered above; I have spent that time in minutes in the direct care of this critically ill patient, excluding procedure time. ED Disposition Clinical Impression: Sepsis, SVT (supraventricular tachycardia), Multiple sclerosis, Sacral decubitus ulcer Disposition: OP ADMIT IP TO THIS HOSP Is pt being admited?: Yes Condition: Stable Time of Disposition: 15:46 (Dr Pandya/hosp)
[2020-07-15] MEDS ORDERED: ACETAMINOPHEN 325 MG RECT SUPP PR ONE ×2 (13:40→13:54)
[2020-07-15] MEDS ORDERED: ACETAMINOPHEN 650 MG RECT SUPP PR ONE ×2 (13:41→13:54)
[2020-07-15] MEDS ORDERED: SODIUM CHLORIDE 0.9% 1000 ML IV SOLN IV ONE (13:51)
[2020-07-15 14:37] LABS: Bacteria,Urine 2+ /HPF (Negative); Bilirubin,Urine NEG (Negative); Blood,Urine NEG (Negative); Color,Urine Amber (Yellow); Mucus,Urine 1+ /HPF
[2020-07-15 14:40] LABS: ABG Base Excess -2.7 mmol/L (-2.0-3.0); ABG HCO3 21.3 mmol/L (20.0-26.0); ABG Methemoglobin 0.4 % (0.0-1.5); ABG Oxygen Saturation 95.1 % (95.0-99.0); ABG PCO2 34.1 mm Hg; ABG PH 7.413 pH Units (7.350-7.450); ABG PO2 66.8 mm Hg (80.0-90.0)
[2020-07-15 14:45] LABS: Alanine Aminotransferase 120 units/L (7-56); Albumin 2.6 g/dL (3.9-5); Blood Urea Nitrogen 16 mg/dL (7-17); Hemolysis Index 0
[2020-07-15 14:56] LABS: BUN/Creatinine Ratio 40; Basophils % (Auto) 0.3 % (0.0-1.8); Eosinophils # (Auto) 0.1 K/mm3 (0.0-0.4); Eosinophils % (Auto) 0.5 % (0.0-4.3); Hematocrit 35.1 % (30.3-42.9); Hemoglobin 11.1 gm/dl (10.1-14.3); Lymphocytes # (Auto) 2.1 K/mm3 (1.2-5.4); Lymphocytes % (Auto) 15.6 % (13.4-35.0); Mean Corpuscular HGB Conc 32 % (30-34); Mean Corpuscular Volume 88 fl (79-97); Monocytes # (Auto) 1.2 K/mm3 (0.0-0.8); Monocytes % (Auto) 8.8 % (0.0-7.3); Platelet Count 530 K/mm3 (140-440); Red Blood Count 3.98 M/mm3 (3.65-5.03); Red Cell Distribution Width 14.5 % (13.2-15.2)
--- NOTE | 2020-07-15 15:03 | XRay Report ---
CHEST 1 VIEW 07/15/2020 1:52 PM INDICATION / CLINICAL INFORMATION: sob. COMPARISON: 01/09/2020 FINDINGS: SUPPORT DEVICES: None. HEART / MEDIASTINUM: Stable. LUNGS / PLEURA: No significant pulmonary or pleural abnormality. No pneumothorax. ADDITIONAL FINDINGS: No significant additional findings. IMPRESSION: 1. No acute findings or significant interval change when compared to 01/09/2020. Signer Name: Kai Arroyo MD Signed: 07/15/2020 2:58 PM Workstation Name: [id number]
[2020-07-15 15:07] LABS: INR 1.54 (0.87-1.13)
[2020-07-15 15:08] LABS: Partial Thromboplastin Time 41.1 Sec. (24.2-36.6)
[2020-07-15] MEDS ORDERED: PIPERACIL/TAZOBACTA 4.5/NS 100 4.5 GM/100 ML VIAL IV ONE (15:22)
[2020-07-15] MEDS ORDERED: VANCOMYCIN 1,500 MG in SODIUM CHLORIDE 0.9% 500 ML 500 ML IV ONE ×2 (15:22→15:45)
[2020-07-15 15:25] LABS: Free T4 (Free Thyroxine) 0.67 ng/dL (0.76-1.46)
--- NOTE | 2020-07-15 20:01 | History and Physical Report ---
History of Present Illness Date of examination: 07/15/20 Date of admission: 07/15/20 15:46 Chief complaint: Fever and palpitations since a.m. History of present illness: 60-year-old female with multiple medical problems including atrial fibrillation, muscle spasms, peripheral neuropathy, seizure disorders, decubitus ulcers and hypertension and CVA with a residual weakness and [facility] and low oxygen levels. Apparently patient's heart rate was in the 200s and the EMS gave her nursing and brought it down to 130. Patient also has fever. Altered sensorium. - Past Medical History -- Hypertension: Yes --CVA: Yes (Right sided weakness) --Congestive Heart Failure: Yes --Deep Vein Thrombosis: Yes --Seizures: Yes --Psychiatric Treatment: Yes --Asthma: Yes Additional medical history: IRREGULAR HEART BEAT, MS - Surgical History Additional Surgical History: x4 - Social History Smoking Status: Unknown if ever smoked Substance Use Type: None Family history HTN Review of Systems ROS: Constitutional fever and palpitations HEENT no sore throat no post nasal drip no diplopia Neck no neck stiffness no lymph gland enlargement Chest and lungs no shortness of breath cough or wheezing CVS palpitations GI no nausea no vomiting no diarrhea Genitourinary system no dysuria no flank pain Musculoskeletal system no muscle pains no joint pains [employer] no syncope no seizures Skin decub ulcers Psychiatric no depression no homicidal or suicidal tendencies Hematologic no lymphedema or bruising Endocrine no polydipsia no polyuria no cold intolerance no heat intolerance Medications and Allergies Allergies Allergy/AdvReac Type Severity Reaction Status Date / Time codeine Allergy Hives Verified 10/23/18 15:19 fish derived Allergy Unknown Verified 10/23/18 15:19 Iodinated Contrast Media Allergy Hives Verified 10/23/18 15:19 red dye Allergy Unknown Verified 05/18/19 15:34 Home Medications Medication Instructions Recorded Confirmed Last Taken Type Apixaban [Eliquis] 5 mg PO BID #74 tablet 10/04/17 12/15/19 05/23/19 Rx Lactobacillus Acidophilus 1 each PO DAILY 10/23/18 12/15/19 05/26/19 History [Acidophilus] Acetaminophen [Tylenol] 325 mg PO PRN PRN 05/18/19 12/15/19 05/26/19 History Melatonin [Melatonin 3MG TAB] 3 mg PO QHS 05/18/19 12/15/19 05/26/19 History Multivit-Min/Iron/Folic/Lutein 1 each PO DAILY 05/18/19 12/15/19 05/26/19 History [Centrum Silver Women Tablet] Nitroglycerin [Nitrostat] 0.4 mg SL Q5M PRN 05/18/19 12/15/19 Unknown History Baclofen 10 mg PO Q12H #60 12/17/19 Unknown Rx Citalopram [celeXA] 10 mg PO QDAY #30 tablet 12/17/19 Unknown Rx Gabapentin 300 mg PO Q8HR #90 cap 12/17/19 Unknown Rx OXcarbazepine [Trileptal] 900 mg PO BID #60 tablet 12/17/19 Unknown Rx dilTIAZem CD [Cardizem CD] 180 mg PO QDAY #30 capsule 12/17/19 Unknown Rx Aspirin EC [Halfprin EC] 81 mg PO QDAY #30 tablet. 06/23/20 Unknown Rx Ativan 2 mg IM Q6HR PRN 07/15/20 07/15/20 Unknown History Lactulose 30 gram PO TID 07/15/20 07/15/20 Unknown History Mirtazapine [Remeron] 15 mg PO DAILY 07/15/20 07/15/20 Unknown History Percocet 7.5/325 mg 1 tab PO Q12HR PRN 07/15/20 07/15/20 Unknown History Topiramate [Topamax] 1 tab PO DAILY 07/15/20 07/15/20 Unknown History Zofran TAB 4 mg SL Q6HR PRN 07/15/20 07/15/20 Unknown History levETIRAcetam [Keppra] 2,000 mg PO BID 07/15/20 Unknown History Exam - Constitutional Vitals: Temp Pulse Resp BP Pulse Ox 98.5 F 90 20 110/65 98 07/15/20 18:05 07/15/20 18:05 07/15/20 18:05 07/15/20 18:05 07/15/20 18:05 General appearance: Present: no acute distress, well-nourished - EENT Eyes: Present: PERRL ENT: hearing intact, clear oral mucosa - Neck Neck: Present: supple, normal ROM - Respiratory Respiratory effort: normal Respiratory: bilateral: CTA - Cardiovascular Heart rate: 130 Rhythm: irregularly irregular Heart Sounds: Present: S1 & S2. Absent: rub, click - Extremities Extremities: pulses symmetrical, No edema, abnormal (,Contractures both lower extremities) Extremity abnormal: other (Contractures both lower extremities) Peripheral Pulses: within normal limits - Abdominal General gastrointestinal: Present: soft, non-tender, non-distended, normal bowel sounds Female genitourinary: Present: normal - Integumentary Integumentary: Present: clear, warm, dry - Musculoskeletal Musculoskeletal: gait normal, strength equal bilaterally - Psychiatric Psychiatric: appropriate mood/affect, intact judgment & insight - Neurologic Neurologic: CNII-XII intact, moves all extremities HEART Score - HEART Score History: Moderately suspicious Age: 45-65 Risk factors: > 3 risk factors or hx of atherosclerotic disease Troponin: Troponin T < 0.010 ng/mL (0.00-0.029) 07/15/20 14:04 - Critical Actions Critical Actions: 4-6 pts:12-16.6% risk of adverse cardiac event. Should be admitted Results - Labs CBC & Chem 7: 07/15/20 14:04 07/15/20 14:04 Labs: Laboratory Last Values WBC 13.7 K/mm3 (4.5-11.0) H 07/15/20 14:04 RBC 3.98 M/mm3 (3.65-5.03) 07/15/20 14:04 Hgb 11.1 gm/dl (10.1-14.3) 07/15/20 14:04 Hct 35.1 % (30.3-42.9) 07/15/20 14:04 MCV 88 fl (79-97) 07/15/20 14:04 MCH 28 pg (28-32) 07/15/20 14:04 MCHC 32 % (30-34) 07/15/20 14:04 RDW 14.5 % (13.2-15.2) 07/15/20 14:04 Plt Count 530 K/mm3 (140-440) H 07/15/20 14:04 Lymph % (Auto) 15.6 % (13.4-35.0) 07/15/20 14:04 Randall % (Auto) 8.8 % (0.0-7.3) H 07/15/20 14:04 Eos % (Auto) 0.5 % (0.0-4.3) 07/15/20 14:04 Baso % (Auto) 0.3 % (0.0-1.8) 07/15/20 14:04 Lymph # (Auto) 2.1 K/mm3 (1.2-5.4) 07/15/20 14:04 Randall # (Auto) 1.2 K/mm3 (0.0-0.8) H 07/15/20 14:04 Eos # (Auto) 0.1 K/mm3 (0.0-0.4) 07/15/20 14:04 Baso # (Auto) 0.0 K/mm3 (0.0-0.1) 07/15/20 14:04 Seg Neutrophils % 74.8 % (40.0-70.0) H 07/15/20 14:04 Seg Neutrophils # 10.3 K/mm3 (1.8-7.7) H 07/15/20 14:04 PT 18.5 Sec. (12.2-14.9) H 07/15/20 14:04 INR 1.54 (0.87-1.13) H 07/15/20 14:04 APTT 41.1 Sec. (24.2-36.6) H 07/15/20 14:04 ABG pH 7.413 pH Units (7.350-7.450) 07/15/20 14:29 ABG pCO2 34.1 mm Hg 07/15/20 14:29 ABG pO2 66.8 mm Hg (80.0-90.0) L 07/15/20 14:29 ABG HCO3 21.3 mmol/L (20.0-26.0) 07/15/20 14:29 ABG O2 Saturation 95.1 % (95.0-99.0) 07/15/20 14:29 ABG O2 Content 14.4 (0.0-44) 07/15/20 14: ABG Base Excess -2.7 mmol/L (-2.0-3.0) L 07/15/20 14:29 ABG Hemoglobin 11.0 gm/dl (12.0-16.0) L 07/15/20 14:29 ABG Carboxyhemoglobin 1.4 % (0.0-5.0) 07/15/20 14:29 ABG Methemoglobin 0.4 % (0.0-1.5) 07/15/20 14:29 Oxyhemoglobin 93.3 % (95.0-99.0) L 07/15/20 14:29 FiO2 21 % 07/15/20 14:29 Sodium 149 mmol/L (137-145) H 07/15/20 14:04 Potassium 3.1 mmol/L (3.6-5.0) L 07/15/20 14:04 Chloride 115.3 mmol/L (98-107) H 07/15/20 14:04 Carbon Dioxide 22 mmol/L (22-30) 07/15/20 14:04 Anion Gap 15 mmol/L 07/15/20 14:04 BUN 16 mg/dL (7-17) 07/15/20 14:04 Creatinine 0.4 mg/dL (0.6-1.2) L 07/15/20 14:04 Estimated GFR > 60 ml/min 07/15/20 14:04 BUN/Creatinine Ratio 40 % 07/15/20 14:04 Glucose 130 mg/dL (65-100) H 07/15/20 14:04 Lactic Acid 1.60 mmol/L (0.7-2.0) 07/15/20 15:50 Calcium 9.0 mg/dL (8.4-10.2) 07/15/20 14:04 Magnesium 2.30 mg/dL (1.7-2.3) 07/15/20 14:07 Total Bilirubin 0.30 mg/dL (0.1-1.2) 07/15/20 14:04 AST 97 units/L (5-40) H 07/15/20 14:04 ALT 120 units/L (7-56) H 07/15/20 14:04 Alkaline Phosphatase 222 units/L (35-129) H 07/15/20 14:04 Troponin T < 0.010 ng/mL (0.00-0.029) 07/15/20 14:04 Total Protein 7.0 g/dL (6.3-8.2) 07/15/20 14:04 Albumin 2.6 g/dL (3.9-5) L 07/15/20 14:04 Albumin/Globulin Ratio 0.6 % 07/15/20 14:04 TSH 0.645 mlU/mL (0.270-4.200) 07/15/20 14:07 Free T4 0.67 ng/dL (0.76-1.46) L 07/15/20 14:07 Urine Color Krista (Yellow) 07/15/20 14:20 Urine Turbidity Clear (Clear) 07/15/20 14:20 Urine pH 6.0 (5.0-7.0) 07/15/20 14:20 Ur Specific [place] 1.024 (1.003-1.030) 07/15/20 14:20 Urine Protein 30 mg/dl mg/dL (Negative) 07/15/20 14:20 Urine Glucose (UA) Neg mg/dL (Negative) 07/15/20 14:20 Urine Ketones Neg mg/dL (Negative) 07/15/20 14:20 Urine Blood Neg (Negative) 07/15/20 14:20 Urine Nitrite Neg (Negative) 07/15/20 14:20 Urine Bilirubin Neg (Negative) 07/15/20 14:20 Urine Urobilinogen 4.0 mg/dL (<2.0) 07/15/20 14:20 Ur Leukocyte Esterase Neg (Negative) 07/15/20 14:20 Urine WBC (Auto) 3.0 /HPF (0.0-6.0) 07/15/20 14:20 Urine RBC (Auto) 23.0 /HPF (0.0-6.0) 07/15/20 14:20 U Epithel Cells (Auto) 1.0 /HPF (0-13.0) 07/15/20 14:20 Urine Bacteria (Auto) 2+ /HPF (Negative) 07/15/20 14:20 Urine Mucus 1+ /HPF 07/15/20 14:20 Short CBC 07/15/20 Range/Units 14:04 WBC 13.7 H (4.5-11.0) K/mm3 Hgb 11.1 (10.1-14.3) gm/dl Hct 35.1 (30.3-42.9) % Plt Count 530 H (140-440) K/mm3 BMP 07/15/20 14:04 Sodium 149 H Potassium 3.1 L Chloride 115.3 H Carbon Dioxide 22 BUN 16 Creatinine 0.4 L Glucose 130 H Calcium 9.0 Cardiac Enzymes 07/15/20 Range/Units 14:04 Troponin T < 0.010 (0.00-0.029) ng/mL Liver Function 07/15/20 Range/Units 14:04 Total Bilirubin 0.30 (0.1-1.2) mg/dL AST 97 H (5-40) units/L ALT 120 H (7-56) units/L Alkaline Phosphatase 222 H (35-129) units/L Albumin 2.6 L (3.9-5) g/dL Urine 07/15/20 Range/Units 14:20 Urine Color Krista (Yellow) Urine pH 6.0 (5.0-7.0) Ur Specific [place] 1.024 (1.003-1.030) Urine Protein 30 mg/dl (Negative) mg/dL Urine Glucose (UA) Neg (Negative) mg/dL Microbiology: Microbiology 07/15/20 14:04 Peripheral/Venous Blood Culture - Preliminary Culture in Progress 07/15/20 14:04 Peripheral/Venous Blood Culture - Preliminary Culture in Progress - Imaging and Cardiology EKG: report reviewed Chest x-ray: report reviewed Imaging and Cardiology: Chest x-ray No acute findings or atrial fibrillation with rapid ventricular rate significant interval change Assessment and Plan Advance Directives: Yes (Full code) VTE prophylaxis?: Chemical Plan of care discussed with patient/family: Yes - Patient Problems (1) Acute encephalopathy Current Visit: Yes Status: Acute Plan to address problem: secondary to sepsis (2) Sepsis Current Visit: Yes Status: Acute Plan to address problem: Probably secondary to decubitus ulcers Patient has fever and tachycardia IV Unasyn and IV vancomycin initiated Wound care and surgical consult requested (3) Atrial fibrillation with RVR Current Visit: Yes Status: Acute Plan to address problem: Patient on Eliquis and diltiazem If heart rate not controlled will start on diltiazem drip (4) Sacral decubitus ulcer Current Visit: Yes Status: Acute Qualifiers: Pressure injury stage: stage 3 Qualified Code(s): L89.153 - Pressure ulcer of sacral region, stage 3 Plan to address problem: Wound care and surgical consult requested Patient started on IV Unasyn and IV vancomycin (5) Muscle spasms of both lower extremities Current Visit: Yes Status: Chronic Plan to address problem: Patient on baclofen (6) Peripheral neuropathy Current Visit: Yes Status: Chronic Plan to address problem: Patient is on gabapentin (7) Hypertension Current Visit: Yes Status: Chronic Qualifiers: Hypertension type: essential hypertension Qualified Code(s): I10 - Essential (primary) hypertension Plan to address problem: New antihypertensives and adjust medications (8) Hypernatremia Current Visit: Yes Status: Acute Plan to address problem: Half-normal saline for now (9) Hypokalemia Current Visit: Yes Status: Acute Plan to address problem: Supplemented (10) DVT prophylaxis Current Visit: Yes Status: Acute Plan to address problem: On heparin and GI prophylaxis
[2020-07-15] MEDS ORDERED: NON-FORMULARY EACH (Acetaminophen [Tylenol] 325 MG Capsule) PO PRN (20:12)
[2020-07-15] MEDS ORDERED: LACTOBACILLUS ACIDOPHILUS PO SCH (20:15)
[2020-07-15] MEDS ORDERED: BACLOFEN 5 MG PO SCH (20:15)
[2020-07-15] MEDS ORDERED: ZOFRAN 4 MG SL PRN (20:33)
[2020-07-15] MEDS ORDERED: ONDANSETRON 4 MG/2 ML INJ IV PRN (20:42)
[2020-07-15] MEDS ORDERED: ACETAMINOPHEN 325 MG TAB PO PRN (20:42)
[2020-07-15] MEDS ORDERED: MORPHINE 4 MG/1 ML INJ IV PRN (20:43)
[2020-07-15] MEDS ORDERED: METOCLOPRAMIDE 10 MG/2 ML INJ IV PRN (20:43)
[2020-07-15] MEDS ORDERED: SODIUM CHLORIDE 0.9% 1000 ML 1,000 ML IV SCH (20:45)
[2020-07-15] MEDS ORDERED: VANCOMYCIN PHARMACY TO DOSE IV SCH (21:00)
[2020-07-15] MEDS ORDERED: ONDANSETRON 4 MG ODT TAB PO PRN (21:09)
[2020-07-15] MEDS: ASPIRIN EC 81 MG TAB PO SCH (21:30)
[2020-07-15] MEDS: MELATONIN 5 MG TAB PO SCH ×2 (21:31→21:38)
[2020-07-15] MEDS: BACLOFEN 10 MG TAB PO SCH ×2 (21:31→21:39)
[2020-07-15] MEDS: APIXABAN 5 MG TAB PO SCH ×2 (21:31→21:40)
[2020-07-15] MEDS: GABAPENTIN 300 MG CAP PO SCH ×2 (21:31→21:38)
[2020-07-15] MEDS: CITALOPRAM 10 MG TAB PO SCH (21:39)
[2020-07-15] MEDS: dilTIAZem CD 180 MG CAP PO SCH (21:39)
[2020-07-15] MEDS: LACTOBACILLUS RHAMNOSUS GG 1 EACH CAP PO SCH (21:40)
[2020-07-15] MEDS ORDERED: FAMOTIDINE 20 MG/2 ML INJ IV SCH (22:00)
[2020-07-15] MEDS ORDERED: NON-FORMULARY EACH (Melatonin [Melatonin 3mg Tab] 3 MG Tablet) PO SCH (22:00)
[2020-07-15] MEDS ORDERED: levETIRAcetam 500 MG/5 ML ORAL LIQD PO SCH (22:00)
[2020-07-15] MEDS ORDERED: levETIRAcetam 500 MG TAB PO SCH (22:00)
[2020-07-15] MEDS: levETIRAcetam 500 MG in DEXTROSE 5% IN WATER 100 ML IV SCH (22:47)
[2020-07-15] MEDS: AMPICILLIN/SULBACTA 3GM/100ML 3 GM/100 ML BAG IV SCH (22:48)
[2020-07-16] MEDS: VANCOMYCIN/NS 1 GM/250 ML 1 GM/250 ML BAG IV SCH ×2 (04:13→15:25)
[2020-07-16] MEDS: AMPICILLIN/SULBACTA 3GM/100ML 3 GM/100 ML BAG IV SCH ×4 (05:44→23:48)
[2020-07-16] MEDS: GABAPENTIN 300 MG CAP PO SCH ×3 (05:49→21:09)
[2020-07-16 06:17] LABS: Basophils # (Auto) 0.1 K/mm3 (0.0-0.1); Basophils % (Auto) 0.9 % (0.0-1.8); Eosinophils # (Auto) 0.2 K/mm3 (0.0-0.4); Eosinophils % (Auto) 1.9 % (0.0-4.3); Hematocrit 31.5 % (30.3-42.9); Hemoglobin 9.9 gm/dl (10.1-14.3); Lymphocytes # (Auto) 2.6 K/mm3 (1.2-5.4); Lymphocytes % (Auto) 20.6 % (13.4-35.0); Mean Corpuscular HGB Conc 31 % (30-34); Mean Corpuscular Volume 88 fl (79-97); Monocytes # (Auto) 1.1 K/mm3 (0.0-0.8); Monocytes % (Auto) 8.6 % (0.0-7.3); Platelet Count 497 K/mm3 (140-440); Red Cell Distribution Width 14.7 % (13.2-15.2)
[2020-07-16 06:41] LABS: Alanine Aminotransferase 88 units/L (7-56); Albumin 2.1 g/dL (3.9-5); Blood Urea Nitrogen 14 mg/dL (7-17); Calcium 8.2 mg/dL (8.4-10.2); Hemolysis Index 11
[2020-07-16 06:44] LABS: BUN/Creatinine Ratio 47
[2020-07-16] MEDS ORDERED: LACTULOSE 30 GM PO SCH (08:00)
[2020-07-16] MEDS ORDERED: IRON PO SCH (10:00)
[2020-07-16] MEDS ORDERED: MULTIVIT MIN PO SCH (10:00)
[2020-07-16] MEDS ORDERED: [UNRECOGNIZED DRUG - OTHER] PO SCH (10:00)
[2020-07-16] MEDS ORDERED: FOLIC PO SCH (10:00)
[2020-07-16] MEDS ORDERED: LUTEIN PO SCH (10:00)
[2020-07-16] MEDS: levETIRAcetam 500 MG in DEXTROSE 5% IN WATER 100 ML IV SCH ×2 (10:40→22:51)
[2020-07-16] MEDS: LACTOBACILLUS RHAMNOSUS GG 1 EACH CAP PO SCH (10:46)
[2020-07-16] MEDS: ASPIRIN EC 81 MG TAB PO SCH (10:47)
[2020-07-16] MEDS: TOPIRAMATE TAB 100 MG TAB PO SCH (10:47)
[2020-07-16] MEDS: dilTIAZem CD 180 MG CAP PO SCH (10:47)
[2020-07-16] MEDS: MULTIVITAMINS,THER W-MINERALS TAB PO SCH (10:48)
[2020-07-16] MEDS: FAMOTIDINE 20 MG TAB PO SCH ×2 (10:48→21:09)
[2020-07-16] MEDS: CITALOPRAM 10 MG TAB PO SCH (10:48)
[2020-07-16] MEDS: APIXABAN 5 MG TAB PO SCH ×2 (10:48→21:09)
[2020-07-16] MEDS: LACTULOSE 20 GM/30 ML ORAL LIQD PO SCH ×3 (10:52→20:41)
[2020-07-16] MEDS: BACLOFEN 10 MG TAB PO SCH ×2 (10:52→20:57)
[2020-07-16] MEDS: MELATONIN 5 MG TAB PO SCH (21:09)
[2020-07-17] MEDS: VANCOMYCIN/NS 1 GM/250 ML 1 GM/250 ML BAG IV SCH ×2 (03:53→16:00)
[2020-07-17] MEDS: GABAPENTIN 300 MG CAP PO SCH ×3 (05:51→22:59)
[2020-07-17] MEDS: AMPICILLIN/SULBACTA 3GM/100ML 3 GM/100 ML BAG IV SCH ×4 (05:51→23:02)
--- NOTE | 2020-07-17 07:23 | Progress Note ---
Assessment and Plan - Patient Problems (1) Acute encephalopathy Current Visit: Yes Status: Acute Plan to address problem: secondary to sepsis Improved (2) Sepsis Current Visit: Yes Status: Acute Plan to address problem: Probably secondary to decubitus ulcers Patient has fever and tachycardia IV Unasyn and IV vancomycin initiated Wound care and surgical consult appreciated (3) Atrial fibrillation with RVR Current Visit: Yes Status: Acute Plan to address problem: Patient on Eliquis and diltiazem If heart rate not controlled will start on diltiazem drip (4) Sacral decubitus ulcer Current Visit: Yes Status: Acute Qualifiers: Pressure injury stage: stage 3 Qualified Code(s): L89.153 - Pressure ulcer of sacral region, stage 3 Plan to address problem: Wound care and surgical consult requested Patient started on IV Unasyn and IV vancomycin (5) Muscle spasms of both lower extremities Current Visit: Yes Status: Chronic Plan to address problem: Patient on baclofen (6) Peripheral neuropathy Current Visit: Yes Status: Chronic Plan to address problem: Patient is on gabapentin (7) Hypertension Current Visit: Yes Status: Chronic Qualifiers: Hypertension type: essential hypertension Qualified Code(s): I10 - Essential (primary) hypertension Plan to address problem: New antihypertensives and adjust medications (8) Hypernatremia Current Visit: Yes Status: Acute Plan to address problem: Half-normal saline for now (9) Hypokalemia Current Visit: Yes Status: Acute Plan to address problem: Supplemented (10) DVT prophylaxis Current Visit: Yes Status: Acute Plan to address problem: On heparin and GI prophylaxis Subjective Date of service: 07/16/20 Principal diagnosis: Acute encephalopathy, sacral decubitus ulcer Interval history: 60-year-old female with multiple medical problems including atrial fibrillation, muscle spasms, peripheral neuropathy, seizure disorders, decubitus ulcers and hypertension and CVA with a residual weakness and multiple sclerosis sent from shelter for tachycardia and low oxygen levels. Apparently patient's heart rate was in the 200s and the EMS gave her nursing and brought it down to 130. Patient also has fever. Altered sensorium. Day #2 Acute encephalopathy improved Sacral stage 4 pressure injury measuring [id number]. Objective - Constitutional Vitals: Vital Signs - 12hr 07/16/20 07/16/20 07/17/20 22:00 22:32 03:00 Temperature 99.4 F Pulse Rate 111 H Respiratory 20 17 Rate Respiratory 18 Rate [Right Thigh] Blood Pressure 121/71 O2 Sat by Pulse 94 96 Oximetry 07/17/20 04:46 Temperature 98.9 F Pulse Rate 88 Respiratory 18 Rate Respiratory Rate [Right Thigh] Blood Pressure 133/70 O2 Sat by Pulse 94 Oximetry General appearance: Present: no acute distress, well-nourished - EENT Eyes: PERRL, EOM intact ENT: hearing intact, clear oral mucosa Ears: bilateral: normal - Neck Neck: supple, normal ROM - Respiratory Respiratory effort: normal Respiratory: bilateral: CTA - Breasts Breasts: normal - Cardiovascular Rhythm: regular Heart Sounds: Present: S1 & S2. Absent: gallop, rub Extremities: pulses intact, No edema, normal color, Full ROM, abnormal (Large sacral decubitus ulcer 7 cm X 8 cm X 4 cm depth) Extremity abnormal: other - Gastrointestinal General gastrointestinal: Present: soft, non-tender, non-distended, normal bowel sounds - Genitourinary Female genitourinary: normal - Integumentary Integumentary: clear, warm, dry - Musculoskeletal Musculoskeletal: 1, strength equal bilaterally - Neurologic Neurologic: moves all extremities - Psychiatric Psychiatric: memory intact, appropriate mood/affect, intact judgment & insight - Labs CBC & Chem 7: 07/16/20 05:44 07/16/20 05:44 HEART Score - HEART Score Age: 45-65 Risk factors: > 3 risk factors or hx of atherosclerotic disease Troponin: Troponin T < 0.010 ng/mL (0.00-0.029) 07/15/20 14:04 - Critical Actions Critical Actions: 4-6 pts:12-16.6% risk of adverse cardiac event. Should be admitted
[2020-07-17] MEDS: APIXABAN 5 MG TAB PO SCH ×2 (09:23→22:59)
[2020-07-17] MEDS: ASPIRIN EC 81 MG TAB PO SCH (09:23)
[2020-07-17] MEDS: TOPIRAMATE TAB 100 MG TAB PO SCH (09:24)
[2020-07-17] MEDS: FAMOTIDINE 20 MG TAB PO SCH ×2 (09:24→22:59)
[2020-07-17] MEDS: LACTULOSE 20 GM/30 ML ORAL LIQD PO SCH ×3 (09:25→20:22)
[2020-07-17] MEDS: CITALOPRAM 10 MG TAB PO SCH (09:25)
[2020-07-17] MEDS: LACTOBACILLUS RHAMNOSUS GG 1 EACH CAP PO SCH (09:25)
[2020-07-17] MEDS: BACLOFEN 10 MG TAB PO SCH ×2 (09:28→22:59)
[2020-07-17] MEDS: dilTIAZem CD 180 MG CAP PO SCH (09:28)
[2020-07-17] MEDS: levETIRAcetam 500 MG in DEXTROSE 5% IN WATER 100 ML IV SCH (09:37)
[2020-07-17] MEDS: MULTIVITAMINS,THER W-MINERALS TAB PO SCH (12:42)
[2020-07-17] MEDS: oxyCODONE /ACETAMINOPHEN 5-325MG TAB PO PRN (17:05)
--- NOTE | 2020-07-17 18:30 | Progress Note ---
Assessment and Plan - Patient Problems (1) Sacral decubitus ulcer Current Visit: Yes Status: Acute Qualifiers: Pressure injury stage: stage 3 Qualified Code(s): L89.153 - Pressure ulcer of sacral region, stage 3 Plan to address problem: Wound care and surgical consult appreciated Patient started on IV Unasyn and IV vancomycin Per wound care --sacral wound undermines from 9 o clock to 1 o clock with a 4cm distance. Wound also tunnels at 2 o clock 8.5cm distance. Wound bed is mostly pink with red. Wound draining moderate amounts of sero-sanguineous drainage. Wound cleansed with wound cleanser, packed with calcium alginate, covered with gauze and then telfa. Some kemal-wound skin denudation and scarring was noted . (2) Acute encephalopathy Current Visit: Yes Status: Acute Plan to address problem: secondary to sepsis (3) Sepsis Current Visit: Yes Status: Acute Plan to address problem: Probably secondary to decubitus ulcers Patient has fever and tachycardia IV Unasyn and IV vancomycin initiated Wound care and surgical consult requested (4) Atrial fibrillation with RVR Current Visit: Yes Status: Acute Plan to address problem: Patient on Eliquis and diltiazem If heart rate not controlled will start on diltiazem drip (5) Muscle spasms of both lower extremities Current Visit: Yes Status: Chronic Plan to address problem: Patient on baclofen (6) Peripheral neuropathy Current Visit: Yes Status: Chronic Plan to address problem: Patient is on gabapentin (7) Hypertension Current Visit: Yes Status: Chronic Qualifiers: Hypertension type: essential hypertension Qualified Code(s): I10 - Essential (primary) hypertension Plan to address problem: New antihypertensives and adjust medications (8) Hypernatremia Current Visit: Yes Status: Acute Plan to address problem: Half-normal saline for now (9) Hypokalemia Current Visit: Yes Status: Acute Plan to address problem: Supplemented (10) DVT prophylaxis Current Visit: Yes Status: Acute Plan to address problem: On heparin and GI prophylaxis Subjective Date of service: 07/17/20 Principal diagnosis: Acute encephalopathy, large sacral decubitus ulcer Interval history: 60-year-old female with multiple medical problems including atrial fibrillation, muscle spasms, peripheral neuropathy, seizure disorders, decubitus ulcers and hypertension and CVA with a residual weakness and multiple sclerosis sent from [facility] for tachycardia and low oxygen levels. Apparently patient's heart rate was in the 200s and the EMS gave her nursing and brought it down to 130. Patient also has fever. Altered sensorium. Day #2 Acute encephalopathy improved Sacral stage 4 pressure injury measuring [id number]. Day #3 Patient at baseline Able to talk especially with the nursing staff Large sacral decubitus ulcer 7 cm X 8 cm X 4 cm depth Objective - Constitutional Vitals: Vital Signs - 12hr 07/17/2007/17/07/17/20 09:28 11:20 16:14 Temperature 98.3 F 98.6 F Pulse Rate 95 H 82 Respiratory 17 17 Rate Blood Pressure 130/72 Blood Pressure 94/52 111/70 [Left] O2 Sat by Pulse 96 100 Oximetry General appearance: Present: no acute distress, well-nourished - EENT Eyes: PERRL, EOM intact ENT: hearing intact, clear oral mucosa Ears: bilateral: normal - Neck Neck: supple, normal ROM - Respiratory Respiratory effort: normal Respiratory: bilateral: CTA - Breasts Breasts: normal - Cardiovascular Heart rate: 78 Rhythm: irregularly irregular (78) Heart Sounds: Present: S1 & S2. Absent: gallop, rub Extremities: pulses intact, No edema, normal color, Full ROM, abnormal (Large sacral decubitus ulcer 7 cm X 8 cm X 4 cm depth, no drainage) - Gastrointestinal General gastrointestinal: Present: soft, non-tender, non-distended, normal bowel sounds - Genitourinary Female genitourinary: normal - Integumentary Integumentary: clear, warm, dry - Musculoskeletal Musculoskeletal: 1, strength equal bilaterally - Neurologic Neurologic: moves all extremities - Psychiatric Psychiatric: memory intact, appropriate mood/affect, intact judgment & insight - Labs CBC & Chem 7: 07/16/20 05:44 07/16/20 05:44 HEART Score - HEART Score Age: 45-65 Risk factors: > 3 risk factors or hx of atherosclerotic disease Troponin: Troponin T < 0.010 ng/mL (0.00-0.029) 07/15/20 14:04 - Critical Actions Critical Actions: 4-6 pts:12-16.6% risk of adverse cardiac event. Should be admitted
[2020-07-17] MEDS: MELATONIN 5 MG TAB PO SCH (22:59)
[2020-07-17] MEDS: levETIRAcetam 500 MG TAB PO SCH (23:00)
[2020-07-18] MEDS: oxyCODONE /ACETAMINOPHEN 5-325MG TAB PO PRN ×3 (04:17→16:15)
[2020-07-18] MEDS: VANCOMYCIN/NS 1 GM/250 ML 1 GM/250 ML BAG IV SCH (04:37)
[2020-07-18] MEDS: AMPICILLIN/SULBACTA 3GM/100ML 3 GM/100 ML BAG IV SCH ×2 (05:42→13:05)
[2020-07-18] MEDS: GABAPENTIN 300 MG CAP PO SCH ×2 (05:52→16:15)
[2020-07-18 07:01] VITALS: BP 143/77
--- NOTE | 2020-07-18 07:18 | Event Note ---
Date: 07/17/20 Patient will be discharged to [facility] facility Patient has a bed hold Surgical wound is pink with no discharge now Patient may be discharged tomorrow Needs coronavirus PCR before discharge
[2020-07-18] MEDS: TOPIRAMATE TAB 100 MG TAB PO SCH ×2 (08:52→16:13)
[2020-07-18] MEDS: dilTIAZem CD 180 MG CAP PO SCH ×2 (08:54→16:11)
[2020-07-18] MEDS: LACTOBACILLUS RHAMNOSUS GG 1 EACH CAP PO SCH ×2 (08:54→16:11)
[2020-07-18] MEDS: ASPIRIN EC 81 MG TAB PO SCH ×2 (08:54→16:12)
[2020-07-18] MEDS: APIXABAN 5 MG TAB PO SCH ×2 (08:55→16:12)
[2020-07-18] MEDS: CITALOPRAM 10 MG TAB PO SCH ×2 (08:55→16:11)
[2020-07-18] MEDS: levETIRAcetam 500 MG TAB PO SCH ×2 (08:55→16:12)
[2020-07-18] MEDS: MULTIVITAMINS,THER W-MINERALS TAB PO SCH ×2 (08:55→16:12)
[2020-07-18] MEDS: LACTULOSE 20 GM/30 ML ORAL LIQD PO SCH (08:56)
[2020-07-18] MEDS: BACLOFEN 10 MG TAB PO SCH (09:58)
--- NOTE | 2020-07-18 15:30 | Progress Note ---
Assessment and Plan - Patient Problems (1) Sepsis Current Visit: Yes Status: Acute Plan to address problem: Sepsis protocol: CBC, CMP, IV antibiotic therapy, monitor urine output every shift, maintain mean arterial pressure greater than or equal to 65, monitor fluid balance. (2) Acute encephalopathy Current Visit: Yes Status: Acute Plan to address problem: Supportive care, neuro check, treat sepsis. (3) Atrial fibrillation with RVR Current Visit: Yes Status: Acute Plan to address problem: Continue therapeutic anticoagulation, continue rate control, continue medical management. (4) Sacral decubitus ulcer Current Visit: Yes Status: Acute Qualifiers: Pressure injury stage: stage 3 Qualified Code(s): L89.153 - Pressure ulcer of sacral region, stage 3 Plan to address problem: Wound care, IV antibiotic therapy, continue wound care management. (5) DVT prophylaxis Current Visit: Yes Status: Acute Plan to address problem: SCD to bilateral lower extremities while in bed, therapeutic anticoagulation. (6) Advance care planning Current Visit: Yes Status: Acute Plan to address problem: Disease education conducted, care plan discussed, prognosis discussed, case management consulted. Patient pending discharge to group home facility when bed available, +30 minutes. History Interval history: 60 YO Female HD #4 with Sepsis currently on antibiotic therapy, Acute Encephalopathy, Debility, Sacral Decubitus Ulcer present on admission. Patient resting comfortably. No reported nursing events. Patient denies pain at time of evaluation. Case management consulted. Patient pending discharge to group home facility when bed available. Hospitalist Physical - Constitutional Vitals: Temp Pulse Resp BP Pulse Ox 98.0 F 89 20 143/77 94 07/18/20 05:47 07/18/20 05:47 07/18/20 05:47 07/18/20 05:47 07/18/20 05:47 General appearance: Present: no acute distress, well-nourished - EENT Eyes: Present: PERRL ENT: hearing decreased - Neck Neck: Present: supple - Respiratory Respiratory effort: normal Respiratory: bilateral: CTA - Cardiovascular Rhythm: regular Heart Sounds: Present: S1 & S2 - Extremities Extremities: no ischemia Peripheral Pulses: within normal limits - Abdominal General gastrointestinal: soft, non-tender, non-distended - Integumentary Integumentary: Present: clear, dry - Psychiatric Psychiatric: cooperative - Neurologic Neurologic: CNII-XII intact HEART Score - HEART Score Age: 45-65 Risk factors: > 3 risk factors or hx of atherosclerotic disease Troponin: Troponin T < 0.010 ng/mL (0.00-0.029) 07/15/20 14:04 - Critical Actions Critical Actions: 4-6 pts:12-16.6% risk of adverse cardiac event. Should be admitted Results - Labs CBC & Chem 7: 07/16/20 05:44 07/16/20 05:44 Labs: Laboratory Last Values WBC 12.5 K/mm3 (4.5-11.0) H 07/16/20 05:44 RBC 3.60 M/mm3 (3.65-5.03) L 07/16/20 05:44 Hgb 9.9 gm/dl (10.1-14.3) L 07/16/20 05:44 Hct 31.5 % (30.3-42.9) 07/16/20 05:44 MCV 88 fl (79-97) 07/16/20 05:44 MCH 28 pg (28-32) 07/16/20 05:44 MCHC 31 % (30-34) 07/16/20 05:44 RDW 14.7 % (13.2-15.2) 07/16/20 05:44 Plt Count 497 K/mm3 (140-440) H 07/16/20 05:44 Lymph % (Auto) 20.6 % (13.4-35.0) 07/16/20 05:44 [place] % (Auto) 8.6 % (0.0-7.3) H 07/16/20 05:44 Eos % (Auto) 1.9 % (0.0-4.3) 07/16/20 05:44 Baso % (Auto) 0.9 % (0.0-1.8) 07/16/20 05:44 Lymph # (Auto) 2.6 K/mm3 (1.2-5.4) 07/16/20 05:44 [place] # (Auto) 1.1 K/mm3 (0.0-0.8) H 07/16/20 05:44 Eos # (Auto) 0.2 K/mm3 (0.0-0.4) 07/16/20 05:44 Baso # (Auto) 0.1 K/mm3 (0.0-0.1) 07/16/20 05:44 Seg Neutrophils % 68.0 % (40.0-70.0) 07/16/20 05:44 Seg Neutrophils # 8.5 K/mm3 (1.8-7.7) H 07/16/20 05:44 PT 18.5 Sec. (12.2-14.9) H 07/15/20 14:04 INR 1.54 (0.87-1.13) H 07/15/20 14:04 APTT 41.1 Sec. (24.2-36.6) H 07/15/20 14:04 ABG pH 7.413 pH Units (7.350-7.450) 07/15/20 14:29 ABG pCO2 34.1 mm Hg 07/15/20 14:29 ABG pO2 66.8 mm Hg (80.0-90.0) L 07/15/20 14:29 ABG HCO3 21.3 mmol/L (20.0-26.0) 07/15/20 14:29 ABG O2 Saturation 95.1 % (95.0-99.0) 07/15/20 14:29 ABG O2 Content 14.4 (0.0-44) 07/15/20 14:29 ABG Base Excess -2.7 mmol/L (-2.0-3.0) L 07/15/20 14:29 ABG Hemoglobin 11.0 gm/dl (12.0-16.0) L 07/15/20 14:29 ABG Carboxyhemoglobin 1.4 % (0.0-5.0) 07/15/20 14:29 ABG Methemoglobin 0.4 % (0.0-1.5) 07/15/20 14:29 Oxyhemoglobin 93.3 % (95.0-99.0) L 07/15/20 14:29 FiO2 21 % 07/15/20 14:29 Sodium 150 mmol/L (137-145) H 07/16/20 05:44 Potassium 3.0 mmol/L (3.6-5.0) L 07/16/20 05:44 Chloride 121.8 mmol/L (98-107) H 07/16/20 05:44 Carbon Dioxide 20 mmol/L (22-30) L 07/16/20 05:44 Anion Gap 11 mmol/L 07/16/20 05:44 BUN 14 mg/dL (7-17) 07/16/20 05:44 Creatinine 0.3 mg/dL (0.6-1.2) L 07/16/20 05:44 Estimated GFR > 60 ml/min 07/16/20 05:44 BUN/Creatinine Ratio 47 % 07/16/20 05:44 Glucose 101 mg/dL (65-100) H 07/16/20 05:44 Hemoglobin A1c 5.3 % (4-6) 07/16/20 05:44 Lactic Acid 1.60 mmol/L (0.7-2.0) 07/15/20 15:50 Calcium 8.2 mg/dL (8.4-10.2) L 07/16/20 05:44 Magnesium 2.30 mg/dL (1.7-2.3) 07/15/20 14:07 Total Bilirubin 0.30 mg/dL (0.1-1.2) 07/16/20 05:44 AST 53 units/L (5-40) H 07/16/20 05:44 ALT 88 units/L (7-56) H 07/16/20 05:44 Alkaline Phosphatase 188 units/L (35-129) H 07/16/20 05:44 Troponin T < 0.010 ng/mL (0.00-0.029) 07/15/20 14:04 Total Protein 6.2 g/dL (6.3-8.2) L 07/16/20 05:44 Albumin 2.1 g/dL (3.9-5) L 07/16/20 05:44 Albumin/Globulin Ratio 0.5 % 07/16/20 05:44 TSH 0.645 mlU/mL (0.270-4.200) 07/15/20 14:07 Free T4 0.67 ng/dL (0.76-1.46) L 07/15/20 14:07 Urine Color Krista (Yellow) 07/15/20 14:20 Urine Turbidity Clear (Clear) 07/15/20 14:20 Urine pH 6.0 (5.0-7.0) 07/15/20 14:20 Ur Specific [place] 1.024 (1.003-1.030) 07/15/20 14:20 Urine Protein 30 mg/dl mg/dL (Negative) 07/15/20 14:20 Urine Glucose (UA) Neg mg/dL (Negative) 07/15/20 14:20 Urine Ketones Neg mg/dL (Negative) 07/15/20 14:20 Urine Blood Neg (Negative) 07/15/20 14:20 Urine Nitrite Neg (Negative) 07/15/20 14:20 Urine Bilirubin Neg (Negative) 07/15/20 14:20 Urine Urobilinogen 4.0 mg/dL (<2.0) 07/15/20 14:20 Ur Leukocyte Esterase Neg (Negative) 07/15/20 14:20 Urine WBC (Auto) 3.0 /HPF (0.0-6.0) 07/15/20 14:20 Urine RBC (Auto) 23.0 /HPF (0.0-6.0) 07/15/20 14:20 U Epithel Cells (Auto) 1.0 /HPF (0-13.0) 07/15/20 14:20 Urine Bacteria (Auto) 2+ /HPF (Negative) 07/15/20 14:20 Urine Mucus 1+ /HPF 07/15/20 14:20 Coronavirus (PCR) Negative (Negative) 07/18/20 Unknown Microbiology: Microbiology 07/15/20 14:04 Peripheral/Venous Blood Culture - Preliminary NO GROWTH AFTER 72 HOURS 07/15/20 14:04 Peripheral/Venous Blood Culture - Preliminary NO GROWTH AFTER 72 HOURS 07/17/20 04:56 Wound - Deep Wound Culture - Preliminary 07/15/20 14:23 Urine,Catheterized - Indwelling Catheter Urine Culture - Final NO GROWTH AFTER 48 HOURS Carl/IV: Voiding Method Indwelling Catheter Active Medications - Current Medications Current Medications: Generic Name Dose Route Start Last Admin Trade Name Freq PRN Reason Stop Dose Admin Acetaminophen 650 mg 07/15/20 20:42 Acetaminophen 325 Mg Tab PO Q4H PRN Pain MILD(1-3)/Fever >100.5/[place] Apixaban 5 mg 07/15/20 22:00 07/18/20 08:55 Apixaban 5 Mg Tab PO 5 mg BID NILAM Administration Protocol Aspirin 81 mg 07/15/20 21:00 07/18/20 08:54 Aspirin Ec 81 Mg Tab PO 81 mg QDAY NILAM Administration Baclofen 10 mg 07/15/20 21:00 07/18/20 09:58 Baclofen 10 Mg Tab PO 10 mg Q12H NILAM Administration Citalopram Hydrobromide 10 mg 07/15/20 21:00 07/18/20 08:55 Citalopram 10 Mg Tab PO 10 mg QDAY NILAM Administration Diltiazem HCl 180 mg 07/15/20 21:00 07/18/20 08:54 Diltiazem Cd 180 Mg Cap PO 180 mg QDAY NILAM Administration Famotidine 20 mg 07/16/20 10:00 07/17/20 22:59 Famotidine 20 Mg Tab PO 20 mg BID NILAM Administration Gabapentin 300 mg 07/15/20 22:00 07/18/20 05:52 Gabapentin 300 Mg Cap PO 300 mg Q8HR NILAM Administration Ampicillin Sodium/Sulbactam Sodium 3 gm in 100 mls @ 100 mls/hr 07/15/20 22:00 07/18/20 13:05 Unasyn/Ns 3 Gm/100 Ml IV 100 mls/hr Q6HR NILAM Administration Protocol Vancomycin HCl 1 gm in 250 mls @ 166.667 mls/hr 07/16/20 04:00 07/18/20 04:37 Vancomycin/Ns 1 Gm/250 Ml IV 166.667 mls/hr Q12H NILAM Administration Lactobacillus Rhamnosus 1 each 07/15/20 22:00 07/18/20 08:54 Lactobacillus Rhamnosus Gg 1 Each Cap PO 1 each DAILY NILAM Administration Lactulose 30 gm 07/16/20 08:00 07/18/20 08:56 Lactulose 20 Gm/30 Ml Oral Liqd PO 30 gm TID NILAM Administration Levetiracetam 500 mg 07/17/20 22:00 07/18/20 08:55 Levetiracetam 500 Mg Tab PO 500 mg BID NILAM Administration Melatonin 5 mg 07/15/20 22:00 07/17/20 22:59 Melatonin 5 Mg Tab PO 5 mg QHS NILAM Administration Metoclopramide HCl 10 mg 07/15/20 20:43 Metoclopramide 10 Mg/2 Ml Inj IV Q6H PRN Nausea And Vomiting Morphine Sulfate 4 mg 07/15/20 20:43 Morphine 4 Mg/1 Ml Inj IV Q4H PRN Pain , Severe (7-10) Multivitamins/Minerals 1 each 07/16/20 10:00 07/18/20 08:55 Multivitamins,Ther W-Minerals Tab PO 1 each QDAY NILAM Administration Ondansetron HCl 4 mg 07/15/20 20:42 Ondansetron 4 Mg/2 Ml Inj IV Q8H PRN Nausea And Vomiting Ondansetron HCl 4 mg 07/15/20 21:09 Ondansetron 4 Mg Odt Tab PO Q6H PRN Nausea And Vomiting Oxycodone/Acetaminophen 1 tab 07/15/20 20:43 07/18/20 09:58 Oxycodone /Acetaminophen 5-325mg Tab PO 1 tab Q6H PRN Administration Pain, Moderate (4-6) Sodium Chloride 10 ml 07/15/20 22:00 07/17/20 23:18 Sodium Chloride 0.9% 10 Ml Flush Syringe IV 10 ml BID NILAM Administration Sodium Chloride 10 ml 07/15/20 20:42 Sodium Chloride 0.9% 10 Ml Flush Syringe IV PRN PRN LINE FLUSH Topiramate 100 mg 07/16/20 10:00 07/18/20 08:52 Topiramate Tab 100 Mg Tab PO 100 mg DAILY NILAM Administration Nutrition/Malnutrition Assess - Dietary Evaluation Nutrition/Malnutrition Findings: Nutrition Notes Start: 07/16/20 12:03 Freq: Status: Active Protocol: Document 07/17/20 15:17 CW (Rec: 07/17/20 15:23 CW [id number]) Nutrition Notes Initial or Follow up Assessment Current Diagnosis Decubitus(Pressure Ulcer), Sepsis,Hypertension,Stroke Other Pertinent Diagnosis Acute encephalopathy, tachycardia, seizure d/o, peripheral neuropathy Current Diet Cardiac Labs/Tests Na 150 K 3.0 Pertinent Medications Reviewed Height 5 ft 7 in Weight 76.3 kg [place] Body Weight (kg) 61.36 BMI 26.3 Weight change and time frame Weight gain of 2.8% x 4 weeks (AEB weight of last visit on ) Weight Status Appropriate Subjective/Other Information F/U LOT PORTER, ONS, and intakes. Pt has very poor intake. Pt open to recieving boost, chocolate flavor is preferred. Pt has been given a mechincal soft diet to aide in chewing meals. Burn Absent Trauma Absent Food Allergy Yes Skin Integrity/Comment Wounds to sacrum and (R) ankle Minimum of two criteria No #2 Nutrition Diagnosis Inadequate oral intake Etiology low appetite As Evidenced by Signs and Symptoms PO intake of 25% of meals provided #1 Nutrition Diagnosis Predicted suboptimal energy intake Diagnosis Progress(for reassessment Resolved documentation) Is patient on ventilator? No Is Patient Ambulatory and/or Out of Bed No REE-([facility]-confined to bed) [phone] Calculation Used for Recommendations [facility] Additional Notes Pro needs 1.25-1.5g/k- 105g/day Fluid needs 1ml/kcal Nutrition Intervention Change Diet Order: Continue Mechanical Soft Cardiac Diet Add Supplement/Snack (indicate name/kcal Ensure Enlive BID Chocolate /protein ) Provides kCal: 700 Provides Protein (gm) 40 Goal #1 PO tolerance Goal #2 PO intake to meet at least 75% energy and pro needs Goal #3 Wound healing Anticipated Discharge Needs: Cardiac diet and ONS BID for wound healing Follow-Up By: 07/19/20 Additional Comments F/U ONS tolerance and intakes
[2020-07-18] MEDS: FAMOTIDINE 20 MG TAB PO SCH (16:12)
== END 2020-07-18 17:45 | DRG 871 ==
LOC: ED 13:06 → 3A 15:46
PROVIDERS: ADMIT Internal Medicine; ATTEND Internal Medicine
DX: A41.9 Sepsis, unspecified organism (principal); L89.153 Pressure ulcer of sacral region, stage 3; G93.41 Metabolic encephalopathy; I47.1 Supraventricular tachycardia; E87.0 Hyperosmolality and hypernatremia; J45.909 Unspecified asthma, uncomplicated; F44.4 Conversion disorder with motor symptom or deficit; I50.9 Heart failure, unspecified; I11.0 Hypertensive heart disease with heart failure; I48.91 Unspecified atrial fibrillation; E87.6 Hypokalemia; G62.9 Polyneuropathy, unspecified; Z86.718 Personal history of other venous thrombosis and embolism; Z79.01 Long term (current) use of anticoagulants; Z79.899 Other long term (current) drug therapy; Z91.041 Radiographic dye allergy status; Z88.5 Allergy status to narcotic agent; Z91.013 Allergy to seafood; Z88.8 Allergy status to other drugs, medicaments and biological substances; Z91.09 Other allergy status, other than to drugs and biological substances; Z98.891 History of uterine scar from previous surgery; I69.951 Hemiplegia and hemiparesis following unspecified cerebrovascular disease affecting right dominant side
CPT/HCPCS: 36415; 36600; 71045; 80053; 81001; 82140; 82803; 83036; 83735; 84439; 84443; 84484; 85025; 85610; 85730; 87040; 87076; 87086; 87116; 87186; 93005; 96374; 96375; 96376; G0378; J0295; J1953; J2543; J3370; J7030; J7040; U0003